=== PATIENT | male | born 1930 | race Caucasian/White ===

== ENCOUNTER 2016-11-15 05:52 | Inpatient (IN) | payer BC, OTHER ==
[2016-10-31 08:22] VITALS: BMI 24.0
--- NOTE | 2016-10-31 09:06 | PAT Medication Instructions ---
Service Date Oct 31, 2016. Current Home Medication List Amlodipine (Norvasc), 10 MG PO BID Aspirin (Aspirin Ec), 81 MG PO QAM Cyanocobalamin (Vitamin B12 100 Mcg), 100 MCG PO QAM Gabapentin (Neurontin), 100 MG PO QAM Gabapentin (Neurontin), 200 MG PO HS Lisinopril (Lisinopril), 5 MG PO BID Pantoprazole (Protonix), 40 MG PO BID Medication Instructions For Your Scheduled Surgery - Check with surgeon/site engineer: Aspirin (Aspirin Ec), 81 MG PO QAM - Hold the following medications the morning of surgery: Lisinopril (Lisinopril), 5 MG PO BID Cyanocobalamin (Vitamin B12 100 Mcg), 100 MCG PO QAM - Take the following medications the morning of surgery with a sip of water: Amlodipine (Norvasc), 10 MG PO BID Pantoprazole (Protonix), 40 MG PO BID Gabapentin (Neurontin), 100 MG PO QAM - Hold the following medications as scheduled the night before surgery: Lisinopril (Lisinopril), 5 MG PO BID - Take the following medications as scheduled the night before surgery: Amlodipine (Norvasc), 10 MG PO BID Pantoprazole (Protonix), 40 MG PO BID Gabapentin (Neurontin), 200 MG PO HS If you have any questions please call us at [phone] (Elise Shine PA-C) or [phone] or [phone]
[2016-10-31 09:42] LABS: BASO % 0.1 %; BASO ABS # 0.01 K/uL (0-0.2); COMPLETE YES; EOS % 2.1 %; HEMATOCRIT 48.3 % (42-52); IG% 0.1 %; LYMPH % 3.9 %; MEAN CELL VOLUME 94.2 fL (80-100); MEAN CORPUSCULAR HEMOGLOBIN 31.4 pg (25-34); MEAN CORPUSCULAR HGB CONC 33.3 g/dl (32-36); MEAN PLATELET VOLUME 12.9 fL (7.4-10.4); MONO % 3.8 %; PLATELET COUNT 176 K/uL (130-400); RED BLOOD COUNT 5.13 M/uL (4.7-6.1)
--- NOTE | 2016-10-31 10:00 | DIAGNOSTIC IMAGING REPORT ---
CHEST PREADMISSION(PA/LAT) HISTORY: Preop. COMPARISON: Chest 11/10/2014. FINDINGS: No pneumothorax. No pleural effusions. The heart is normal in size. There are few linear density at the left lung base which favor subsegmental atelectasis or scarring. Spinal electrodes are noted within the mid thoracic region. There is electronic device implanted within the left anterior chest wall. An IVC filter is noted. A 1 cm left basilar nodule remains stable. IMPRESSION: No significant change compared to the prior study. No acute process. Stable left basilar subsegmental atelectasis and a 1 cm nodule. Electronically signed by: George Lilly M.D. 10/31/2016 9:59 AM
[2016-10-31 10:03] LABS: URINE APPEARANCE CLEAR (CLEAR); URINE BILIRUBIN NEG (NEG); URINE COLOR YELLOW; URINE EPITHELIAL CELL AUTO 0-5 /lpf (0-5); URINE NITRITE NEG (NEG); URINE SPECIFIC GRAVITY 1.017 (1.000-1.030); UROBILINOGEN NEG (NEG)
[2016-10-31 10:11] LABS: MANUAL MICROSCOPIC REQUIRED? NO; REVIEW REQ? NO
[2016-10-31 10:20] LABS: CALCIUM 9.4 mg/dl (8.5-10.1)
[2016-10-31 10:21] LABS: BUN/CREATININE RATIO 13.8 (10-20); CREATININE 1.3 mg/dl (0.60-1.40); POTASSIUM 4.6 mmol/L (3.5-5.1)
--- NOTE | 2016-11-14 10:51 | HISTORY & PHYSICAL EXAMINATION ---
DATE OF ADMISSION: 11/15/2016 HISTORY: The patient presents to our office with complaint of bilateral buttock pain. This is reproduced with standing and walking. Sitting is comfortable. It does disturb his sleep. He reports he is not using his dorsal column stimulator. MEDICAL HISTORY: Significant for Lyme disease, hypertension. SURGICAL HISTORY: Significant for dorsal column stim implant, rotator cuff repair, hernia repair. ALLERGIES: INCLUDE PHENOBARBITAL. CURRENT MEDICATIONS: Include lisinopril, unknown dosage. SOCIAL HISTORY: He is single, retired. Alcohol use is none. Tobacco use is none. FAMILY HISTORY: Noncontributory. REVIEW OF SYSTEMS: Significant for difficulty walking, heartburn, ringing in ears, frequent urination. PHYSICAL EXAMINATION: VITAL SIGNS: 5 feet 11 inches, 170 pounds. HEENT: Speech appropriate. CARDIOPULMONARY: No gross abnormalities. ABDOMEN: Soft, nontender. GENITOURINARY: Deferred. NEUROLOGIC: Cranial nerves II-XII grossly intact. MUSCULOSKELETAL: Well-healed lumbar incision. Ambulates around with a widened but steady gait. No significant weakness throughout the lower extremities. ASSESSMENT: At this point in time, he has fairly significant spinal stenosis and lateral recess disease at L5-S1. He is very hesitant to pursue surgical intervention for this. PLAN: At this point in time is removal of dorsal column stimulator as he is not using this. Once it has been removed, we can move forward with an MRI of the lumbar spine with possible diagnostic and therapeutic nerve blocks. Risks, benefits, pros, cons and alternatives were outlined in detail for above-mentioned removal of dorsal column stimulator. He is comfortable with proceeding with this.
[~2016-11-15] VITALS: Ht 180.3 cm; Wt 79.4 kg
[2016-11-15] VITALS (7 sets, daily range): BP systolic 131–171; BP diastolic 63–95; PULSE 61–86; TEMP 36.5–36.8; O2SAT 92–100; Ht 180.3 cm; Wt 79.4 kg
[~2016-11-15 05:52] MED LIST: AMLO-114 PO; ASPI81TA28 PO; CYAN100T6 PO; GABA-112 PO; LSN5 PO; PANT40TA PO
[2016-11-15] MEDS ORDERED: FENTANYL CITRATE INJ 50 MCG/1 ML 2 ML VIAL ONE (06:44)
[2016-11-15] MEDS ORDERED: MIDAZOLAM HCL 1 MG/ML 2ML VIAL ONE (06:44)
[2016-11-15] MEDS: LACTATED RINGER'S 1000ML 1,000 ML IV SCH ×3 (06:55→16:51)
--- NOTE | 2016-11-15 07:22 | History & Physical Bridge Note ---
H&P Re-Evaluation Bridge Note: I have examined the patient, reviewed the History & Physical and in the interval since the performance of the History & Physical I have noted the following changes of clinical significance: No changes noted
[2016-11-15] MEDS ORDERED: CEFAZOLIN IV 2,000 MG/60 ML D5W IV ONE (07:28)
[2016-11-15] MEDS ORDERED: NURSING VERBAL MED ORDER STA (07:38)
[2016-11-15] MEDS ORDERED: ONDANSETRON INJ 2 MG/ML 2 ML VIAL IV PRN ×2 (07:45→13:15)
[2016-11-15] MEDS ORDERED: FENTANYL CITRATE INJ 50 MCG/1 ML 2 ML VIAL IV PRN (07:45)
[2016-11-15] MEDS ORDERED: EpHEDrine SULFATE INJ 50 MG/ML AMP IV PRN (07:45)
[2016-11-15] MEDS ORDERED: ATROPINE SULFATE 0.1 MG/ML 5ML SYR IV PRN (07:45)
[2016-11-15] MEDS ORDERED: DEXAMETHASONE SOD INJ 4 MG/ML VIAL ONE (08:04)
[2016-11-15] MEDS ORDERED: PROPOFOL IV EMULSION 10 MG/ML 20 ML VIAL IV ONE (08:04)
[2016-11-15] MEDS ORDERED: ONDANSETRON INJ 2 MG/ML 2 ML VIAL ONE (08:04)
[2016-11-15] MEDS ORDERED: ROCURONIUM BROMIDE 10 MG/ML 5 ML VIAL ONE (08:04)
[2016-11-15] MEDS ORDERED: EpHEDrine SULFATE 50MG/5ML SYR ONE (08:04)
[2016-11-15] MEDS ORDERED: GLYCOPYRROLATE INJ 0.2 MG/ML VIAL ONE (08:04)
[2016-11-15] MEDS ORDERED: NEOSTIGMINE METHYLSULFATE 1 MG/ML 10ML VIAL ONE (08:04)
[2016-11-15] MEDS ORDERED: LIDOCAINE HCL 2% 2 ML VIAL (20MG/ML) ONE (08:04)
[2016-11-15] MEDS ORDERED: OXYCODONE HCL IR 5 MG TAB (IMMEDIATE RELEASE) PO PRN ×2 (08:15→13:15)
[2016-11-15] MEDS ORDERED: ACETAMINOPHEN 325 MG TAB PO PRN (08:15)
[2016-11-15] MEDS ORDERED: HYDROmorphone INJ 1 MG/ML SYR IV PRN ×2 (08:15→13:15)
[2016-11-15] MEDS ORDERED: ACETAMINOPHEN 650 MG SUPP PR PRN (08:15)
--- NOTE | 2016-11-15 08:15 | [facility] Post Operative Brief Note ---
Immediate Operative Summary Operative Date Nov 15, 2016. Pre-Operative Diagnosis Significant spinal stenosis and lateral recess disease at L5-S1 Post-Operative Diagnosis Significant spinal stenosis and lateral recess disease at L5-S1 Procedure(s) Performed Dorsal Stim Removal Surgeon Dr. Nawaf Simmons Windlace Machine Operator Surgeon(s) Trudi Galeas PA-C Estimated Blood Loss 25 Findings none Specimens Specimen A. Explanted Dorsal Stimulator
[2016-11-15] MEDS ORDERED: BACITRACIN 50000 UNIT VIAL IR ONE (08:20)
[2016-11-15] MEDS ORDERED: BUPIVACAINE/EPINEPHRINE 0.5% MPF 1:200,000 30 ML VIAL INJ ONE (08:20)
[2016-11-15] MEDS ORDERED: OXYC-57 PO (08:21)
--- NOTE | 2016-11-15 08:22 | Discharge Instructions ---
Discharge Instructions Admission Reason for Admission: Low Back Pain Discharge Discharge Diagnosis / Problem: painful hardware Discharge Goals Goal(s): Decrease discomfort Activity Recommendations Activity Limitations: per Instructions/Follow-up section . Instructions / Follow-Up Instructions / Follow-Up ACTIVITY RECOMMENDATIONS: SELF CARE INSTRUCTIONS AFTER A LAMINECTOMY 1. No prolonged sitting (less than 30 minutes for the first 3 weeks after surgery). 2. No bending, lifting more than 5 pounds, or twisting (roll like a log when turning in bed). 3. You may shower 3 days after surgery if no drainage from wound. Thoroughly dry wound. Do not soak in the tub. 4. Please walk as much as you can for exercise. Gradually increase the distance that you walk as your endurance increases. 5. You may drive in 7-10 days if you are comfortable and no longer requiring pain medications. SPECIAL CARE INSTRUCTIONS: VERY IMPORTANT TO READ AND REVIEW A. Your surgical incision has been closed with a cosmetic suture under the skin that will dissolve in about 6 weeks. In 14 days, you can use a pair of clean scissors and cut the suture that is left outside of the skin at the ends of your incision. B. Complications are uncommon, but please contact us if you have any signs or symptoms of: 1. wound infection (fever higher than 102.5 degrees F, redness, separation of wound, drainage, or increasing pain from the incision) 2. blood clots in legs (pain, swelling, redness and warmth in legs) 3. urinary tract infection (fever higher than 102.5 degrees, burning upon urination or increased frequency of urination) 4. nerve problems (inability to walk on your toes or heels, numbness, loss of bowel or bladder control) 5. any other symptoms that concern you. C. Please call the office at if you have any concerns or questions about your operation or recovery. MANAGING PAIN AFTER SPINAL SURGERY 1. Narcotic medication is intended for short-term use and will be provided for surgical pain. Surgical pain usually lasts for a period of 4-6 weeks. Narcotic medication includes Percocet, Vicodin, Darvocet, Tylenol #3 or Lortab. 2. Longer-term pain is more appropriately treated with non-narcotic medication such as Tylenol ES. 3. Muscle spasm is not appropriately treated with narcotics. Muscle relaxers such as Soma, Flexeril or Skelaxin can be used along with Tylenol ES. 4. Remember that we all live with some "aches and pains". This is not unusual or uncommon after an injury or as we get older. 5. We will provide appropriate medication within the normal guidelines of their prescribed use. We will also be very cautious and aware of potential abuse and extended duration of patients' medication needs. 6. Please allow 2-3 days to process refills. Prescriptions will not be mailed but must be picked up at the office. FOLLOW UP VISIT: Keep your scheduled follow-up appointment. Any questions, please call the office at . Current Hospital Diet Patient's current hospital diet: Discharge Diet Recommended Diet: Regular Diet Procedures Procedures Performed: Dorsal Stim Removal Pending Studies Studies pending at discharge: no Medical Emergencies . Who to Call and When: Medical Emergencies: If at any time you feel your situation is an emergency, please call 911 immediately. . Non-Emergent Contact Non-Emergency issues call your: Primary Care Provider . "Provider Documentation" section prepared by Nawaf Simmons. VTE Core Measure Inpt VTE Proph given/why not?: Ren Ford, SCD's
--- NOTE | 2016-11-15 08:36 | DIAGNOSTIC IMAGING REPORT ---
INTRAOPERATIVE SPINE 3 VIEWS CLINICAL HISTORY: Dorsal stimulator removal COMPARISON STUDY: Lumbar spine CT dated 10/01/2016 FINDINGS: 3 intraoperative fluoroscopic spot images are provided for interpretation. 5 seconds of fluoroscopic time was utilized. An IVC filter is visualized. There are postlaminectomy changes within the lumbar spine. Image #1 demonstrates an electrode projected over the T9 vertebra. IMPRESSION: Intraoperative fluoroscopic spot images as described above Electronically signed by: Ricardo Slaughter M.D. 11/15/2016 8:34 AM
--- NOTE | 2016-11-15 09:35 | Anesthesiology Progress Note ---
Anesthesia Post Op Note Date & Time Nov 15, 2016 at 09:35 Vital Signs Pain Intensity: 0 Vital Signs Past 12 Hours Date Time Temp Pulse Resp B/P Pulse Ox O2 Delivery O2 Flow Rate FiO2 11/15/16 09:15 36.1 72 21 151/83 92 Room Air 11/15/16 09:05 74 21 146/83 92 Room Air 11/15/16 08:55 67 16 145/84 99 Room Air 11/15/16 08:45 74 16 157/88 100 Mask 10 11/15/16 08:36 36.2 73 16 159/82 98 Mask 15 11/15/16 06:30 36.6 61 20 171/95 97 Room Air Notes Mental Status: alert / awake / arousable, participated in evaluation Pt Amnestic to Procedure: Yes Nausea / Vomiting: adequately controlled Pain: adequately controlled Airway Patency, RR, SpO2: stable & adequate BP & HR: stable & adequate Hydration State: stable & adequate Anesthetic Complications: no major complications apparent
[2016-11-15] MEDS ORDERED: HYDROmorphone INJ 2 MG/ML SYR/VIAL IV PRN (10:45)
--- NOTE | 2016-11-15 11:08 | OPERATIVE REPORT ---
DATE OF OPERATION: 11/15/2016 PREOPERATIVE DIAGNOSIS: Painful hardware, unsuccessful dorsal column stimulator placement. POSTOPERATIVE DIAGNOSIS: Same. PROCEDURES PERFORMED: 1. Revision laminotomy T10. 2. Thus removal of dorsal column paddle lead in thoracic spine as well as removal of battery. SURGEON: Dr. Nawaf Simmons. THEATER TECHNICIAN: Trudi Keating PA-C. Due to the complex nature of the procedure, the entire surgery was performed with the construction management assistant of PAUL Lundberg. The assistant banquet manager, under direct supervision, was involved in the actual performance of all aspects of the surgical procedure including hemostasis, tissue retraction and incision, instrument management, patient positioning, and wound closure. ANESTHESIA: General. DISPOSITION: The patient awakened and taken to PACU in stable condition. HISTORY OF PATIENT'S PROBLEMS: An 86-year-old male who presents with above-mentioned diagnosis. Despite several attempts at programming, he found the dorsal column stimulator not effective and was no longer using it. He is a very thin individual and the battery pack was quite uncomfortable for him. Subsequently, he elected to have the dorsal column stimulator and battery removed. Risks, benefits, pros, cons, and alternatives were outlined in detail preoperatively. OPERATION AND FINDINGS: The patient was met preoperatively, case discussed and all questions were addressed. At that point the patient was taken back to the operative suite and after undergoing successful general intubation by the department of anesthesia was placed in prone position on Josesito table with a chest pad and hip bolsters. All bony prominences were well padded and the eyes were inspected to ensure there was no external pressure placed upon them. At this point the thoracolumbar spine was prepped and draped in normal sterile fashion. With the assistance of fluoroscopy, identified the previous laminotomy site at T10 and the battery area as well. Sharp dissection with the assistance of Bovie cautery was performed down to and exposing the T10 lamina and wire leads. I then performed a revision laminotomy at T10, loosening the paddle lead from its fibrous position and was able to remove this without difficulty. It was cut and removed in its entirety. I then proceeded to the battery site. Sharp dissection was performed of the battery pocket and the battery was removed without difficulty. I sharply excised the fibrous pocket and placed a 7 flat JENSEN drain, sewing down the fascial layers with interrupted Vicryl. We also used interrupted Vicryl at the laminotomy site and Monocryl for final skin closure. Steri-Strips and sterile dressing placed. The patient was awakened and taken to PACU in stable condition. I attest to the content of the Intraoperative Record and any orders documented therein. Any exceptio ns are noted below.
[2016-11-15] MEDS ORDERED: MAGNESIUM HYDROXIDE SUSP 30 ML UDC PO PRN (13:15)
[2016-11-15] MEDS ORDERED: DO NOT ADMINISTER PNEUMOCOCCAL VACCINE PRN ×2 (13:15)
[2016-11-15] MEDS ORDERED: DO NOT ADMINISTER FLU VACCINE PRN ×3 (13:15)
[2016-11-15] MEDS: CEFAZOLIN IV 1,000 MG in DEXTROSE 5% 50ML 50 ML IV SCH (18:13)
[2016-11-15] MEDS: DOCUSATE SODIUM 100 MG CAP PO SCH (22:06)
[2016-11-16] VITALS (9 sets, daily range): BP systolic 133–189; BP diastolic 66–101; PULSE 64–85; TEMP 36.6–36.9; O2SAT 93–97
[2016-11-16] MEDS: CEFAZOLIN IV 1,000 MG in DEXTROSE 5% 50ML 50 ML IV SCH ×2 (02:36→09:04)
[2016-11-16] MEDS: LACTATED RINGER'S 1000ML 1,000 ML IV SCH (05:49)
--- NOTE | 2016-11-16 08:19 | Anesthesiology Progress Note ---
Anesthesia Post Op Note Date & Time Nov 16, 2016 at 08:18 Vital Signs Vital Signs Past 12 Hours Date Time Temp Pulse Resp B/P Pulse Ox O2 Delivery O2 Flow Rate FiO2 11/16/16 07:25 36.6 68 15 157/75 94 Room Air 11/16/16 03:30 36.6 64 17 148/75 93 Room Air 11/16/16 00:20 Room Air 11/15/16 22:32 36.8 74 16 131/63 92 Room Air Notes Mental Status: alert / awake / arousable, participated in evaluation Pt Amnestic to Procedure: Yes Nausea / Vomiting: adequately controlled Pain: adequately controlled Airway Patency, RR, SpO2: stable & adequate BP & HR: stable & adequate Hydration State: stable & adequate Anesthetic Complications: no major complications apparent
--- NOTE | 2016-11-16 08:40 | PROGRESS NOTE ---
DATE: 11/16/2016 HISTORY OF PRESENT ILLNESS: Mr. Blum unfortunately required multiple straight caths last evening and we may have to put a Wyatt in him today. He is having no pain or leg symptoms. However, on physical exam I am appreciating significant hematoma at the site of the battery removal. This is despite the drain being in place and appearing to be operational. ASSESSMENT: Status post removal of dorsal column stimulator and battery. PLAN: At this time, we will obtain MRI of the lumbar spine today for continued back and bilateral leg pain. I will make him n.p.o. after midnight and perform I\T\D of the battery and site excision tomorrow. Hopefully, we will get him home afterwards.
[2016-11-16] MEDS: DOCUSATE SODIUM 100 MG CAP PO SCH ×2 (09:03→22:06)
[2016-11-16] MEDS ORDERED: NURSING VERBAL MED ORDER ONE ×2 (18:00→21:30)
[2016-11-16] MEDS ORDERED: LISINOPRIL 5 MG TAB PO ONE (18:00)
[2016-11-16] MEDS ORDERED: AMLODIPINE BESYLATE 5 MG TAB PO ONE (18:00)
[2016-11-16] MEDS ORDERED: HydrALAZINE HCL 20 MG/ML VIAL IV. PRN (20:45)
--- NOTE | 2016-11-16 21:32 | History and Physical ---
History & Physical Date & Time of Service: Nov 16, 2016 at 21:05 Chief Complaint: Low Back Pain Primary Care Physician: José Miguel Cano M.D. History of Present Illness Source: patient 86 y/o M post removal of a dorsal spinal stimulator battery. Post op course has been complicated by a minor hemorrhage around the surgical site, urinary retention and uncontrolled HTN. The medical service is consulted to address the latter 2 issues. The pt at the time of evaluation denies CP, SOB N/V or significant back pain. His primary complaint is a distended painful bladder which was scanned to reveal nearly a litre of retention. A Clark has been ordered as a result. 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 - no smoking history - denies ETOH Smoking Status: Never Smoker Marital Status: Housing status: other Occupational Status: retired Immunizations History of Influenza Vaccine: N/A Influenza Vaccine Date: Aug 21, 2009 History of Tetanus Vaccine?: Yes Tetanus Immunization Date: Aug 02, 2007 History of Pneumococcal: Yes Pneumococcal Date: Aug 02, 2010 History of Hepatitis B Vaccine: Unknown Multi-Drug Resistant Organisms History of MDRO: No Allergies Coded Allergies: Phenobarbital (Verified Allergy, Mild, RASH, 11/15/16) Clopidogrel (Verified Allergy, Unknown, RASH, 11/15/16) Ibuprofen (Verified Allergy, Unknown, unknown to patient, 11/15/16) Home Medications Scheduled Amlodipine (Norvasc), 10 MG PO BID Aspirin (Aspirin Ec), 81 MG PO QAM Cyanocobalamin (Vitamin B12 100 Mcg), 100 MCG PO QAM Gabapentin (Neurontin), 100 MG PO QAM Lisinopril (Lisinopril), 5 MG PO BID Pantoprazole (Protonix), 40 MG PO BID Scheduled PRN Oxycodone/Acetaminophen 5MG/325MG (Percocet 5MG/325MG), 1 TABLET PO Q4H PRN for Pain Review of Systems Constitutional: No chills, No fever, No sweats Eyes: No worsening of vision ENT: No hearing loss, No unusual epistaxis Respiratory: No cough, No sputum, No wheezing Cardiovascular: No PND, No chest pain, No orthopnea Abdomen: No nausea, No pain, No vomiting Musculoskeletal: + muscle pain (chronic back pain) Genitourinary - Male: + dysuria, + problem reported (Bladder pain and distention), + urinary retention Neurologic: No memory loss, No paralysis Psychiatric: No depression symptoms Endocrine: No fatigue Hematologic / Lymphatic: No abnormal bleeding/bruising Integumentary: No rash Allergic / Immunologic: No environmental allergies Physical Exam Vital Signs Date Time Temp Pulse Resp B/P Pulse Ox O2 Delivery O2 Flow Rate FiO2 11/16/16 19:27 79 189/95 11/16/16 16:00 189/90 11/16/16 15:16 36.6 80 18 185/101 94 Room Air 11/16/16 11:55 36.6 70 16 137/66 97 Room Air 11/16/16 08:23 Room Air 11/16/16 07:25 36.6 68 15 157/75 94 Room Air 11/16/16 03:30 36.6 64 17 148/75 93 Room Air 11/16/16 00:20 Room Air 11/15/16 22:32 36.8 74 16 131/63 92 Room Air General Appearance: WD/WN, no apparent distress, + pertinent finding (Elderly male - mild distress due to bladder pain prior to clark insertion) Head: normocephalic Eyes: normal inspection ENT: normal ENT inspection Neck: supple Respiratory/Chest: chest non-tender, lungs clear, normal breath sounds, no respiratory distress, no accessory muscle use Cardiovascular: regular rate, rhythm, no edema, no gallop, no JVD, no murmur, normal peripheral pulses Abdomen/GI: normal bowel sounds, non tender, + pertinent finding (Suprapubic area distended and tender) Back: + pertinent finding (Drain placed - blood tinged fluid present) Extremities/Musculoskelatal: normal inspection Neurologic/Psych: ramp service man II-XII nml as tested, no motor/sensory deficits, alert, normal mood/affect Skin: normal color, warm/dry, no rash Impression Assessment and Plan 86 y/o M post removal of a dorsal spinal stimulator battery. Post op course has been complicated by a minor hemorrhage around the surgical site, urinary retention and uncontrolled HTN. The medical service is consulted to address the latter 2 issues. The pt at the time of evaluation denies CP, SOB N/V or significant back pain. His primary complaint is a distended painful bladder which was scanned to reveal nearly a litre of retention. A Clark has been ordered as a result. 1) Post - op - complicated by urinary retention and HTN - pt otherwise stable - management of drain to discretion of orthopedics. 2) Uncontrolled HTN - This appears to correlate with urinary retention - will await cath placement to determine effect on pts pressure - a small dose of PRN Hydralazine will be ordered 3) Urinary retention - Clark placed - would consult urology if this does not resolve although it is not an unusual complication. Total time for this consult 32 min Level of Care Telemetry Advanced Directives Existing Advance Directive: No Existing Living Will: No Existing Power of Carboy Filler: No Resuscitation Status FULL RESUSCITATION VTE Prophylaxis Risk Level: Low Given or contraindicated: Ren Ford, SCD's
[2016-11-16] MEDS ORDERED: LIDOCAINE 2% JELLY 5 ML TUBE EXT SCH (22:00)
[2016-11-17] VITALS (11 sets, daily range): BP systolic 95–130; BP diastolic 46–73; PULSE 67–87; TEMP 36.3–36.9; O2SAT 90–97
[2016-11-17] MEDS ORDERED: BISACODYL 5 MG TABEC PO PRN (06:00)
[2016-11-17] MEDS ORDERED: BISACODYL 10 MG SUPP PR PRN (06:00)
[2016-11-17] MEDS: DOCUSATE SODIUM 100 MG CAP PO SCH ×2 (08:25→21:00)
[2016-11-17] MEDS: LISINOPRIL 5 MG TAB PO SCH ×2 (09:29→21:35)
[2016-11-17] MEDS: AMLODIPINE BESYLATE 5 MG TAB PO SCH (09:29)
[2016-11-17] MEDS ORDERED: FENTANYL CITRATE INJ 50 MCG/1 ML 2 ML VIAL ONE (10:56)
[2016-11-17] MEDS ORDERED: MIDAZOLAM HCL 1 MG/ML 2ML VIAL ONE (10:56)
[2016-11-17] MEDS ORDERED: CEFAZOLIN IV 2,000 MG/60 ML D5W IV ONE (11:26)
[2016-11-17] MEDS ORDERED: BACITRACIN 50000 UNIT VIAL IR ONE (11:55)
--- NOTE | 2016-11-17 12:01 | [facility] Post Operative Brief Note ---
Immediate Operative Summary Operative Date Nov 17, 2016. Pre-Operative Diagnosis Lumbar hematoma Post-Operative Diagnosis same as preop Procedure(s) Performed Incision and Drainage Lumbar Hematoma Surgeon Dr. Simmons Marketing Intern Surgeon(s) GENI Gomez Estimated Blood Loss 10mL Findings hematoma Specimens none per surgeon
[2016-11-17] MEDS ORDERED: DO NOT ADMINISTER FLU VACCINE PRN ×3 (12:15)
[2016-11-17] MEDS ORDERED: ACETAMINOPHEN 500 MG TAB PO PRN (12:15)
[2016-11-17] MEDS ORDERED: HYDROmorphone INJ 1 MG/ML SYR IV PRN (12:15)
[2016-11-17] MEDS ORDERED: ACETAMINOPHEN 325 MG TAB PO PRN (12:15)
[2016-11-17] MEDS ORDERED: ONDANSETRON INJ 2 MG/ML 2 ML VIAL IV PRN ×2 (12:15→12:45)
[2016-11-17] MEDS ORDERED: DO NOT ADMINISTER PNEUMOCOCCAL VACCINE PRN ×2 (12:15)
[2016-11-17] MEDS ORDERED: MAGNESIUM HYDROXIDE SUSP 30 ML UDC PO PRN (12:15)
[2016-11-17] MEDS ORDERED: OXYCODONE HCL IR 5 MG TAB (IMMEDIATE RELEASE) PO PRN (12:15)
[2016-11-17] MEDS ORDERED: ATROPINE SULFATE 0.1 MG/ML 5ML SYR IV PRN (12:45)
[2016-11-17] MEDS ORDERED: EpHEDrine SULFATE INJ 50 MG/ML AMP IV PRN (12:45)
[2016-11-17] MEDS ORDERED: PHENYLEPHRINE 100MCG/ML 5ML SYR IV PRN (12:45)
[2016-11-17] MEDS ORDERED: HYDROmorphone INJ 2 MG/ML SYR/VIAL IV PRN (12:45)
--- NOTE | 2016-11-17 12:45 | Anesthesiology Progress Note ---
Anesthesia Post Op Note Date & Time Nov 17, 2016 at 12:45 Vital Signs Pain Intensity: 0 Vital Signs Past 12 Hours Date Time Temp Pulse Resp B/P Pulse Ox O2 Delivery O2 Flow Rate FiO2 11/17/16 12:40 71 14 122/65 96 Mask 10 11/17/16 12:30 80 16 130/72 96 Mask 10 11/17/16 12:22 36.4 88 16 131/79 96 Mask 10 11/17/16 08:13 94 Room Air 11/17/16 08:13 94 Room Air 11/17/16 07:52 36.8 67 19 130/60 90 Room Air 11/17/16 07:10 Room Air Notes Mental Status: alert / awake / arousable, participated in evaluation Pt Amnestic to Procedure: Yes Nausea / Vomiting: adequately controlled Pain: adequately controlled Airway Patency, RR, SpO2: stable & adequate BP & HR: stable & adequate Hydration State: stable & adequate Anesthetic Complications: no major complications apparent
--- NOTE | 2016-11-17 12:53 | OPERATIVE REPORT ---
DATE OF OPERATION: 11/17/2016 PREOPERATIVE DIAGNOSIS: Hematoma, right flank status post removal of dorsal column stimulator battery. POSTOPERATIVE DIAGNOSIS: Same. PROCEDURE PERFORMED: I\T\D evacuation of hematoma. SURGEON: Dr. Nawaf Simmons. LINOLEUM LAYER APPRENTICE: Anuel Simpson. Due to the complex nature of the procedure, the entire surgery was performed with the assistant professor of english of PAUL Gastelum.? The medical assistant ob gyn, under direct supervision, was involved in the actual performance of all aspects of the surgical procedure including hemostasis, tissue retraction and incision, instrument management, patient positioning, and wound closure. ANESTHESIA: General. DISPOSITION: The patient awakened and taken to PACU in stable condition. HISTORY OF PATIENT'S PROBLEMS: This is an 86-year-old male who is status post removal of dorsal column stimulator. Unfortunately, postoperatively he developed a substantial hematoma in the right flank. Subsequently, he elected to undergo I\T\D and evacuation of hematoma. Risks, benefits, pros, cons, and alternatives were outlined in detail preoperatively. DESCRIPTION OF PROCEDURE: The patient was met with preoperatively, case discussed and all questions were addressed. At that point the patient was taken back to operative suite and after undergoing successful general intubation by the department of anesthesia was placed in prone position on Josesito table atop Lamont frame. All bony prominences were well padded and the eyes were inspected to ensure there was no external pressure placed upon them. At this point, the lumbar spine was prepped and draped in normal sterile fashion. Utilizing the previous incision at the battery site, sharp dissection was performed down to and exposing significant quantities of hematoma filling the pocket. This was washed out with several liters of antibiotic solution. We then reapproximated the skin with interrupted Vicryl and Monocryl for final skin closure. A 7 flat JENSEN drain was inserted. The patient was awakened and taken to PACU in stable condition. I attest to the content of the Intraoperative Record and any orders documented therein. Any exceptio ns are noted below.
--- NOTE | 2016-11-17 13:05 | Progress Note ---
Subjective Date of Service: Nov 17, 2016. Subjective Pt evaluation today including: conversation w/ patient, physical exam, chart review, lab review, review of studies, review of inpatient medication list Pt resting comfortably in bed Denies any pain or discomfort Wyatt still in place Review of Systems Constitutional: No chills, No fever Respiratory: No cough, No dyspnea on exertion, No shortness of breath, No sputum, No wheezing Cardiac: No chest pain, No orthopnea Abdomen: No diarrhea, No nausea, No pain, No vomiting Musculoskeletal: No joint pain, No muscle pain Male : + problem reported (urinary retention), No dysuria Objective Vital Signs Date Time Temp Pulse Resp B/P Pulse Ox O2 Delivery O2 Flow Rate FiO2 11/17/16 12:50 65 13 113/59 96 Nasal Cannula 2 11/17/16 12:40 71 14 122/65 96 Mask 10 11/17/16 12:30 80 16 130/72 96 Mask 10 11/17/16 12:22 36.4 88 16 131/79 96 Mask 10 11/17/16 08:13 94 Room Air 11/17/16 08:13 94 Room Air 11/17/16 07:52 36.8 67 19 130/60 90 Room Air 11/17/16 07:10 Room Air 11/17/16 00:05 Room Air 11/16/16 22:55 36.9 85 18 153/72 94 Room Air 11/16/16 21:39 133/73 11/16/16 19:27 79 189/95 11/16/16 16:00 189/90 11/16/16 15:30 94 Room Air 11/16/16 15:16 36.6 80 18 185/101 94 Room Air Physical Exam General Appearance: WD/WN, no apparent distress Neck: supple, no adenopathy Respiratory/Chest: chest non-tender, lungs clear Cardiovascular: no edema, no gallop Abdomen: non tender, soft Extremities: non-tender, normal inspection Neurologic/Psychiatric: alert, normal mood/affect, oriented x 3 Assessment and Plan 86 y/o M post removal of a dorsal spinal stimulator battery. Post op course has been complicated by a minor hemorrhage around the surgical site, urinary retention and uncontrolled HTN. The medical service is consulted to address the latter 2 issues. The pt at the time of evaluation denies CP, SOB N/V or significant back pain. His primary complaint is a distended painful bladder which was scanned to reveal nearly a litre of retention. A Wyatt has been ordered as a result. 1) POD#1 - Pain controlled - management of drain to discretion of orthopedics. 2) Uncontrolled HTN - Resolved. This appears to correlate with urinary retention -controlled with PRN Hydralazine will be ordered 3) Urinary retention - Wyatt placed - would consult urology if this does not resolve although it is not an unusual complication.
[2016-11-17] MEDS ORDERED: HYDROmorphone INJ 2 MG/ML SYR/VIAL ONE (13:10)
[2016-11-17] MEDS ORDERED: EpHEDrine SULFATE 50MG/5ML SYR ONE (13:11)
[2016-11-17] MEDS ORDERED: ONDANSETRON INJ 2 MG/ML 2 ML VIAL ONE (13:11)
[2016-11-17] MEDS ORDERED: ROCURONIUM BROMIDE 10 MG/ML 5 ML VIAL ONE (13:11)
[2016-11-17] MEDS ORDERED: PHENYLEPHRINE 100MCG/ML 5ML SYR ONE (13:11)
[2016-11-17] MEDS ORDERED: GLYCOPYRROLATE INJ 0.2 MG/ML VIAL ONE (13:11)
[2016-11-17] MEDS ORDERED: NEOSTIGMINE METHYLSULFATE 1 MG/ML 10ML VIAL ONE (13:11)
[2016-11-17] MEDS ORDERED: LIDOCAINE HCL 2% 2 ML VIAL (20MG/ML) ONE (13:11)
[2016-11-17] MEDS ORDERED: PROPOFOL IV EMULSION 10 MG/ML 20 ML VIAL IV ONE (13:11)
[2016-11-17] MEDS ORDERED: NURSING VERBAL MED ORDER ONE (13:15)
[2016-11-17] MEDS: LACTATED RINGER'S 1000ML 1,000 ML IV SCH ×2 (13:20→23:43)
[2016-11-17] MEDS: CEFAZOLIN IV 1,000 MG in DEXTROSE 5% 50ML 50 ML IV SCH ×2 (15:57→23:43)
--- NOTE | 2016-11-17 20:36 | GENITOURINARY CONSULTATION ---
DATE OF CONSULTATION: 11/17/2016 REASON FOR THE CONSULT: Urinary retention. HISTORY OF PRESENTATION: The patient is an 86-year-old male with back pain who was here to have a spinal stimulator removed surgically on the . He did this and had difficulty urinating after the surgery and then had a catheter placed apparently last night after being straight cathed several times with large residuals. He had surgery again today and now presents with a catheter and I was consulted. Of note, the patient is somewhat of a difficult historian. He initially denied having any problems urinating, but then on further questioning does state that he has nocturia x4, has seen a urologist previously on [place], was given a medication that did not help and he has taken over the counter medications for frequent urination, that also has not helped. He thinks he last saw a urologist 5-6 years ago. He denies having a previous prostate biopsy. He does not know what his previous PSAs were. I did order a PSA earlier today that has come back 15.3, which is somewhat concerning. Given his age, it is quite likely that he could have some prostate cancer, but given his recent back surgery, I am not going to examine his prostate at this time. PAST SURGICAL HISTORY: Significant for rotator cuff repair, hernia repair and dorsal columns stimulator implantation. PAST MEDICAL HISTORY: Significant for Lyme disease and hypertension. ALLERGIES: INCLUDE PHENOBARBITAL. MEDICATIONS: Includes lisinopril. SOCIAL HISTORY: He is retired and does not use alcohol or tobacco. REVIEW OF SYSTEMS: Significant for difficulty walking, heartburn, ringing in the ears and urinary frequency. PHYSICAL EXAMINATION: GENERAL: The patient is a well-developed male, in no obvious distress. HEENT: Noncontributory. HEART AND LUNGS: He has no respiratory difficulty and has no quick significant pedal edema. ABDOMEN: Benign. GENITOURINARY: Shows a normal phallus with a Wyatt catheter in place draining clear urine. EXTREMITIES: Unremarkable. NEUROLOGIC: The patient is alert and responsive, although he does seem to have some memory lapses. ASSESSMENT AND PLAN: Elevated PSA and urinary retention. At this time, will start finasteride pending prostate exam. I do have some concern about the elevated PSA even possibly conjunction with bone pain, but I assume that spinal x-rays did not show any obvious blastic lesions. Will discuss this further with Dr. Simmons as the patient obviously has had longstanding back pain. Would leave the Wyatt catheter in place at this juncture for 7-10 days until the patient is able to ambulate and then possibly give a voiding trial in the office and examine the prostate for further evaluation for elevated PSA.
[2016-11-17] MEDS ORDERED: DOCUSATE SODIUM 100 MG CAP PO SCH (21:00)
[2016-11-18] MEDS: ACETAMINOPHEN 500 MG TAB PO PRN ×2 (02:01→07:48)
[2016-11-18 04:18] VITALS: BP 115/53; PULSE 70; TEMP 36.9; O2SAT 93
[2016-11-18 07:15] VITALS: BP 106/59; PULSE 69; TEMP 36.6; O2SAT 92
[2016-11-18] MEDS: CEFAZOLIN IV 1,000 MG in DEXTROSE 5% 50ML 50 ML IV SCH (07:48)
[2016-11-18] MEDS: DOCUSATE SODIUM 100 MG CAP PO SCH ×2 (09:01→20:35)
[2016-11-18] MEDS: AMLODIPINE BESYLATE 5 MG TAB PO SCH (09:02)
[2016-11-18] MEDS: POLYETHYLENE (MIRALAX) 17 GM PACK PO SCH (09:02)
[2016-11-18] MEDS: LISINOPRIL 5 MG TAB PO SCH ×2 (09:03→20:35)
[2016-11-18] MEDS: FINASTERIDE 5 MG TAB PO SCH (09:03)
--- NOTE | 2016-11-18 10:39 | Progress Note ---
Subjective Date of Service: Nov 18, 2016. Subjective Pt evaluation today including: conversation w/ patient pt resting comfortably with the clark Objective Vital Signs Date Time Temp Pulse Resp B/P Pulse Ox O2 Delivery O2 Flow Rate FiO2 11/18/16 07:40 Room Air 11/18/16 07:15 36.6 69 15 106/59 92 Nasal Cannula 2.0 11/18/16 04:18 36.9 70 18 115/53 93 Nasal Cannula 2.0 11/17/16 23:20 Nasal Cannula 2.0 11/17/16 23:13 36.8 86 16 122/73 92 Nasal Cannula 2.0 11/17/16 21:29 86 16 125/64 92 Nasal Cannula 2.0 11/17/16 18:52 36.9 87 16 117/61 91 2.0 11/17/16 16:21 36.6 78 16 95/53 97 Nasal Cannula 2.0 11/17/16 15:18 36.5 70 16 107/46 93 Nasal Cannula 2.0 11/17/16 15:15 97 Nasal Cannula 11/17/16 14:23 36.7 70 104/50 92 Nasal Cannula 2.0 11/17/16 13:58 36.5 80 15 111/61 92 Nasal Cannula 2.0 11/17/16 13:28 Nasal Cannula 11/17/16 13:27 36.3 77 12 111/58 Nasal Cannula 2.0 11/17/16 13:00 36.4 63 12 110/60 96 Nasal Cannula 2 11/17/16 12:50 65 13 113/59 96 Nasal Cannula 2 11/17/16 12:40 71 14 122/65 96 Mask 10 11/17/16 12:30 80 16 130/72 96 Mask 10 11/17/16 12:22 36.4 88 16 131/79 96 Mask 10 11/17/16 11:20 36.7 80 20 137/70 94 Room Air 20 Laboratory Results Last 24 Hours Test 11/17/16 15:50 Prostate Specific Antigen 15.300 ng/ml Assessment and Plan Assume he will get mri for back pain . This will help r/o cancer as source of pain as this has been long standing Pt started on finasteride. He has long standing obstructive and irritative symptoms and may have a voiding trial in a week he also will need a moe and assessment for prostate cancer given psa unclear how much catheterization may have affected this
--- NOTE | 2016-11-18 11:12 | PROGRESS NOTE ---
DATE: 11/18/2016 DATE: 11/18/2016. SUBJECTIVE: His pain is controlled today. EJNSEN drained about 50 mL over the last shift. He is neurologically intact. No other complaints. PLAN: At this time, we are pending an MRI of the lumbar spine considering with and without gadolinium to rule out any metastatic disease. We appreciate urology's input and I did explain to the patient, we will maintain the catheter for another week or so. He understands and agrees.
[2016-11-18 11:28] VITALS: BP 101/58; PULSE 73; TEMP 36.8; O2SAT 94
--- NOTE | 2016-11-18 12:07 | Progress Note ---
Subjective Date of Service: Nov 18, 2016. Subjective Pt evaluation today including: conversation w/ patient, physical exam, chart review, lab review, review of studies, review of inpatient medication list States feeling not well but can not describe what is ailing him No fevers, nausea, vomiting or diarrhea Back pain he states has not worsened Review of Systems Constitutional: No chills, No fever Respiratory: No cough, No dyspnea on exertion, No shortness of breath, No sputum, No wheezing Cardiac: No chest pain, No orthopnea Abdomen: No constipation, No diarrhea, No nausea, No pain, No vomiting Musculoskeletal: + joint pain, No muscle pain Male : + problem reported (urinary retention), No dysuria, No urinary frequency Objective Vital Signs Date Time Temp Pulse Resp B/P Pulse Ox O2 Delivery O2 Flow Rate FiO2 11/18/16 11:28 36.8 73 16 101/58 94 Room Air 11/18/16 07:40 Room Air 11/18/16 07:15 36.6 69 15 106/59 92 Nasal Cannula 2.0 11/18/16 04:18 36.9 70 18 115/53 93 Nasal Cannula 2.0 11/17/16 23:20 Nasal Cannula 2.0 11/17/16 23:13 36.8 86 16 122/73 92 Nasal Cannula 2.0 11/17/16 21:29 86 16 125/64 92 Nasal Cannula 2.0 11/17/16 18:52 36.9 87 16 117/61 91 2.0 11/17/16 16:21 36.6 78 16 95/53 97 Nasal Cannula 2.0 11/17/16 15:18 36.5 70 16 107/46 93 Nasal Cannula 2.0 11/17/16 15:15 97 Nasal Cannula 11/17/16 14:23 36.7 70 104/50 92 Nasal Cannula 2.0 11/17/16 13:58 36.5 80 15 111/61 92 Nasal Cannula 2.0 11/17/16 13:28 Nasal Cannula 11/17/16 13:27 36.3 77 12 111/58 Nasal Cannula 2.0 11/17/16 13:00 36.4 63 12 110/60 96 Nasal Cannula 2 11/17/16 12:50 65 13 113/59 96 Nasal Cannula 2 11/17/16 12:40 71 14 122/65 96 Mask 10 11/17/16 12:30 80 16 130/72 96 Mask 10 11/17/16 12:22 36.4 88 16 131/79 96 Mask 10 Physical Exam General Appearance: WD/WN, + mild distress Neck: supple, no adenopathy Respiratory/Chest: lungs clear, normal breath sounds Cardiovascular: no edema, no gallop Abdomen: non tender, soft Neurologic/Psychiatric: alert, oriented x 3 Laboratory Results Last 24 Hours Test 11/17/16 15:50 Prostate Specific Antigen 15.300 ng/ml Assessment and Plan 86 y/o M post removal of a dorsal spinal stimulator battery. Post op course has been complicated by a minor hemorrhage around the surgical site, urinary retention and uncontrolled HTN. The medical service is consulted to address the latter 2 issues. The pt at the time of evaluation denies CP, SOB N/V or significant back pain. His primary complaint is a distended painful bladder which was scanned to reveal nearly a litre of retention. A Clark has been ordered as a result. 1) POD # 2 - Pain controlled - management of drain to discretion of orthopedics. Lumbar hematoma evacuated on 11/17/15 2) Uncontrolled HTN - Resolved. This appears to correlate with urinary retention -controlled with PRN Hydralazine will be ordered 3) Urinary retention - Clark placed - urology consulted and recs leaving clark placed for a week and starting on finasteride. Elev PSA, would also want MRI lumbar spine for evaluation of prostate cancer.
--- NOTE | 2016-11-18 15:38 | DIAGNOSTIC IMAGING REPORT ---
LUMBAR SPINE MRI HISTORY: back and leg pain TECHNIQUE: Multiplanar multisequence MRI of the lumbar spine was performed without the use of contrast. COMPARISON: Lumbar spine CT 10/03/2016. FINDINGS: For the purpose of the report the L5-S1 disc space will be located on axial image 27 of 30. There is 3 mm of anterolisthesis of L4 and L5 and 5 mm of retrolisthesis of L5 on S1. This remains unchanged. The remaining vertebral bodies are well aligned. No fractures. The conus terminates at the L1-L2 disc space. Lumbar spine subcutaneous edema may be due to prior postoperative change. There is again noted posterior decompression from L3 through S1. Moderate to severe facet degenerative changes within the mid to lower lumbar spine remains unchanged. Paraspinal soft tissues are unremarkable. Multiple T2 hyperintense lesion seen within the kidneys. These likely represent cysts. Moderate disc space narrowing at L5-S1. Mild disc space narrowing throughout the remaining of the lumbar spine. This also remains unchanged. L1-L2: No significant central canal or neural foraminal narrowing. L2-L3: Broad-based posterior disc bulge with facet hypertrophy resulting in mild central canal and moderate bilateral neural foraminal narrowing. L3-L4: Small broad-based posterior disc bulge without significant central canal narrowing due to the posterior decompression. There is severe bilateral neural foraminal narrowing. L4-L5: Minimal broad-based posterior disc bulge without central canal narrowing due to the posterior decompression. There is mild to moderate bilateral neural foraminal narrowing. L5-S1: No significant central canal narrowing. There is a small broad-based posterior disc bulge. Severe bilateral neural foraminal narrowing. This is also unchanged. IMPRESSION: 1. No acute fracture identified within the lumbar spine. 2. Multilevel lumbar spondylosis as described above. Overall, this is not significantly change compared to the prior lumbar spine CT myelogram on 10/03/2016. 3. Postoperative changes consistent with prior L3-S1 posterior decompression Electronically signed by: George Lilly M.D. 11/18/2016 3:36 PM Dictated Date/Time: 11/18/2016 3:28 PM
[2016-11-18 15:46] VITALS: BP 100/55; PULSE 83; TEMP 37; O2SAT 90
[2016-11-18 20:33] VITALS: BP 128/67; PULSE 83
[2016-11-18 23:59] VITALS: BP 135/73; PULSE 76; TEMP 36.7; O2SAT 91
[2016-11-19] MEDS ORDERED: BISACODYL 10 MG SUPP PR PRN (06:00)
[2016-11-19] MEDS ORDERED: BISACODYL 5 MG TABEC PO PRN (06:00)
[2016-11-19 07:59] VITALS: BP 129/74; PULSE 74; TEMP 36.9; O2SAT 92
--- NOTE | 2016-11-19 08:16 | ORTHOPEDIC PROGRESS NOTE ---
DATE: 11/19/2016 He is status post removal of dorsal column stimulator and battery pack, as well as 2 days later evacuation of hematoma from surgical site. Today, he has no complaints. He has had some uncontrolled hypertension, as well as urinary retention throughout his hospital stay. Both Urology and the hospitalist staff have been involved in his care. He has a Wyatt catheter in place. He reports no back pain. He states he is up and ambulatory around the room. JENSEN drained last shift was 40 mL. PHYSICAL EXAMINATION: VITAL SIGNS: Stable. LOWER EXTREMITIES: Calves are soft and nontender. Dressing is clean, dry and intact of the lumbar spine. ASSESSMENT: Postoperative day 2 incision and drainage/evacuation of hematoma. Postoperative day 4 removal of external bone growth stimulator and battery pack. IMAGING: I do have an MRI performed yesterday of the lumbar spine. This shows modest neural foraminal stenosis of L2-3, as well as facet hypertrophy. No significant central stenosis L3-4, but there is severe bilateral neural foraminal stenosis of L3-4. L4-5 shows modest bilateral neural foraminal narrowing, as well as central narrowing. L5-S1 shows severe bilateral neural foraminal stenosis. There is also evidence of prior decompression L3 through S1. PLAN: At this point in time, he is still putting out a significant amount of his JENSEN drain. I would like to keep him for another 24 hours. Activity is as tolerated. Urology recommends he maintain his Wyatt catheter for at least a week and then they will do a voiding trial. Will keep his pain under control and hopefully discharge home tomorrow as long as he is stable from a medical standpoint. NOE
[2016-11-19 08:20] LABS: BASO % 0.3 %; BASO ABS # 0.03 K/uL (0-0.2); COMPLETE YES; EOS % 3.9 %; HEMATOCRIT 33.9 % (42-52); IG% 0.3 %; LYMPH % 12.3 %; LYMPH ABS # 1.06 K/uL (1.2-3.4); MEAN CELL VOLUME 95.5 fL (80-100); MEAN CORPUSCULAR HEMOGLOBIN 30.4 pg (25-34); MEAN CORPUSCULAR HGB CONC 31.9 g/dl (32-36); MONO % 9.3 %; NEUT % 73.9 %; PLATELET COUNT 186 K/uL (130-400); RED BLOOD COUNT 3.55 M/uL (4.7-6.1); WHITE BLOOD COUNT 8.61 K/uL (4.8-10.8)
[2016-11-19 08:44] LABS: BUN/CREATININE RATIO 15.4 (10-20); CALCIUM 8.5 mg/dl (8.5-10.1); CREATININE 1.2 mg/dl (0.60-1.40); POTASSIUM 4.2 mmol/L (3.5-5.1)
[2016-11-19] MEDS: FINASTERIDE 5 MG TAB PO SCH (08:44)
[2016-11-19] MEDS: LISINOPRIL 5 MG TAB PO SCH ×2 (08:44→21:18)
[2016-11-19] MEDS: DOCUSATE SODIUM 100 MG CAP PO SCH ×2 (08:45→21:18)
[2016-11-19] MEDS: POLYETHYLENE (MIRALAX) 17 GM PACK PO SCH (08:45)
[2016-11-19] MEDS: AMLODIPINE BESYLATE 5 MG TAB PO SCH (08:45)
--- NOTE | 2016-11-19 10:35 | Progress Note ---
Subjective Date of Service: Nov 19, 2016. Subjective Pt evaluation today including: conversation w/ patient, physical exam, chart review, lab review, review of studies, review of inpatient medication list Pt resting comfortably in bed Denies any pain at this time No further concerns per pt Review of Systems Constitutional: No chills, No fever Respiratory: No cough, No dyspnea on exertion, No shortness of breath, No sputum, No wheezing Cardiac: No chest pain, No orthopnea Abdomen: No diarrhea, No nausea, No pain, No vomiting Musculoskeletal: No joint pain, No muscle pain Male : + problem reported (urinay retention), No dysuria, No urinary frequency Objective Vital Signs Date Time Temp Pulse Resp B/P Pulse Ox O2 Delivery O2 Flow Rate FiO2 11/19/16 08:17 Room Air 11/19/16 07:59 36.9 74 18 129/74 92 Room Air 11/18/16 23:59 36.7 76 18 135/73 91 Room Air 11/18/16 20:33 83 128/67 11/18/16 19:10 Room Air 11/18/16 15:46 37.0 83 18 100/55 90 Room Air 11/18/16 11:28 36.8 73 16 101/58 94 Room Air Physical Exam General Appearance: WD/WN, no apparent distress Neck: supple, no adenopathy Respiratory/Chest: lungs clear, normal breath sounds Cardiovascular: no gallop, no JVD Abdomen: non tender, soft Neurologic/Psychiatric: alert, oriented x 3 Laboratory Results Last 24 Hours Test 11/19/16 08:08 White Blood Count 8.61 K/uL Red Blood Count 3.55 M/uL Hemoglobin 10.8 g/dL Hematocrit 33.9 % Mean Corpuscular Volume 95.5 fL Mean Corpuscular Hemoglobin 30.4 pg Mean Corpuscular Hemoglobin Concent 31.9 g/dl Platelet Count 186 K/uL Mean Platelet Volume 12.0 fL Neutrophils (%) (Auto) 73.9 % Lymphocytes (%) (Auto) 12.3 % Monocytes (%) (Auto) 9.3 % Eosinophils (%) (Auto) 3.9 % Basophils (%) (Auto) 0.3 % Neutrophils # (Auto) 6.35 K/uL Lymphocytes # (Auto) 1.06 K/uL Monocytes # (Auto) 0.80 K/uL Eosinophils # (Auto) 0.34 K/uL Basophils # (Auto) 0.03 K/uL RDW Standard Deviation 49.0 fL RDW Coefficient of Variation 14.1 % Immature Granulocyte % (Auto) 0.3 % Immature Granulocyte # (Auto) 0.03 K/uL Sodium Level 143 mmol/L Potassium Level 4.2 mmol/L Chloride Level 108 mmol/L Carbon Dioxide Level 29 mmol/L Anion Gap 6.0 mmol/L Blood Urea Nitrogen 19 mg/dl Creatinine 1.20 mg/dl Est Creatinine Clear Calc Drug Dose 46.2 ml/min Estimated GFR () 62.6 Estimated GFR (Non- 54.0 BUN/Creatinine Ratio 15.4 Random Glucose 101 mg/dl Calcium Level 8.5 mg/dl Assessment and Plan 86 y/o M post removal of a dorsal spinal stimulator battery. Post op course has been complicated by a minor hemorrhage around the surgical site, urinary retention and uncontrolled HTN. The medical service is consulted to address the latter 2 issues. The pt at the time of evaluation denies CP, SOB N/V or significant back pain. His primary complaint is a distended painful bladder which was scanned to reveal nearly a litre of retention. A Clark has been ordered as a result. 1) POD # 2 - Pain controlled - management of drain to discretion of orthopedics. Lumbar hematoma evacuated on 11/17/15, mild acute blood loss anemia noted postop, although hemodynamically stable 2) Uncontrolled HTN - Resolved. This appears to correlate with urinary retention -controlled with PRN Hydralazine 3) Urinary retention - Clark placed - urology consulted and recs leaving clark placed for a week and starting on finasteride. Elev PSA, MRI lumbar spine did not determined any lesions
--- NOTE | 2016-11-19 13:18 | Progress Note ---
Subjective Date of Service: Nov 19, 2016. Subjective Pt evaluation today including: conversation w/ patient, physical exam, chart review Pt lying iin bed eating lunch had 20 minute discussion with pt about plan from gu POV including voiding trial and need for MOE. Pt given call to make appt in 7 to 10 days for voiding tria . I explained at that time if he voids would maintain him on finasteride while evaluating and discussing options for bph and for possible prostate cancer given his psa of 15.3. we also discussed if he cant void the choice would be to teach him cic or put the catheter back in and consider surgery Turp Also briefly discussed the possibility of prostate cancer and how this could possibly be dxed and or treated Problem List elevated psa urinary retention bph with obstruction Objective Vital Signs Date Time Temp Pulse Resp B/P Pulse Ox O2 Delivery O2 Flow Rate FiO2 11/19/16 08:17 Room Air 11/19/16 07:59 36.9 74 18 129/74 92 Room Air 11/18/16 23:59 36.7 76 18 135/73 91 Room Air 11/18/16 20:33 83 128/67 11/18/16 19:10 Room Air 11/18/16 15:46 37.0 83 18 100/55 90 Room Air Laboratory Results Last 24 Hours Test 11/19/16 08:08 White Blood Count 8.61 K/uL Red Blood Count 3.55 M/uL Hemoglobin 10.8 g/dL Hematocrit 33.9 % Mean Corpuscular Volume 95.5 fL Mean Corpuscular Hemoglobin 30.4 pg Mean Corpuscular Hemoglobin Concent 31.9 g/dl Platelet Count 186 K/uL Mean Platelet Volume 12.0 fL Neutrophils (%) (Auto) 73.9 % Lymphocytes (%) (Auto) 12.3 % Monocytes (%) (Auto) 9.3 % Eosinophils (%) (Auto) 3.9 % Basophils (%) (Auto) 0.3 % Neutrophils # (Auto) 6.35 K/uL Lymphocytes # (Auto) 1.06 K/uL Monocytes # (Auto) 0.80 K/uL Eosinophils # (Auto) 0.34 K/uL Basophils # (Auto) 0.03 K/uL RDW Standard Deviation 49.0 fL RDW Coefficient of Variation 14.1 % Immature Granulocyte % (Auto) 0.3 % Immature Granulocyte # (Auto) 0.03 K/uL Sodium Level 143 mmol/L Potassium Level 4.2 mmol/L Chloride Level 108 mmol/L Carbon Dioxide Level 29 mmol/L Anion Gap 6.0 mmol/L Blood Urea Nitrogen 19 mg/dl Creatinine 1.20 mg/dl Est Creatinine Clear Calc Drug Dose 46.2 ml/min Estimated GFR () 62.6 Estimated GFR (Non- 54.0 BUN/Creatinine Ratio 15.4 Random Glucose 101 mg/dl Calcium Level 8.5 mg/dl Assessment and Plan Assume he will get mri for back pain . This will help r/o cancer as source of pain as this has been long standing Pt started on finasteride. He has long standing obstructive and irritative symptoms and may have a voiding trial in a week as outpt He also will need a moe and assessment for prostate cancer given psa unclear how much catheterization may have affected thiswould d/c on finasteride and possibly trimethoprim to suppress infection with catheter and leg bag . he will need to schedule f/u in 7 to 10 days
[2016-11-19 15:03] VITALS: BP 128/64; PULSE 84; TEMP 36.9; O2SAT 90
[2016-11-19 16:00] VITALS: O2SAT 90
[2016-11-19 23:07] VITALS: BP 126/70; PULSE 80; TEMP 36.8; O2SAT 90
[2016-11-20 07:30] VITALS: BP 123/71; PULSE 79; TEMP 36.8; O2SAT 92
--- NOTE | 2016-11-20 08:08 | Anesthesiology Progress Note ---
Anesthesia Post Op Note Date & Time Nov 20, 2016 at 08:07 Vital Signs Pain Intensity: 0.0 Vital Signs Past 12 Hours Date Time Temp Pulse Resp B/P Pulse Ox O2 Delivery O2 Flow Rate FiO2 11/20/16 07:30 36.8 79 20 123/71 92 Room Air 11/20/16 00:19 Room Air 11/19/16 23:07 36.8 80 16 126/70 90 Room Air Notes Mental Status: alert / awake / arousable, participated in evaluation Pt Amnestic to Procedure: Yes Nausea / Vomiting: adequately controlled Pain: adequately controlled Airway Patency, RR, SpO2: stable & adequate BP & HR: stable & adequate Hydration State: stable & adequate Anesthetic Complications: no major complications apparent
--- NOTE | 2016-11-20 08:48 | Progress Note ---
Subjective Date of Service: Nov 20, 2016. Subjective Pt evaluation today including: conversation w/ patient, chart review, lab review Voiding: clark catheter in place (patent, draining clear, yellow urine) 86 yo male with elevated PSA and urinary retention. Clark draining clear, yellow urine. Pt denies pain this morning. He remains on finasteride. Review of Systems Constitutional: No chills, No fever Respiratory: No shortness of breath Cardiac: No chest pain Abdomen: No nausea, No pain, No vomiting Male : No hematuria Heme: No abnormal bleeding/bruising Objective Vital Signs Date Time Temp Pulse Resp B/P Pulse Ox O2 Delivery O2 Flow Rate FiO2 11/20/16 07:30 36.8 79 20 123/71 92 Room Air 11/20/16 00:19 Room Air 11/19/16 23:07 36.8 80 16 126/70 90 Room Air 11/19/16 16:00 90 Room Air 11/19/16 15:03 36.9 84 16 128/64 90 Room Air Physical Exam General Appearance: no apparent distress Eyes: normal inspection ENT: hearing grossly normal Neck: no JVD Respiratory/Chest: no respiratory distress, no accessory muscle use Cardiovascular: no JVD Extremities: normal inspection Neurologic/Psychiatric: alert, normal mood/affect, oriented x 3 Skin: normal color Assessment and Plan A/P: Urinary retention Continue clark catheter for 7-10 days. Will arrange for outpatient TOV and f/u. Continue finasteride. Will address elevated PSA as an outpatient. May be r/t UR. No further management at this time. Recall PRN issues. Thanks for allowing us to participate in this pt's care.
[2016-11-20] MEDS ORDERED: POLYETHYLENE (MIRALAX) 17 GM PACK PO SCH (09:00)
[2016-11-20] MEDS: AMLODIPINE BESYLATE 5 MG TAB PO SCH (09:03)
[2016-11-20] MEDS: DOCUSATE SODIUM 100 MG CAP PO SCH (09:03)
[2016-11-20] MEDS: POLYETHYLENE (MIRALAX) 17 GM PACK PO SCH (09:04)
[2016-11-20] MEDS: LISINOPRIL 5 MG TAB PO SCH (09:04)
[2016-11-20] MEDS: FINASTERIDE 5 MG TAB PO SCH (09:04)
[2016-11-20] MEDS: ACETAMINOPHEN 500 MG TAB PO PRN (09:08)
[2016-11-20 09:48] LABS: HEMATOCRIT 36.1 % (42-52); MEAN CORPUSCULAR HEMOGLOBIN 31.6 pg (25-34); MEAN PLATELET VOLUME 12.1 fL (7.4-10.4); PLATELET COUNT 220 K/uL (130-400); RED BLOOD COUNT 3.76 M/uL (4.7-6.1); WHITE BLOOD COUNT 10.38 K/uL (4.8-10.8)
[2016-11-20 10:15] LABS: BUN/CREATININE RATIO 15.4 (10-20); CREATININE 1.4 mg/dl (0.60-1.40); POTASSIUM 3.8 mmol/L (3.5-5.1)
--- NOTE | 2016-11-20 13:30 | Clinical Documentation Query ---
MARS Storey : CLINICAL DOCUMENTATION QUERY Patient is an 86 year old male who on 11/15 underwent revision laminotomy T10 and removal of dorsal column paddle lead in thoracic spine as well as removal of battery. On 11/17, patient underwent I/T/D evacuation of hematoma. Please explicitly clarify this hematoma as expected or as a complication of care such that no reagent tender uncertainty will exist at time of discharge. Thank you. In your clinical opinion is this patient being managed for: ( ) Postprocedural hematoma of skin and subcutaneous tissue following spinal cord stimulator removal, expected ( )Postprocedural hematoma of skin and subcutaneous tissue following spinal cord stimulator removal, a complication of care ( ) Other explanation of clinical findings (Please Explain) ( ) Unable to determine (Please Define) ( ) Need to Discuss ( ) Not Agree The medical record reflects the following clinical findings, treatment, and risk factors. Clinical Indicators: As above Treatment: As above Risk Factors: Initial procedure Please clarify and document your clinical opinion in the progress notes and discharge summary. Terms such as "probable", "suspected", "likely", "questionable", "possible", or "still to be ruled out" are acceptable. IF IN AGREEMENT, YOU MUST DOCUMENT ABOVE DIAGNOSTIC STATEMENT IN DAILY PROGRESS NOTES AND DISCHARGE SUMMARY. This document is not part of the patient's record. Thank You, Reagan Andersen, ROSEMARIE [phone]
[2016-11-20 14:34] VITALS: BP 123/71; PULSE 79; TEMP 36.8; O2SAT 92
--- NOTE | 2016-11-20 16:48 | DISCHARGE SUMMARY ---
PRINCIPAL DIAGNOSIS: Removal of dorsal column stimulator with postoperative hematoma at the battery site. HOSPITAL COURSE FOLLOWS: On 11/15/2016 patient underwent removal of dorsal column stimulator, paddle leads as well as the battery site. Tolerated this well, but unfortunately postoperatively developed a hematoma despite drain being in place. This did not resolve; subsequently on 11/17/2016 he underwent repeat I\T\D of the right battery pocket at the area of the hematoma. It was evacuated without difficulty and another drain inserted. The patient was then taken to the orthopedic floor postoperatively. Given 24 hours of antibiotics. He did require urology consultation secondary to urinary retention and a Wyatt bag was placed. He also underwent MRI imaging during his hospital stay which we reviewed in detail with the patient and was discharged home on 11/20/2016 with home health. Discharge orders and instructions found on the chart for further review. NOE
--- NOTE | 2016-11-20 18:24 | Family Medicine Progress Note ---
Progress Note Date of Service Nov 20, 2016. Subjective Pt evaluation today including: conversation w/ patient, physical exam, chart review, lab review Pain: None at this time Voiding: no voiding problems, clark catheter in place Patient ambulating well No problems overnight Eager to go home today Good appetite, intake and voiding Objective Vital Signs Date Time Temp Pulse Resp B/P Pulse Ox O2 Delivery O2 Flow Rate FiO2 11/20/16 14:34 36.8 79 20 92 Room Air 11/20/16 07:30 36.8 79 20 123/71 92 Room Air 11/20/16 07:30 Room Air 11/20/16 00:19 Room Air 11/19/16 23:07 36.8 80 16 126/70 90 Room Air Physical Exam General Appearance: WD/WN, no apparent distress Eyes: normal inspection, EOMI ENT: normal ENT inspection, hearing grossly normal, pharynx normal Neck: supple, no adenopathy, no JVD Respiratory/Chest: lungs clear, no respiratory distress Cardiovascular: regular rate, rhythm, no gallop, no murmur Abdomen: normal bowel sounds, non tender, soft, + pertinent finding (JENSEN drain with serosanguinous fluid; clark catheter) Extremities: non-tender, no pedal edema Neurologic/Psychiatric: alert, normal mood/affect, oriented x 3 Skin: normal color, warm/dry, no rash Lymphatic: no adenopathy Laboratory Results Last 24 Hours Test 11/20/16 09:35 White Blood Count 10.38 K/uL Red Blood Count 3.76 M/uL Hemoglobin 11.9 g/dL Hematocrit 36.1 % Mean Corpuscular Volume 96.0 fL Mean Corpuscular Hemoglobin 31.6 pg Mean Corpuscular Hemoglobin Concent 33.0 g/dl RDW Standard Deviation 49.7 fL RDW Coefficient of Variation 14.2 % Platelet Count 220 K/uL Mean Platelet Volume 12.1 fL Sodium Level 143 mmol/L Potassium Level 3.8 mmol/L Chloride Level 107 mmol/L Carbon Dioxide Level 24 mmol/L Anion Gap 12.0 mmol/L Blood Urea Nitrogen 22 mg/dl Creatinine 1.40 mg/dl Est Creatinine Clear Calc Drug Dose 39.6 ml/min Estimated GFR () 52.0 Estimated GFR (Non- 44.9 BUN/Creatinine Ratio 15.4 Random Glucose 181 mg/dl Calcium Level 9.0 mg/dl Assessment and Plan 86 y/o M post removal of a dorsal spinal stimulator battery. Medicine consult placed for BP and urinary retention management. Post-operative bleeding - Management per Orthopedic surgery - Patient has JENSEN drain in place with serosanguinous drainage - Patient to have home nursing to follow this - H&H stable at 11.9 today; dropped from 16 but expect Hb drop which will take several weeks to improve HTN - BP 120s/70s overnight No additional recommendations at this time Urinary retention - Per urology recommendations, Clark place - To be kept in situ until office follow-up - Patient to start Finasteride at discharge Patient stable, we will sign off on the case at this time. Please contact us if you need further assistance.
[2016-12-05] MEDS ORDERED: OXYC-106 PO (11:16)
[2016-12-18] MEDS ORDERED: OXYC-106 PO (16:10)
[2016-12-18] MEDS ORDERED: PHEN-775 PO (16:10)
[2017-01-31] MEDS ORDERED: LINE1TAB6 PO (13:03)
[2017-01-31] MEDS ORDERED: MRLP17 PO (13:03)
[2017-01-31] MEDS ORDERED: FLM4 PO (13:03)
[2017-01-31] MEDS ORDERED: CMD5 PO (13:07)
== END 2016-11-20 15:10 | disposition home health service (06) | DRG 982 ==
LOC: ENRESERVTM → ENRESERVDT → C.ACU 05:52 → C.MSW 13:12
PROVIDERS: ADMIT Orthopaedic Surgery Orthopaedic Surgery of the Spine; ATTEND Orthopaedic Surgery Orthopaedic Surgery of the Spine
PROC: 0JPT0MZ Removal of Stimulator Generator from Trunk Subcutaneous Tissue and Fascia, Open Approach (ICD-10-PCS; principal; 2016-11-15 07:30)
PROC: 0RP Upper Joints, Removal (ICD-10-PCS; principal; 2016-11-15 07:30)
PROC: 0J970ZZ Drainage of Back Subcutaneous Tissue and Fascia, Open Approach (ICD-10-PCS; 2016-11-17)
DX: T85.840A Pain due to nervous system prosthetic devices, implants and grafts, initial encounter (principal); G97.61 Postprocedural hematoma of a nervous system organ or structure following a nervous system procedure; I10 Essential (primary) hypertension; Z96.89 Presence of other specified functional implants; M48.07 Spinal stenosis, lumbosacral region; R33.9 Retention of urine, unspecified; Z79.82 Long term (current) use of aspirin; R79.89 Other specified abnormal findings of blood chemistry; Y92.009 Unspecified place in unspecified non-institutional (private) residence as the place of occurrence of the external cause; Y75.2 Prosthetic and other implants, materials and neurological devices associated with adverse incidents

== ENCOUNTER → 2016-11-30 | Outpatient (CLI) | payer BC ==
[~2016-11-30] MED LIST changes: +CIPR1TAB11 PO; +CMD5 PO; +FINA5TAB4 PO; +FLM4 PO; +LINE1TAB6 PO; +MRLP17 PO; +NITR-5 PO; +OXYC-106 PO; +OXYC-57 PO; +PHEN-775 PO; +WARF1TAB PO; +WARF1TAB6 PO; +XRL15 PO; +XRL20 PO
--- NOTE | 2016-11-30 14:22 | DIAGNOSTIC IMAGING REPORT ---
ABDOMEN AND PELVIS CT WITHOUT CONTRAST CT DOSE: 357.50 mGy.cm HISTORY: N20.0 Nephrolithiasis valid 11/28/16-12/28/[id number] TECHNIQUE: Multiaxial CT images of the abdomen and pelvis were performed without contrast. COMPARISON STUDY: Abdomen and pelvis CT 10/31/2010. FINDINGS: Linear density left lung base favors subsegmental atelectasis or scarring. Posterior decompression within the lower lumbar spine. Subcutaneous density within the lumbar region. There is also a loculated 6.1 x 1.6 cm gas and fluid collection within the right lower back at the L5 level. The unenhanced liver, gallbladder, left adrenal gland, spleen, and pancreas are unremarkable. Calcification within the right adrenal gland. There is a punctate nonobstructing stone within the right kidney. There are 2 stones within the left kidney with the largest measuring 4 mm. Bilateral renal hypodense lesions are incompletely characterize on this noncontrast study but favor cysts. The dominant lesion within the left kidney measures 6.4 cm. These are increased in size. There is an IVC filter present. No retroperitoneal lymphadenopathy. Gastric wall thickening is likely due to underdistention. Suboptimal evaluation for bowel pathology due to the lack of intravenous and oral contrast. However, there is no definite bowel wall thickening or obstruction. The prostate gland remains enlarged. There is a catheter within the bladder lumen. Multiple bladder stones have increased in size and number. The dominant bladder stone measures 9 mm. There is mild bladder wall thickening. No pelvic free fluid. There is an 8 mm stone immediately posterior to the left side of the bladder on image [id number]. This appears to reside within the distal left ureter. However, there is no left ureteral dilatation to suggest obstruction. Colonic diverticulosis. Normal appendix. IMPRESSION: 1. An 8 mm stone within the distal left ureter. However, there is no left-sided hydronephrosis. 2. Bilateral nephrolithiasis. 3. Enlarged prostate. There is a catheter within the bladder lumen. The bladder wall is mildly thickened. 4. Interval increase in size and number of the multiple bladder calculi. 5. A 6.1 x 1.6 cm loculated gas and fluid collection within the subcutaneous fat of the right lower back at the L5 level. This could represent a postoperative seroma or abscess. 6. Additional findings as described above. Electronically signed by: George Lilly M.D. 11/30/2016 2:20 PM Dictated Date/Time: 11/30/2016 2:00 PM
== END | disposition home or self-care (01) ==
LOC: C.CTS 13:12
PROVIDERS: ATTEND Urology
DX: N20.0 Calculus of kidney (principal); N20.1 Calculus of ureter; N21.0 Calculus in bladder

== ENCOUNTER 2016-12-16 01:13 | Emergency (ER) | payer BC ==
[~2016-12-16] VITALS: Ht 180.3 cm; Wt 79.0 kg
[~2016-12-16 01:13] MED LIST changes: -CIPR1TAB11 PO; -CMD5 PO; -CYAN100T6 PO; -FINA5TAB4 PO; -FLM4 PO; -GABA-112 PO; -LINE1TAB6 PO; -MRLP17 PO; -NITR-5 PO; -OXYC-57 PO; -PHEN-775 PO; -WARF1TAB PO; -WARF1TAB6 PO; -XRL15 PO; -XRL20 PO
[2016-12-16 01:21] VITALS: TEMP 36.6; Ht 180.3 cm; Wt 79.0 kg
[2016-12-16 02:04] LABS: URINE APPEARANCE CLOUDY (CLEAR); URINE BILIRUBIN NEG (NEG); URINE COLOR YELLOW; URINE EPITHELIAL CELL AUTO >30 /lpf (0-5); URINE NITRITE NEG (NEG); URINE SPECIFIC GRAVITY 1.017 (1.000-1.030); UROBILINOGEN NEG (NEG); ZZURINE CULT IF INDIC CATH YES
[2016-12-16 02:10] LABS: MANUAL MICROSCOPIC REQUIRED? NO; REVIEW REQ? YES
--- NOTE | 2016-12-16 02:42 | EMERGENCY ROOM VISIT NOTE ---
ED Visit Note First contact with patient: 01:35 Patient evaluated with PA. Patient comfortable on examination at 2:30 AM. Agree with management and plan.
[2016-12-16 02:50] VITALS: BP 132/87; PULSE 74; O2SAT 96
--- NOTE | 2016-12-16 04:43 | EMERGENCY ROOM VISIT NOTE ---
History First contact with patient: 01:35 Chief Complaint: CATHETER REPLACEMENT Stated Complaint: CATHETER CAME OUT History of Present Illness The patient is a 86 year old male who presents to the Emergency Room with complaints of urinary retention his Wyatt fell out today. Patient follows with Dr. Soni. Patient has enlarged prostate and will have prostate surgery next week. Patient states he is unable to urinate and would like to have the Wyatt replaced. No other concerns per patient. Review of Systems See HPI for pertinent positives & negatives. A total of 10 systems reviewed and were otherwise negative. Past Medical/Surgical History Medical Problems: (1) Arthritis (2) Lumbar muscle hematoma BPH Family History Heart disease Social History Smoking Status: Never Smoker Marital Status: Occupation Status: retired Current/Historical Medications Scheduled Amlodipine (Norvasc), 10 MG PO BID Aspirin (Aspirin Ec), 81 MG PO QAM Lisinopril (Lisinopril), 5 MG PO QAM Pantoprazole (Protonix), 40 MG PO QAM Scheduled PRN Oxycodone/Acetaminophen 10MG/325MG (Percocet 10MG/325MG), 1 TAB PO Q6 PRN for Pain Allergies Coded Allergies: Phenobarbital (Verified Allergy, Mild, RASH, 12/05/16) Clopidogrel (Verified Allergy, Unknown, RASH, 12/05/16) Ibuprofen (Verified Allergy, Unknown, unknown to patient, 12/05/16) Physical Exam Vital Signs Date Time Temp Pulse Resp B/P Pulse Ox O2 Delivery O2 Flow Rate FiO2 12/16/16 02:50 74 16 132/87 96 12/16/16 01:21 36.6 77 18 144/70 97 Room Air Pain Rating (0-10): 0 Physical Exam VITALS: Vitals are noted on the nurse's note and reviewed by myself. Vital signs stable. GENERAL: Pleasant elderly male, in no acute distress, nondiaphoretic, well- developed well-nourished. SKIN: Capillary reflex less than 2 seconds. HEENT: Normocephalic. PERRLA. EOMI. Nares patent. Mucous membranes moist. Neck is supple without nuchal rigidity. HEART: Regular rate and rhythm LUNGS: Clear to auscultation bilaterally without wheezes, rales or rhonchi. No retractions or accessory muscle use. ABDOMEN: Positive bowel sounds x 4. Normal tympanic percussion. Soft, tender bladder, nontender, without masses or organomegaly. Kern sign negative. No guarding or rebound tenderness. No CVA tenderness MUSCULOSKELETAL: No gross musculoskeletal defects. No pedal edema. No calf tenderness. NEURO: Patient was alert and oriented to person place and time. Normal sensation to light and sharp touch. No focal neurological deficits. Medical Decision & Procedures Laboratory Results Test 12/16/16 01:50 Urine Color YELLOW Urine Appearance CLOUDY (CLEAR) Urine pH 5.0 (4.5-7.5) Urine Specific [place] 1.017 (1.000-1.030) Urine Protein TRACE (NEG) Urine Glucose (UA) NEG (NEG) Urine Ketones NEG (NEG) Urine Occult Blood 3+ (NEG) Urine Nitrite NEG (NEG) Urine Bilirubin NEG (NEG) Urine Urobilinogen NEG (NEG) Urine Leukocyte Esterase MODERATE (NEG) Urine WBC (Auto) 10-30 /hpf (0-5) Urine RBC (Auto) >30 /hpf (0-4) Urine Hyaline Casts (Auto) 10-30 /lpf (0-5) Urine Epithelial Cells (Auto) >30 /lpf (0-5) Urine Bacteria (Auto) NEG (NEG) Urine Renal Epithelial Cells /lpf (0-5) ED Course Prior records reviewed and summarized as above. Triage Nursing notes reviewed. The patient's history was concerning for unable to urinate. Differential diagnosis: Etiologies such as urinary retention, cystitis, renal colic, obstruction, as well as others were entertained.. Physical examination: The physical examination was consistent with urinary retention from enlarged prostate ER treatment provided: Bladder scan and Wyatt catheter On reassessment the patient felt better. Diagnostics interpreted by me: The labs revealed urine seemed consistent with contamination but sent for culture This appears to be urinary retention secondary to BPH. Urine was sent for culture. Patient felt much better and requested to leave. He was advised to follow-up as scheduled with urology this week or here in the ER sooner for abdominal pain, fevers, vomiting, full catheter problems, worsening signs or symptoms or as needed. Patient is well-appearing and had no other concerns. He was Wyatt Catheter Care. By the evaluation outlined above emergent etiologies such as UTI, as well as others were deemed relatively unlikely. The pt informed about the findings as listed above. All questions were answered and pleased with the treatment. Return instructions were outlined and the patient was discharged in stable condition. Referral: The patient was referred back to urology for follow-up in 2 to 3 days for a recheck of the current condition. Case reviewed with my attending Medical Decision As above Impression Primary Impression: Urinary retention due to benign prostatic hyperplasia Departure Information Dispostion Home / Self-Care Condition GOOD Forms HOME CARE DOCUMENTATION FORM, IMPORTANT VISIT INFORMATION Patient Instructions [facility], ED Catheter Care Wyatt Additional Instructions Frequently change out the Wyatt catheter bag. Follow-up as scheduled with urology for your prostate procedure this week. Return to ER sooner for abdominal pain, Wyatt catheter problems, fevers, vomiting, worsening signs or symptoms or as needed.
[2016-12-18] MEDS ORDERED: PHEN-775 PO (16:10)
[2016-12-18] MEDS ORDERED: OXYC-106 PO (16:10)
[2017-01-31] MEDS ORDERED: LINE1TAB6 PO (13:03)
[2017-01-31] MEDS ORDERED: MRLP17 PO (13:03)
[2017-01-31] MEDS ORDERED: FLM4 PO (13:03)
[2017-01-31] MEDS ORDERED: CMD5 PO (13:07)
== END 2016-12-16 02:40 | disposition home or self-care (01) ==
LOC: C.EDB 01:14 → C.EDC 02:40
DX: N40.1 Benign prostatic hyperplasia with lower urinary tract symptoms (principal); R33.9 Retention of urine, unspecified; Z79.82 Long term (current) use of aspirin; Z79.899 Other long term (current) drug therapy

== ENCOUNTER 2016-12-18 10:22 | Day surgery (SDC) | payer BC ==
[2016-12-05 11:16] VITALS: BMI 24.0
--- NOTE | 2016-12-05 12:00 | PAT Medication Instructions ---
Service Date Dec 05, 2016. Current Home Medication List Amlodipine (Norvasc), 10 MG PO BID Aspirin (Aspirin Ec), 81 MG PO QAM Lisinopril (Lisinopril), 5 MG PO QAM Oxycodone/Acetaminophen 10MG/325MG (Percocet 10MG/325MG), 1 TAB PO Q6 PRN for Pain Pantoprazole (Protonix), 40 MG PO QAM Medication Instructions For Your Scheduled Surgery - Check with surgeon/Dr. Cano for instructions: Aspirin (Aspirin Ec), 81 MG PO QAM - Hold the following medications the morning of surgery: Lisinopril (Lisinopril), 5 MG PO QAM - Take the following medications the morning of surgery with a sip of water: Pantoprazole (Protonix), 40 MG PO QAM Amlodipine (Norvasc), 10 MG PO BID Oxycodone/Acetaminophen 10MG/325MG (Percocet 10MG/325MG), 1 TAB PO Q6 PRN for Pain (okay to take up to 4 hours prior to surgery if needed) - Take the following medications as scheduled the night before surgery: Amlodipine (Norvasc), 10 MG PO BID Oxycodone/Acetaminophen 10MG/325MG (Percocet 10MG/325MG), 1 TAB PO Q6 PRN for Pain If you have any questions please call us at [phone] (Elise Shine PA-C) or [phone] or [phone]
[2016-12-05 12:42] LABS: MANUAL MICROSCOPIC REQUIRED? NO; REVIEW REQ? YES; URINE APPEARANCE CLOUDY (CLEAR); URINE BILIRUBIN NEG (NEG); URINE COLOR YELLOW; URINE NITRITE POS (NEG); URINE SPECIFIC GRAVITY 1.015 (1.000-1.030); UROBILINOGEN NEG (NEG)
[~2016-12-18] VITALS: Ht 180.3 cm; Wt 78.2 kg
[~2016-12-18 10:22] MED LIST changes: +CIPROFLOXACIN / D5W 400 MG IV SCH; +GENTAMICIN INJ 120 MG in DEXTROSE 5% 100ML 100 ML IV SCH; +LACTATED RINGER'S 1000ML 1,000 ML IV SCH
[2016-12-18] MEDS ORDERED: HYDROmorphone INJ 1 MG/ML SYR IV PRN (10:30)
[2016-12-18] MEDS ORDERED: MEPERIDINE HCL 25 MG/ML CARP IV PRN (10:30)
[2016-12-18] MEDS ORDERED: ONDANSETRON INJ 2 MG/ML 2 ML VIAL IV PRN (10:30)
[2016-12-18] MEDS ORDERED: EpHEDrine SULFATE INJ 50 MG/ML AMP IV PRN (10:30)
[2016-12-18] MEDS ORDERED: LABETALOL HCL IV 5 MG/ML 20ML IV PRN (10:30)
[2016-12-18] MEDS ORDERED: ATROPINE SULFATE 0.1 MG/ML 5ML SYR IV PRN (10:30)
[2016-12-18] MEDS ORDERED: FENTANYL CITRATE INJ 50 MCG/1 ML 2 ML VIAL IV PRN (10:30)
[2016-12-18 10:58] VITALS: BP 156/74; PULSE 64; TEMP 36.9; O2SAT 96; Ht 180.3 cm; Wt 78.2 kg
[2016-12-18 11:49] LABS: HEMATOCRIT 36.9 % (42-52); MEAN CELL VOLUME 94.6 fL (80-100); MEAN CORPUSCULAR HEMOGLOBIN 31.3 pg (25-34); MEAN PLATELET VOLUME 11.7 fL (7.4-10.4); PLATELET COUNT 233 K/uL (130-400); WHITE BLOOD COUNT 7.56 K/uL (4.8-10.8)
[2016-12-18 11:51] LABS: MEAN CORPUSCULAR HGB CONC 33.1 g/dl (32-36)
[2016-12-18] MEDS ORDERED: ONDANSETRON INJ 2 MG/ML 2 ML VIAL ONE (12:25)
[2016-12-18] MEDS ORDERED: PROPOFOL IV EMULSION 10 MG/ML 20 ML VIAL IV ONE (12:25)
[2016-12-18] MEDS ORDERED: LIDOCAINE HCL 2% 2 ML VIAL (20MG/ML) ONE (12:25)
[2016-12-18] MEDS ORDERED: FENTANYL CITRATE INJ 50 MCG/1 ML 2 ML VIAL ONE ×2 (12:25→14:55)
[2016-12-18] MEDS ORDERED: EpHEDrine SULFATE INJ 50 MG/ML AMP ONE (14:38)
[2016-12-18] MEDS ORDERED: DEXAMETHASONE SOD INJ 4 MG/ML VIAL ONE (14:38)
[2016-12-18] MEDS ORDERED: SODIUM CHLORIDE 0.9% INJ 10 ML VIAL ONE (14:38)
[2016-12-18] MEDS ORDERED: BELLADONNA/OPIUM SUPP 60 MG SUPP PR ONE (15:17)
[2016-12-18] MEDS ORDERED: BELLADONNA/OPIUM 60 MG SUPP PR ONE (15:50)
[2016-12-18] MEDS ORDERED: PHEN-775 PO (16:10)
[2016-12-18] MEDS ORDERED: OXYC-106 PO (16:10)
--- NOTE | 2016-12-18 16:13 | Discharge Instructions ---
Discharge Instructions Admission Reason for Admission: Bladder Stone, Benign Prostatic Hypertrophy Discharge Discharge Diagnosis / Problem: Retention, BPH, bladder stones Discharge Goals Goal(s): Decrease discomfort, Improve function, Improve disease control, Therapeutic intervention Activity Recommendations Activity Limitations: per Instructions/Follow-up section Lifting Limitations: gradually increase as tolerated (no heavy lifting for 5 days) Exercise/Sports Limitations: gradually increase as tolerated (no heavy activity x 5 days) May Resume Sexual Activity: after two weeks Shower/Bathe: may shower/bathe in 3 days (after clark removed) Driving or Machine Use: after clark removed . Instructions / Follow-Up Instructions / Follow-Up Clark to gravity until trial of void as scheduled Discharge Diet Recommended Diet: Regular Diet (good fluid intake) Procedures Procedures Performed: LASER Cystolithopaxy and Bipolar Transurethral Resection and vaporization of prostate Pending Studies Studies pending at discharge: yes List of pending studies: Pathology review Medical Emergencies . Who to Call and When: Medical Emergencies: If at any time you feel your situation is an emergency, please call 911 immediately. . Non-Emergent Contact Non-Emergency issues call your: Urologist Call Non-Emergent contact if: you have a fever, temperature is above 101, your pain is not controlled, your pain is worsening, your pain is unusual for you, your pain is concerning you, you have any medication questions . . "Provider Documentation" section prepared by Marvel Soni. VTE Core Measure Inpt VTE Proph given/why not?: [place]CD[place] Drug Monitoring Program Search Results: patient reviewed within database, see additional documentation (Rx from Dr. Simmons 1 month ago noted - refill provided for postop analgesia)
[2016-12-18] MEDS ORDERED: OXYCODONE/ACETAMINOPHEN 5-325 TAB PO PRN ×2 (16:15)
[2016-12-18] MEDS ORDERED: PHENAZOPYRIDINE HCL 200 MG TAB PO PRN (16:15)
--- NOTE | 2016-12-18 16:16 | [facility] Post Operative Brief Note ---
Immediate Operative Summary Operative Date Dec 18, 2016. Pre-Operative Diagnosis Benign prostatic hypertrophy, urinary retention, bladder stones Post-Operative Diagnosis Same Procedure(s) Performed Laser Cystolithopaxy and Bipolar Transurethral Resection and vaporization of prostate Surgeon Dr. Michela Soni Drier Feeder Surgeon(s) NA Estimated Blood Loss 50 ml Findings No residual stones in bladder, open fossa s/p resection with excellent hemostasis Specimens A. BLADDER STONES (for analysis) B. PROSTATE CHIPS (PERMANENT) Drains 22 fr clark 15 cc Anesthesia GALMA Complication(s) None Disposition Recovery Room / PACU
--- NOTE | 2016-12-18 16:42 | Anesthesiology Progress Note ---
Anesthesia Post Op Note Date & Time Dec 18, 2016 at 16:42 Vital Signs Pain Intensity: 0 Vital Signs Past 12 Hours Date Time Temp Pulse Resp B/P Pulse Ox O2 Delivery O2 Flow Rate FiO2 12/18/16 16:35 36.3 71 17 126/72 94 Room Air 12/18/16 16:29 73 16 12/18/16 16:29 72 16 92 12/18/16 16:28 122/65 12/18/16 16:24 74 19 93 12/18/16 16:24 75 19 12/18/16 16:23 110/68 12/18/16 16:19 68 16 12/18/16 16:19 68 16 96 12/18/16 16:18 131/68 12/18/16 16:14 81 23 12/18/16 16:14 81 23 98 12/18/16 16:13 132/76 12/18/16 16:09 84 20 12/18/16 16:09 84 20 99 12/18/16 16:08 122/67 12/18/16 16:04 70 13 12/18/16 16:04 36.2 79 22 127/68 98 Mask 10 12/18/16 16:04 72 13 98 12/18/16 10:58 36.9 64 20 156/74 96 Room Air Notes Mental Status: alert / awake / arousable, participated in evaluation Pt Amnestic to Procedure: Yes Nausea / Vomiting: adequately controlled Pain: adequately controlled Airway Patency, RR, SpO2: stable & adequate BP & HR: stable & adequate Hydration State: stable & adequate Anesthetic Complications: no major complications apparent Pt doing well.
[2016-12-18 16:50] VITALS: BP 137/66; PULSE 63; TEMP 36.5; O2SAT 94
[2016-12-18 17:21] VITALS: BP 163/66; PULSE 77; TEMP 36.5; O2SAT 93
[2016-12-18 18:00] VITALS: BP 142/69; PULSE 79; TEMP 36.5; O2SAT 94
--- NOTE | 2016-12-18 22:19 | OPERATIVE REPORT ---
DATE OF OPERATION: 12/18/2016 PREOPERATIVE DIAGNOSES: Benign prostatic hypertrophy, urinary retention and bladder stones. POSTOPERATIVE DIAGNOSES: Same. PROCEDURE: Laser cystolitholapaxy, bipolar resection and vaporization of prostate gland. SURGEON: Dr. Marvel Soni. DOCUMENT RESTORER: None. ANESTHESIA: General anesthesia with laryngeal mask. COMPLICATIONS: None. FINDINGS: No residual stones in the bladder after completion of case, open prostatic fossa with excellent hemostasis after resection. No evidence of injury to the ureteral orifices. Greater than 4 cm of cumulative stone material removed. SPECIMENS SENT TO PATHOLOGY: Bladder stone fragments for chemical analysis and prostate chips. DRAINS LEFT IN PLACE: Include a 22-Congolese Wyatt catheter with 15 mL sterile water in the balloon. ESTIMATED BLOOD LOSS: 20 mL. COMPLICATIONS: None. BRIEF HISTORY: Mr. Blum is a pleasant 86-year-old male with a history of urinary retention and Wyatt catheter placement, found to have bladder stones on office cystoscopy for his voiding symptoms. After discussion of risks and benefits of various forms of intervention, the patient has decided upon a laser cystolitholapaxy and TURP to manage his disease. Please see H\T\P for further details. He has been on Bactrim preoperatively for a positive urine culture and has sufficient antibiotics to continue in the postoperative period home. Informed consent reviewed with the patient prior to OR today. PROCEDURE: The patient was properly identified and brought to the operative suite after identification of appropriate consent on the chart, general anesthesia with laryngeal mask was initiated. The patient was prepped and draped in standard fashion for this procedure. multimedia engineer-out procedure was followed. Intravenous ciprofloxacin and gentamicin was provided for antibiotic coverage. A 22-Congolese rigid cystoscope was passed into the bladder under direct visualization and bladder was surveyed demonstrating an obstructive prostate gland with bladder neck hypertrophy. Ureteral orifices were noted to be relatively close to the bladder neck, caution was taken to avoid any injury over the course of the case. The stones were present within the bladder as well as grade 2-3 trabeculation. No intravesical papillary masses or mucosal changes were noted. Using a 1000 micron fiber, the patient's numerous rounded and spiculated bladder stones were fragmented into smaller pieces. A large number of smaller stones were also irrigated free using a Calli syringe. After the pieces of stone were sufficiently decreased in size, they were flushed free or grabbed using a stent grasper and removed via a resectoscope. After the bladder had been cleared of stones, attention was turned to the bipolar resection and vaporization of the prostate gland. A bipolar loop was used to shave the bladder neck down to the level of the trigone and create relaxing incisions at the 5 and 7 o'clock position. A circumferential vaporization of the prostate gland using the bipolar button was performed with some resection of the lateral lobe tissue as needed. This was performed circumferentially until the prosthetic gland was well unobstructed. Some apical tissue was spared at the level of the verumontanum. A bipolar button was used circumferentially to cauterize vessels as necessary until excellent hemostasis was appreciated. Ureteral orifices were noted to be free of any injury after completion of the case. Bladder was irrigated free of prostate chips and the remaining stone fragments until noted to be completely free of piece of the stone. The bladder was noted to be free of any abnormalities and was partially distended and resectoscope was removed. Using a catheter guide, a 22 Congolese Wyatt catheter with 15 mL of sterile water in the balloon was placed with return of clear yellow urine. This was irrigated with isovolumic return. Catheter was placed to gravity drainage and anesthesia was reversed and the patient was transferred to recovery room in stable condition. FOLLOWUP CARE: The patient will be discharged home with a Wyatt catheter in place. Outpatient trial of void is arranged. He is instructed to contact our service with any fevers, chills, nausea, vomiting or other significant difficulties in the postoperative period. Prescription for Percocet and Pyridium were provided. The patient is to complete the Bactrim that he has at home. I attest to the content of the Intraoperative Record and any orders documented therein. Any exceptio ns are noted below.
[2017-01-31] MEDS ORDERED: FLM4 PO (13:03)
[2017-01-31] MEDS ORDERED: LINE1TAB6 PO (13:03)
[2017-01-31] MEDS ORDERED: MRLP17 PO (13:03)
[2017-01-31] MEDS ORDERED: CMD5 PO (13:07)
== END 2016-12-18 18:10 | disposition home or self-care (01) ==
LOC: C.ACU 10:22
PROVIDERS: ATTEND Urology
DX: N20.9 Urinary calculus, unspecified (principal); N40.1 Benign prostatic hyperplasia with lower urinary tract symptoms; N13.8 Other obstructive and reflux uropathy; R33.8 Other retention of urine; N21.0 Calculus in bladder; K21.9 Gastro-esophageal reflux disease without esophagitis; I67.9 Cerebrovascular disease, unspecified; I10 Essential (primary) hypertension; M51.26 Other intervertebral disc displacement, lumbar region; G62.9 Polyneuropathy, unspecified; M48.00 Spinal stenosis, site unspecified; Z98.890 Other specified postprocedural states; Z82.49 Family history of ischemic heart disease and other diseases of the circulatory system; Z80.9 Family history of malignant neoplasm, unspecified; Z88.5 Allergy status to narcotic agent; Z88.8 Allergy status to other drugs, medicaments and biological substances

== ENCOUNTER 2017-01-06 11:48 | Inpatient (IN) | payer BC, OTHER ==
[~2017-01-06] VITALS: Ht 170.2 cm; Wt 74.0 kg
[~2017-01-06 11:48] MED LIST changes: -CIPROFLOXACIN / D5W 400 MG IV SCH; -GENTAMICIN INJ 120 MG in DEXTROSE 5% 100ML 100 ML IV SCH; -LACTATED RINGER'S 1000ML 1,000 ML IV SCH
[2017-01-06] MEDS ORDERED: FINA5TAB4 PO (12:15)
--- NOTE | 2017-01-06 12:31 | EMERGENCY ROOM VISIT NOTE ---
History Report prepared by Isabella: Nick Perez Under the Supervision of: Dr. Abelino Gonzalez M.D. First contact with patient: 12:17 Chief Complaint: LEG PAIN,LEG INJURY Stated Complaint: RIGHT LEG SWOLLEN History of Present Illness The patient is an 86 year old male who presents to the Emergency Room with complaints of worsening right leg pain for the past few days. The patient states that he had back surgery about two weeks ago, and afterwards he has had some leg swelling, and it just aches. He additionally states that he has been having some trouble walking. The patient denies any smoking, and he denies using any blood thinners. The patient states that he has a history of a blood clot in his right leg in the past. Source of History: patient Onset: few days ago Position: leg (right) Quality: ache Timing: worsening Note: Associated symptoms: Leg swelling Review of Systems See HPI for pertinent positives & negatives. A total of 10 systems reviewed and were otherwise negative. Past Medical & Surgical Medical Problems: (1) Arthritis (2) DVT (deep venous thrombosis) (3) Lumbar muscle hematoma Family History Heart disease Social History Smoking Status: Never Smoker Marital Status: Occupation Status: retired Current/Historical Medications Scheduled Amlodipine (Norvasc), 10 MG PO DAILY Aspirin (Aspirin Ec), 81 MG PO QAM Finasteride (Proscar), 5 MG PO DAILY Lisinopril (Lisinopril), 5 MG PO QAM Pantoprazole (Protonix), 40 MG PO QAM Allergies Coded Allergies: Phenobarbital (Verified Allergy, Mild, RASH, 12/18/16) Clopidogrel (Verified Allergy, Unknown, RASH, 12/18/16) Ibuprofen (Verified Allergy, Unknown, unknown to patient, 12/18/16) Physical Exam Vital Signs Date Time Temp Pulse Resp B/P Pulse Ox O2 Delivery O2 Flow Rate FiO2 01/06/17 11:50 36.8 86 16 132/67 97 Room Air Physical Exam GENERAL: Patient is in mild distress and uncomfortable appearing. HEENT: No acute trauma, normocephalic atraumatic, mucous membranes moist, no nasal congestion, no scleral icterus. NECK: No stridor, no adenopathy, no meningismus, trachea is midline. LUNGS: No dyspnea. Clear to auscultation and equal bilaterally. No wheeze, no rhonchi. HEART: Regular rate and rhythm. No murmurs, rubs, gallops appreciated. ABDOMEN: Soft, nontender, bowel sounds positive, no masses appreciated, no peritonitis. BACK: No midline tenderness, no CVA tenderness EXTREMITIES: 2+ edema of the right lower leg below the knee. Right calf enlarged when compared to the left calf. Decreased pulses in the right ankle when compared to the left. Mild discoloration of the right foot. Decreased warmth when compared to the left foot NEUROLOGIC: Alert and oriented, no acute motor or sensory deficits, no focal weakness, cranial nerves grossly intact. SKIN: No rash, no jaundice, no diaphoresis. Medical Decision & Procedures ER Provider Diagnostic Interpretation: US results as stated below per interpretation by me and the radiologist: ULTRASOUND RIGHT VENOUS DOPP LOWER EXT UNILAT CLINICAL HISTORY: Right leg swelling COMPARISON STUDY: No previous studies for comparison. FINDINGS: No thrombus is visualized in the right common femoral vein. There is thrombus within the superficial femoral vein extending from the proximal portion to the popliteal vein. There is popliteal vein thrombus. There is thrombus within the posterior tibial and anterior tibial veins. IMPRESSION: Extensive acute right lower extremity DVT with involvement of the superficial femoral, popliteal, posterior tibial, and anterior tibial veins Electronically signed by: Ricardo Slaughter M.D. 01/06/2017 2:05 PM Dictated Date/Time: 01/06/2017 2:03 PM Laboratory Results 01/06/17 12:35 Red Blood Count 3.86, Mean Corpuscular Volume 94.0, Mean Corpuscular Hemoglobin 30.8, Mean Corpuscular Hemoglobin Concent 32.8, Mean Platelet Volume 11.6, Neutrophils (%) (Auto) 68.3, Lymphocytes (%) (Auto) 14.0, Monocytes (%) (Auto) 11.8, Eosinophils (%) (Auto) 5.1, Basophils (%) (Auto) 0.5, Neutrophils # (Auto ) 5.33, Lymphocytes # (Auto) 1.09, Monocytes # (Auto) 0.92, Eosinophils # (Auto ) 0.40, Basophils # (Auto) 0.04 01/06/17 12:35 Test 01/06/17 12:35 White Blood Count 7.80 K/uL (4.8-10.8) Red Blood Count 3.86 M/uL (4.7-6.1) Hemoglobin 11.9 g/dL (14.0-18.0) Hematocrit 36.3 % (42-52) Mean Corpuscular Volume 94.0 fL (80-100) Mean Corpuscular Hemoglobin 30.8 pg (25-34) Mean Corpuscular Hemoglobin Concent 32.8 g/dl (32-36) Platelet Count 293 K/uL (130-400) Mean Platelet Volume 11.6 fL (7.4-10.4) Neutrophils (%) (Auto) 68.3 % Lymphocytes (%) (Auto) 14.0 % Monocytes (%) (Auto) 11.8 % Eosinophils (%) (Auto) 5.1 % Basophils (%) (Auto) 0.5 % Neutrophils # (Auto) 5.33 K/uL (1.4-6.5) Lymphocytes # (Auto) 1.09 K/uL (1.2-3.4) Monocytes # (Auto) 0.92 K/uL (0.11-0.59) Eosinophils # (Auto) 0.40 K/uL (0-0.5) Basophils # (Auto) 0.04 K/uL (0-0.2) RDW Standard Deviation 46.4 fL (36.4-46.3) RDW Coefficient of Variation 13.5 % (11.5-14.5) Immature Granulocyte % (Auto) 0.3 % Immature Granulocyte # (Auto) 0.02 K/uL (0.00-0.02) Prothrombin Time 11.6 SECONDS (9.0-12.0) Prothromb Time International Ratio 1.1 (0.9-1.1) Anion Gap 8.0 mmol/L (3-11) Est Creatinine Clear Calc Drug Dose 38.8 ml/min Estimated GFR () 52.0 Estimated GFR (Non- 44.9 BUN/Creatinine Ratio 17.4 (10-20) Calcium Level 9.2 mg/dl (8.5-10.1) Total Creatine Kinase 134 U/L (39-308) Laboratory results as reviewed by me. Medications Administered ED Course 1217: The patient was evaluated in room A3. A complete history and physical exam was performed. 1410: I discussed the patient's case with Dr. Simmons to get his opinion on the patient. 1413: I discussed the patient's case with Dr. Soni. 1449: Heparin Sodium/ Dextrose 1ea IV 1450: I reevaluated the patient, and he states that he is willing to stay for further evaluation. 1454: I discussed the patient's case with Dr. Richardson. He is going to evaluate the patient for further treatment. 1550: I talked to the patient's daughter Jina, and I discussed the treatment plans with her. 1558: I reevaluated the patient, and he is feeling well. The Heparin IV has been started Medical Decision Differential: DVT, CHF, Arterial Occlusion, Infectious, Joint Effusion, Trauma, Lymphedema, Idiopathic, Trauma, amongst other pathologies entertained. 86 yr old male arrives with swelling and pain right leg. Mild discoloration improved with rest and elevation. Pulses intact though decreased on right. Known DVT history and sent for US DVT with arterial portion cancelled once DVT proven. Massive DVT burden and with early cerulea developing he will clearly need to come in. As improvement just with elevation and rest does not require emergent surgical intervention. Started on heparin after discussing pros/cons and aware bleeding risks. Both Spine and Uro aware and agree with need to treat with heparin. Patient not very happy with staying but I made clear to him loss of Life/Limp possible if not treated aggressively. Breathing comfortably, no cp, no sob, no syncope to suggested PE. Stable at time of admission to hospitalist service. Discussed case with Jina (daughter [phone]) to make her aware of findings. Consults Time Called: 1406 Consulting Physician: Dr. Simmons Returned Call: 1410 I discussed the patient's case with Dr. Simmons to get his opinion on the patient. Additional Consults: Time Called: 1413 Consulted Physician: Dr Soni Returned Call: 1410 Additional Comments: I discussed the patient's case with Dr. Soni Time Called: 1450 Consulted Physician: Dr. Richardson Returned Call: 1048 Additional Comments: I discussed the patient's case with Dr. Richardson. 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 This was a life/limb threatening event. This includes time spent evaluating patient, direct bedside care, chart review, placing orders, interpretation of diagnostic studies, discussion with consultants, patient, and family members, as well as other required patient management activities. This 35 minutes is in excess of all separately billable procedures. Scribe Attestation The scribe's documentation has been prepared under my direction and personally reviewed by me in its entirety. I confirm that the note above accurately reflects all work, treatment, procedures, and medical decision making performed by me. Departure Information Dispostion Being Evaluated By Hospitalist Referrals ProJosé Miguel M.D. (PCP)
[2017-01-06 12:45] LABS: BASO % 0.5 %; BASO ABS # 0.04 K/uL (0-0.2); COMPLETE YES; EOS % 5.1 %; HEMATOCRIT 36.3 % (42-52); IG% 0.3 %; LYMPH ABS # 1.09 K/uL (1.2-3.4); MEAN CORPUSCULAR HEMOGLOBIN 30.8 pg (25-34); MEAN CORPUSCULAR HGB CONC 32.8 g/dl (32-36); MEAN PLATELET VOLUME 11.6 fL (7.4-10.4); MONO % 11.8 %; NEUT % 68.3 %; PLATELET COUNT 293 K/uL (130-400); RED BLOOD COUNT 3.86 M/uL (4.7-6.1)
[2017-01-06 12:55] LABS: INR 1.1 (0.9-1.1); PARTIAL THROMBOPLASTIN RATIO 1.2; PROTHROMBIN TIME (PATIENT) 11.6 SECONDS (9.0-12.0)
[2017-01-06 13:01] LABS: BUN/CREATININE RATIO 17.4 (10-20); CALCIUM 9.2 mg/dl (8.5-10.1); CREATININE 1.4 mg/dl (0.60-1.40); POTASSIUM 4.2 mmol/L (3.5-5.1)
--- NOTE | 2017-01-06 14:07 | DIAGNOSTIC IMAGING REPORT ---
ULTRASOUND RIGHT VENOUS DOPP LOWER EXT UNILAT CLINICAL HISTORY: Right leg swelling COMPARISON STUDY: No previous studies for comparison. FINDINGS: No thrombus is visualized in the right common femoral vein. There is thrombus within the superficial femoral vein extending from the proximal portion to the popliteal vein. There is popliteal vein thrombus. There is thrombus within the posterior tibial and anterior tibial veins. IMPRESSION: Extensive acute right lower extremity DVT with involvement of the superficial femoral, popliteal, posterior tibial, and anterior tibial veins Electronically signed by: Ricardo Slaughter M.D. 01/06/2017 2:05 PM Dictated Date/Time: 01/06/2017 2:03 PM
[2017-01-06] MEDS ORDERED: ALUMINUM/MAGNESIUM/SIMETH (MAALOX MAX) 30 ML UDC PO PRN (15:15)
[2017-01-06] MEDS ORDERED: ONDANSETRON INJ 2 MG/ML 2 ML VIAL IV PRN (15:15)
[2017-01-06] MEDS ORDERED: POLYETHYLENE (MIRALAX) 17 GM PACK PO PRN (15:15)
[2017-01-06] MEDS ORDERED: ACETAMINOPHEN 325 MG TAB PO PRN (15:15)
[2017-01-06] MEDS ORDERED: MAGNESIUM HYDROXIDE SUSP 30 ML UDC PO PRN (15:15)
[2017-01-06] MEDS ORDERED: HEPARIN 25000 UNIT/500 ML D5W ONE (15:17)
[2017-01-06] MEDS ORDERED: HEPARIN SOD 5000 UNIT/0.5 ML CARP ONE (15:18)
[2017-01-06] MEDS ORDERED: IV FLUIDS COMPLETED PRN (15:30)
[2017-01-06] MEDS ORDERED: HEPARIN 25,000 UNIT/500ML D5W 500 ML IV PRN (16:45)
--- NOTE | 2017-01-06 16:52 | History and Physical ---
History & Physical Date & Time of Service: Jan 06, 2017 at 16:51 Chief Complaint: Right Leg Swollen Primary Care Physician: José Miguel Cano M.D. Past Medical/Surgical History Medical Problems: (1) Arthritis Status: Chronic Family History Heart disease Social History Smoking Status: Never Smoker Marital Status: Housing status: other Occupational Status: retired Immunizations History of Influenza Vaccine: N/A Influenza Vaccine Date: Aug 21, 2009 History of Tetanus Vaccine?: Yes Tetanus Immunization Date: Aug 02, 2007 History of Pneumococcal: Yes Pneumococcal Date: Aug 02, 2010 History of Hepatitis B Vaccine: Unknown Multi-Drug Resistant Organisms History of MDRO: No Allergies Coded Allergies: Phenobarbital (Verified Allergy, Mild, RASH, 12/18/16) Clopidogrel (Verified Allergy, Unknown, RASH, 12/18/16) Ibuprofen (Verified Allergy, Unknown, unknown to patient, 12/18/16) Home Medications Scheduled Amlodipine (Norvasc), 10 MG PO DAILY Aspirin (Aspirin Ec), 81 MG PO QAM Finasteride (Proscar), 5 MG PO DAILY Lisinopril (Lisinopril), 5 MG PO QAM Pantoprazole (Protonix), 40 MG PO QAM Physical Exam Vital Signs Date Time Temp Pulse Resp B/P Pulse Ox O2 Delivery O2 Flow Rate FiO2 01/06/17 11:50 36.8 86 16 132/67 97 Room Air Diagnostics Laboratory Results Results Past 24 Hours Test 01/06/17 12:35 Range/Units White Blood Count 7.80 4.8-10.8 K/uL Red Blood Count 3.86 4.7-6.1 M/uL Hemoglobin 11.9 14.0-18.0 g/dL Hematocrit 36.3 42-52 % Mean Corpuscular Volume 94.0 80-100 fL Mean Corpuscular Hemoglobin 30.8 25-34 pg Mean Corpuscular Hemoglobin Concent 32.8 32-36 g/dl Platelet Count 293 130-400 K/uL Mean Platelet Volume 11.6 7.4-10.4 fL Neutrophils (%) (Auto) 68.3 % Lymphocytes (%) (Auto) 14.0 % Monocytes (%) (Auto) 11.8 % Eosinophils (%) (Auto) 5.1 % Basophils (%) (Auto) 0.5 % Neutrophils # (Auto) 5.33 1.4-6.5 K/uL Lymphocytes # (Auto) 1.09 1.2-3.4 K/uL Monocytes # (Auto) 0.92 0.11-0.59 K/uL Eosinophils # (Auto) 0.40 0-0.5 K/uL Basophils # (Auto) 0.04 0-0.2 K/uL RDW Standard Deviation 46.4 36.4-46.3 fL RDW Coefficient of Variation 13.5 11.5-14.5 % Immature Granulocyte % (Auto) 0.3 % Immature Granulocyte # (Auto) 0.02 0.00-0.02 K/uL Prothrombin Time 11.6 9.0-12.0 SECONDS Prothromb Time International Ratio 1.1 0.9-1.1 Activated Partial Thromboplast Time 30.1 21.0-31.0 SECONDS Partial Thromboplastin Ratio 1.2 Sodium Level 143 136-145 mmol/L Potassium Level 4.2 3.5-5.1 mmol/L Chloride Level 109 98-107 mmol/L Carbon Dioxide Level 26 21-32 mmol/L Anion Gap 8.0 3-11 mmol/L Blood Urea Nitrogen 24 7-18 mg/dl Creatinine 1.40 0.60-1.40 mg/dl Est Creatinine Clear Calc Drug Dose 38.8 ml/min Estimated GFR () 52.0 Estimated GFR (Non- 44.9 BUN/Creatinine Ratio 17.4 10-20 Random Glucose 144 70-99 mg/dl Calcium Level 9.2 8.5-10.1 mg/dl Total Creatine Kinase 134 39-308 U/L Impression Assessment and Plan admit #[id number] VTE Prophylaxis VTE Risk Assessment Done? Y/N: Yes Risk Level: High
[2017-01-06 17:23] VITALS: BP 159/73; PULSE 76; TEMP 36.5; O2SAT 96
[2017-01-06 17:33] VITALS: BP 159/73; PULSE 76; TEMP 36.5; Ht 170.2 cm; Wt 74.0 kg
--- NOTE | 2017-01-06 17:33 | HISTORY & PHYSICAL EXAMINATION ---
DATE OF ADMISSION: 01/06/2017 ADMISSION HISTORY AND PHYSICAL CHIEF COMPLAINT: Right leg pain and swelling. HISTORY OF PRESENT ILLNESS: The patient is a very pleasant 86-year-old male who has had a rather unfortunate series of health events recently, having been in the hospital early November with a dorsal column stimulator removal and developed a small hematoma. During that time, he had urinary retention and had to have a [place] and then had a TURP done on December 18, and unfortunately then about 2-3 days ago he noticed feeling like a little bit of a lump behind his right knee and then it progressed to aching and then swelling and then today his entire leg has been swollen and has caused a little bit of difficulty walking, so he came to the ER for further evaluation. He absolutely denies any chest pain or shortness of breath or any other symptoms actually interrupting me to say "I don't have any trouble with my heart, my lungs or my kidneys. My whole problem is this lousy back" essentially as best I could obtain. REVIEW OF SYSTEMS: Entirely negative. PAST MEDICAL HISTORY: Includes GERD, prior bladder calculus, BPH, now status post TURP, cerebral vascular disease, hypertension, chronic low back pain, nephrolithiasis, thyroid nodule and prior DVT. PAST SURGICAL HISTORY: Includes the recent back surgery, prior back surgeries, prior orthopedic surgeries, a hernia repair, IVC filter placement with a prior DVT, laminectomy, decompression and of course the above-noted TURP. FAMILY HISTORY: His dad had cardiac disease as did his mom. Mom had a cancer. 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 He actually breeds race horses, although he noted this was probably going to be his last year doing that. He is not a smoker. MEDICATIONS: Include Norvasc 10 mg daily, aspirin 81 mg daily, Colace 100 mg b.i.d., finasteride 5 mg daily, lisinopril 5 mg daily, oxycodone/acetaminophen 10/325 q. 4 hours p.r.n. pain. ALLERGIES: LISTED CLOPIDOGREL, IBUPROFEN AND PHENOBARBITAL. PHYSICAL EXAMINATION: VITAL SIGNS: Temperature 36.8, pulse 86, respiratory rate 16, blood pressure 132/67, 97% on room air. GENERAL: He is awake, alert, oriented x3, pleasant, in no acute distress. HEENT: Normocephalic, atraumatic. Mucous membranes are moist. CARDIOVASCULAR: Regular without rubs, murmurs, gallops. LUNGS: Clear to auscultation bilaterally. No rales, rhonchi, or wheezes. Good effort. ABDOMEN: Soft, nondistended, nontender, no masses or organomegaly. EXTREMITIES: Without cyanosis, clubbing or edema the left; on his right, he has dull degree of bluish purplish discoloration to his toes, but good cap refill, no signs of true arterial and diffuse leg edema, it is not that profound, but whenever compared to the left leg it is definitely a degree of probably acute appearing tense skin, 1+ edema down most the leg, most notable in the calf but to a degree present in his thigh as well. NEUROLOGIC: Shows cranial nerves II-XII to be grossly intact. Gross motor and sensory are intact. MUSCULOSKELETAL: Yields no gross lesions. MENTAL STATE: Shows good recent and remote recall. Normal mood and affect. Good judgment and insight. LABORATORY DATA AND DIAGNOSTICS: CBC shows a white count of 7.8, hemoglobin 11.9, platelets 293. Basic metabolic panel with sodium 143, potassium 4.2, chloride 109, CO2 26, BUN 24; creatinine 1.4, which appears to be around his baseline; calcium 9.2, glucose 144. CK total 134. PT 11.6, PTT 30.1. Lower extremity venous Doppler showing an extensive acute right lower extremity DVT involving superficial femoral, popliteal, posterior tibial and anterior tibial veins. ASSESSMENT AND PLAN: 1. Acute right lower extremity deep venous thrombosis. It is extensive and overall other than his age, he is fairly low risk for PE-related complications; however, given his recent back surgery and recent transurethral resection of the prostate, in discussions that the Emergency Room physician had with spine surgery and urology, everybody felt it prudent to initiate anticoagulation with heparin and follow him for 24-48 hours to ensure that he does not have any bleeding complications, if he did obviously then the heparin would be able to be stopped or reversed. After that, he appears to be a pretty good candidate to transition to something such as apixaban rather than warfarin. I explained all this to him and he did have prior deep vein thrombosis, but needed to be on warfarin at that time. I also explained that his Joel filter that was placed probably 5 or more years ago is likely not of benefit at this point in time. He expressed understanding of all of the above. Fortunately, shows no signs or symptoms of PE. 2. Chronic kidney disease, appearing probably around stage III, appears to be stable at his baseline. 3. Hypertension. Continue his home meds. 4. Benign prostatic hypertrophy. Continue his Proscar. 5. Gastroesophageal reflux disease. Continue Protonix. MTDD
[2017-01-06 18:28] LABS: PARTIAL THROMBOPLASTIN RATIO 5.2
[2017-01-06] MEDS: LISINOPRIL 5 MG TAB PO SCH (21:42)
[2017-01-06] MEDS: AMLODIPINE BESYLATE 5 MG TAB PO SCH (21:42)
[2017-01-06] MEDS: FINASTERIDE 5 MG TAB PO SCH (21:42)
[2017-01-06] MEDS: PANTOprazole SOD 40 MG TAB PO SCH (21:42)
[2017-01-06 22:11] LABS: PARTIAL THROMBOPLASTIN RATIO 3.5
[2017-01-06] MEDS ORDERED: NURSING VERBAL MED ORDER ONE (22:45)
[2017-01-06 23:20] VITALS: BP 117/46; PULSE 72; TEMP 36.6; O2SAT 93
[2017-01-06 23:44] LABS: URINE APPEARANCE CLEAR (CLEAR); URINE BILIRUBIN NEG (NEG); URINE COLOR YELLOW; URINE EPITHELIAL CELL AUTO 0-5 /lpf (0-5); URINE NITRITE NEG (NEG); UROBILINOGEN NEG (NEG)
[2017-01-06 23:45] LABS: MANUAL MICROSCOPIC REQUIRED? NO; REVIEW REQ? YES
[2017-01-07] MEDS ORDERED: NURSING VERBAL MED ORDER ONE (02:00)
[2017-01-07] MEDS: CIPROFLOXACIN 400MG / D5W IV SCH ×2 (02:29→13:49)
[2017-01-07 07:23] LABS: BASO ABS # 0.07 K/uL (0-0.2); COMPLETE YES; EOS % 6.3 %; HEMATOCRIT 35.9 % (42-52); IG% 0.1 %; LYMPH ABS # 1.17 K/uL (1.2-3.4); MEAN CELL VOLUME 93.2 fL (80-100); MEAN CORPUSCULAR HEMOGLOBIN 30.4 pg (25-34); MEAN CORPUSCULAR HGB CONC 32.6 g/dl (32-36); MEAN PLATELET VOLUME 11.7 fL (7.4-10.4); MONO % 9.2 %; NEUT % 67.4 %; PLATELET COUNT 291 K/uL (130-400); RED BLOOD COUNT 3.85 M/uL (4.7-6.1); WHITE BLOOD COUNT 7.29 K/uL (4.8-10.8)
[2017-01-07 07:30] LABS: PARTIAL THROMBOPLASTIN RATIO 1.2
[2017-01-07 07:34] VITALS: BP 112/56; PULSE 62; TEMP 36.3; O2SAT 94
[2017-01-07 07:55] LABS: BUN/CREATININE RATIO 18.5 (10-20); CALCIUM 8.8 mg/dl (8.5-10.1); CREATININE 1.2 mg/dl (0.60-1.40); POTASSIUM 4.1 mmol/L (3.5-5.1)
[2017-01-07] MEDS: AMLODIPINE BESYLATE 5 MG TAB PO SCH (08:44)
[2017-01-07] MEDS: ASPIRIN 81 MG ECTAB PO SCH (08:44)
[2017-01-07] MEDS: FINASTERIDE 5 MG TAB PO SCH (08:44)
[2017-01-07] MEDS: PANTOprazole SOD 40 MG TAB PO SCH (08:44)
[2017-01-07] MEDS: LISINOPRIL 5 MG TAB PO SCH (08:45)
[2017-01-07 10:41] VITALS: BP 124/68; PULSE 64; O2SAT 95
[2017-01-07] MEDS ORDERED: CIPR1TAB11 PO (14:30)
[2017-01-07] MEDS ORDERED: XRL20 PO (14:30)
[2017-01-07] MEDS ORDERED: XRL15 PO (14:30)
[2017-01-07 15:31] VITALS: BP 116/66; PULSE 65; TEMP 36.5; O2SAT 92
--- NOTE | 2017-01-07 19:46 | Hospitalist Progress Note ---
Hospitalist Progress Note Date of Service Jan 07, 2017. Subjective Pt evaluation today including: conversation w/ patient, physical exam, chart review, lab review, review of studies, review of inpatient medication list The patient is noting less edema in the right leg. The pain is about the same. Overnight, the patients urine became tea colored indicating bleeding from the recent TURP site. The Heparin gtt was D/C'd. With extensive DVT and no anticoagulation puts the patient at risk for expanding clot. I would ask urology for opinion on the significance of bleeding ie is it oozing that can be tolerated as long as we monitor the H&H, is there a cautery that would lessen the chance of bleeding such that he could return to using anticoagulation. Additional Comments: A 10 system review was performed and all were negative. Positives were placed in the subjective section. Objective Vital Signs Date Time Temp Pulse Resp B/P Pulse Ox O2 Delivery O2 Flow Rate FiO2 01/07/17 15:31 36.5 65 16 116/66 92 01/07/17 10:41 64 95 01/07/17 09:27 Room Air 01/07/17 07:34 36.3 62 17 112/56 94 Room Air 01/07/17 01:20 Room Air 01/06/17 23:20 36.6 72 18 117/46 93 Room Air Physical Exam Notes: GEN: Awake, alert, and oriented x 3. Not in acute distress HEENT: Tm's intact, no inflammation, EOMI, PERRLA, MMM Neck: Soft, supple Lungs: CTA b/l, no r/r/w Heart: REG, nrl S1S2 without murmurs, rubs or gallops Abdomen: Soft, NT, ND, + BS EXT: No C/C/ The right leg is larger and more swollen than the left. There is calf tenderness on the right. NEURO: CN's II-XII grossly intact, non-focal Skin: warm, dry, no rashes PSYCH: pleasant, cooperative. Laboratory Results Last 24 Hours Test 01/06/17 21:43 01/06/17 23:10 01/07/17 07:00 Activated Partial Thromboplast Time 91.0 SECONDS 30.3 SECONDS Partial Thromboplastin Ratio 3.5 1.2 Urine Color YELLOW Urine Appearance CLEAR Urine pH 5.0 Urine Specific [place] 1.020 Urine Protein 2+ Urine Glucose (UA) NEG Urine Ketones NEG Urine Occult Blood 3+ Urine Nitrite NEG Urine Bilirubin NEG Urine Urobilinogen NEG Urine Leukocyte Esterase SMALL Urine WBC (Auto) >30 /hpf Urine RBC (Auto) >30 /hpf Urine Hyaline Casts (Auto) 1-5 /lpf Urine Epithelial Cells (Auto) 0-5 /lpf Urine Bacteria (Auto) 1+ Urine Yeast (Auto) White Blood Count 7.29 K/uL Red Blood Count 3.85 M/uL Hemoglobin 11.7 g/dL Hematocrit 35.9 % Mean Corpuscular Volume 93.2 fL Mean Corpuscular Hemoglobin 30.4 pg Mean Corpuscular Hemoglobin Concent 32.6 g/dl Platelet Count 291 K/uL Mean Platelet Volume 11.7 fL Neutrophils (%) (Auto) 67.4 % Lymphocytes (%) (Auto) 16.0 % Monocytes (%) (Auto) 9.2 % Eosinophils (%) (Auto) 6.3 % Basophils (%) (Auto) 1.0 % Neutrophils # (Auto) 4.91 K/uL Lymphocytes # (Auto) 1.17 K/uL Monocytes # (Auto) 0.67 K/uL Eosinophils # (Auto) 0.46 K/uL Basophils # (Auto) 0.07 K/uL RDW Standard Deviation 46.8 fL RDW Coefficient of Variation 13.6 % Immature Granulocyte % (Auto) 0.1 % Immature Granulocyte # (Auto) 0.01 K/uL Sodium Level 136 mmol/L Potassium Level 4.1 mmol/L Chloride Level 105 mmol/L Carbon Dioxide Level 25 mmol/L Anion Gap 6.0 mmol/L Blood Urea Nitrogen 22 mg/dl Creatinine 1.20 mg/dl Est Creatinine Clear Calc Drug Dose 40.6 ml/min Estimated GFR () 62.6 Estimated GFR (Non- 54.0 BUN/Creatinine Ratio 18.5 Random Glucose 98 mg/dl Calcium Level 8.8 mg/dl Assessment and Plan 1) extensive Right DVT with associated swelling and posterior leg pain. - Heparin gtt lead to hematuria. H&H remained stable, Currently though he is off of all anticoagulation 2) Recent turp - It is expected that the bleeding arose from the turp site. I will ask urology opinion on the significance of this bleeding and if there is anything that could be done to minimize blood loss if patient were able to return using anticoagulation. This is a conundrum. 3) GERD 4) CKD stage III 5) HTN He does have a Joel filter that was placed roughly 5 years prior. However , we have no assurance that it is functioning.
[2017-01-08 00:11] VITALS: BP 120/67; PULSE 68; TEMP 36.3; O2SAT 95
[2017-01-08] MEDS: CIPROFLOXACIN 400MG / D5W IV SCH ×2 (01:53→13:58)
[2017-01-08 07:17] VITALS: BP 124/64; PULSE 64; TEMP 36.5; O2SAT 95
[2017-01-08 07:36] LABS: HEMATOCRIT 34.1 % (42-52); MEAN CELL VOLUME 90.7 fL (80-100); MEAN CORPUSCULAR HEMOGLOBIN 30.3 pg (25-34); MEAN CORPUSCULAR HGB CONC 33.4 g/dl (32-36); MEAN PLATELET VOLUME 11.4 fL (7.4-10.4); PLATELET COUNT 275 K/uL (130-400); RED BLOOD COUNT 3.76 M/uL (4.7-6.1); WHITE BLOOD COUNT 7.98 K/uL (4.8-10.8)
[2017-01-08 07:44] LABS: PARTIAL THROMBOPLASTIN RATIO 1.2
[2017-01-08 08:15] LABS: BUN/CREATININE RATIO 15.9 (10-20); CREATININE 1.4 mg/dl (0.60-1.40)
--- NOTE | 2017-01-08 08:54 | Progress Note ---
Subjective Date of Service: Jan 08, 2017. Subjective Pt evaluation today including: conversation w/ patient, physical exam, chart review, lab review, review of studies Voiding: no voiding problems Reports urine has "cleared up." Remains off anticoagulation. He reports 1st DVT post-op about 4-5 years ago, s/p IVC filter, however, does not recall being on anticoagulation. Patient as on heparin gtt, however, developed hematuria and has been off heparin since. He has good appetite. No chest pain, no sob, no abd pain. Trouble sleeping in the hospital but declined any meds for it. 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 Status: Acute (2) Urinary retention due to benign prostatic hyperplasia Status: Acute Review of Systems All Other Systems: Reviewed and Negative Medications Acetaminophen (Tylenol Tab) 650 mg Q4H PRN PO; Start 01/06/17 at 15:15; Stop 02/05/17 at 15:14 Al Hydrox/Mg Hydrox/Simethicone (Maalox Max Susp) 15 ml Q4H PRN PO; Start 01/06 at 15:15; Stop 02/05/17 at 15:14 Amlodipine Besylate (Norvasc Tab) 10 mg DAILY PO Last administered on 01/07/17 08:44; Admin Dose 10 MG; Start 01/07/17 at 09:00; Stop 02/06/17 at 08:59 Aspirin (Ecotrin Tab) 81 mg QAM PO Last administered on 01/07/17 08:44; Admin Dose 81 MG; Start 01/07/17 at 09:00; Stop 02/06/17 at 08:59 Ciprofloxacin/ Dextrose/Prmx (Cipro / D5w/ Premixed D5W) 200 ml @ 100 mls/hr Q12@02,14 IV Last administered on 01/08/17 01:53; Admin Dose 100 MLS/HR; Start 01/07/17 at 02:00; Stop 01/12/17 at 01:59 Finasteride (Proscar Tab) 5 mg DAILY PO Last administered on 01/07/17 08:44; Admin Dose 5 MG; Start 01/07/17 at 09:00; Stop 02/06/17 at 08:59 Lisinopril (Zestril Tab) 5 mg QAM PO Last administered on 01/07/17 08:45; Admin Dose 5 MG; Start 01/07/17 at 09:00; Stop 02/06/17 at 08:59 Magnesium Hydroxide (Milk Of Magnesia Susp) 30 ml Q6H PRN PO; Start 01/06/17 at 15:15; Stop 02/05/17 at 15:14 Miscellaneous 1 ea 1 ea PRN PRN N/A; Start 01/06/17 at 15:30; Stop 01/06/18 at 15:29 Ondansetron HCl (Zofran Inj) 4 mg Q6H PRN IV; Start 01/06/17 at 15:15; Stop at 15:14 Pantoprazole Sodium (Protonix Tab) 40 mg QAM PO Last administered on 01/07/17 08:44; Admin Dose 40 MG; Start 01/07/17 at 09:00; Stop 02/06/17 at 08:59 Polyethylene (Miralax Powder Packet) 17 gm DAILY PRN PO; Start 01/06/17 at 15: 15; Stop 02/05/17 at 15:14 Objective Vital Signs Date Time Temp Pulse Resp B/P Pulse Ox O2 Delivery O2 Flow Rate FiO2 01/08/17 07:17 36.5 64 16 124/64 95 Room Air 01/08/17 00:25 Room Air 01/08/17 00:11 36.3 68 17 120/67 95 Room Air 01/07/17 15:31 36.5 65 16 116/66 92 01/07/17 15:30 Room Air 01/07/17 10:41 64 95 01/07/17 09:27 Room Air Physical Exam Comments: NAD, AOx3 eomi, perrl, anicteric sclerae s1 s2 rrr, no m/r/g ctab no w/r/r abd soft, nt/nd +BS RLE edema with warm extremities cn 2-12 grossly intact without facial drooping Laboratory Results Last 24 Hours Test 01/08/17 06:55 White Blood Count 7.98 K/uL Red Blood Count 3.76 M/uL Hemoglobin 11.4 g/dL Hematocrit 34.1 % Mean Corpuscular Volume 90.7 fL Mean Corpuscular Hemoglobin 30.3 pg Mean Corpuscular Hemoglobin Concent 33.4 g/dl RDW Standard Deviation 43.9 fL RDW Coefficient of Variation 13.3 % Platelet Count 275 K/uL Mean Platelet Volume 11.4 fL Activated Partial Thromboplast Time 30.0 SECONDS Partial Thromboplastin Ratio 1.2 Sodium Level 137 mmol/L Potassium Level 4.0 mmol/L Chloride Level 105 mmol/L Carbon Dioxide Level 23 mmol/L Anion Gap 9.0 mmol/L Blood Urea Nitrogen 22 mg/dl Creatinine 1.40 mg/dl Est Creatinine Clear Calc Drug Dose 34.8 ml/min Estimated GFR () 52.0 Estimated GFR (Non- 44.9 BUN/Creatinine Ratio 15.9 Random Glucose 109 mg/dl Calcium Level 9.0 mg/dl Assessment and Plan 1. 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 Hematuria - s/p TURP a few weeks ago - will check UA for microscopic hematuria - urology consulted - h/h stable - on cipro, UCx pending 3. HTN - BP acceptable - cont amlodipine and lisinopril 4. BPH - likely has underlying CKD, early stages - will monitor Creat - cont proscar - s/p TURP - urology on consult
--- NOTE | 2017-01-08 09:22 | Urology Consultation ---
History General Date of Service: Jan 08, 2017. Chief Complaint: RLE swelling Primary Care Physician: José Miguel Cano M.D. Pt seen a urologist before?: Yes (Dr. Soni) If yes, why?: BPH, bladder stone, nephrolithiasis History of Present Illness 86 yo male s/p TURP on 12-18-[address] Soni. Pt admitted to [facility] for RLE DVT. He has a hx of DVT in the past requiring IVC filter placement. consulted for gross hematuria. The pt reports his urine is crystal clear this morning, and he is voiding on his own without difficulty. He remains on finasteride. H&H is stable at 11.4 and 34.1 this morning. Laboratory Last 24 Hours Test 01/08/17 06:55 01/08/17 08:59 White Blood Count 7.98 K/uL Red Blood Count 3.76 M/uL Hemoglobin 11.4 g/dL Hematocrit 34.1 % Mean Corpuscular Volume 90.7 fL Mean Corpuscular Hemoglobin 30.3 pg Mean Corpuscular Hemoglobin Concent 33.4 g/dl RDW Standard Deviation 43.9 fL RDW Coefficient of Variation 13.3 % Platelet Count 275 K/uL Mean Platelet Volume 11.4 fL Activated Partial Thromboplast Time 30.0 SECONDS Partial Thromboplastin Ratio 1.2 Sodium Level 137 mmol/L Potassium Level 4.0 mmol/L Chloride Level 105 mmol/L Carbon Dioxide Level 23 mmol/L Anion Gap 9.0 mmol/L Blood Urea Nitrogen 22 mg/dl Creatinine 1.40 mg/dl Est Creatinine Clear Calc Drug Dose 34.8 ml/min Estimated GFR () 52.0 Estimated GFR (Non- 44.9 BUN/Creatinine Ratio 15.9 Random Glucose 109 mg/dl Calcium Level 9.0 mg/dl 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 Status: Acute (2) Urinary retention due to benign prostatic hyperplasia Status: Acute Past History BPH, deep vein thrombosis, GERD, hypertension, kidney stones, other (bladder stone, Cerebral vascular disease, thyroid nodule, chronic back pain ) Past Surgical History: orthopedic surgery, spinal surgery, other (s/p TURP , IVC filter placement, hernia repair) Family History Heart disease Cancer Social History Hx Tobacco Use In Past Year?: No Smoking: non-smoker Alcohol: no current use Marital status: Housing status: lives alone 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 ) Immunizations History of Influenza Vaccine: N/A Influenza Vaccine Date: Aug 21, 2009 History of Tetanus Vaccine?: Yes Tetanus Immunization Date: Aug 02, 2007 History of Pneumococcal: Yes Pneumococcal Date: Aug 02, 2010 History of Hepatitis B Vaccine: Unknown History of MDRO No Allergies Coded Allergies: Phenobarbital (Verified Allergy, Mild, RASH, 12/18/16) Clopidogrel (Verified Allergy, Unknown, RASH, 12/18/16) Ibuprofen (Verified Allergy, Unknown, unknown to patient, 12/18/16) Medications Home Medications: Home Meds and Scripts Medications Dose Route/Sig Max Daily Dose Days Date Category Dose Instructions Cipro (Ciprofloxacin) 250 Mg Tab 1 Tab PO BID 7 01/07/17 Rx Xarelto (Rivaroxaban) 20 Mg Tab 20 Mg PO DAILY 30 01/07/17 Rx Xarelto (Rivaroxaban) 15 Mg Tab 15 Mg PO BID 21 01/07/17 Rx Proscar (Finasteride) 5 Mg Tab 5 Mg PO DAILY 01/06/17 Reported Norvasc (Amlodipine Besylate) 10 Mg Tab 10 Mg PO DAILY 10/31/16 Reported Lisinopril 5 Mg Tab 5 Mg PO QAM 04/12/16 Reported Aspirin Ec (Aspirin) 81 Mg Tab 81 Mg PO QAM 12/03/14 Reported Restart ion 5 days if urine clear Protonix (Pantoprazole Sodium) 40 Mg Tab 40 Mg PO QAM 05/06/12 Reported Inpatient Medications: Current Inpatient Medications Medications (Trade) Dose Ordered Sig/Jama Route Start Time Stop Time Status Last Admin Dose Admin Acetaminophen (Tylenol Tab) 650 mg Q4H PRN PO 01/06/17 15:15 02/05/17 15:14 Al Hydrox/Mg Hydrox/Simethicone (Maalox Max Susp) 15 ml Q4H PRN PO 01/06/17 15:15 02/05/17 15:14 Magnesium Hydroxide (Milk Of Magnesia Susp) 30 ml Q6H PRN PO 01/06/17 15:15 02/05/17 15:14 Polyethylene (Miralax Powder Packet) 17 gm DAILY PRN PO 01/06/17 15:15 02/05/17 15:14 Ondansetron HCl (Zofran Inj) 4 mg Q6H PRN IV 01/06/17 15:15 02/05/17 15:14 Amlodipine Besylate (Norvasc Tab) 10 mg DAILY PO 01/07/17 09:00 02/06/17 08:59 01/07/17 08:44 10 MG Aspirin (Ecotrin Tab) 81 mg QAM PO 01/07/17 09:00 02/06/17 08:59 01/07/17 08:44 81 MG Finasteride (Proscar Tab) 5 mg DAILY PO 01/07/17 09:00 02/06/17 08:59 01/07/17 08:44 5 MG Lisinopril (Zestril Tab) 5 mg QAM PO 01/07/17 09:00 02/06/17 08:59 01/07/17 08:45 5 MG Pantoprazole Sodium (Protonix Tab) 40 mg QAM PO 01/07/17 09:00 02/06/17 08:59 01/07/17 08:44 40 MG Miscellaneous 1 ea 1 ea PRN PRN N/A 01/06/17 15:30 01/06/18 15:29 Ciprofloxacin/ Dextrose/Prmx (Cipro / D5w/ Premixed D5W) 200 ml @ 100 mls/hr Q12@02,14 IV 01/07/17 02:00 01/12/17 01:59 01/08/17 01:53 100 MLS/HR Review of Systems Review of Systems Constitutional: No chills, No fever Eyes: No double vision Neurological: No dizzy Endocrine: No excessive thirst Gastrointestinal: No abdominal pain, No nausea, No vomiting Cardiovascular: No chest pain Respiratory: No shortness of breath Skin: No rash Musculoskeletal: + arthritis Male : No blood in urine, No painful urination Physical Exam Vital Signs: Vital Signs Past 12 Hours Date Time Temp Pulse Resp B/P Pulse Ox O2 Delivery O2 Flow Rate FiO2 01/08/17 07:17 36.5 64 16 124/64 95 Room Air 01/08/17 00:25 Room Air 01/08/17 00:11 36.3 68 17 120/67 95 Room Air Physical Exam: General Appearance: no apparent distress Eyes: bilateral eyes normal inspection ENT: hearing grossly normal Neck: no JVD Respiratory/Chest: no respiratory distress, no accessory muscle use Cardiovascular: no JVD Extremities: normal inspection Neurologic/Psychiatric: alert, normal mood/affect, oriented x 3 Skin: normal color Assessment & Plan Assessment & Plan A/P: Gross hematuria s/p TURP, DVT AFVSS. Continue anticoagulation per primary service. Gross hematuria not unexpected for several weeks after TURP. OK to continue ASA and other anticoagulation unless the pt were to developed dark red hematuria with clot retention. Can monitor for now. Continue finasteride. UC&S preliminarily positive growing staph. Tx with 10-14 days of abx per sensitivities. Thanks for the consult. Will continue to follow along with primary service at this time.
[2017-01-08] MEDS: FINASTERIDE 5 MG TAB PO SCH (09:32)
[2017-01-08] MEDS: ASPIRIN 81 MG ECTAB PO SCH (09:33)
[2017-01-08] MEDS: LISINOPRIL 5 MG TAB PO SCH (09:33)
[2017-01-08] MEDS: PANTOprazole SOD 40 MG TAB PO SCH (09:34)
[2017-01-08] MEDS: AMLODIPINE BESYLATE 5 MG TAB PO SCH (09:34)
--- NOTE | 2017-01-08 09:55 | Oncology Consultation ---
Oncology/Heme Consultation Date of Consultation: Jan 08, 2017. Attending Physician: Myles Chavis DO Reason for Consultation: Extensive right lower extremity DVT History of Present Illness Mr. Blum is a delightful 86-year-old gentleman that on December 18 had a TURP. Prior to that he had a dorsal column stimulator removed. A few days ago his right leg began to bother him and he has been found to have extensive DVT. He was placed on anticoagulation but then his urine turned dark. It is 3+ positive for blood. The anticoagulation had to be stopped. He has an IVC filter in place that was placed for 5 years ago when he developed a blood clot in the right leg again after back surgery. There is no definite family history of blood clots. 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[employer] ) Allergies Coded Allergies: Phenobarbital (Verified Allergy, Mild, RASH, 12/18/16) Clopidogrel (Verified Allergy, Unknown, RASH, 12/18/16) Ibuprofen (Verified Allergy, Unknown, unknown to patient, 12/18/16) Home Medications Scheduled Amlodipine (Norvasc), 10 MG PO DAILY Aspirin (Aspirin Ec), 81 MG PO QAM Ciprofloxacin Tab (Cipro), 1 TAB PO BID Finasteride (Proscar), 5 MG PO DAILY Lisinopril (Lisinopril), 5 MG PO QAM Pantoprazole (Protonix), 40 MG PO QAM Rivaroxaban (Xarelto), 15 MG PO BID Rivaroxaban (Xarelto), 20 MG PO DAILY Current Inpatient Medications Current Inpatient Medications Medications (Trade) Dose Ordered Sig/Jama Route Start Time Stop Time Status Last Admin Dose Admin Acetaminophen (Tylenol Tab) 650 mg Q4H PRN PO 01/06/17 15:15 02/05/17 15:14 Al Hydrox/Mg Hydrox/Simethicone (Maalox Max Susp) 15 ml Q4H PRN PO 01/06/17 15:15 02/05/17 15:14 Magnesium Hydroxide (Milk Of Magnesia Susp) 30 ml Q6H PRN PO 01/06/17 15:15 02/05/17 15:14 Polyethylene (Miralax Powder Packet) 17 gm DAILY PRN PO 01/06/17 15:15 02/05/17 15:14 Ondansetron HCl (Zofran Inj) 4 mg Q6H PRN IV 01/06/17 15:15 02/05/17 15:14 Amlodipine Besylate (Norvasc Tab) 10 mg DAILY PO 01/07/17 09:00 02/06/17 08:59 01/08/17 09:34 10 MG Aspirin (Ecotrin Tab) 81 mg QAM PO 01/07/17 09:00 02/06/17 08:59 01/08/17 09:33 81 MG Finasteride (Proscar Tab) 5 mg DAILY PO 01/07/17 09:00 02/06/17 08:59 01/08/17 09:32 5 MG Lisinopril (Zestril Tab) 5 mg QAM PO 01/07/17 09:00 02/06/17 08:59 01/08/17 09:33 5 MG Pantoprazole Sodium (Protonix Tab) 40 mg QAM PO 01/07/17 09:00 02/06/17 08:59 01/08/17 09:34 40 MG Miscellaneous 1 ea 1 ea PRN PRN N/A 01/06/17 15:30 01/06/18 15:29 Ciprofloxacin/ Dextrose/Prmx (Cipro / D5w/ Premixed D5W) 200 ml @ 100 mls/hr Q12@,14 IV 01/07/17 02:00 01/12/17 01:59 01/08/17 01:53 100 MLS/HR Review of Systems Constitutional: Negative for weight loss, night sweats, or fever Eyes: Negative for event change of vision ENT: Negative for epistaxis, nasal discharge, sore throat, or deafness Cardiovascular: Negative for chest pain, palpitations, dizziness, diaphoresis Respiratory: Negative for new shortness of breath,hemoptysis, or purulent cough Gastrointestinal: Negative for diarrhea, hematemesis, melena, nausea, vomiting , or dyspepsia Integumentary (skin): Negative for rash or jaundice discoloration Genitourinary: Negative for urinary frequency, hematuria, or dysuria Neurological: Negative for weakness, seizure activity, headache, or dizziness Lymphatic/Hematologic: Negative for petechiae, bleeding or new adenopathy Musculoskeletal: He has chronic back issues. The right lower extremity was edematous Allergic/Immunologic: Negative for unusual rash or pruritis. Physical Exam Date Time Temp Pulse Resp B/P Pulse Ox O2 Delivery O2 Flow Rate FiO2 01/08/17 07:17 36.5 64 16 124/64 95 Room Air 01/08/17 00:25 Room Air 01/08/17 00:11 36.3 68 17 120/67 95 Room Air 01/07/17 15:31 36.5 65 16 116/66 92 01/07/17 15:30 Room Air 01/07/17 10:41 64 95 Constitutional: vitals are stable. Eyes: Eyes are LORIN EOMI without conjuctival erythema or icterus. ENT: External examination was negative for masses. Neck: Negative for masses or palpable thyromegaly Respiratory: Lung sounds were generally clear bilaterally Cardiovascular: Heart was RRR without significant murmur, gallops aoe rubs Gastrointestinal: No palpable hepatic or splenomegaly. The abdomen was soft with normal bowel sounds. Lymphatic system: there was no palpable peripheral lymphadenopathy Musculoskeletal System: The musculoskeletal system seemed concordant with age. Skin: The skin was negative for jaundice. Neurologic exam: The exam was negative for any focal findings. Deep tendon reflexes were equal and symmetrical. Psychiatric exam: Was essentially negative with normal mood and effect. Extremities: :Right lower extremity is edematous. There are distended superficial veins over the right lower extremity below the knee Left lower extremity appears normal. Laboratory Results Last 24 Hours Test 01/08/17 06:55 01/08/17 08:59 01/08/17 09:40 White Blood Count 7.98 K/uL Red Blood Count 3.76 M/uL Hemoglobin 11.4 g/dL Hematocrit 34.1 % Mean Corpuscular Volume 90.7 fL Mean Corpuscular Hemoglobin 30.3 pg Mean Corpuscular Hemoglobin Concent 33.4 g/dl RDW Standard Deviation 43.9 fL RDW Coefficient of Variation 13.3 % Platelet Count 275 K/uL Mean Platelet Volume 11.4 fL Activated Partial Thromboplast Time 30.0 SECONDS Partial Thromboplastin Ratio 1.2 Sodium Level 137 mmol/L Potassium Level 4.0 mmol/L Chloride Level 105 mmol/L Carbon Dioxide Level 23 mmol/L Anion Gap 9.0 mmol/L Blood Urea Nitrogen 22 mg/dl Creatinine 1.40 mg/dl Est Creatinine Clear Calc Drug Dose 34.8 ml/min Estimated GFR () 52.0 Estimated GFR (Non- 44.9 BUN/Creatinine Ratio 15.9 Random Glucose 109 mg/dl Calcium Level 9.0 mg/dl Assessment & Plan CBC is acceptable. This DVT occurred as a provoked phenomenon in that it occurred postoperatively. Preferably it would be good to have him on systemic anticoagulation. The IVC filter should be protected for pulmonary emboli to a large degree. Await urology's opinion but if possible then he may need rechallenge once again first with systemic heparin to see how it is tolerated before transitioning to oral systemic anticoagulation therapy for at least 3 months. The coagulation clinic should be consulted at that juncture.
[2017-01-08 10:55] LABS: URINE APPEARANCE CLEAR (CLEAR); URINE BILIRUBIN NEG (NEG); URINE COLOR YELLOW; URINE EPITHELIAL CELL AUTO 0-5 /lpf (0-5); URINE NITRITE NEG (NEG); URINE SPECIFIC GRAVITY 1.012 (1.000-1.030); UROBILINOGEN NEG (NEG)
[2017-01-08 11:22] LABS: MANUAL MICROSCOPIC REQUIRED? NO; REVIEW REQ? YES
[2017-01-08 15:31] VITALS: BP 127/64; PULSE 73; TEMP 36.5; O2SAT 94
[2017-01-08 22:55] VITALS: BP 133/66; PULSE 81; TEMP 36.4; O2SAT 94
[2017-01-09] MEDS: CIPROFLOXACIN 400MG / D5W IV SCH ×2 (02:37→15:15)
[2017-01-09 06:56] LABS: URINE APPEARANCE CLEAR (CLEAR); URINE BILIRUBIN NEG (NEG); URINE COLOR YELLOW; URINE EPITHELIAL CELL AUTO >30 /lpf (0-5); URINE NITRITE NEG (NEG); UROBILINOGEN NEG (NEG)
[2017-01-09 06:59] LABS: MANUAL MICROSCOPIC REQUIRED? NO; REVIEW REQ? NO
[2017-01-09 07:15] VITALS: BP 132/71; PULSE 67; TEMP 36.4; O2SAT 94
--- NOTE | 2017-01-09 07:41 | Progress Note ---
Subjective Date of Service: Jan 09, 2017. Subjective Pt evaluation today including: conversation w/ patient, chart review, lab review Voiding: no voiding problems 86 yo male with DVT s/p TURP. Pt denies and gross hematuria this morning. He report clear, yellow urine. Denies difficulty voiding. Stream improved since TURP. Labs pending this AM. UC&S preliminarily growing coag neg sharon. 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 Status: Acute (2) Urinary retention due to benign prostatic hyperplasia Status: Acute Review of Systems Constitutional: No chills, No fever Respiratory: No shortness of breath Cardiac: No chest pain Abdomen: No nausea, No pain, No vomiting Male : No dysuria, No hematuria Heme: No abnormal bleeding/bruising Objective Vital Signs Date Time Temp Pulse Resp B/P Pulse Ox O2 Delivery O2 Flow Rate FiO2 01/09/17 07:15 36.4 67 16 132/71 94 Room Air 01/08/17 22:55 36.4 81 16 133/66 94 Room Air 01/08/17 16:00 Room Air 01/08/17 15:31 36.5 73 16 127/64 94 Room Air Physical Exam General Appearance: no apparent distress Eyes: normal inspection ENT: hearing grossly normal Neck: no JVD Respiratory/Chest: no respiratory distress, no accessory muscle use Cardiovascular: no JVD Extremities: normal inspection Neurologic/Psychiatric: alert, normal mood/affect, oriented x 3 Skin: normal color Laboratory Results Last 24 Hours Test 01/08/17 09:40 01/08/17 10:18 01/09/17 00:00 01/09/17 04:44 Urine Color YELLOW YELLOW Urine Appearance CLEAR CLEAR Urine pH 5.0 5.0 Urine Specific [place] 1.012 1.010 Urine Protein TRACE TRACE Urine Glucose (UA) NEG NEG Urine Ketones NEG NEG Urine Occult Blood 3+ 1+ Urine Nitrite NEG NEG Urine Bilirubin NEG NEG Urine Urobilinogen NEG NEG Urine Leukocyte Esterase LARGE MODERATE Urine WBC (Auto) >30 /hpf >30 /hpf Urine RBC (Auto) >30 /hpf >30 /hpf Urine Hyaline Casts (Auto) 1-5 /lpf 1-5 /lpf Urine Epithelial Cells (Auto) 0-5 /lpf >30 /lpf Urine Bacteria (Auto) NEG NEG Urine Yeast (Auto) Assessment and Plan A/P: Gross hematuria and DVT s/p TURP AFVSS. Hematuria resolved. OK to start anticoagulation and continue ASA per primary service. Some hematuria not unexpected after a TURP. Would only be concerned if the pt developed dark, red urine with clot after initiation of anticoagulation. No further management at this time. Recall PRN issues. Pt OK for d/c home when OK with primary service. He should continue his finasteride. Will arrange for outpatient f/u in 2-3 weeks to check on voiding and hematuria.
[2017-01-09 08:35] LABS: BASO % 0.3 %; BASO ABS # 0.03 K/uL (0-0.2); COMPLETE YES; EOS % 4.9 %; IG% 0.3 %; LYMPH % 13.7 %; LYMPH ABS # 1.25 K/uL (1.2-3.4); MEAN CELL VOLUME 91.4 fL (80-100); MEAN CORPUSCULAR HEMOGLOBIN 30.6 pg (25-34); MEAN CORPUSCULAR HGB CONC 33.5 g/dl (32-36); MEAN PLATELET VOLUME 11.9 fL (7.4-10.4); MONO % 7.9 %; NEUT % 72.9 %; PLATELET COUNT 281 K/uL (130-400); RED BLOOD COUNT 4.05 M/uL (4.7-6.1)
[2017-01-09 08:47] LABS: PARTIAL THROMBOPLASTIN RATIO 1.2
[2017-01-09 09:02] LABS: BUN/CREATININE RATIO 16.7 (10-20); CALCIUM 9.2 mg/dl (8.5-10.1); CREATININE 1.4 mg/dl (0.60-1.40); POTASSIUM 4.2 mmol/L (3.5-5.1)
[2017-01-09] MEDS: ASPIRIN 81 MG ECTAB PO SCH (09:08)
[2017-01-09] MEDS: AMLODIPINE BESYLATE 5 MG TAB PO SCH (09:08)
[2017-01-09] MEDS: PANTOprazole SOD 40 MG TAB PO SCH (09:08)
[2017-01-09] MEDS: LISINOPRIL 5 MG TAB PO SCH (09:09)
--- NOTE | 2017-01-09 09:17 | Progress Note ---
Subjective Date of Service: Jan 09, 2017. Subjective Pt evaluation today including: conversation w/ patient, physical exam, review of studies, review of inpatient medication list Clear urine in the urinal. Appetite good. No chest pain, no sob. No urinary symptoms reported. 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 Status: Acute (2) Urinary retention due to benign prostatic hyperplasia Status: Acute Review of Systems All Other Systems: Reviewed and Negative Medications Acetaminophen (Tylenol Tab) 650 mg Q4H PRN PO; Start 01/06/17 at 15:15; Stop 02/05/17 at 15:14 Al Hydrox/Mg Hydrox/Simethicone (Maalox Max Susp) 15 ml Q4H PRN PO; Start 01/06 at 15:15; Stop 02/05/17 at 15:14 Amlodipine Besylate (Norvasc Tab) 10 mg DAILY PO Last administered on 01/09/17 09:08; Admin Dose 10 MG; Start 01/07/17 at 09:00; Stop 02/06/17 at 08:59 Aspirin (Ecotrin Tab) 81 mg QAM PO Last administered on 01/09/17 09:08; Admin Dose 81 MG; Start 01/07/17 at 09:00; Stop 02/06/17 at 08:59 Ciprofloxacin/ Dextrose 400 mg/ Prmx 200 ml @ 100 mls/hr Q12@02,14 IV Last administered on 01/09/17 15:15; Admin Dose 100 MLS/HR; Start 01/07/17 at 02:00 ; Stop 01/12/17 at 01:59 Finasteride (Proscar Tab) 5 mg DAILY PO Last administered on 01/09/17 10:03; Admin Dose 5 MG; Start 01/07/17 at 09:00; Stop 02/06/17 at 08:59 Heparin Sodium/ Dextrose (Heparin 25,000 Unit/500ml D5W) 500 ml @ 25 mls/hr Q20H PRN IV Last administered on 01/09/17 12:58; Admin Dose 25 MLS/HR; Start at 11:30; Stop 02/08/17 at 11:29 Lisinopril (Zestril Tab) 5 mg QAM PO Last administered on 01/09/17 09:09; Admin Dose 5 MG; Start 01/07/17 at 09:00; Stop 02/06/17 at 08:59 Magnesium Hydroxide (Milk Of Magnesia Susp) 30 ml Q6H PRN PO; Start 01/06/17 at 15:15; Stop 02/05/17 at 15:14 Miscellaneous 1 ea 1 ea PRN PRN N/A; Start 01/06/17 at 15:30; Stop 01/06/18 at 15:29 Ondansetron HCl (Zofran Inj) 4 mg Q6H PRN IV; Start 01/06/17 at 15:15; Stop at 15:14 Pantoprazole Sodium (Protonix Tab) 40 mg QAM PO Last administered on 01/09/17 09:08; Admin Dose 40 MG; Start 01/07/17 at 09:00; Stop 02/06/17 at 08:59 Polyethylene (Miralax Powder Packet) 17 gm DAILY PRN PO Last administered on 12:02; Admin Dose 17 GM; Start 01/06/17 at 15:15; Stop 02/05/17 at 15:14 Objective Vital Signs Date Time Temp Pulse Resp B/P Pulse Ox O2 Delivery O2 Flow Rate FiO2 01/09/17 08:59 Room Air 01/09/17 07:15 36.4 67 16 132/71 94 Room Air 01/09/17 00:20 Room Air 01/08/17 22:55 36.4 81 16 133/66 94 Room Air 01/08/17 16:00 Room Air 01/08/17 15:31 36.5 73 16 127/64 94 Room Air Physical Exam Comments: nad, aox3, eomi, perrl s1 s2 rrr, no m/r/g ctab no w/r/r abd soft nt/nd +BS no suprapubic tend no LE edema cn 2-12 grossly intact Laboratory Results Last 24 Hours Test 01/08/17 09:40 01/08/17 10:18 01/09/17 00:00 01/09/17 08:10 Urine Color YELLOW YELLOW Urine Appearance CLEAR CLEAR Urine pH 5.0 5.0 Urine Specific [place] 1.012 1.010 Urine Protein TRACE TRACE Urine Glucose (UA) NEG NEG Urine Ketones NEG NEG Urine Occult Blood 3+ 1+ Urine Nitrite NEG NEG Urine Bilirubin NEG NEG Urine Urobilinogen NEG NEG Urine Leukocyte Esterase LARGE MODERATE Urine WBC (Auto) >30 /hpf >30 /hpf Urine RBC (Auto) >30 /hpf >30 /hpf Urine Hyaline Casts (Auto) 1-5 /lpf 1-5 /lpf Urine Epithelial Cells (Auto) 0-5 /lpf >30 /lpf Urine Bacteria (Auto) NEG NEG Urine Yeast (Auto) White Blood Count 9.10 K/uL Red Blood Count 4.05 M/uL Hemoglobin 12.4 g/dL Hematocrit 37.0 % Mean Corpuscular Volume 91.4 fL Mean Corpuscular Hemoglobin 30.6 pg Mean Corpuscular Hemoglobin Concent 33.5 g/dl Platelet Count 281 K/uL Mean Platelet Volume 11.9 fL Neutrophils (%) (Auto) 72.9 % Lymphocytes (%) (Auto) 13.7 % Monocytes (%) (Auto) 7.9 % Eosinophils (%) (Auto) 4.9 % Basophils (%) (Auto) 0.3 % Neutrophils # (Auto) 6.62 K/uL Lymphocytes # (Auto) 1.25 K/uL Monocytes # (Auto) 0.72 K/uL Eosinophils # (Auto) 0.45 K/uL Basophils # (Auto) 0.03 K/uL RDW Standard Deviation 44.5 fL RDW Coefficient of Variation 13.3 % Immature Granulocyte % (Auto) 0.3 % Immature Granulocyte # (Auto) 0.03 K/uL Activated Partial Thromboplast Time 31.0 SECONDS Partial Thromboplastin Ratio 1.2 Sodium Level 135 mmol/L Potassium Level 4.2 mmol/L Chloride Level 104 mmol/L Carbon Dioxide Level 22 mmol/L Anion Gap 9.0 mmol/L Blood Urea Nitrogen 23 mg/dl Creatinine 1.40 mg/dl Est Creatinine Clear Calc Drug Dose 34.8 ml/min Estimated GFR () 52.0 Estimated GFR (Non- 44.9 BUN/Creatinine Ratio 16.7 Random Glucose 103 mg/dl Calcium Level 9.2 mg/dl Assessment and Plan 1. R DVT - 2nd episode, both times were post-op - s/p IVC filter 4-5 years ago - appreciate hematology recs - will re-challenge on heparin gtt, if no gross hematuria develops, will transition to po anticoagulation 2. Hematuria - s/p TURP a few weeks ago - urology consulted - h/h stable - on cipro with improvement 3. HTN - BP acceptable - cont amlodipine and lisinopril 4. BPH - likely has underlying CKD, early stages - will monitor Creat - cont proscar - s/p TURP - urology on consult
--- NOTE | 2017-01-09 09:43 | Hematology/Oncology Prog Note ---
Hematology/Onc Progress Note Date of Service Jan 09, 2017. Diagnoses Pulmonary emboli Recent TURP Medications Medications Administered Medications (Trade) Dose Ordered Sig/Jama Route Start Time Stop Time Status Last Admin Dose Admin Amlodipine Besylate (Norvasc Tab) 10 mg DAILY PO 01/07/17 09:00 02/06/17 08:59 01/09/17 09:08 10 MG Aspirin (Ecotrin Tab) 81 mg QAM PO 01/07/17 09:00 02/06/17 08:59 01/09/17 09:08 81 MG Finasteride (Proscar Tab) 5 mg DAILY PO 01/07/17 09:00 02/06/17 08:59 01/08/17 09:32 5 MG Lisinopril (Zestril Tab) 5 mg QAM PO 01/07/17 09:00 02/06/17 08:59 01/09/17 09:09 5 MG Pantoprazole Sodium (Protonix Tab) 40 mg QAM PO 01/07/17 09:00 02/06/17 08:59 01/09/17 09:08 40 MG Heparin Sodium/ Dextrose (Heparin 25,000 Unit/500ml D5W) 25,000 unit STK-MED ONCE .ROUTE 01/06/17 15:17 01/06/17 15:20 DC 01/06/17 15:35 25,000 UNIT Heparin Sodium (Porcine) (Heparin Sq 5000 Unit/0.5ml) 10,000 unit STK-MED ONCE .ROUTE 01/06/17 15:18 01/06/17 15:20 DC 01/06/17 15:36 6,000 UNIT Miscellaneous 1 ea 1 ea NOW STAT N/A 01/06/17 22:39 01/06/17 22:40 DC 01/06/17 22:39 1 EA Ciprofloxacin/ Dextrose/Prmx (Cipro / D5w/ Premixed D5W) 200 ml @ 100 mls/hr Q12@02,14 IV 01/07/17 02:00 01/12/17 01:59 01/09/17 02:37 100 MLS/HR Subjective Seems to be doing well. Urine looks very clear. Urology consultation note reviewed. he denies any new symptoms. Review of Systems: Constitutional: Negative for weight loss, night sweats, or fever Eyes: Negative for event change of vision ENT: Negative for epistaxis, nasal discharge, sore throat, or deafness Cardiovascular: Negative for chest pain, palpitations, dizziness, diaphoresis Respiratory: Negative for new shortness of breath,hemoptysis, or purulent cough Gastrointestinal: Negative for diarrhea, hematemesis, melena, nausea, vomiting , or dyspepsia Integumentary (skin): Negative for rash or jaundice discoloration Genitourinary: Negative for urinary frequency, hematuria, or dysuria Neurological: Negative for weakness, seizure activity, headache, or dizziness Lymphatic/Hematologic: Negative for petechiae, bleeding or new adenopathy Musculoskeletal: Negative for new joint or back pain. Has had chronic back pain. His right leg is edematous as before Allergic/Immunologic: Negative for unusual rash or pruritis. Vital Signs Vital Signs Past 12 Hours Date Time Temp Pulse Resp B/P Pulse Ox O2 Delivery O2 Flow Rate FiO2 01/09/17 08:59 Room Air 01/09/17 07:15 36.4 67 16 132/71 94 Room Air 01/09/17 00:20 Room Air 01/08/17 22:55 36.4 81 16 133/66 94 Room Air Physical Exam Constitutional: vitals are stable. Eyes: Eyes are LORIN EOMI without conjuctival erythema or icterus. ENT: External examination was negative for masses. Neck: Negative for masses or palpable thyromegaly Respiratory: Lung sounds were generally clear bilaterally Cardiovascular: Heart was RRR without significant murmur, gallops aoe rubs Gastrointestinal: No palpable hepatic or splenomegaly. The abdomen was soft with normal bowel sounds. Lymphatic system: there was no palpable peripheral lymphadenopathy Musculoskeletal System: The musculoskeletal system seemed concordant with age. Skin: The skin was negative for jaundice. Neurologic exam: The exam was negative for any focal findings. Deep tendon reflexes were equal and symmetrical. Psychiatric exam: Was essentially negative with normal mood and effect. Extremity: Right lower extremity edematous. Essentially nontender. Superficial veins are more prominent than on the left leg Laboratory Last 24 Hours Test 01/08/17 10:18 01/09/17 00:00 01/09/17 08:10 Urine Color YELLOW Urine Appearance CLEAR Urine pH 5.0 Urine Specific [place] 1.010 Urine Protein TRACE Urine Glucose (UA) NEG Urine Ketones NEG Urine Occult Blood 1+ Urine Nitrite NEG Urine Bilirubin NEG Urine Urobilinogen NEG Urine Leukocyte Esterase MODERATE Urine WBC (Auto) >30 /hpf Urine RBC (Auto) >30 /hpf Urine Hyaline Casts (Auto) 1-5 /lpf Urine Epithelial Cells (Auto) >30 /lpf Urine Bacteria (Auto) NEG White Blood Count 9.10 K/uL Red Blood Count 4.05 M/uL Hemoglobin 12.4 g/dL Hematocrit 37.0 % Mean Corpuscular Volume 91.4 fL Mean Corpuscular Hemoglobin 30.6 pg Mean Corpuscular Hemoglobin Concent 33.5 g/dl Platelet Count 281 K/uL Mean Platelet Volume 11.9 fL Neutrophils (%) (Auto) 72.9 % Lymphocytes (%) (Auto) 13.7 % Monocytes (%) (Auto) 7.9 % Eosinophils (%) (Auto) 4.9 % Basophils (%) (Auto) 0.3 % Neutrophils # (Auto) 6.62 K/uL Lymphocytes # (Auto) 1.25 K/uL Monocytes # (Auto) 0.72 K/uL Eosinophils # (Auto) 0.45 K/uL Basophils # (Auto) 0.03 K/uL RDW Standard Deviation 44.5 fL RDW Coefficient of Variation 13.3 % Immature Granulocyte % (Auto) 0.3 % Immature Granulocyte # (Auto) 0.03 K/uL Activated Partial Thromboplast Time 31.0 SECONDS Partial Thromboplastin Ratio 1.2 Sodium Level 135 mmol/L Potassium Level 4.2 mmol/L Chloride Level 104 mmol/L Carbon Dioxide Level 22 mmol/L Anion Gap 9.0 mmol/L Blood Urea Nitrogen 23 mg/dl Creatinine 1.40 mg/dl Est Creatinine Clear Calc Drug Dose 34.8 ml/min Estimated GFR () 52.0 Estimated GFR (Non- 44.9 BUN/Creatinine Ratio 16.7 Random Glucose 103 mg/dl Calcium Level 9.2 mg/dl Assessment & Plan Right leg deep venous thrombosis rather extensive. Urology consultation note reviewed. We challenge once again with heparin and if stable after a day or to convert to oral anticoagulation such as Coumadin for the next few months. Would ask you consultation with coagulation clinic going forward. For now as a service we will sign off. Reconsult if necessary.
[2017-01-09] MEDS: FINASTERIDE 5 MG TAB PO SCH (10:03)
[2017-01-09] MEDS: HEPARIN IV BOLUS 6,000 UNIT in SYRINGE 0 ML IV ONE ×2 (11:58→12:51)
[2017-01-09] MEDS: HEPARIN 25,000 UNIT/500ML D5W 500 ML IV PRN ×3 (12:58→23:01)
[2017-01-09 14:56] VITALS: BP 113/71; PULSE 71; TEMP 36.6; O2SAT 95
[2017-01-09 19:55] LABS: PARTIAL THROMBOPLASTIN RATIO 2.6
[2017-01-09 23:45] VITALS: BP 129/66; PULSE 73; TEMP 36.7; O2SAT 93
[2017-01-10] MEDS ORDERED: NURSING VERBAL MED ORDER ONE (01:15)
[2017-01-10] MEDS: CIPROFLOXACIN 400MG / D5W IV SCH ×2 (01:15→13:31)
[2017-01-10 07:38] VITALS: BP 122/66; PULSE 68; TEMP 36.4; O2SAT 95
[2017-01-10 07:46] LABS: MEAN CELL VOLUME 91.4 fL (80-100); MEAN CORPUSCULAR HEMOGLOBIN 29.9 pg (25-34); MEAN CORPUSCULAR HGB CONC 32.7 g/dl (32-36); MEAN PLATELET VOLUME 11.7 fL (7.4-10.4); PLATELET COUNT 304 K/uL (130-400); RED BLOOD COUNT 4.05 M/uL (4.7-6.1); WHITE BLOOD COUNT 9.79 K/uL (4.8-10.8)
[2017-01-10 07:48] LABS: PARTIAL THROMBOPLASTIN RATIO 1.2
[2017-01-10] MEDS: AMLODIPINE BESYLATE 5 MG TAB PO SCH (08:45)
[2017-01-10] MEDS: LISINOPRIL 5 MG TAB PO SCH (08:45)
[2017-01-10] MEDS: FINASTERIDE 5 MG TAB PO SCH (08:45)
[2017-01-10] MEDS: ASPIRIN 81 MG ECTAB PO SCH (08:45)
[2017-01-10] MEDS: PANTOprazole SOD 40 MG TAB PO SCH (08:46)
--- NOTE | 2017-01-10 11:21 | Progress Note ---
Subjective Date of Service: Jan 10, 2017. Subjective Pt evaluation today including: conversation w/ patient, conversation w/ family , physical exam, lab review, review of studies, review of inpatient medication list Developed hematuria again overnight with heparin gtt. Patient frustrated. I did discuss risks/benefits of being on anticoagulation and being off of anticoagulation. Patient verbalized understanding, however, he is reluctant to make a decision at this point. I have tried contacting kareem Schroeder but only got the voice mail. WIll try again later. Patient otherwise has no new complaints. Spoke to daughter Wanda Schroeder. Extensive discussion about options for his care and discussed risks/benefits of each. 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 Status: Acute (2) Urinary retention due to benign prostatic hyperplasia Status: Acute Review of Systems All Other Systems: Reviewed and Negative Medications Acetaminophen (Tylenol Tab) 650 mg Q4H PRN PO; Start 01/06/17 at 15:15; Stop 02/05/17 at 15:14 Al Hydrox/Mg Hydrox/Simethicone (Maalox Max Susp) 15 ml Q4H PRN PO; Start 01/06 at 15:15; Stop 02/05/17 at 15:14 Amlodipine Besylate (Norvasc Tab) 10 mg DAILY PO Last administered on 01/10/17 08:45; Admin Dose 10 MG; Start 01/07/17 at 09:00; Stop 02/06/17 at 08:59 Aspirin (Ecotrin Tab) 81 mg QAM PO Last administered on 01/10/17 08:45; Admin Dose 81 MG; Start 01/07/17 at 09:00; Stop 02/06/17 at 08:59 Ciprofloxacin/ Dextrose/Prmx (Cipro / D5w/ Premixed D5W) 200 ml @ 100 mls/hr Q12@02,14 IV Last administered on 01/10/17 13:31; Admin Dose 100 MLS/HR; Start 01/07/17 at 02:00; Stop 01/12/17 at 01:59 Finasteride (Proscar Tab) 5 mg DAILY PO Last administered on 01/10/17 08:45; Admin Dose 5 MG; Start 01/07/17 at 09:00; Stop 02/06/17 at 08:59 Lisinopril (Zestril Tab) 5 mg QAM PO Last administered on 01/10/17 08:45; Admin Dose 5 MG; Start 01/07/17 at 09:00; Stop 02/06/17 at 08:59 Magnesium Hydroxide (Milk Of Magnesia Susp) 30 ml Q6H PRN PO; Start 01/06/17 at 15:15; Stop 02/05/17 at 15:14 Miscellaneous 1 ea 1 ea PRN PRN N/A; Start 01/06/17 at 15:30; Stop 01/06/18 at 15:29 Ondansetron HCl (Zofran Inj) 4 mg Q6H PRN IV; Start 01/06/17 at 15:15; Stop at 15:14 Pantoprazole Sodium (Protonix Tab) 40 mg QAM PO Last administered on 01/10/17 08 :46; Admin Dose 40 MG; Start 01/07/17 at 09:00; Stop 02/06/17 at 08:59 Polyethylene (Miralax Powder Packet) 17 gm DAILY PRN PO Last administered on 12:02; Admin Dose 17 GM; Start 01/06/17 at 15:15; Stop 02/05/17 at 15:14 Objective Vital Signs Date Time Temp Pulse Resp B/P Pulse Ox O2 Delivery O2 Flow Rate FiO2 01/10/17 10:04 Room Air 01/10/17 07:38 36.4 68 16 122/66 95 Room Air 01/10/17 00:20 Room Air 01/09/17 23:45 36.7 73 16 129/66 93 Room Air 01/09/17 14:56 36.6 71 16 113/71 95 Room Air Physical Exam Comments: nad, aox3 eomi, perrl, anicteric cn 2-12 grossly intact without facial drooping; speech fluent and coherent s1 s2 rrr, no murmurs appreciated ctab no w/r/r abd soft ,nt/nd +BS no LE edema Laboratory Results Last 24 Hours Test 01/09/17 19:25 01/10/17 07:17 Activated Partial Thromboplast Time 66.7 SECONDS 30.0 SECONDS Partial Thromboplastin Ratio 2.6 1.2 White Blood Count 9.79 K/uL Red Blood Count 4.05 M/uL Hemoglobin 12.1 g/dL Hematocrit 37.0 % Mean Corpuscular Volume 91.4 fL Mean Corpuscular Hemoglobin 29.9 pg Mean Corpuscular Hemoglobin Concent 32.7 g/dl RDW Standard Deviation 44.9 fL RDW Coefficient of Variation 13.5 % Platelet Count 304 K/uL Mean Platelet Volume 11.7 fL Assessment and Plan 1. R DVT - 2nd episode, both times were post-op - s/p IVC filter 4-5 years ago - appreciate hematology recs - continues to have hematuria with heparin which was subsequently stopped - options presented to patient, daughter, and - risk benefits discussed 2. Hematuria - s/p TURP a few weeks ago - h/h stable - on cipro with improvement 3. HTN - BP acceptable - cont amlodipine and lisinopril 4. BPH - likely has underlying CKD, early stages - will monitor Creat - cont proscar - s/p TURP - urology on board
[2017-01-10 15:39] VITALS: BP 111/65; PULSE 80; TEMP 36.4; O2SAT 90
--- NOTE | 2017-01-10 16:15 | Discharge Instructions ---
Discharge Instructions Admission Reason for Admission: DVT Discharge Discharge Diagnosis / Problem: Stable for home Discharge Goals Goal(s): Decrease discomfort Activity Recommendations Activity Limitations: resume your previous activity . Current Hospital Diet Patient's current hospital diet: Regular Diet Discharge Diet Recommended Diet: Regular Diet Pending Studies Studies pending at discharge: no Medical Emergencies . Who to Call and When: Medical Emergencies: If at any time you feel your situation is an emergency, please call 911 immediately. . Non-Emergent Contact Non-Emergency issues call your: Primary Care Provider, Urologist . . "Provider Documentation" section prepared by Kylie Kelly. VTE Core Measure Inpt VTE Proph given/why not?: Unfractionated heparin SQ
--- NOTE | 2017-01-10 16:31 | Discharge Summary ---
Discharge Summary Date of Service Jan 10, 2017. Discharge Summary Admission Date: Jan 08, 2017 at 10:11 Discharge Date: Jan 10, 2017 Discharge Disposition: Home Principal Diagnosis: DVT Immunizations: Have You Had Influenza Vaccine: N/A Influenza Vaccine Date: Aug 21, 2009 History of Tetanus Vaccine?: Yes Tetanus Immunization Date: Aug 02, 2007 History of Pneumococcal: Yes Pneumococcal Date: Aug 02, 2010 History of Hepatitis B Vaccine: Unknown Procedures: ULTRASOUND RIGHT VENOUS DOPP LOWER EXT UNILAT CLINICAL HISTORY: Right leg swelling COMPARISON STUDY: No previous studies for comparison. FINDINGS: No thrombus is visualized in the right common femoral vein. There is thrombus within the superficial femoral vein extending from the proximal portion to the popliteal vein. There is popliteal vein thrombus. There is thrombus within the posterior tibial and anterior tibial veins. IMPRESSION: Extensive acute right lower extremity DVT with involvement of the superficial femoral, popliteal, posterior tibial, and anterior tibial veins Electronically signed by: Ricardo Slaughter M.D. 01/06/2017 2:05 PM Dictated Date/Time: 01/06/2017 2:03 PM Medication Reconciliation Continued Medications: Amlodipine (Norvasc) 10 Mg Tab 10 MG PO DAILY, TAB Aspirin (Aspirin Ec) 81 Mg Tab 81 MG PO QAM Restart ion 5 days if urine clear Finasteride (Proscar) 5 Mg Tab 5 MG PO DAILY, TAB Lisinopril (Lisinopril) 5 Mg Tab 5 MG PO QAM Pantoprazole (Protonix) 40 Mg Tab 40 MG PO QAM, #30 TAB Hospital Course The patient is a very pleasant 86-year-old male who has had a rather unfortunate series of health events recently, having been in the hospital early November with a dorsal column stimulator removal and developed a small hematoma. During that time, he had urinary retention and had to have a [place] and then had a TURP done on December 18, and unfortunately then about 2-3 days ago he noticed feeling like a little bit of a lump behind his right knee and then it progressed to aching and then swelling and then today his entire leg has been swollen and has caused a little bit of difficulty walking, so he came to the ER for further evaluation. He absolutely denies any chest pain or shortness of breath or any other symptoms actually interrupting me to say "I don't have any trouble with my heart, my lungs or my kidneys. My whole problem is this lousy back" essentially as best I could obtain. Patientwas found to have RLE extensive DVT and was started on heparin drip. Patient developed gross hematuria while on heparin which was subsequently stopped. Hematology and urology evaluation were done inpatient. Hematology recommended rechallenging with anticoagulation, however, patient re-developed gross hematuria. Hematology also noted that the IVC filter he had placed 4-5 years ago should largely prevent PEs. No further urological intervention was necessitated as it is not uncommon to have hematuria post-TURP. Risk/benefits were discussed with patient, daughter, and . OPtions included 1) no anticoagulation at all, 2)no anticoagulation for now with follow-up with Dr. Cano (PCP) until urinalysis clears of hematuria and re-introduce anticoagulation at a later time, or 3) resume anticoagulation NOW with risk of continued hematuria and close follow-up as outpatient. Patient and opted for option 2 and verbalized understanding that if he were to develop SOB or chest pains to either call his PCP or come to ED for an evaluation. 1. R DVT - 2nd episode, both times were post-op - s/p IVC filter 4-5 years ago - appreciate hematology recs - continues to have hematuria with heparin which was subsequently stopped - options presented to patient, daughter, and - risk benefits discussed 2. Hematuria - s/p TURP a few weeks ago - h/h stable - on cipro with improvement - cont Cipro per urologist 3. HTN - BP acceptable - cont amlodipine and lisinopril 4. BPH - likely has underlying CKD, early stages - will monitor Creat - cont proscar - s/p TURP - urology on board Total Time Spent: Greater than 30 minutes This includes examination of the patient, discharge planning, medication reconciliation, and communication with other providers. Discharge Instructions Please refer to the electronic Patient Visit Report (Discharge Instructions) for additional information. Additional Copies To José Miguel Cano M.D.
[2017-01-10 16:40] VITALS: BP 111/65; PULSE 80; TEMP 36.4
[2017-01-10 17:00] VITALS: O2SAT 94
[2017-01-11 18:35] LABS: ANTITHROMBINIII ACTIVITY** 88 % activity (80-120); B2 GLYCOPROTEIN IGA <9 SAU (<=20); B2 GLYCOPROTEIN IGG <9 SGU (<=20); B2 GLYCOPROTEIN IGM <9 SMU (<=20); LUPUS ANTICOAGULANT** TC36573X Negative (Negative); PROTEIN C ACTIVITY** TC 1777X 87 % (70-180); PROTEIN S ACT(FUNCT)**1779X 97 % (70-150)
[2017-01-31] MEDS ORDERED: FLM4 PO (13:03)
[2017-01-31] MEDS ORDERED: MRLP17 PO (13:03)
[2017-01-31] MEDS ORDERED: LINE1TAB6 PO (13:03)
[2017-01-31] MEDS ORDERED: CMD5 PO (13:07)
== END 2017-01-10 18:04 | disposition home or self-care (01) | DRG 300 ==
LOC: CANRESERV → ENRESERVDT → ENRESERVTM → C.EDB 11:49 → C.MSN 15:13 → OBSVTOIN 01-08 10:11
PROVIDERS: ADMIT Family Medicine; ATTEND Internal Medicine
DX: T81.72XA Complication of vein following a procedure, not elsewhere classified, initial encounter (principal); I82.401 Acute embolism and thrombosis of unspecified deep veins of right lower extremity; N39.0 Urinary tract infection, site not specified; Y83.6 Removal of other organ (partial) (total) as the cause of abnormal reaction of the patient, or of later complication, without mention of misadventure at the time of the procedure; M19.90 Unspecified osteoarthritis, unspecified site; N40.0 Benign prostatic hyperplasia without lower urinary tract symptoms; K21.9 Gastro-esophageal reflux disease without esophagitis; N18.3 Chronic kidney disease, stage 3 (moderate); I12.9 Hypertensive chronic kidney disease with stage 1 through stage 4 chronic kidney disease, or unspecified chronic kidney disease; R31.9 Hematuria, unspecified; B95.8 Unspecified staphylococcus as the cause of diseases classified elsewhere; I67.9 Cerebrovascular disease, unspecified; M54.5 Low back pain; G89.29 Other chronic pain; Z85.850 Personal history of malignant neoplasm of thyroid; Z87.442 Personal history of urinary calculi; Z98.1 Arthrodesis status; Z95.828 Presence of other vascular implants and grafts; Z79.82 Long term (current) use of aspirin; Z79.899 Other long term (current) drug therapy; Z79.891 Long term (current) use of opiate analgesic; Z90.79 Acquired absence of other genital organ(s)

== ENCOUNTER → 2017-01-18 | Outpatient (CLI) | payer BC ==
[~2017-01-18] MED LIST changes: +CMD5 PO; +FINA5TAB4 PO; +FLM4 PO; +LINE1TAB6 PO; +MRLP17 PO; +NITR-5 PO; -OXYC-106 PO; +WARF1TAB PO; +WARF1TAB6 PO
[2017-01-18 14:48] LABS: URINE APPEARANCE CLOUDY (CLEAR); URINE BILIRUBIN NEG (NEG); URINE COLOR YELLOW; URINE NITRITE POS (NEG); UROBILINOGEN NEG (NEG); ZZUR CULT IF INDIC CLEAN CATCH YES
[2017-01-18 14:52] LABS: MANUAL MICROSCOPIC REQUIRED? NO; REVIEW REQ? YES
== END | disposition home or self-care (01) ==
LOC: C.LAB1850 13:35
PROVIDERS: ATTEND Family Medicine
DX: R31.9 Hematuria, unspecified (principal)

== ENCOUNTER → 2017-01-26 | Outpatient (CLI) | payer BC | END | disposition home or self-care (01) | LOC: C.LABSPEC 14:53 | PROVIDERS: ATTEND Urology | DX: N40.1 Benign prostatic hyperplasia with lower urinary tract symptoms (principal); N21.0 Calculus in bladder; R31.0 Gross hematuria ==

== ENCOUNTER 2017-01-29 12:10 | Inpatient (IN) | payer BC, OTHER ==
[~2017-01-29] VITALS: Ht 180.3 cm; Wt 76.7 kg
[~2017-01-29 12:10] MED LIST changes: -CMD5 PO; -FLM4 PO; -LINE1TAB6 PO; -MRLP17 PO; -NITR-5 PO; -WARF1TAB PO; -WARF1TAB6 PO
[2017-01-29] MEDS ORDERED: WARF1TAB PO (13:45)
[2017-01-29] MEDS ORDERED: WARF1TAB6 PO (13:48)
[2017-01-29] MEDS ORDERED: NITR-5 PO (13:55)
[2017-01-29] MEDS ORDERED: SODIUM CHLORIDE 0.9% 1000ML 1,000 ML IV STA (14:03)
[2017-01-29] MEDS ORDERED: MoRPHine SULFATE 2 MG/ML CARP IV STA ×2 (14:03→14:55)
--- NOTE | 2017-01-29 14:22 | EMERGENCY ROOM VISIT NOTE ---
History First contact with patient: 13:44 Chief Complaint: GROIN PAIN Stated Complaint: GROIN PAIN History of Present Illness The patient is a 86 year old male who presents to the Emergency Room with complaints of left lower abdominal pain. The patient complains of pain in the left lower abdomen that radiates to the back. The patient states that the pain started Sunday night and was worse on Sunday. He states the pain waxes and wanes and is very severe and rated an 8/10 at its worst. The patient has had several procedures recently. On November 14 he had a stimulator removed by Dr. Simmons. He subsequently developed a right flank hematoma and went back to the OR on November 17 to have evacuation of hematoma. On December 18 he had a TURP and bladder stones removed by Dr. Soni. Subsequently, the patient developed a significant right lower extremity DVT. He was started on Coumadin. The patient had been off his Coumadin for the aforementioned urology procedure. He states that Sunday he was told he could restart his Coumadin. He states that he attributed the pain to the Coumadin so he stopped it. The patient states his urologist called him today and stated he had a urinary tract infection and called in a prescription for antibiotics. The patient states the pain continues to be severe and he presents to the emergency department. He denies any fevers. He denies any pain in his chest or trouble breathing. He denies any nausea or vomiting. He denies any dysuria, urgency, frequency, hematuria. He denies any numbness, tingling or weakness in the extremities. He denies any testicular pain. He denies any hematemesis, melena or hematochezia. Review of Systems A 10 system review of systems was completed with positives and pertinent negatives listed in the HPI. Past Medical/Surgical History Medical Problems: (1) Arthritis (2) DVT (deep venous thrombosis) (3) Lumbar muscle hematoma (4) Ureteral stone with hydronephrosis Family History Heart disease Social History Smoking Status: Never Smoker Marital Status: Occupation Status: other Current/Historical Medications Scheduled Amlodipine (Norvasc), 10 MG PO DAILY Aspirin (Aspirin Ec), 81 MG PO QAM Finasteride (Proscar), 5 MG PO DAILY Lisinopril (Lisinopril), 5 MG PO QAM Nitrofurantoin Monohyd Macrocr (Macrobid), 100 MG PO BID Warfarin Sod (Jantoven), 1 TAB PO UD Allergies Coded Allergies: Phenobarbital (Verified Allergy, Mild, RASH, 12/18/16) Clopidogrel (Verified Allergy, Unknown, RASH, 12/18/16) Ibuprofen (Verified Allergy, Unknown, unknown to patient, 12/18/16) Physical Exam Vital Signs Date Time Temp Pulse Resp B/P Pulse Ox O2 Delivery O2 Flow Rate FiO2 01/29/17 16:58 76 20 138/75 96 Room Air 01/29/17 15:22 107 18 135/78 96 Room Air 01/29/17 14:10 82 18 152/81 94 Room Air 01/29/17 12:13 36.4 79 20 144/70 96 Room Air Physical Exam VITALS: Vitals are noted on the nurse's note and reviewed by myself. Vital signs stable. The patient is afebrile. He is not hypotensive or tachycardic. GENERAL: This is an 86-year-old male., in no acute distress, nondiaphoretic, well-developed well-nourished. SKIN: The skin was without rashes, erythema, edema, or bruising. There is no tenting of the skin. Capillary reflex less than 2 seconds. HEAD: Normocephalic atraumatic. EARS: The external ears are normal in appearance. EYES: Pupils equal round and reactive to light and accommodation. Conjunctivae without injection, sclerae without icterus. Extraocular movements intact. NOSE: Patent, turbinates without inflammation or discharge. MOUTH: Mucous membranes moist. Tonsils are not enlarged. Pharynx without erythema or exudate. Uvula midline. Airway patent. Tongue does not deviate. NECK: Supple without nuchal rigidity. No lymphadenopathy. No thyromegaly. Cervical spine is nontender. No JVD. HEART: Regular rate and rhythm without murmurs gallops or rubs. LUNGS: Clear to auscultation bilaterally without wheezes, rales or rhonchi. No retractions or accessory muscle use. ABDOMEN: Positive bowel sounds x 4. Soft, very minimal left lower abdominal tenderness, without masses or organomegaly. There is no CVA tenderness. : The external genitalia is normal in appearance. There is no obvious ecchymosis. There is no testicular tenderness or edema. MUSCULOSKELETAL: No muscle atrophy, erythema, or edema noted. Full range of motion in all extremities. Normal gait. Strength 5/5 throughout. NEURO: Patient was alert and oriented to person place and time. No focal neurological deficits. Medical Decision & Procedures ER Provider Diagnostic Interpretation: [~ rep ct add3]] CT SCAN OF THE ABDOMEN AND PELVIS WITHOUT IV CONTRAST CLINICAL HISTORY: Left flank pain. COMPARISON STUDY: Abdominal CT dated 11/30/2016. TECHNIQUE: CT scan of the abdomen and pelvis is performed from the lung bases to the proximal femora. Images are reviewed in the axial, sagittal, and coronal planes. IV contrast was not administered for this examination as per the referring clinician. Automated dose control exposure was utilized. CT DOSE: 673.01 mGy.cm FINDINGS: Lung bases: The heart is normal in size and without pericardial effusion. There is a trace left pleural effusion with left basilar consolidation a calcified granulomas noted in the lingula. An electronic device is partially imaged in the left chest wall. A tiny hiatal hernia is noted. Liver: The unenhanced liver is normal in size, contour, and attenuation. There is no intrahepatic biliary ductal dilatation. Gallbladder: Unremarkable. Spleen: Normal in size and attenuation. Pancreas: The unenhanced pancreas is grossly unremarkable. Adrenal glands: Right adrenal calcifications are unchanged. The left adrenal gland is normal in appearance. Kidneys: The unenhanced kidneys demonstrate cortical atrophy. There is a 12 mm obstructing calculus protruding from the left vesicoureteral junction. This causes moderate left hydroureteronephrosis. There is associated left-sided perinephric and periureteric stranding. There are at least 2 additional nonobstructing left renal calculi measuring up to 4 mm. A 2 mm nonobstructing right renal calculus is identified. Bilateral renal cysts measure up to 6 cm. Abdominal vasculature: The abdominal aorta is normal in course and caliber noting moderate atherosclerotic calcification. There is an infrarenal IVC filter in place. Bowel: The small bowel and colon are normal in course and caliber. There is moderate colonic diverticulosis without CT evidence of acute diverticulitis. Colonic fecal retention is observed. The appendix is well-visualized and normal. Peritoneum: There is no intraperitoneal free air or abdominal ascites. There is a small fat-containing umbilical hernia. Lymphadenopathy: None. Pelvic viscera: The prostate gland is markedly enlarged and heterogeneous, measuring 6.9 cm in transverse diameter. There is median lobe hypertrophy. The bladder wall appears thickened and trabeculated suggesting the sequelae of chronic outlet obstruction. Findings suggest previous right inguinal herniorrhaphy. Calcifications are noted in the left gluteal musculature. There is asymmetric atrophy of the left gluteal musculature as compared to the right. Skeletal structures: The skeletal structures are osteopenic. There is moderate lumbosacral spondylosis, with evidence of previous laminectomy in the lower lumbar spine. No lytic or blastic lesions are seen. Sclerotic change is noted in the sacroiliac joints. Arthritic change is also seen in the hips. IMPRESSION: 1. There is a 12 mm obstructing calculus protruding from the left vesicoureteral junction. This causes moderate left hydroureteronephrosis. 2. Additional small bilateral nonobstructing renal calculi as above. 3. The prostate gland is markedly enlarged and heterogeneous and there is evidence of chronic bladder outlet obstruction. Consider correlation with serum PSA levels. 4. Moderate colonic diverticulosis without CT evidence of acute diverticulosis. 5. There is a trace left pleural effusions with dependent left basilar airspace consolidation. This could represent atelectasis and/or an infectious/inflammatory pneumonitis. Clinical correlation will be required. 6. Additional findings as above. Laboratory Results 01/29/17 14:08 Red Blood Count 4.14, Mean Corpuscular Volume 92.0, Mean Corpuscular Hemoglobin 30.0, Mean Corpuscular Hemoglobin Concent 32.5, Mean Platelet Volume 12.0, Neutrophils (%) (Auto) 79.3, Lymphocytes (%) (Auto) 10.6, Monocytes (%) (Auto) 7.9, Eosinophils (%) (Auto) 1.7, Basophils (%) (Auto) 0.3, Neutrophils # (Auto) 10.15, Lymphocytes # (Auto) 1.36, Monocytes # (Auto) 1.01, Eosinophils # (Auto) 0.22, Basophils # (Auto) 0.04 01/29/17 14:08 Test 01/29/17 14:08 01/29/17 14:16 01/29/17 15:25 White Blood Count 12.81 K/uL (4.8-10.8) Red Blood Count 4.14 M/uL (4.7-6.1) Hemoglobin 12.4 g/dL (14.0-18.0) Hematocrit 38.1 % (42-52) Mean Corpuscular Volume 92.0 fL (80-100) Mean Corpuscular Hemoglobin 30.0 pg (25-34) Mean Corpuscular Hemoglobin Concent 32.5 g/dl (32-36) Platelet Count 310 K/uL (130-400) Mean Platelet Volume 12.0 fL (7.4-10.4) Neutrophils (%) (Auto) 79.3 % Lymphocytes (%) (Auto) 10.6 % Monocytes (%) (Auto) 7.9 % Eosinophils (%) (Auto) 1.7 % Basophils (%) (Auto) 0.3 % Neutrophils # (Auto) 10.15 K/uL (1.4-6.5) Lymphocytes # (Auto) 1.36 K/uL (1.2-3.4) Monocytes # (Auto) 1.01 K/uL (0.11-0.59) Eosinophils # (Auto) 0.22 K/uL (0-0.5) Basophils # (Auto) 0.04 K/uL (0-0.2) RDW Standard Deviation 46.4 fL (36.4-46.3) RDW Coefficient of Variation 13.9 % (11.5-14.5) Immature Granulocyte % (Auto) 0.2 % Immature Granulocyte # (Auto) 0.03 K/uL (0.00-0.02) Prothrombin Time 12.0 SECONDS (9.0-12.0) Prothromb Time International Ratio 1.1 (0.9-1.1) Activated Partial Thromboplast Time 30.4 SECONDS (21.0-31.0) Partial Thromboplastin Ratio 1.2 Anion Gap 11.0 mmol/L (3-11) Est Creatinine Clear Calc Drug Dose 26.4 ml/min Estimated GFR () 31.8 Estimated GFR (Non- 27.5 BUN/Creatinine Ratio 9.8 (10-20) Calcium Level 9.9 mg/dl (8.5-10.1) Total Bilirubin 0.5 mg/dl (0.2-1) Aspartate Amino Transf (AST/SGOT) 16 U/L (15-37) Alanine Aminotransferase (ALT/SGPT) 19 U/L (12-78) Alkaline Phosphatase 83 U/L (45-117) Total Protein 7.6 gm/dl (6.4-8.2) Albumin 3.7 gm/dl (3.4-5.0) Globulin 3.9 gm/dl (2.5-4.0) Albumin/Globulin Ratio 0.9 (0.9-2) Bedside Lactic Acid Venous 1.55 mmol/L (0.90-1.70) Urine Color DK YELLOW Urine Appearance CLEAR (CLEAR) Urine pH 8.0 (4.5-7.5) Urine Specific [place] 1.013 (1.000-1.030) Urine Protein 1+ (NEG) Urine Glucose (UA) NEG (NEG) Urine Ketones TRACE (NEG) Urine Occult Blood 2+ (NEG) Urine Nitrite NEG (NEG) Urine Bilirubin NEG (NEG) Urine Urobilinogen NEG (NEG) Urine Leukocyte Esterase MODERATE (NEG) Urine WBC (Auto) >30 /hpf (0-5) Urine RBC (Auto) >30 /hpf (0-4) Urine Hyaline Casts (Auto) 10-30 /lpf (0-5) Urine Epithelial Cells (Auto) 0-5 /lpf (0-5) Urine Bacteria (Auto) NEG (NEG) Medications Administered Medications (Trade) Dose Ordered Sig/Jama Route Start Time Stop Time Status Last Admin Dose Admin Sodium Chloride (Nss 1000ml) 1,000 ml @ 100 mls/hr Q10H STAT IV 01/29/17 14:03 01/29/17 20:09 DC 01/29/17 14:15 100 MLS/HR Morphine Sulfate (MoRPHine SULFATE INJ) 2 mg NOW STAT IV 01/29/17 14:03 01/29/17 14:06 DC 01/29/17 14:14 2 MG Morphine Sulfate (MoRPHine SULFATE INJ) 2 mg NOW STAT IV 01/29/17 14:55 01/29/17 14:56 DC 01/29/17 15:25 2 MG Vancomycin HCl 1 gm 1 gm NOW STAT IV 01/29/17 16:27 01/29/17 16:28 DC 01/29/17 16:57 1 GM Sodium Chloride (Nss 1000ml) 1,000 ml @ 125 mls/hr Q8H IV 01/29/17 18:00 02/28/17 17:59 01/29/17 20:01 125 MLS/HR ED Course The patient was seen and examined. Previous visits were reviewed. The patient does not have a fever. He does have a leukocytosis of 12.81. He has a stable anemia. He has acute elevation in his BUN/creatinine creatinine. His creatinine is 2.10. Lactic acid was 1.55. INR was 1.1. Urinalysis suggests hematuria and urinary tract infection. The CT scan of the abdomen and pelvis was obtained and reveals a 12 mm left- sided ureteral stone with hydronephrosis. The patient was hydrated with normal saline He was given 2 mg IV morphine with no improvement in his symptoms He was given an additional 2 mg IV morphine with marked improvement in his symptoms. I reviewed his most recent urine culture which revealed coag-negative staph. It was sensitive to vancomycin and daptomycin. He was given 1 g IV vancomycin. I discussed the case with the [facility] hospitalist service and they request that I discussed the case with urology I spoke with Traci Man and she recommends admission to the hospitalist service and they may need to consider stenting tomorrow I again spoke with the hospitalist service and they will evaluate the patient The patient was also seen and examined by who agrees with the assessment and treatment plan. Medical Decision DIFFERENTIAL DIAGNOSIS: Hepatitis, cholecystitis, cholangitis, biliary colic, pancreatitis, pneumonia, subdiaphragmatic abscess, appendicitis, inguinal hernia , nephrolithiasis, inflammatory bowel disease, mesenteric adenitis, peptic ulcer disease, GERD, gastritis, pancreatitis, myocardial infarction, pericarditis, ruptured aortic aneurysm, appendicitis, gastroenteritis, bowel obstruction, splenic infarct, diverticulitis, mesenteric ischemia, metabolic, peritonitis, among others. Impression Primary Impression: Kidney stone Additional Impressions: Hydronephrosis Acute kidney injury Urinary tract infection Departure Information Referrals ,José Miguel Palumbo M.D. (PCP) Patient Instructions [facility] Problem Qualifiers
[2017-01-29] MEDS ORDERED: OPTIRAY 320 IV PRN (14:30)
[2017-01-29 14:35] LABS: BASO % 0.3 %; BASO ABS # 0.04 K/uL (0-0.2); COMPLETE YES; EOS % 1.7 %; HEMATOCRIT 38.1 % (42-52); IG% 0.2 %; LYMPH % 10.6 %; LYMPH ABS # 1.36 K/uL (1.2-3.4); MEAN CORPUSCULAR HGB CONC 32.5 g/dl (32-36); MONO % 7.9 %; NEUT % 79.3 %; PLATELET COUNT 310 K/uL (130-400); RED BLOOD COUNT 4.14 M/uL (4.7-6.1); WHITE BLOOD COUNT 12.81 K/uL (4.8-10.8)
[2017-01-29 14:40] LABS: INR 1.1 (0.9-1.1); PARTIAL THROMBOPLASTIN RATIO 1.2
[2017-01-29 14:50] LABS: BUN/CREATININE RATIO 9.8 (10-20); CALCIUM 9.9 mg/dl (8.5-10.1); CREATININE 2.1 mg/dl (0.60-1.40); POTASSIUM 4.1 mmol/L (3.5-5.1)
[2017-01-29 14:53] LABS: ALB/GLOB RATIO 0.9 (0.9-2)
[2017-01-29 15:44] LABS: MANUAL MICROSCOPIC REQUIRED? NO; REVIEW REQ? NO; URINE APPEARANCE CLEAR (CLEAR); URINE BILIRUBIN NEG (NEG); URINE COLOR DK YELLOW; URINE EPITHELIAL CELL AUTO 0-5 /lpf (0-5); URINE NITRITE NEG (NEG); URINE SPECIFIC GRAVITY 1.013 (1.000-1.030); UROBILINOGEN NEG (NEG); ZZUR CULT IF INDIC CLEAN CATCH YES
[2017-01-29 15:46] LABS: SULFASALICYLIC ACID POS (NEG)
--- NOTE | 2017-01-29 16:11 | DIAGNOSTIC IMAGING REPORT ---
CT SCAN OF THE ABDOMEN AND PELVIS WITHOUT IV CONTRAST CLINICAL HISTORY: Left flank pain. COMPARISON STUDY: Abdominal CT dated 11/30/2016. TECHNIQUE: CT scan of the abdomen and pelvis is performed from the lung bases to the proximal femora. Images are reviewed in the axial, sagittal, and coronal planes. IV contrast was not administered for this examination as per the referring clinician. Automated dose control exposure was utilized. CT DOSE: 673.01 mGy.cm FINDINGS: Lung bases: The heart is normal in size and without pericardial effusion. There is a trace left pleural effusion with left basilar consolidation a calcified granulomas noted in the lingula. An electronic device is partially imaged in the left chest wall. A tiny hiatal hernia is noted. Liver: The unenhanced liver is normal in size, contour, and attenuation. There is no intrahepatic biliary ductal dilatation. Gallbladder: Unremarkable. Spleen: Normal in size and attenuation. Pancreas: The unenhanced pancreas is grossly unremarkable. Adrenal glands: Right adrenal calcifications are unchanged. The left adrenal gland is normal in appearance. Kidneys: The unenhanced kidneys demonstrate cortical atrophy. There is a 12 mm obstructing calculus protruding from the left vesicoureteral junction. This causes moderate left hydroureteronephrosis. There is associated left-sided perinephric and periureteric stranding. There are at least 2 additional nonobstructing left renal calculi measuring up to 4 mm. A 2 mm nonobstructing right renal calculus is identified. Bilateral renal cysts measure up to 6 cm. Abdominal vasculature: The abdominal aorta is normal in course and caliber noting moderate atherosclerotic calcification. There is an infrarenal IVC filter in place. Bowel: The small bowel and colon are normal in course and caliber. There is moderate colonic diverticulosis without CT evidence of acute diverticulitis. Colonic fecal retention is observed. The appendix is well-visualized and normal. Peritoneum: There is no intraperitoneal free air or abdominal ascites. There is a small fat-containing umbilical hernia. Lymphadenopathy: None. Pelvic viscera: The prostate gland is markedly enlarged and heterogeneous, measuring 6.9 cm in transverse diameter. There is median lobe hypertrophy. The bladder wall appears thickened and trabeculated suggesting the sequelae of chronic outlet obstruction. Findings suggest previous right inguinal herniorrhaphy. Calcifications are noted in the left gluteal musculature. There is asymmetric atrophy of the left gluteal musculature as compared to the right. Skeletal structures: The skeletal structures are osteopenic. There is moderate lumbosacral spondylosis, with evidence of previous laminectomy in the lower lumbar spine. No lytic or blastic lesions are seen. Sclerotic change is noted in the sacroiliac joints. Arthritic change is also seen in the hips. IMPRESSION: 1. There is a 12 mm obstructing calculus protruding from the left vesicoureteral junction. This causes moderate left hydroureteronephrosis. 2. Additional small bilateral nonobstructing renal calculi as above. 3. The prostate gland is markedly enlarged and heterogeneous and there is evidence of chronic bladder outlet obstruction. Consider correlation with serum PSA levels. 4. Moderate colonic diverticulosis without CT evidence of acute diverticulosis. 5. There is a trace left pleural effusions with dependent left basilar airspace consolidation. This could represent atelectasis and/or an infectious/inflammatory pneumonitis. Clinical correlation will be required. 6. Additional findings as above. Electronically signed by: Bharathi Harmon M.D. 01/29/2017 4:09 PM Dictated Date/Time: 01/29/2017 3:57 PM
[2017-01-29] MEDS ORDERED: VANCOMYCIN 1GM/270ML NSS IV STA (16:27)
[2017-01-29] MEDS ORDERED: ONDANSETRON INJ 2 MG/ML 2 ML VIAL IV PRN (18:00)
[2017-01-29] MEDS ORDERED: MAGNESIUM HYDROXIDE SUSP 30 ML UDC PO PRN (18:00)
[2017-01-29] MEDS ORDERED: ACETAMINOPHEN 325 MG TAB PO PRN (18:00)
[2017-01-29] MEDS ORDERED: HydrALAZINE HCL 20 MG/ML VIAL IV. PRN (18:00)
[2017-01-29] MEDS ORDERED: ALUMINUM/MAGNESIUM/SIMETH (MAALOX MAX) 30 ML UDC PO PRN (18:00)
[2017-01-29] MEDS ORDERED: HEPARIN 25000 UNIT/500 ML D5W ONE (18:37)
[2017-01-29] MEDS ORDERED: HEPARIN SOD 5000 UNIT/0.5 ML CARP ONE (18:39)
--- NOTE | 2017-01-29 18:45 | History and Physical ---
History & Physical Date & Time of Service: Jan 29, 2017 at 18:20 Chief Complaint: Groin Pain Primary Care Physician: José Miguel Cano M.D. History of Present Illness Source: patient, clinic records, hospital records This is an 86 y/o male with a history of HTN, BPH, and acute RLE DVT recently diagnosed 3 weeks ago who presented to the ED on 01/29 with left groin pain radiating to the back x 3 days. The patient states that he first developed left groin pain on the evening of 01/27 that was a sharp 10/10 pain that lasted a few hours. The following day he experienced a similar pain for only 1 hour. Today the pain came back, but was somewhat less severe. Today the patient rated his pain an 8-9/10 sharp pain that radiates from the groin around to the left lower quadrant and into the back. He saw his PCP today who suggested he go to the ED. The patient also received a call today from his urologist stating he had a urinary tract infection, and he was started on Macrobid. The patient did take 1 dose this morning. The patient was recently diagnosed with an acute right lower extremity DVT about 3 weeks ago. He was started on Coumadin, although he's not taken any of his Coumadin since Sunday night. A CT scan in the ED revealed a 12 mm obstructive stone with moderate hydronephrosis. The ED provider discussed with urology and the patient will be taken for stent placement tomorrow morning. The patient received IV morphine in the ED, he currently rates his abdominal pain as a 3/10. The patient denies any nausea or vomiting today, although he states he did have some nausea at the onset of the pain on Sunday. The patient denies fevers, chills, sweats, chest pain, palpitations, claudication, cough, wheezing, shortness of breath, nausea, vomiting, dysuria, hematuria, urinary retention, paralysis, weakness, numbness and tingling. Past Medical/Surgical History Medical Problems: (1) Arthritis Status: Chronic HTN BPH RLE DVT--acute Peripheral neuropathy--resolved Family History Cancer Heart disease Social History Smoking Status: Never Smoker Smokeless Tobacco Use: No Alcohol Use: occasionally Drug Use: none Marital Status: Housing status: lives with significant other Occupational Status: retired, other Immunizations History of Influenza Vaccine: N/A Influenza Vaccine Date: Aug 21, 2009 History of Tetanus Vaccine?: Yes Tetanus Immunization Date: Aug 02, 2007 History of Pneumococcal: Yes Pneumococcal Date: Aug 02, 2010 History of Hepatitis B Vaccine: Unknown Multi-Drug Resistant Organisms History of MDRO: No Allergies Coded Allergies: Phenobarbital (Verified Allergy, Mild, RASH, 12/18/16) Clopidogrel (Verified Allergy, Unknown, RASH, 12/18/16) Ibuprofen (Verified Allergy, Unknown, unknown to patient, 12/18/16) Home Medications Scheduled Amlodipine (Norvasc), 10 MG PO DAILY Aspirin (Aspirin Ec), 81 MG PO QAM Finasteride (Proscar), 5 MG PO DAILY Lisinopril (Lisinopril), 5 MG PO QAM Nitrofurantoin Monohyd Macrocr (Macrobid), 100 MG PO BID Warfarin Sod (Jantoven), 1 TAB PO UD Review of Systems Constitutional: No chills, No fever, No sweats Eyes: No diplopia, No eye pain, No worsening of vision ENT: No hearing loss, No sore throat, No trouble swallowing Respiratory: No cough, No shortness of breath, No wheezing Cardiovascular: No chest pain, No claudication, No palpitations Abdomen: + constipation, + pain (currently 3/10 LLQ pain), No nausea, No vomiting Musculoskeletal: No calf pain, No joint pain, No muscle pain Genitourinary - Male: + problem reported (weaker urine stream last few days), No dysuria, No hematuria, No urinary retention Neurologic: No numbness/tingling, No paralysis, No weakness Integumentary: No color change, No itch, No rash Physical Exam Vital Signs Date Time Temp Pulse Resp B/P Pulse Ox O2 Delivery O2 Flow Rate FiO2 01/29/17 16:58 76 20 138/75 96 Room Air 01/29/17 15:22 107 18 135/78 96 Room Air 01/29/17 14:10 82 18 152/81 94 Room Air 01/29/17 12:13 36.4 79 20 144/70 96 Room Air General Appearance: WD/WN, no apparent distress Head: normocephalic, atraumatic Eyes: normal inspection, PERRL, EOMI ENT: normal ENT inspection, hearing grossly normal, pharynx normal Neck: supple, no JVD, trachea midline Respiratory/Chest: lungs clear, normal breath sounds, no respiratory distress Cardiovascular: regular rate, rhythm, no gallop, no murmur Abdomen/GI: normal bowel sounds, soft, + tenderness (minimal LLQ tenderness without guarding) Back: no CVA tenderness Extremities/Musculoskelatal: normal inspection, no pedal edema, non-tender Neurologic/Psych: alert, normal mood/affect, oriented x 3 Skin: normal color, warm/dry, no rash Diagnostics Laboratory Results Results Past 24 Hours Test 01/29/17 14:08 01/29/17 14:16 01/29/17 15:25 Range/Units White Blood Count 12.81 4.8-10.8 K/uL Red Blood Count 4.14 4.7-6.1 M/uL Hemoglobin 12.4 14.0-18.0 g/dL Hematocrit 38.1 42-52 % Mean Corpuscular Volume 92.0 80-100 fL Mean Corpuscular Hemoglobin 30.0 25-34 pg Mean Corpuscular Hemoglobin Concent 32.5 32-36 g/dl Platelet Count 310 130-400 K/uL Mean Platelet Volume 12.0 7.4-10.4 fL Neutrophils (%) (Auto) 79.3 % Lymphocytes (%) (Auto) 10.6 % Monocytes (%) (Auto) 7.9 % Eosinophils (%) (Auto) 1.7 % Basophils (%) (Auto) 0.3 % Neutrophils # (Auto) 10.15 1.4-6.5 K/uL Lymphocytes # (Auto) 1.36 1.2-3.4 K/uL Monocytes # (Auto) 1.01 0.11-0.59 K/uL Eosinophils # (Auto) 0.22 0-0.5 K/uL Basophils # (Auto) 0.04 0-0.2 K/uL RDW Standard Deviation 46.4 36.4-46.3 fL RDW Coefficient of Variation 13.9 11.5-14.5 % Immature Granulocyte % (Auto) 0.2 % Immature Granulocyte # (Auto) 0.03 0.00-0.02 K/uL Prothrombin Time 12.0 9.0-12.0 SECONDS Prothromb Time International Ratio 1.1 0.9-1.1 Activated Partial Thromboplast Time 30.4 21.0-31.0 SECONDS Partial Thromboplastin Ratio 1.2 Sodium Level 143 136-145 mmol/L Potassium Level 4.1 3.5-5.1 mmol/L Chloride Level 108 98-107 mmol/L Carbon Dioxide Level 24 21-32 mmol/L Anion Gap 11.0 3-11 mmol/L Blood Urea Nitrogen 21 7-18 mg/dl Creatinine 2.10 0.60-1.40 mg/dl Est Creatinine Clear Calc Drug Dose 26.4 ml/min Estimated GFR () 31.8 Estimated GFR (Non- 27.5 BUN/Creatinine Ratio 9.8 10-20 Random Glucose 108 70-99 mg/dl Calcium Level 9.9 8.5-10.1 mg/dl Total Bilirubin 0.5 0.2-1 mg/dl Aspartate Amino Transf (AST/SGOT) 16 15-37 U/L Alanine Aminotransferase (ALT/SGPT) 19 12-78 U/L Alkaline Phosphatase 83 45-117 U/L Total Protein 7.6 6.4-8.2 gm/dl Albumin 3.7 3.4-5.0 gm/dl Globulin 3.9 2.5-4.0 gm/dl Albumin/Globulin Ratio 0.9 0.9-2 Bedside Lactic Acid Venous 1.55 0.90-1.70 mmol/L Urine Color DK YELLOW Urine Appearance CLEAR CLEAR Urine pH 8.0 4.5-7.5 Urine Specific [place] 1.013 1.000-1.030 Urine Protein 1+ NEG Urine Glucose (UA) NEG NEG Urine Ketones TRACE NEG Urine Occult Blood 2+ NEG Urine Nitrite NEG NEG Urine Bilirubin NEG NEG Urine Urobilinogen NEG NEG Urine Leukocyte Esterase MODERATE NEG Urine WBC (Auto) >30 0-5 /hpf Urine RBC (Auto) >30 0-4 /hpf Urine Hyaline Casts (Auto) 10-30 0-5 /lpf Urine Epithelial Cells (Auto) 0-5 0-5 /lpf Urine Bacteria (Auto) NEG NEG Microbiology Results 01/29/17 Urine Culture, Received Pending Diagnostic Radiology Reviewed the following studies and agree with interpretation as follows: Patient Name: SHAUNA MOSS Unit Number: [id number] Dictated: 01/29/171556 Transcribed: 01/29/171556 EV Printed Date/Time: [~ rep prt dt]/[~ rep prt tm] [~ rep ct labl] - [~ rep ct ivnm] [facility] [place] [address] Dictated: 01/29/171556 Transcribed: 01/29/17 155 EV Printed Date/Time: [~ rep prt dt]/[~ rep prt tm] [~ rep ct labl] - [~ rep ct ivnm] Patient: SHAUNA MOSS Address1: [address] [place] [address] Rec: [id number] Address2: Acct ID: [id number] [facility] Zip: [place] [address] Date: 1930 Sex: M Room/Bed: Ref Phy: José Miguel Cano M.D. SC: SHAKEEL Att Phy: Report #: [id number] Deirdre Phy: José Miguel Cano M.D. Test: APSTONE Admit Phy: Toolroom Attendant: PULAJM Interpreting Phy: Bharathi Harmon M.D. Diagnosis: GROIN PAIN Ordering Phy: Анна Gray PA-C Service Date: 01/29/17 Admit Date: 01/29/17 MNE: [id number] CONF: DICTATED BY: Bharathi Harmon M.D.]] CC: Abelino Gonzalez M.D. Pro, Jeffrey W., M.D. Royer, Elizabeth A., PA-C Endcc: [~ rep ct add3]] CT SCAN OF THE ABDOMEN AND PELVIS WITHOUT IV CONTRAST CLINICAL HISTORY: Left flank pain. COMPARISON STUDY: Abdominal CT dated 11/30/2016. TECHNIQUE: CT scan of the abdomen and pelvis is performed from the lung bases to the proximal femora. Images are reviewed in the axial, sagittal, and coronal planes. IV contrast was not administered for this examination as per the referring clinician. Automated dose control exposure was utilized. CT DOSE: 673.01 mGy.cm FINDINGS: Lung bases: The heart is normal in size and without pericardial effusion. There is a trace left pleural effusion with left basilar consolidation a calcified granulomas noted in the lingula. An electronic device is partially imaged in the left chest wall. A tiny hiatal hernia is noted. Liver: The unenhanced liver is normal in size, contour, and attenuation. There is no intrahepatic biliary ductal dilatation. Gallbladder: Unremarkable. Spleen: Normal in size and attenuation. Pancreas: The unenhanced pancreas is grossly unremarkable. Adrenal glands: Right adrenal calcifications are unchanged. The left adrenal gland is normal in appearance. Kidneys: The unenhanced kidneys demonstrate cortical atrophy. There is a 12 mm obstructing calculus protruding from the left vesicoureteral junction. This causes moderate left hydroureteronephrosis. There is associated left-sided perinephric and periureteric stranding. There are at least 2 additional nonobstructing left renal calculi measuring up to 4 mm. A 2 mm nonobstructing right renal calculus is identified. Bilateral renal cysts measure up to 6 cm. Abdominal vasculature: The abdominal aorta is normal in course and caliber noting moderate atherosclerotic calcification. There is an infrarenal IVC filter in place. Bowel: The small bowel and colon are normal in course and caliber. There is moderate colonic diverticulosis without CT evidence of acute diverticulitis. Colonic fecal retention is observed. The appendix is well-visualized and normal. Peritoneum: There is no intraperitoneal free air or abdominal ascites. There is a small fat-containing umbilical hernia. Lymphadenopathy: None. Pelvic viscera: The prostate gland is markedly enlarged and heterogeneous, measuring 6.9 cm in transverse diameter. There is median lobe hypertrophy. The bladder wall appears thickened and trabeculated suggesting the sequelae of chronic outlet obstruction. Findings suggest previous right inguinal herniorrhaphy. Calcifications are noted in the left gluteal musculature. There is asymmetric atrophy of the left gluteal musculature as compared to the right. Skeletal structures: The skeletal structures are osteopenic. There is moderate lumbosacral spondylosis, with evidence of previous laminectomy in the lower lumbar spine. No lytic or blastic lesions are seen. Sclerotic change is noted in the sacroiliac joints. Arthritic change is also seen in the hips. IMPRESSION: 1. There is a 12 mm obstructing calculus protruding from the left vesicoureteral junction. This causes moderate left hydroureteronephrosis. 2. Additional small bilateral nonobstructing renal calculi as above. 3. The prostate gland is markedly enlarged and heterogeneous and there is evidence of chronic bladder outlet obstruction. Consider correlation with serum PSA levels. 4. Moderate colonic diverticulosis without CT evidence of acute diverticulosis. 5. There is a trace left pleural effusions with dependent left basilar airspace consolidation. This could represent atelectasis and/or an infectious/inflammatory pneumonitis. Clinical correlation will be required. 6. Additional findings as above. Electronically signed by: Bharathi Harmon M.D. 01/29/2017 4:09 PM Dictated Date/Time: 01/29/2017 3:57 PM The status of this report is Signed. Draft = Not yet reviewed or approved by Radiologist. Signed = Reviewed and approved by Radiologist. <AttendingPhy></AttendingPhy> <FamilyPhy>José Miguel Cano M.D.</FamilyPhy> < PrimaryPhy>José Miguel Cano M.D.</PrimaryPhy> <UnitNumber>[id number]</UnitNumber > <VisitNumber>[id number]</VisitNumber> <PatientName>SHAUNA MOSS</ PatientName> <DateOfBirth>1930</DateOfBirth> <Location>[facility]</Location> < ServiceDate>01/29/17</ServiceDate> <MNE>ESINDI</MNE> <OrderingPhy>Анна Gray PA-C</OrderingPhy> <OrderingPhyMNE>f rep ord dr cope</OrderingPhyMNE > <DictatingPhyMNE>f rep dict dr cope</DictatingPhyMNE> <CCListMNE>f rep ct marye</ CCListMNE> <AdmittingPhyMNE>f pt admit dr cope</AdmittingPhyMNE> <AttendingPhyMNE >f pt attend dr cope</AttendingPhyMNE> <ConsultingPhyMNE>f pt consult dr cope</ConsultingPhyMNE> <FamilyPhyMNE>f pt fam dr cope</FamilyPhyMNE> <OtherPhyMNE>f pt other dr cope</OtherPhyMNE> < PrimaryPhyMNE>f pt prim care dr cope</PrimaryPhyMNE> <ReferringPhyMNE>f pt referring dr cope</ReferringPhyMNE> Impression Assessment and Plan 86 y/o male with a history of HTN, BPH, and acute RLE DVT recently diagnosed 3 weeks ago who presented to the ED on 01/29 with left groin pain radiating to the back x 3 days. Abd/pelvis CT shows 12 mm obstructing stone at the left vesicoureteral junction with moderate left hydroureteronephrosis, additional small bilateral nonobstructing renal calculi, and a large prostate gland with chronic bladder outlet obstruction. Initial labs significant for white blood cell count of 12.81, elevated creatinine of 2.1, and subtherapeutic INR 1.1. Obstructing left ureteral stone--urology notified and will place stent tomorrow morning -Admit to Medr -NSS at 125 cc/hr -Start Flomax 0.4 mg PO qd -Pain control with morphine 2 mg IV q4h prn pain -Urology consulted, appreciate recs -NPO after midnight -Hold aspirin UTI--per clinic records, outpatient urine culture from 01/26 positive for coag- negative staph and second staph species -DC Macrobid -Cipro 400 mg IV q24h, renally dosed Acute right lower extremity DVT--admitted for DVT on 01/08, treated with warfarin outpatient. INR subtherapeutic on arrival at 1.1 -Spoke with Dr. Pollard, recommend starting standard heparin drip with bolus and stopping 3 hours prior to stent procedure -D/C warfarin ELISA--Baseline creatinine 1.4 -Creatinine 2.1 upon arrival -IVF as above -Hold lisinopril for now due to ELISA -Continue to monitor HTN--stable -Continue amlodipine 10 mg PO qd -Hold lisinopril as above -Cover with hydralazine 10 mg IV q6h prn SBP >180 BPH -Continue finasteride 5 mg PO qd Code Status -Level I, FULL RESUSCITATION STATUS This chart was completed in part utilizing [employer] Speech Voice Recognition software. Attempts were made to minimize the grammatical errors, random word insertions, pronoun errors and incomplete sentences. Any formal questions or concerns about the content, text or information contained within the body of this dictation should be directly addressed to the provider for clarification. I agree with PA assessment and plan and have personally seen and examined pt myself Pt admitted for 12 mm kidney stone VSS Tx UTI with cipro as well Restart coumadin after stent placed Urology consulted Pain control with morphine at this time Level of Care Med/Surg Resuscitation Status FULL RESUSCITATION VTE Prophylaxis VTE Risk Assessment Done? Y/N: Yes Risk Level: High Given or contraindicated: Other Anticoagulation (standard heparin drop due to active DVT)
[2017-01-29 19:40] VITALS: BP 137/72; TEMP 36.7; Ht 180.3 cm; Wt 76.7 kg
[2017-01-29 19:44] VITALS: BP 137/72; PULSE 72; TEMP 36.7; O2SAT 97
[2017-01-29] MEDS: SODIUM CHLORIDE 0.9% 1000ML 1,000 ML IV SCH (20:01)
[2017-01-29] MEDS: HEPARIN 25,000 UNIT/500ML D5W 500 ML IV PRN ×2 (20:16→23:16)
--- NOTE | 2017-01-29 20:57 | EMERGENCY ROOM VISIT NOTE ---
ED Visit Note First contact with patient: 13:44 I have personally evaluated and examined this patient. I agree with assessment and plan of April Gray PA-C. Pleasant 86 yr old male known to me from recent admission for extensive DVT. Now with large ureteral stone, hydro and acute renal insufficiency. Likely will need stenting. Reasonable treating urine as infected.
[2017-01-29] MEDS ORDERED: CIPROFLOXACIN / D5W 400 MG in PREMIXED IN D5W 200 ML IV SCH ×2 (21:00)
[2017-01-29] MEDS: TAMSULOSIN HCL 0.4 MG CAP PO SCH (21:06)
[2017-01-29 23:00] VITALS: BP 144/80; PULSE 74; TEMP 36.8; O2SAT 93
[2017-01-29] MEDS: MoRPHine SULFATE 2 MG/ML CARP IV PRN (23:29)
[2017-01-30] VITALS (7 sets, daily range): BP systolic 110–142; BP diastolic 48–85; PULSE 72–82; TEMP 36.6–37; O2SAT 91–97
[2017-01-30] MEDS: HEPARIN 25,000 UNIT/500ML D5W 500 ML IV PRN ×3 (02:22→23:09)
[2017-01-30] MEDS: SODIUM CHLORIDE 0.9% 1000ML 1,000 ML IV SCH ×3 (02:25→18:26)
[2017-01-30] MEDS: MoRPHine SULFATE 2 MG/ML CARP IV PRN ×3 (03:55→12:46)
[2017-01-30 04:17] LABS: BASO % 0.4 %; BASO ABS # 0.04 K/uL (0-0.2); COMPLETE YES; HEMATOCRIT 35.9 % (42-52); IG% 0.2 %; LYMPH % 13.3 %; LYMPH ABS # 1.24 K/uL (1.2-3.4); MEAN CORPUSCULAR HEMOGLOBIN 29.3 pg (25-34); MEAN CORPUSCULAR HGB CONC 32.6 g/dl (32-36); MEAN PLATELET VOLUME 11.1 fL (7.4-10.4); MONO % 9.5 %; NEUT % 73.6 %; PLATELET COUNT 273 K/uL (130-400); RED BLOOD COUNT 3.99 M/uL (4.7-6.1); WHITE BLOOD COUNT 9.33 K/uL (4.8-10.8)
[2017-01-30 04:33] LABS: INR 1.1 (0.9-1.1); PARTIAL THROMBOPLASTIN RATIO 2.3; PROTHROMBIN TIME (PATIENT) 12.3 SECONDS (9.0-12.0)
[2017-01-30 04:35] LABS: BUN/CREATININE RATIO 10.6 (10-20); CALCIUM 8.7 mg/dl (8.5-10.1); CREATININE 1.9 mg/dl (0.60-1.40); POTASSIUM 4.4 mmol/L (3.5-5.1)
--- NOTE | 2017-01-30 08:06 | Urology Consultation ---
History General Date of Service: Jan 30, 2017. Primary Care Physician: José Miguel Cano M.D. Pt seen a urologist before?: Yes (Dr. Soni) If yes, why?: BPH History of Present Illness 86 yo male presents to [facility] with c/o 2 days of left flank pain. CT scan showing a 12mm left UVJ stone. Cr noted to be 2.1 on admission. Now improved to 1.9. He denies any f/c, n/v, dysuria, or hematuria. Pain persists this morning. He is pending a KUB. He is known to our service and is recently s/p TURP by Dr. Soni with the unfortunate event of developing a post-op DVT for which reports he was taking warfarin at home. He does believe he has a previous hx of passing 1 stone in the past, but nothing recently. The pt was also noted to have a UC&S from -17 growing davidsong debra herrera. Provided Vancomycin by the ED and started on Cipro while inpatient. Imaging Imaging: CT Laboratory Last 24 Hours Test 01/29/17 14:08 01/29/17 14:16 01/29/17 15:25 01/30/17 00:42 White Blood Count 12.81 K/uL Red Blood Count 4.14 M/uL Hemoglobin 12.4 g/dL Hematocrit 38.1 % Mean Corpuscular Volume 92.0 fL Mean Corpuscular Hemoglobin 30.0 pg Mean Corpuscular Hemoglobin Concent 32.5 g/dl Platelet Count 310 K/uL Mean Platelet Volume 12.0 fL Neutrophils (%) (Auto) 79.3 % Lymphocytes (%) (Auto) 10.6 % Monocytes (%) (Auto) 7.9 % Eosinophils (%) (Auto) 1.7 % Basophils (%) (Auto) 0.3 % Neutrophils # (Auto) 10.15 K/uL Lymphocytes # (Auto) 1.36 K/uL Monocytes # (Auto) 1.01 K/uL Eosinophils # (Auto) 0.22 K/uL Basophils # (Auto) 0.04 K/uL RDW Standard Deviation 46.4 fL RDW Coefficient of Variation 13.9 % Immature Granulocyte % (Auto) 0.2 % Immature Granulocyte # (Auto) 0.03 K/uL Prothrombin Time 12.0 SECONDS Prothromb Time International Ratio 1.1 Activated Partial Thromboplast Time 30.4 SECONDS 104.8 SECONDS Partial Thromboplastin Ratio 1.2 4.0 Sodium Level 143 mmol/L Potassium Level 4.1 mmol/L Chloride Level 108 mmol/L Carbon Dioxide Level 24 mmol/L Anion Gap 11.0 mmol/L Blood Urea Nitrogen 21 mg/dl Creatinine 2.10 mg/dl Est Creatinine Clear Calc Drug Dose 26.4 ml/min Estimated GFR () 31.8 Estimated GFR (Non- 27.5 BUN/Creatinine Ratio 9.8 Random Glucose 108 mg/dl Calcium Level 9.9 mg/dl Total Bilirubin 0.5 mg/dl Aspartate Amino Transf (AST/SGOT) 16 U/L Alanine Aminotransferase (ALT/SGPT) 19 U/L Alkaline Phosphatase 83 U/L Total Protein 7.6 gm/dl Albumin 3.7 gm/dl Globulin 3.9 gm/dl Albumin/Globulin Ratio 0.9 Bedside Lactic Acid Venous 1.55 mmol/L Urine Color DK YELLOW Urine Appearance CLEAR Urine pH 8.0 Urine Specific Cecil 1.013 Urine Protein 1+ Urine Glucose (UA) NEG Urine Ketones TRACE Urine Occult Blood 2+ Urine Nitrite NEG Urine Bilirubin NEG Urine Urobilinogen NEG Urine Leukocyte Esterase MODERATE Urine WBC (Auto) >30 /hpf Urine RBC (Auto) >30 /hpf Urine Hyaline Casts (Auto) 10-30 /lpf Urine Epithelial Cells (Auto) 0-5 /lpf Urine Bacteria (Auto) NEG Test 01/30/17 04:10 White Blood Count 9.33 K/uL Red Blood Count 3.99 M/uL Hemoglobin 11.7 g/dL Hematocrit 35.9 % Mean Corpuscular Volume 90.0 fL Mean Corpuscular Hemoglobin 29.3 pg Mean Corpuscular Hemoglobin Concent 32.6 g/dl Platelet Count 273 K/uL Mean Platelet Volume 11.1 fL Neutrophils (%) (Auto) 73.6 % Lymphocytes (%) (Auto) 13.3 % Monocytes (%) (Auto) 9.5 % Eosinophils (%) (Auto) 3.0 % Basophils (%) (Auto) 0.4 % Neutrophils # (Auto) 6.86 K/uL Lymphocytes # (Auto) 1.24 K/uL Monocytes # (Auto) 0.89 K/uL Eosinophils # (Auto) 0.28 K/uL Basophils # (Auto) 0.04 K/uL RDW Standard Deviation 44.8 fL RDW Coefficient of Variation 13.6 % Immature Granulocyte % (Auto) 0.2 % Immature Granulocyte # (Auto) 0.02 K/uL Prothrombin Time 12.3 SECONDS Prothromb Time International Ratio 1.1 Activated Partial Thromboplast Time 60.6 SECONDS Partial Thromboplastin Ratio 2.3 Sodium Level 141 mmol/L Potassium Level 4.4 mmol/L Chloride Level 108 mmol/L Carbon Dioxide Level 25 mmol/L Anion Gap 8.0 mmol/L Blood Urea Nitrogen 20 mg/dl Creatinine 1.90 mg/dl Est Creatinine Clear Calc Drug Dose 29.2 ml/min Estimated GFR () 35.9 Estimated GFR (Non- 31.0 BUN/Creatinine Ratio 10.6 Random Glucose 133 mg/dl Calcium Level 8.7 mg/dl 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 Status: Acute (5) Urinary retention due to benign prostatic hyperplasia Status: Acute (6) Urinary tract infection Status: Acute Past History BPH, deep vein thrombosis, GERD, hypertension, kidney stones, other (peripheral neuropathy) Past Surgical History: orthopedic surgery, spinal surgery, other (TURP) Family History Cancer Heart disease Social History Hx Tobacco Use In Past Year?: No Smoking: non-smoker Alcohol: no current use Marital status: Housing status: lives with significant other Occupation status: retired, other Immunizations History of Influenza Vaccine: N/A Influenza Vaccine Date: Aug 21, 2009 History of Tetanus Vaccine?: Yes Tetanus Immunization Date: Aug 02, 2007 History of Pneumococcal: Yes Pneumococcal Date: Aug 02, 2010 History of Hepatitis B Vaccine: Unknown History of MDRO No Allergies Coded Allergies: Phenobarbital (Verified Allergy, Mild, RASH, 12/18/16) Clopidogrel (Verified Allergy, Unknown, RASH, 12/18/16) Ibuprofen (Verified Allergy, Unknown, unknown to patient, 12/18/16) Medications Home Medications: Home Meds and Scripts Medications Dose Route/Sig Max Daily Dose Days Date Category Dose Instructions Macrobid (Nitrofurantoin Macrocrystals) 100 Mg Cap 100 Mg PO BID 01/29/17 Reported X 14 DAYS Jantoven (Warfarin Sodium) Unknown Strength Tab 1 Tab PO UD 01/29/17 Reported Proscar (Finasteride) 5 Mg Tab 5 Mg PO DAILY 01/06/17 Reported Norvasc (Amlodipine Besylate) 10 Mg Tab 10 Mg PO DAILY 10/31/16 Reported Lisinopril 5 Mg Tab 5 Mg PO QAM 04/12/16 Reported Aspirin Ec (Aspirin) 81 Mg Tab 81 Mg PO QAM 12/03/14 Reported Restart ion 5 days if urine clear Inpatient Medications: Current Inpatient Medications Medications (Trade) Dose Ordered Sig/Jama Route Start Time Stop Time Status Last Admin Dose Admin Ioversol (Optiray 320) 125 ml UD PRN IV 01/29/17 14:30 02/02/17 14:29 Acetaminophen (Tylenol Tab) 650 mg Q4H PRN PO 01/29/17 18:00 02/28/17 17:59 Al Hydrox/Mg Hydrox/Simethicone (Maalox Max Susp) 15 ml Q4H PRN PO 01/29/17 18:00 02/28/17 17:59 Magnesium Hydroxide (Milk Of Magnesia Susp) 30 ml Q6H PRN PO 01/29/17 18:00 02/28/17 17:59 Polyethylene (Miralax Powder Packet) 17 gm DAILY PO 01/30/17 09:00 03/01/17 08:59 Ondansetron HCl (Zofran Inj) 4 mg Q6H PRN IV 01/29/17 18:00 02/28/17 17:59 Amlodipine Besylate (Norvasc Tab) 10 mg DAILY PO 01/30/17 09:00 03/01/17 08:59 Finasteride 5 mg 5 mg DAILY PO 01/30/17 09:00 03/01/17 08:59 Sodium Chloride (Nss 1000ml) 1,000 ml @ 125 mls/hr Q8H IV 01/29/17 18:00 02/28/17 17:59 01/30/17 02:25 125 MLS/HR Tamsulosin HCl (Flomax Cap) 0.4 mg HS PO 01/29/17 21:00 02/28/17 20:59 01/29/17 21:06 0.4 MG Morphine Sulfate (MoRPHine SULFATE INJ) 2 mg Q4H PRN IV 01/29/17 18:00 02/12/17 17:59 01/30/17 03:55 2 MG Hydralazine HCl 10 mg 10 mg Q6H PRN IV. 01/29/17 18:00 02/28/17 17:59 Ciprofloxacin/ Dextrose 400 mg/ Prmx 200 ml @ 100 mls/hr DAILY@2100 IV 01/29/17 21:00 02/08/17 20:59 01/29/17 21:06 100 MLS/HR Heparin Sodium/ Dextrose (Heparin 25,000 Unit/500ml D5W) 500 ml @ 24 mls/hr [id number] PRN IV 01/29/17 20:15 02/28/17 20:14 01/30/17 02:22 24 MLS/HR Review of Systems Review of Systems Constitutional: No chills, No fever Eyes: No double vision Neurological: No dizzy Endocrine: No excessive thirst Gastrointestinal: + abdominal pain (left flank and LLQ ), No nausea, No vomiting Cardiovascular: No chest pain Respiratory: No shortness of breath Skin: No rash Musculoskeletal: + back pain (left low back ) Male : No blood in urine, No painful urination Physical Exam Vital Signs: Vital Signs Past 12 Hours Date Time Temp Pulse Resp B/P Pulse Ox O2 Delivery O2 Flow Rate FiO2 01/30/17 07:08 36.8 79 16 139/74 94 Room Air 01/29/17 23:30 Room Air 01/29/17 23:00 36.8 74 16 144/80 93 Room Air Physical Exam: General Appearance: no apparent distress Eyes: bilateral eyes normal inspection ENT: hearing grossly normal Neck: no JVD Respiratory/Chest: no respiratory distress, no accessory muscle use Cardiovascular: no JVD Extremities: normal inspection Neurologic/Psychiatric: alert, normal mood/affect, oriented x 3 Skin: normal color Assessment & Plan Assessment & Plan Treatment Planned: cystoscopy w/ stent A/P: 12mm left UVJ stone, UTI AFVSS. Given the pt's persistent pain and ELISA, I have recommended he have a cysto with left ureteral stent placement and possible ureteroscopy with laser lithotripsy. Risks and benefits of the procedure discussed with the pt. All questions answered. Pt agrees to the procedure at this time. Consent obtained. From a perspective the pt may resume anticoagulation per primary service for DVT. No need to stop for anticoagulation for stent placement. As for his UTI, I have ordered pre-op Vancomycin based on sensitivities from culture from 3-17. Would also recommend considering transitioning him from Cipro to Macrobid based on sensitivities. Thanks for the consult. Will continue to follow along with primary service at this time.
--- NOTE | 2017-01-30 09:01 | DIAGNOSTIC IMAGING REPORT ---
KUB CLINICAL HISTORY: Left UVJ stone COMPARISON STUDY: 10/12/2010, CT scan dated 01/29/2017 FINDINGS: IVC filter is visualized. There is gaseous prominence of both large and small bowel loops, likely representing an ileus. Postsurgical changes are present within the lumbar spine. Small calcifications projecting over the kidneys, may correlate with the recently described bilateral renal calculi. The left UVJ calculus is not visualized on conventional radiographic imaging. IMPRESSION: 1. The recently described left UVJ calculus is not visualized on conventional graphic imaging. Electronically signed by: Ricardo Slaughter M.D. 01/30/2017 8:59 AM Dictated Date/Time: 01/30/2017 8:57 AM
[2017-01-30] MEDS: FINASTERIDE 5 MG TAB PO SCH (10:10)
[2017-01-30] MEDS: POLYETHYLENE (MIRALAX) 17 GM PACK PO SCH (10:10)
[2017-01-30] MEDS: AMLODIPINE BESYLATE 5 MG TAB PO SCH (10:10)
[2017-01-30] MEDS ORDERED: NURSING VERBAL MED ORDER ONE (12:15)
--- NOTE | 2017-01-30 13:33 | Medical Consult ---
Consultation Date of Consultation: Jan 30, 2017. Attending Physician: Hebert Fay M.D. Reason for Consultation: MRSA Uti, ? oral abx History of Present Illness Patient is an 86 yo male who presents to the emergency department with complaints of left lower abdominal pain and groin pain. The patient was having radiation of this pain into his left lower back. He states that the symptoms started on Sunday and Sunday and continued to worsen. The patient does have recent history of multiple surgeries including back surgery at which time he had his stimulator removed by Dr. Simmons. The patient has had approximately 4 other surgeries on his back in the past as well. He also had a TURP and bladder stone removal completed on December [address] Soni after which time he developed a DVT of the right lower extremity. The patient had an outpatient urine culture completed which grew coag-negative staph x2 on 01/26 and also on 01/18/2017. On his most recent culture, 1 of the 2 coag-negative staph was resistant to oxacillin only, and the other was resistant to Bactrim only. On his culture on 01/18, both coag-negative staph were resistant to oxacillin and Bactrim. Since admission, the patient was noted to have a white blood cell count of 12.81. His creatinine was 2.1 on admission. His LFTs were normal. His urine cultures pending. Abdominal/pelvic CT scan showed a 12 mm obstructing calculus protruding from the left vesicourethral junction causing moderate left hydronephrosis. Left perinephric and periureteral stranding were also noted. The prostate gland was noted to be markedly enlarged. The patient had a dose of IV vancomycin in the emergency department and was placed on p.o. Cipro. He also is getting a dose of IV vancomycin preoperatively today. He is anticipating left ureteral stent placement with cystoscopy and possible ureteroscopy with laser lithotripsy. I did also speak to microbiology regarding this patient's recent cultures and sensitivities as well. 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 Charlton, [address] Simmons) Family History Cancer Heart disease Noncontributory Social History Smoking Status: Never Smoker Smokeless Tobacco Use: No Alcohol Use: occasionally Drug Use: none Marital Status: Occupation Status: retired, other Allergies Coded Allergies: Phenobarbital (Verified Allergy, Mild, RASH, 12/18/16) Clopidogrel (Verified Allergy, Unknown, RASH, 12/18/16) Ibuprofen (Verified Allergy, Unknown, unknown to patient, 12/18/16) Home Medications Reported Home Medications Medications Dose Route/Sig Max Daily Dose Days Date Category Dose Instructions Macrobid (Nitrofurantoin Macrocrystals) 100 Mg Cap 100 Mg PO BID 01/29/17 Reported X 14 DAYS Jantoven (Warfarin Sodium) Unknown Strength Tab 1 Tab PO UD 01/29/17 Reported Proscar (Finasteride) 5 Mg Tab 5 Mg PO DAILY 01/06/17 Reported Norvasc (Amlodipine Besylate) 10 Mg Tab 10 Mg PO DAILY 10/31/16 Reported Lisinopril 5 Mg Tab 5 Mg PO QAM 04/12/16 Reported Aspirin Ec (Aspirin) 81 Mg Tab 81 Mg PO QAM 12/03/14 Reported Restart ion 5 days if urine clear Current Inpatient Medications Current Inpatient Medications Medications (Trade) Dose Ordered Sig/Jama Route Start Time Stop Time Status Last Admin Dose Admin Ioversol (Optiray 320) 125 ml UD PRN IV 01/29/17 14:30 02/02/17 14:29 Acetaminophen (Tylenol Tab) 650 mg Q4H PRN PO 01/29/17 18:00 02/28/17 17:59 Al Hydrox/Mg Hydrox/Simethicone (Maalox Max Susp) 15 ml Q4H PRN PO 01/29/17 18:00 02/28/17 17:59 Magnesium Hydroxide (Milk Of Magnesia Susp) 30 ml Q6H PRN PO 01/29/17 18:00 02/28/17 17:59 Polyethylene (Miralax Powder Packet) 17 gm DAILY PO 01/30/17 09:00 03/01/17 08:59 Ondansetron HCl (Zofran Inj) 4 mg Q6H PRN IV 01/29/17 18:00 02/28/17 17:59 Amlodipine Besylate (Norvasc Tab) 10 mg DAILY PO 01/30/17 09:00 03/01/17 08:59 01/30/17 10:10 10 MG Finasteride 5 mg 5 mg DAILY PO 01/30/17 09:00 03/01/17 08:59 01/30/17 10:10 5 MG Sodium Chloride (Nss 1000ml) 1,000 ml @ 125 mls/hr Q8H IV 01/29/17 18:00 02/28/17 17:59 01/30/17 10:13 125 MLS/HR Tamsulosin HCl (Flomax Cap) 0.4 mg HS PO 01/29/17 21:00 02/28/17 20:59 01/29/17 21:06 0.4 MG Morphine Sulfate (MoRPHine SULFATE INJ) 2 mg Q4H PRN IV 01/29/17 18:00 02/12/17 17:59 01/30/17 08:19 2 MG Hydralazine HCl 10 mg 10 mg Q6H PRN IV. 01/29/17 18:00 02/28/17 17:59 Ciprofloxacin/ Dextrose 400 mg/ Prmx 200 ml @ 100 mls/hr DAILY@2100 IV 01/29/17 21:00 02/08/17 20:59 01/29/17 21:06 100 MLS/HR Heparin Sodium/ Dextrose (Heparin 25,000 Unit/500ml D5W) 500 ml @ 24 mls/hr [id number] PRN IV 01/29/17 20:15 02/28/17 20:14 Future Hold 01/30/17 02:22 24 MLS/HR Vancomycin HCl (Vancomycin 1gm/ 270ml Nss) 1 gm PREOP IV 01/30/17 06:00 01/30/17 18:00 Review of Systems Constitutional: + weakness, No fever Eyes: No worsening of vision ENT: No hearing loss Respiratory: No cough, No shortness of breath Cardiovascular: No chest pain Abdomen: + nausea, + pain, + problem reported (lower abdominal pain especially left lower- radiating around back), No diarrhea Musculoskeletal: No joint pain, No muscle pain, No swelling Genitourinary - Male: + dysuria (on and off ), No hematuria Neurologic: + numbness/tingling (feet b/l- chronic) Integumentary: No itch, No rash Physical Exam Date Time Temp Pulse Resp B/P Pulse Ox O2 Delivery O2 Flow Rate FiO2 01/30/17 07:08 36.8 79 16 139/74 94 Room Air 01/29/17 23:30 Room Air 01/29/17 23:00 36.8 74 16 144/80 93 Room Air 01/29/17 19:44 36.7 72 16 137/72 97 01/29/17 19:40 36.7 16 137/72 Room Air 01/29/17 18:51 71 18 138/79 93 Room Air 01/29/17 16:58 76 20 138/75 96 Room Air 01/29/17 15:22 107 18 135/78 96 Room Air 01/29/17 14:10 82 18 152/81 94 Room Air General Appearance: WD/WN, no apparent distress Head: normocephalic, atraumatic Eyes: normal inspection, sclerae normal ENT: hearing grossly normal Neck: supple, trachea midline Respiratory/Chest: chest non-tender, lungs clear, normal breath sounds, no respiratory distress, no accessory muscle use Cardiovascular: regular rate, rhythm, no murmur Abdomen/GI: normal bowel sounds, non tender, soft Back: normal inspection, + pertinent finding (note well healed surgical incision mid-thoracic) Extremities/Musculoskelatal: normal inspection, no pedal edema Neurologic/Psych: alert, normal mood/affect Skin: normal color, warm/dry, no rash Laboratory Results T SCAN OF THE ABDOMEN AND PELVIS WITHOUT IV CONTRAST CLINICAL HISTORY: Left flank pain. COMPARISON STUDY: Abdominal CT dated 11/30/2016. TECHNIQUE: CT scan of the abdomen and pelvis is performed from the lung bases to the proximal femora. Images are reviewed in the axial, sagittal, and coronal planes. IV contrast was not administered for this examination as per the referring clinician. Automated dose control exposure was utilized. CT DOSE: 673.01 mGy.cm FINDINGS: Lung bases: The heart is normal in size and without pericardial effusion. There is a trace left pleural effusion with left basilar consolidation a calcified granulomas noted in the lingula. An electronic device is partially imaged in the left chest wall. A tiny hiatal hernia is noted. Liver: The unenhanced liver is normal in size, contour, and attenuation. There is no intrahepatic biliary ductal dilatation. Gallbladder: Unremarkable. Spleen: Normal in size and attenuation. Pancreas: The unenhanced pancreas is grossly unremarkable. Adrenal glands: Right adrenal calcifications are unchanged. The left adrenal gland is normal in appearance. Kidneys: The unenhanced kidneys demonstrate cortical atrophy. There is a 12 mm obstructing calculus protruding from the left vesicoureteral junction. This causes moderate left hydroureteronephrosis. There is associated left-sided perinephric and periureteric stranding. There are at least 2 additional nonobstructing left renal calculi measuring up to 4 mm. A 2 mm nonobstructing right renal calculus is identified. Bilateral renal cysts measure up to 6 cm. Abdominal vasculature: The abdominal aorta is normal in course and caliber noting moderate atherosclerotic calcification. There is an infrarenal IVC filter in place. Bowel: The small bowel and colon are normal in course and caliber. There is moderate colonic diverticulosis without CT evidence of acute diverticulitis. Colonic fecal retention is observed. The appendix is well-visualized and normal. Peritoneum: There is no intraperitoneal free air or abdominal ascites. There is a small fat-containing umbilical hernia. Lymphadenopathy: None. Pelvic viscera: The prostate gland is markedly enlarged and heterogeneous, measuring 6.9 cm in transverse diameter. There is median lobe hypertrophy. The bladder wall appears thickened and trabeculated suggesting the sequelae of chronic outlet obstruction. Findings suggest previous right inguinal herniorrhaphy. Calcifications are noted in the left gluteal musculature. There is asymmetric atrophy of the left gluteal musculature as compared to the right. Skeletal structures: The skeletal structures are osteopenic. There is moderate lumbosacral spondylosis, with evidence of previous laminectomy in the lower lumbar spine. No lytic or blastic lesions are seen. Sclerotic change is noted in the sacroiliac joints. Arthritic change is also seen in the hips. IMPRESSION: 1. There is a 12 mm obstructing calculus protruding from the left vesicoureteral junction. This causes moderate left hydroureteronephrosis. 2. Additional small bilateral nonobstructing renal calculi as above. 3. The prostate gland is markedly enlarged and heterogeneous and there is evidence of chronic bladder outlet obstruction. Consider correlation with serum PSA levels. 4. Moderate colonic diverticulosis without CT evidence of acute diverticulosis. 5. There is a trace left pleural effusions with dependent left basilar airspace consolidation. This could represent atelectasis and/or an infectious/inflammatory pneumonitis. Clinical correlation will be required. 6. Additional findings as above. Item Value Date Time Urine Culture Received 01/29/17 1525 Urine , Clean Catch Pending Last 24 Hours Test 01/29/17 14:08 01/29/17 14:16 01/29/17 15:25 01/30/17 00:42 White Blood Count 12.81 K/uL Red Blood Count 4.14 M/uL Hemoglobin 12.4 g/dL Hematocrit 38.1 % Mean Corpuscular Volume 92.0 fL Mean Corpuscular Hemoglobin 30.0 pg Mean Corpuscular Hemoglobin Concent 32.5 g/dl Platelet Count 310 K/uL Mean Platelet Volume 12.0 fL Neutrophils (%) (Auto) 79.3 % Lymphocytes (%) (Auto) 10.6 % Monocytes (%) (Auto) 7.9 % Eosinophils (%) (Auto) 1.7 % Basophils (%) (Auto) 0.3 % Neutrophils # (Auto) 10.15 K/uL Lymphocytes # (Auto) 1.36 K/uL Monocytes # (Auto) 1.01 K/uL Eosinophils # (Auto) 0.22 K/uL Basophils # (Auto) 0.04 K/uL RDW Standard Deviation 46.4 fL RDW Coefficient of Variation 13.9 % Immature Granulocyte % (Auto) 0.2 % Immature Granulocyte # (Auto) 0.03 K/uL Prothrombin Time 12.0 SECONDS Prothromb Time International Ratio 1.1 Activated Partial Thromboplast Time 30.4 SECONDS 104.8 SECONDS Partial Thromboplastin Ratio 1.2 4.0 Sodium Level 143 mmol/L Potassium Level 4.1 mmol/L Chloride Level 108 mmol/L Carbon Dioxide Level 24 mmol/L Anion Gap 11.0 mmol/L Blood Urea Nitrogen 21 mg/dl Creatinine 2.10 mg/dl Est Creatinine Clear Calc Drug Dose 26.4 ml/min Estimated GFR () 31.8 Estimated GFR (Non- 27.5 BUN/Creatinine Ratio 9.8 Random Glucose 108 mg/dl Calcium Level 9.9 mg/dl Total Bilirubin 0.5 mg/dl Aspartate Amino Transf (AST/SGOT) 16 U/L Alanine Aminotransferase (ALT/SGPT) 19 U/L Alkaline Phosphatase 83 U/L Total Protein 7.6 gm/dl Albumin 3.7 gm/dl Globulin 3.9 gm/dl Albumin/Globulin Ratio 0.9 Bedside Lactic Acid Venous 1.55 mmol/L Urine Color DK YELLOW Urine Appearance CLEAR Urine pH 8.0 Urine Specific [place] 1.013 Urine Protein 1+ Urine Glucose (UA) NEG Urine Ketones TRACE Urine Occult Blood 2+ Urine Nitrite NEG Urine Bilirubin NEG Urine Urobilinogen NEG Urine Leukocyte Esterase MODERATE Urine WBC (Auto) >30 /hpf Urine RBC (Auto) >30 /hpf Urine Hyaline Casts (Auto) 10-30 /lpf Urine Epithelial Cells (Auto) 0-5 /lpf Urine Bacteria (Auto) NEG Test 01/30/17 04:10 White Blood Count 9.33 K/uL Red Blood Count 3.99 M/uL Hemoglobin 11.7 g/dL Hematocrit 35.9 % Mean Corpuscular Volume 90.0 fL Mean Corpuscular Hemoglobin 29.3 pg Mean Corpuscular Hemoglobin Concent 32.6 g/dl Platelet Count 273 K/uL Mean Platelet Volume 11.1 fL Neutrophils (%) (Auto) 73.6 % Lymphocytes (%) (Auto) 13.3 % Monocytes (%) (Auto) 9.5 % Eosinophils (%) (Auto) 3.0 % Basophils (%) (Auto) 0.4 % Neutrophils # (Auto) 6.86 K/uL Lymphocytes # (Auto) 1.24 K/uL Monocytes # (Auto) 0.89 K/uL Eosinophils # (Auto) 0.28 K/uL Basophils # (Auto) 0.04 K/uL RDW Standard Deviation 44.8 fL RDW Coefficient of Variation 13.6 % Immature Granulocyte % (Auto) 0.2 % Immature Granulocyte # (Auto) 0.02 K/uL Prothrombin Time 12.3 SECONDS Prothromb Time International Ratio 1.1 Activated Partial Thromboplast Time 60.6 SECONDS Partial Thromboplastin Ratio 2.3 Sodium Level 141 mmol/L Potassium Level 4.4 mmol/L Chloride Level 108 mmol/L Carbon Dioxide Level 25 mmol/L Anion Gap 8.0 mmol/L Blood Urea Nitrogen 20 mg/dl Creatinine 1.90 mg/dl Est Creatinine Clear Calc Drug Dose 29.2 ml/min Estimated GFR () 35.9 Estimated GFR (Non- 31.0 BUN/Creatinine Ratio 10.6 Random Glucose 133 mg/dl Calcium Level 8.7 mg/dl Assessment & Plan Patient with left-sided obstructing renal calculi, coag-negative staph UTI, and probable left-sided pyelonephritis. He currently has received 2 doses (in ED and pre-op) of IV Vancomycin and is otherwise on PO Cipro. PO Cipro can be discontinued. Will continue IV Vancomycin while in house. Noted urology recommendations for continued therapy with PO Macrobid upon discharge however I feel that this patient likely requires increased kidney penetration with the perinephric and periureteral stranding seen on CT scan. Therefore, pending current urine culture (if the same bacteria is present) feel that he could transition to PO Zyvox upon D/C. We will follow. PROVIDER ADDENDUM: Patient examined and reviewed with Ms. Hilario. Agree with above assessment.
[2017-01-30] MEDS: VANCOMYCIN 1GM/270ML NSS IV SCH ×2 (13:39→15:04)
[2017-01-30] MEDS ORDERED: VANCOMYCIN CONSULT ACTIVE PRN (14:00)
[2017-01-30] MEDS ORDERED: PROPOFOL IV EMULSION 10 MG/ML 20 ML VIAL IV ONE (14:13)
[2017-01-30] MEDS ORDERED: LIDOCAINE HCL 2% 2 ML VIAL (20MG/ML) ONE (14:13)
[2017-01-30] MEDS ORDERED: ONDANSETRON INJ 2 MG/ML 2 ML VIAL ONE (14:13)
[2017-01-30] MEDS ORDERED: FENTANYL CITRATE INJ 50 MCG/1 ML 2 ML VIAL ONE (14:13)
[2017-01-30] MEDS ORDERED: DEXAMETHASONE SOD INJ 4 MG/ML VIAL ONE (14:13)
[2017-01-30] MEDS ORDERED: FENTANYL CITRATE INJ 50 MCG/1 ML 2 ML VIAL IV PRN (14:30)
[2017-01-30] MEDS ORDERED: ONDANSETRON INJ 2 MG/ML 2 ML VIAL IV PRN (14:30)
[2017-01-30] MEDS ORDERED: ATROPINE SULFATE 0.1 MG/ML 5ML SYR IV PRN (14:30)
[2017-01-30] MEDS ORDERED: EpHEDrine SULFATE INJ 50 MG/ML AMP IV PRN (14:30)
[2017-01-30] MEDS ORDERED: PHENYLEPHRINE HCL INJ 10 MG/ML VIAL ONE (15:48)
[2017-01-30] MEDS ORDERED: EpHEDrine SULFATE INJ 50 MG/ML AMP ONE (15:58)
--- NOTE | 2017-01-30 16:21 | [facility] Post Operative Brief Note ---
Immediate Operative Summary Operative Date Jan 30, 2017. Pre-Operative Diagnosis Distal left ureteral calculus Post-Operative Diagnosis same Procedure(s) Performed Cystoscopy, Urethral dilation ,Ureteroscopy, Laser Lithotripsy; Stent placement ([id number]) Surgeon Dr Kelley Safemaker Surgeon(s) none Estimated Blood Loss 5 ML Findings s/p TURP - healing appropriately. Large calculus wedged into the UO. Unable to deliver the stone directly. It was fragmented with the laser and irrigated out of the ureter. Specimens A. Left ureteral stone for analysis Drains [id number] Anesthesia Gen Complication(s) None Disposition Recovery Room / PACU (stable)
--- NOTE | 2017-01-30 16:28 | Pharmacy Progress Note ---
Pharmacy Antibiotic Consult Date of Service: Jan 30, 2017. Pharmacy Dosing Scope Pharmacy is consulted to initiate Vancomycin IV dosing therapy, order appropriate labs and adjust drug dose/frequency. Subjective The patient is a 86 year old male admitted on Jan 29, 2017 at 18:18 with ELISA, UTI, and left obstructing renal calculus. Objective Height (Feet): 5 Height (Inches): 11.00 Weight (Kilograms): 76.700 Lab Results (24hrs): Laboratory Tests Test 01/30/17 04:10 BUN/Creatinine Ratio 10.6 Blood Urea Nitrogen 20 mg/dl Creatinine 1.90 mg/dl White Blood Count 9.33 K/uL Red Blood Count 3.99 M/uL Hemoglobin 11.7 g/dL Hematocrit 35.9 % Mean Corpuscular Volume 90.0 fL Mean Corpuscular Hemoglobin 29.3 pg Mean Corpuscular Hemoglobin Concent 32.6 g/dl Platelet Count 273 K/uL Mean Platelet Volume 11.1 fL Neutrophils (%) (Auto) 73.6 % Lymphocytes (%) (Auto) 13.3 % Monocytes (%) (Auto) 9.5 % Eosinophils (%) (Auto) 3.0 % Basophils (%) (Auto) 0.4 % Neutrophils # (Auto) 6.86 K/uL Lymphocytes # (Auto) 1.24 K/uL Monocytes # (Auto) 0.89 K/uL Eosinophils # (Auto) 0.28 K/uL Basophils # (Auto) 0.04 K/uL Micro Results: STATUS: REG CLI TLOC: SPEC #: [id number] ANDRADE: 01/26/17-UNK STATUS: COMP REQ #: [id number] RECD: 01/26/[address] [facility] [address]: Marvel Soni MD, Urology SOURCE: JIAN, LANDRY ENTR: 01/26/[address]: José Miguel Cano M.D. SPDESC: ORDERED: CULTURE URCLEAN COMMENTS: Outside Ordering Provider Comment: N40.1 BPH (benign prostatic hypertrophy) with urinary obstruction N21.0 Bladder calculus R31.0 Gross hematuria SAIRA Clean Catch [id number] Procedure Result Verified Site URINE CULTURE Final 01/30/17-1105 Organism 1 COAG NEG STAPHYLOCOCCUS COLONY COUNT >100,000 CFU/ml SENS SENSITIVITY TO FOLLOW Organism 2 COAG NEG STAPHYLOCOCCUS#2 COLONY COUNT >100,000 CFU/ml SENS SENSITIVITY TO FOLLOW MODELING ANALYST MODELING ANALYST#2 M.I.C. RX M.I.C. RX --------- ------ --------- ------ TRIMET/SULFA 11/30 S > R * OXACILLIN >2 R <=0.25 S VANCOMYCIN 2 S 2 S DAPTOMYCIN <=0.5 S <=0.5 S NITROFURANTOIN <=32 S <=32 S 1. COAG NEG STAPHYLOCOCCUS Target Route Dose RX AB Cost M.I.C. IQ ------ ----- ------ -- ------ -------- - ------ TRIMET/SULFA S 11/30 * OXACILLIN R >2 VANCOMYCIN S 2 DAPTOMYCIN S <=0.5 NITROFURANTOIN S <=32 2. COAG NEG STAPHYLOCOCCUS#2 Target Route Dose RX AB Cost M.I.C. IQ ------ ----- ------ -- ------ -------- - ------ TRIMET/SULFA R > * OXACILLIN S <=0.25 VANCOMYCIN S 2 DAPTOMYCIN S <=0.5 NITROFURANTOIN S <=32 Assessment & Plan Assessment 86 yr old male admitting with left groin and back pain found to have left obstructing renal calculus and coagulase negative staph aureus UTI. Urine culture resulted two species of coag neg staph - one resistant only to oxacillin and one resistant only to Bactrim. Urology was consulted and have recommended a cysto with left ureteral stent placement and possible ureteroscopy with laser lithotripsy. Patient received one dose of Cipro IV on 01/29 pm. Plan Vancomycin IV for treatment of complicated UTI with coag neg staph aureus. * Patient received a dose of Vanc 1000 mg (13 mg/kg) IV in the ER on 01/29 at 1657. * She was ordered a second dose of Vanc 1000 mg IV pre-op today - dose administered around 1500. * Patients estimated half life is 24 hours, based on population kinetics. I anticipate vanc level to be around 27 mcg/mL after infusion of 1500 dose, therefore, patient should not redosed tonight. I will order a random level for am to guide when maintenance dose should be started. Random level will be drawn about 10-11 hours after infusion is completed. * Goal trough level estimate for UTI with Vanc SAIRA = 2 mcg/mL: between 15 - 20 mcg/mL. Pharmacy will continue to follow and will adjust dose/frequency as necessary. Thank you
--- NOTE | 2017-01-30 16:43 | OPERATIVE REPORT ---
DATE OF OPERATION: 01/30/2017 PREOPERATIVE DIAGNOSIS: Left ureteral calculus. POSTOPERATIVE DIAGNOSIS: Left ureteral calculus. PROCEDURE PERFORMED: Cystoscopy, urethral dilation, left ureteroscopy, laser lithotripsy and stent placement 6 Venezuelan x 26 cm. SURGEON: Dr. Beny Kelley. ANESTHESIA: General. ESTIMATED BLOOD LOSS: 0. URINE OUTPUT: Not recorded. SPECIMENS: Stone for chemical analysis. There were no complications. DESCRIPTION OF THE PROCEDURE: Kamille Blum was identified in the preoperative holding area. Appropriate consents were reviewed and completed and the patient was transported to the operating suite. He received appropriate general anesthesia and was placed in dorsal lithotomy position where he was sterilely prepped and draped in standard fashion. Of note, the patient has a [place] filter secondary to active DVT in his right leg. No SCDs were used and we used care in positioning him with avoidance of an overly extreme flexion of the knee. Following sterile prep and drape, I attempted to pass a 22-Venezuelan cystoscope with 30 degree lens. Unfortunately, I immediately encountered resistance in the fossa navicularis in the form of narrowing or stricture at that area. I used male urethral sounds to dilate this to 26 Venezuelan before passing the scope. The remaining portion of the urethra revealed no evidence of stricture disease. Prostate was certainly status post TURP, actively healing appropriately. It appeared to be widely patent without any evidence of acute obstruction. Inspection of the bladder was somewhat challenging. There still was a fair bit of debris in the bladder. I irrigated it several times and tried to inspect. I was able to find the right and left ureteral orifices and I encountered a large yellow appearing calculus that was protruding through the left ureteral orifice. I attempted to manipulate this to see if I could induce passage, unfortunately I was unsuccessful. I was able to use a 5 Venezuelan open-ended catheter to push the stone somewhat retrograde to allow accommodation of a wire alongside the stone. I was able to guide the wire through a significantly J hooked distal ureter and all the way up to the kidney. I was able to ultimately straighten the ureter after passing this. Leaving this wire in place alongside the stone, I reentered with a semirigid ureteroscope. It was somewhat challenging. I was able to guide the scope into the distal ureter and identify the stone. I used 400 micron laser fiber to fragment the stone. After fragmenting it into numerous pieces I was able to irrigate these out of the ureter and clear the remaining part of the ureter. Of note, I attempted to irrigate as many stone fragments out of the bladder as possible; however, these tiny stone fragments were clinging to the raw healing surface area from his prior TURP. Before concluding the case, I placed a 6 Venezuelan 26 cm double-J stent over the existing safety wire seeing a good curl in the kidney as well as the bladder. I then again attempted to empty out all stone debris from the bladder before concluding the case. The bladder was left empty. All cystoscopic equipment removed and the case concluded. The patient was taken to the PACU in stable condition. There were no complications. I attest to the content of the Intraoperative Record and any orders documented therein. Any exceptio ns are noted below.
--- NOTE | 2017-01-30 17:11 | Anesthesiology Progress Note ---
Anesthesia Post Op Note Date & Time Jan 30, 2017 at 17:11 Vital Signs Pain Intensity: 0 Vital Signs Past 12 Hours Date Time Temp Pulse Resp B/P Pulse Ox O2 Delivery O2 Flow Rate FiO2 01/30/17 16:55 36.5 80 13 107/56 97 Nasal Cannula 2 01/30/17 16:45 83 18 108/61 94 Nasal Cannula 2 01/30/17 16:35 81 16 117/57 97 Mask 10 01/30/17 16:25 89 18 123/66 96 Mask 10 01/30/17 16:17 37.1 84 16 122/75 99 Mask 10 01/30/17 07:50 Room Air 01/30/17 07:08 36.8 79 16 139/74 94 Room Air Notes Mental Status: alert / awake / arousable, participated in evaluation Pt Amnestic to Procedure: Yes Nausea / Vomiting: adequately controlled Pain: adequately controlled Airway Patency, RR, SpO2: stable & adequate BP & HR: stable & adequate Hydration State: stable & adequate Anesthetic Complications: no major complications apparent
--- NOTE | 2017-01-30 18:46 | Progress Note ---
Subjective Date of Service: Jan 30, 2017. 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 Status: Acute (5) Urinary retention due to benign prostatic hyperplasia Status: Acute (6) Urinary tract infection Status: Acute Review of Systems Constitutional: No chills, No fever, No weakness Respiratory: No cough, No dyspnea on exertion, No shortness of breath Cardiac: No PND, No chest pain, No edema Abdomen: + pain, No diarrhea, No nausea, No vomiting Psychiatric: No anhedonism, No depression symptoms Objective Vital Signs Date Time Temp Pulse Resp B/P Pulse Ox O2 Delivery O2 Flow Rate FiO2 01/30/17 07:08 36.8 79 16 139/74 94 Room Air 01/29/17 23:30 Room Air 01/29/17 23:00 36.8 74 16 144/80 93 Room Air 01/29/17 19:44 36.7 72 16 137/72 97 01/29/17 19:40 36.7 16 137/72 Room Air 01/29/17 18:51 71 18 138/79 93 Room Air 01/29/17 16:58 76 20 138/75 96 Room Air 01/29/17 15:22 107 18 135/78 96 Room Air 01/29/17 14:10 82 18 152/81 94 Room Air 01/29/17 12:13 36.4 79 20 144/70 96 Room Air Physical Exam General Appearance: WD/WN, + mild distress Neck: supple, no JVD Respiratory/Chest: chest non-tender, lungs clear, normal breath sounds Cardiovascular: regular rate, rhythm, no murmur Abdomen: normal bowel sounds, non tender, soft Extremities: no pedal edema, no calf tenderness Laboratory Results Last 24 Hours Test 01/29/17 14:08 01/29/17 14:16 01/29/17 15:25 01/30/17 00:42 White Blood Count 12.81 K/uL Red Blood Count 4.14 M/uL Hemoglobin 12.4 g/dL Hematocrit 38.1 % Mean Corpuscular Volume 92.0 fL Mean Corpuscular Hemoglobin 30.0 pg Mean Corpuscular Hemoglobin Concent 32.5 g/dl Platelet Count 310 K/uL Mean Platelet Volume 12.0 fL Neutrophils (%) (Auto) 79.3 % Lymphocytes (%) (Auto) 10.6 % Monocytes (%) (Auto) 7.9 % Eosinophils (%) (Auto) 1.7 % Basophils (%) (Auto) 0.3 % Neutrophils # (Auto) 10.15 K/uL Lymphocytes # (Auto) 1.36 K/uL Monocytes # (Auto) 1.01 K/uL Eosinophils # (Auto) 0.22 K/uL Basophils # (Auto) 0.04 K/uL RDW Standard Deviation 46.4 fL RDW Coefficient of Variation 13.9 % Immature Granulocyte % (Auto) 0.2 % Immature Granulocyte # (Auto) 0.03 K/uL Prothrombin Time 12.0 SECONDS Prothromb Time International Ratio 1.1 Activated Partial Thromboplast Time 30.4 SECONDS 104.8 SECONDS Partial Thromboplastin Ratio 1.2 4.0 Sodium Level 143 mmol/L Potassium Level 4.1 mmol/L Chloride Level 108 mmol/L Carbon Dioxide Level 24 mmol/L Anion Gap 11.0 mmol/L Blood Urea Nitrogen 21 mg/dl Creatinine 2.10 mg/dl Est Creatinine Clear Calc Drug Dose 26.4 ml/min Estimated GFR () 31.8 Estimated GFR (Non- 27.5 BUN/Creatinine Ratio 9.8 Random Glucose 108 mg/dl Calcium Level 9.9 mg/dl Total Bilirubin 0.5 mg/dl Aspartate Amino Transf (AST/SGOT) 16 U/L Alanine Aminotransferase (ALT/SGPT) 19 U/L Alkaline Phosphatase 83 U/L Total Protein 7.6 gm/dl Albumin 3.7 gm/dl Globulin 3.9 gm/dl Albumin/Globulin Ratio 0.9 Bedside Lactic Acid Venous 1.55 mmol/L Urine Color DK YELLOW Urine Appearance CLEAR Urine pH 8.0 Urine Specific [place] 1.013 Urine Protein 1+ Urine Glucose (UA) NEG Urine Ketones TRACE Urine Occult Blood 2+ Urine Nitrite NEG Urine Bilirubin NEG Urine Urobilinogen NEG Urine Leukocyte Esterase MODERATE Urine WBC (Auto) >30 /hpf Urine RBC (Auto) >30 /hpf Urine Hyaline Casts (Auto) 10-30 /lpf Urine Epithelial Cells (Auto) 0-5 /lpf Urine Bacteria (Auto) NEG Test 01/30/17 04:10 White Blood Count 9.33 K/uL Red Blood Count 3.99 M/uL Hemoglobin 11.7 g/dL Hematocrit 35.9 % Mean Corpuscular Volume 90.0 fL Mean Corpuscular Hemoglobin 29.3 pg Mean Corpuscular Hemoglobin Concent 32.6 g/dl Platelet Count 273 K/uL Mean Platelet Volume 11.1 fL Neutrophils (%) (Auto) 73.6 % Lymphocytes (%) (Auto) 13.3 % Monocytes (%) (Auto) 9.5 % Eosinophils (%) (Auto) 3.0 % Basophils (%) (Auto) 0.4 % Neutrophils # (Auto) 6.86 K/uL Lymphocytes # (Auto) 1.24 K/uL Monocytes # (Auto) 0.89 K/uL Eosinophils # (Auto) 0.28 K/uL Basophils # (Auto) 0.04 K/uL RDW Standard Deviation 44.8 fL RDW Coefficient of Variation 13.6 % Immature Granulocyte % (Auto) 0.2 % Immature Granulocyte # (Auto) 0.02 K/uL Prothrombin Time 12.3 SECONDS Prothromb Time International Ratio 1.1 Activated Partial Thromboplast Time 60.6 SECONDS Partial Thromboplastin Ratio 2.3 Sodium Level 141 mmol/L Potassium Level 4.4 mmol/L Chloride Level 108 mmol/L Carbon Dioxide Level 25 mmol/L Anion Gap 8.0 mmol/L Blood Urea Nitrogen 20 mg/dl Creatinine 1.90 mg/dl Est Creatinine Clear Calc Drug Dose 29.2 ml/min Estimated GFR () 35.9 Estimated GFR (Non- 31.0 BUN/Creatinine Ratio 10.6 Random Glucose 133 mg/dl Calcium Level 8.7 mg/dl Assessment and Plan 86M with 12 mm obstructing stone at the left vesicoureteral junction with moderate left hydroureteronephrosis, recent diagnosis of DVT( 3 weeks ago) and possible uti Obstructing left ureteral stone--urology to place stent 01/30 Flomax 0.4 mg PO qd -Hold aspirin UTI, outpatient urine culture from 01/26 positive for coag-negative staph and second staph species -Cipro 400 mg IV q24h, renally dosed Acute right lower extremity DVT-01/08, treated with warfarin outpatient. INR subtherapeutic on arrival at 1.1 standard heparin drip restarted post op, does also have IVC filter ELISA--Creatinine 2.1 -Hold lisinopril HTN--stable amlodipine 10 mg PO qd hydralazine 10 mg IV q6h prn BPH finasteride 5 mg PO qd FULL RESUSCITATION STATUS
[2017-01-30] MEDS: TAMSULOSIN HCL 0.4 MG CAP PO SCH (20:43)
[2017-01-30] MEDS ORDERED: VANCOMYCIN INJ 1,000 MG in SODIUM CHLORIDE 0.9% 250ML 250 ML IV SCH (21:00)
[2017-01-31] MEDS: SODIUM CHLORIDE 0.9% 1000ML 1,000 ML IV SCH ×2 (02:52→10:09)
[2017-01-31 03:14] LABS: PARTIAL THROMBOPLASTIN RATIO 2.2
[2017-01-31 04:00] VITALS: BP 104/58; PULSE 77; TEMP 37; O2SAT 94
[2017-01-31] MEDS: HEPARIN 25,000 UNIT/500ML D5W 500 ML IV PRN (06:55)
[2017-01-31 07:40] VITALS: BP 110/60; PULSE 62; TEMP 36.8; O2SAT 94
[2017-01-31 07:51] LABS: HEMATOCRIT 31.4 % (42-52); MEAN CELL VOLUME 92.1 fL (80-100); MEAN CORPUSCULAR HEMOGLOBIN 29.3 pg (25-34); MEAN CORPUSCULAR HGB CONC 31.8 g/dl (32-36); MEAN PLATELET VOLUME 11.8 fL (7.4-10.4); PLATELET COUNT 251 K/uL (130-400); RED BLOOD COUNT 3.41 M/uL (4.7-6.1); WHITE BLOOD COUNT 7.24 K/uL (4.8-10.8)
--- NOTE | 2017-01-31 07:54 | Progress Note ---
Subjective Date of Service: Jan 31, 2017. Subjective Pt evaluation today including: conversation w/ patient, chart review, lab review Voiding: no voiding problems 86 yo male with s/p left URS. Pt reports he feels well this morning. Denies pain, n/v, dysuria, or hematuria. He reports he is voiding well. Some blood noted around his urinal this morning, but urine appears yellow. Cr is pending this morning. 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 Status: Acute (5) Urinary retention due to benign prostatic hyperplasia Status: Acute (6) Urinary tract infection Status: Acute Review of Systems Constitutional: No chills, No fever Respiratory: No shortness of breath Cardiac: No chest pain Abdomen: No nausea, No pain, No vomiting Male : No hematuria Heme: No abnormal bleeding/bruising Objective Vital Signs Date Time Temp Pulse Resp B/P Pulse Ox O2 Delivery O2 Flow Rate FiO2 01/31/17 07:40 36.8 62 14 110/60 94 Room Air 01/31/17 04:00 37.0 77 16 104/58 94 Room Air 01/30/17 23:15 36.9 72 18 110/64 91 Room Air 01/30/17 21:06 36.7 82 17 123/57 92 Room Air 01/30/17 20:00 Room Air 01/30/17 19:05 37.0 82 17 122/48 92 Room Air 01/30/17 18:10 36.8 79 18 121/56 92 Nasal Cannula 2.0 01/30/17 17:38 36.6 79 18 142/85 92 Nasal Cannula 01/30/17 17:10 97 Nasal Cannula 2.0 01/30/17 17:10 36.6 79 16 121/64 92 Room Air 01/30/17 16:55 36.5 80 13 107/56 97 Nasal Cannula 2 01/30/17 16:45 83 18 108/61 94 Nasal Cannula 2 01/30/17 16:35 81 16 117/57 97 Mask 10 01/30/17 16:25 89 18 123/66 96 Mask 10 01/30/17 16:17 37.1 84 16 122/75 99 Mask 10 Physical Exam General Appearance: no apparent distress Eyes: normal inspection ENT: hearing grossly normal Neck: no JVD Respiratory/Chest: no respiratory distress, no accessory muscle use Cardiovascular: no JVD Extremities: normal inspection Neurologic/Psychiatric: alert, normal mood/affect, oriented x 3 Skin: normal color Laboratory Results Last 24 Hours Test 01/31/17 02:34 01/31/17 07:25 Activated Partial Thromboplast Time 56.5 SECONDS Partial Thromboplastin Ratio 2.2 Assessment and Plan POD #1 s/p left URS. AFVSS. Pt doing well clinically. May resume Coumadin when OK with primary service. OK for d/c home from perspective. Recommend d/c home on 10 days of Macrobid pending Cr results or other abx based on sensitivities from -17. Will plan for outpatient f/u with Dr. Soni in 7-10 days for stent removal. Discharge planning: home
[2017-01-31 08:01] LABS: INR 1.2 (0.9-1.1); PROTHROMBIN TIME (PATIENT) 12.5 SECONDS (9.0-12.0)
[2017-01-31 08:09] VITALS: O2SAT 94
[2017-01-31 08:13] LABS: BUN/CREATININE RATIO 11.5 (10-20); CALCIUM 8.2 mg/dl (8.5-10.1); CREATININE 1.4 mg/dl (0.60-1.40)
[2017-01-31] MEDS: FINASTERIDE 5 MG TAB PO SCH (08:35)
[2017-01-31] MEDS: AMLODIPINE BESYLATE 5 MG TAB PO SCH (08:35)
[2017-01-31] MEDS: POLYETHYLENE (MIRALAX) 17 GM PACK PO SCH (08:35)
[2017-01-31] MEDS ORDERED: VANCOMYCIN INJ 1,200 MG in SODIUM CHLORIDE 0.9% 250ML 250 ML IV ONE (09:00)
--- NOTE | 2017-01-31 11:27 | Infectious Disease Progress Nt ---
Progress Note Date of Service Jan 31, 2017. Subjective Pt evaluation today including: conversation w/ patient, physical exam, chart review, lab review, review of studies, review of inpatient medication list Patient is feeling much better this morning. His left groin and abdominal pain is completely resolved. I reviewed the operative note- his stone was broken up and removed. The patient continues on IV Vancomycin. Note that he is OK for D/C from urology perspective. The patient is hoping to go home today. WBC count was 7.24. Creatinine was 1.40. Repeat urine culture is showing pin-point growth and being reintubated. All Other Systems: Reviewed and Negative Medications Current Inpatient Medications Medications (Trade) Dose Ordered Sig/Jama Route Start Time Stop Time Status Last Admin Dose Admin Ioversol (Optiray 320) 125 ml UD PRN IV 01/29/17 14:30 02/02/17 14:29 Acetaminophen (Tylenol Tab) 650 mg Q4H PRN PO 01/29/17 18:00 02/28/17 17:59 Al Hydrox/Mg Hydrox/Simethicone (Maalox Max Susp) 15 ml Q4H PRN PO 01/29/17 18:00 02/28/17 17:59 Magnesium Hydroxide (Milk Of Magnesia Susp) 30 ml Q6H PRN PO 01/29/17 18:00 02/28/17 17:59 Polyethylene (Miralax Powder Packet) 17 gm DAILY PO 01/30/17 09:00 03/01/17 08:59 01/31/17 08:35 17 GM Ondansetron HCl (Zofran Inj) 4 mg Q6H PRN IV 01/29/17 18:00 02/28/17 17:59 Amlodipine Besylate (Norvasc Tab) 10 mg DAILY PO 01/30/17 09:00 03/01/17 08:59 01/31/17 08:35 10 MG Finasteride 5 mg 5 mg DAILY PO 01/30/17 09:00 03/01/17 08:59 01/31/17 08:35 5 MG Sodium Chloride (Nss 1000ml) 1,000 ml @ 125 mls/hr Q8H IV 01/29/17 18:00 02/28/17 17:59 01/31/17 10:09 125 MLS/HR Tamsulosin HCl (Flomax Cap) 0.4 mg HS PO 01/29/17 21:00 02/28/17 20:59 01/30/17 20:43 0.4 MG Morphine Sulfate (MoRPHine SULFATE INJ) 2 mg Q4H PRN IV 01/29/17 18:00 02/12/17 17:59 01/30/17 12:46 2 MG Hydralazine HCl (HydrALAZINE INJ) 10 mg Q6H PRN IV. 01/29/17 18:00 02/28/17 17:59 Vancomycin HCl 1 ea 1 ea UD PRN N/A 01/30/17 14:00 03/01/17 13:59 Heparin Sodium/ Dextrose (Heparin 25,000 Unit/500ml D5W) 500 ml @ 27 mls/hr [id number] PRN IV 01/30/17 19:30 03/01/17 19:29 01/31/17 06:55 27 MLS/HR Objective Vital Signs Date Time Temp Pulse Resp B/P Pulse Ox O2 Delivery O2 Flow Rate FiO2 01/31/17 08:09 94 Room Air 01/31/17 07:40 36.8 62 14 110/60 94 Room Air 01/31/17 04:00 37.0 77 16 104/58 94 Room Air 01/30/17 23:15 36.9 72 18 110/64 91 Room Air 01/30/17 21:06 36.7 82 17 123/57 92 Room Air 01/30/17 20:00 Room Air 01/30/17 19:05 37.0 82 17 122/48 92 Room Air 01/30/17 18:10 36.8 79 18 121/56 92 Nasal Cannula 2.0 01/30/17 17:38 36.6 79 18 142/85 92 Nasal Cannula 01/30/17 17:10 97 Nasal Cannula 2.0 01/30/17 17:10 36.6 79 16 121/64 92 Room Air 01/30/17 16:55 36.5 80 13 107/56 97 Nasal Cannula 2 01/30/17 16:45 83 18 108/61 94 Nasal Cannula 2 01/30/17 16:35 81 16 117/57 97 Mask 10 01/30/17 16:25 89 18 123/66 96 Mask 10 01/30/17 16:17 37.1 84 16 122/75 99 Mask 10 Physical Exam General Appearance: WD/WN, no apparent distress Eyes: normal inspection, sclerae normal ENT: hearing grossly normal Neck: supple, trachea midline Respiratory/Chest: no respiratory distress, no accessory muscle use Cardiovascular: regular rate, rhythm Extremities: normal range of motion Neurologic/Psychiatric: alert, normal mood/affect Skin: normal color, warm/dry, no rash Laboratory Results Item Value Date Time Urine Culture - Preliminary Resulted 01/29/17 1525 Urine , Clean Catch PIN-POINT GROWTH PRESENT, REINCUBATING. Last 24 Hours Test 01/31/17 02:34 01/31/17 07:25 Activated Partial Thromboplast Time 56.5 SECONDS Partial Thromboplastin Ratio 2.2 White Blood Count 7.24 K/uL Red Blood Count 3.41 M/uL Hemoglobin 10.0 g/dL Hematocrit 31.4 % Mean Corpuscular Volume 92.1 fL Mean Corpuscular Hemoglobin 29.3 pg Mean Corpuscular Hemoglobin Concent 31.8 g/dl RDW Standard Deviation 46.2 fL RDW Coefficient of Variation 13.8 % Platelet Count 251 K/uL Mean Platelet Volume 11.8 fL Prothrombin Time 12.5 SECONDS Prothromb Time International Ratio 1.2 Sodium Level 141 mmol/L Potassium Level 4.0 mmol/L Chloride Level 111 mmol/L Carbon Dioxide Level 22 mmol/L Anion Gap 8.0 mmol/L Blood Urea Nitrogen 16 mg/dl Creatinine 1.40 mg/dl Est Creatinine Clear Calc Drug Dose 39.6 ml/min Estimated GFR () 52.0 Estimated GFR (Non- 44.9 BUN/Creatinine Ratio 11.5 Random Glucose 122 mg/dl Calcium Level 8.2 mg/dl Random Vancomycin Level 9.3 mcg/ml Assessment and Plan Patient with left-sided obstructing renal calculi, coag-negative staph UTI, and probable left-sided pyelonephritis. He currently on IV Vancomycin. Noted urology recommendations for continued therapy with PO Macrobid upon discharge however I feel that this patient likely requires increased kidney penetration with the perinephric and periureteral stranding seen on CT scan. Therefore, recommend that he could transition to PO Zyvox upon D/C to complete 2 weeks of therapy. He will need ID follow up 7-10 days after discharge. Thanks PROVIDER ADDENDUM: Patient reviewed with Ms. Hilario. Agree with above assessment.
--- NOTE | 2017-01-31 11:33 | Pharmacy Progress Note ---
Pharmacy Antibiotic Prog Note Date of Service: Jan 31, 2017. Subjective: The patient is currently on day # 3 of vancomycin IV therapy for UTI, left obstructing renal calculus. Objective: Height (Feet): 5 Height (Inches): 11.00 Weight (Kilograms): 76.700 Levels: Item Value Date Time Random Vancomycin Level 9.3 mcg/ml 01/31/17 0725 Lab Results (24hrs): Laboratory Tests Test 01/31/17 07:25 BUN/Creatinine Ratio 11.5 Blood Urea Nitrogen 16 mg/dl Creatinine 1.40 mg/dl White Blood Count 7.24 K/uL Micro Results: Item Value Date Time Urine Culture - Preliminary Resulted 01/29/17 1525 Urine , Clean Catch PIN-POINT GROWTH PRESENT, REINCUBATING. Recent Pertinent Medications: Item Value Date Time Vancomycin HCl 1 gm 01/30/17 0600 (Vancomycin 1gm/ PREOP/IV 270ml Nss) Assessment & Plan: ASSESSMENT: * Random level drawn this AM is subtherapeutic and re-dosing is needed at this time PLAN: * Vancomycin 1200 mg IV q24h starting this AM * Will wait to order levels as the patient may be discharged in the near future * Will plan to re-evaluate tomorrow Pharmacy will continue to follow and will adjust dose/frequency as necessary. Thank you
[2017-01-31] MEDS ORDERED: FLM4 PO (13:03)
[2017-01-31] MEDS ORDERED: MRLP17 PO (13:03)
[2017-01-31] MEDS ORDERED: LINE1TAB6 PO (13:03)
[2017-01-31] MEDS ORDERED: CMD5 PO (13:07)
--- NOTE | 2017-01-31 13:11 | Discharge Instructions ---
Discharge Instructions Date of Service Jan 31, 2017. Admission Reason for Admission: Ureteral Stone With Hydronephrosis Discharge Discharge Diagnosis / Problem: kidney stone, s/p cystoscopy Discharge Goals Goal(s): Diagnostic testing, Therapeutic intervention Activity Recommendations Activity Limitations: resume your previous activity . Current Hospital Diet Patient's current hospital diet: AHA Diet (Heart Healthy) Discharge Diet Recommended Diet: Regular Diet Procedures Procedures Performed: Cystoscopy, Urethral dilation ,Ureteroscopy, Laser Lithotripsy; Stent placement ([id number]) Pending Studies Studies pending at discharge: no Laboratory Results Please have your blood checked for your coumadin this week results to dr Cano Medical Emergencies . Who to Call and When: Medical Emergencies: If at any time you feel your situation is an emergency, please call 911 immediately. . Non-Emergent Contact Non-Emergency issues call your: Primary Care Provider (dr cano), Urologist Call Non-Emergent contact if: temperature is above 101, your pain is unusual for you . . "Provider Documentation" section prepared by Hebert Fay. VTE Core Measure Inpt VTE Proph given/why not?: Other Anticoagulation (standard heparin drop due to active DVT)
[2017-01-31 13:31] VITALS: BP 110/60; PULSE 62; TEMP 36.8; O2SAT 94
--- NOTE | 2017-01-31 13:49 | Anesthesiology Progress Note ---
Anesthesia Post Op Note Date & Time Jan 31, 2017 at 13:48 Vital Signs Pain Intensity: 0.0 Vital Signs Past 12 Hours Date Time Temp Pulse Resp B/P Pulse Ox O2 Delivery O2 Flow Rate FiO2 01/31/17 13:31 36.8 62 14 94 Room Air 01/31/17 08:09 94 Room Air 01/31/17 07:45 Room Air 01/31/17 07:40 36.8 62 14 110/60 94 Room Air 01/31/17 04:00 37.0 77 16 104/58 94 Room Air Notes Mental Status: alert / awake / arousable, participated in evaluation Pt Amnestic to Procedure: Yes Nausea / Vomiting: adequately controlled Pain: adequately controlled Airway Patency, RR, SpO2: stable & adequate BP & HR: stable & adequate Hydration State: stable & adequate Anesthetic Complications: no major complications apparent
[2017-01-31 14:54] VITALS: BP 133/55; PULSE 88; TEMP 37; O2SAT 96
--- NOTE | 2017-01-31 17:27 | Discharge Summary ---
Discharge Summary Date of Service Jan 31, 2017. Discharge Summary Admission Date: Jan 29, 2017 at 18:18 Discharge Date: Jan 31, 2017 Discharge Disposition: Home with services Principal Diagnosis: renal stone s/p cystoscopy and laser lithtripsy Immunizations: Have You Had Influenza Vaccine: N/A Influenza Vaccine Date: Aug 21, 2009 History of Tetanus Vaccine?: Yes Tetanus Immunization Date: Aug 02, 2007 History of Pneumococcal: Yes Pneumococcal Date: Aug 02, 2010 History of Hepatitis B Vaccine: Unknown Medication Reconciliation New Medications: Linezolid (Zyvox) 600 Mg Tab 600 MG PO BID, #14 TAB Warfarin Sod (Coumadin) 5 Mg Tab 5 MG PO DAILY, #30 DOSE Polyethylene (Miralax) 17 Gm Pow 17 GM PO DAILY, #30 DOSE 3 Refills Tamsulosin HCl (Tamsulosin HCl) 0.4 Mg Cap 0.4 MG PO HS, #30 CAP 4 Refills Continued Medications: Amlodipine (Norvasc) 10 Mg Tab 10 MG PO DAILY, TAB Aspirin (Aspirin Ec) 81 Mg Tab 81 MG PO QAM Restart ion 5 days if urine clear Finasteride (Proscar) 5 Mg Tab 5 MG PO DAILY, TAB Lisinopril (Lisinopril) 5 Mg Tab 5 MG PO QAM Discontinued Medications: Nitrofurantoin Monohyd Macrocr (Macrobid) 100 Mg Cap 100 MG PO BID X 14 DAYS Warfarin Sod (Jantoven) Unknown Strength Tab 1 TAB PO UD Discharge Exam Review of Systems: Constitutional: No chills, No fever, No sweats Respiratory: No cough, No sputum, No wheezing Cardiovascular: No chest pain, No orthopnea Abdomen: No nausea, No pain, No vomiting Musculoskeletal: No joint pain, No muscle pain Genitourinary - Male: No dysuria, No hematuria Physical Exam: General Appearance: WD/WN, no apparent distress Neck: supple, no JVD Respiratory/Chest: chest non-tender, lungs clear, normal breath sounds Cardiovascular: regular rate, rhythm, + systolic murmur Abdomen / GI: normal bowel sounds, non tender, soft Neurologic/Psychiatric: alert, oriented x 3 Hospital Course 86M with 12 mm obstructing stone at the left vesicoureteral junction with moderate left hydroureteronephrosis, recent diagnosis of DVT( 3 weeks ago) and possible uti Obstructing left ureteral stone--urology cysto,laser litho and stent 3/21 Flomax 0.4 mg PO qd will follow up in offive UTI, outpatient urine culture from 01/26 positive for coag-negative staph and second staph species Id recommends zyvox, will RX at discharge Acute right lower extremity DVT-01/08, treated with warfarin outpatient. INR subtherapeutic on arrival at 1.1 will begin coumadin, Dr Cano contacted and will follow INR next check 02/02, does also have IVC filter ELISA--resolved resume acei HTN--stable amlodipine 10 mg PO qd BPH finasteride 5 mg PO qd FULL RESUSCITATION STATUS Total Time Spent: Greater than 30 minutes This includes examination of the patient, discharge planning, medication reconciliation, and communication with other providers. Discharge Instructions Please refer to the electronic Patient Visit Report (Discharge Instructions) for additional information.
[2017-02-01] MEDS ORDERED: VANCOMYCIN INJ 1,200 MG in SODIUM CHLORIDE 0.9% 250ML 250 ML IV SCH (10:00)
== END 2017-01-31 16:00 | disposition home or self-care (01) | DRG 669 ==
LOC: ENRESERVDT → ENRESERVTM → C.EDB 12:11 → C.MSN 18:18
PROVIDERS: ADMIT Hospitalist; ATTEND Internal Medicine
PROC: 0T778DZ Dilation of Left Ureter with Intraluminal Device, Via Natural or Artificial Opening Endoscopic (ICD-10-PCS; principal; 2017-01-30 13:30)
PROC: 0TC78ZZ Extirpation of Matter from Left Ureter, Via Natural or Artificial Opening Endoscopic (ICD-10-PCS; principal; 2017-01-30 13:30)
DX: N13.2 Hydronephrosis with renal and ureteral calculous obstruction (principal); I82.401 Acute embolism and thrombosis of unspecified deep veins of right lower extremity; Z79.01 Long term (current) use of anticoagulants; I10 Essential (primary) hypertension; N28.1 Cyst of kidney, acquired; N39.0 Urinary tract infection, site not specified; B95.8 Unspecified staphylococcus as the cause of diseases classified elsewhere; N17.9 Acute kidney failure, unspecified; N40.1 Benign prostatic hyperplasia with lower urinary tract symptoms; K42.9 Umbilical hernia without obstruction or gangrene; R33.9 Retention of urine, unspecified; K21.9 Gastro-esophageal reflux disease without esophagitis; N21.0 Calculus in bladder; R31.0 Gross hematuria

== ENCOUNTER → 2017-01-29 | Outpatient (CLI) | payer BC ==
[2017-01-29 12:04] LABS: HEMATOCRIT 37.9 % (42-52)
[2017-01-29 12:10] LABS: INR 1.1 (0.9-1.1); PROTHROMBIN TIME (PATIENT) 11.9 SECONDS (9.0-12.0)
== END | disposition home or self-care (01) ==
LOC: C.LAB1850 10:48
PROVIDERS: ATTEND Family Medicine
DX: R31.0 Gross hematuria (principal); I82.409 Acute embolism and thrombosis of unspecified deep veins of unspecified lower extremity

== ENCOUNTER → 2017-02-16 | Outpatient (CLI) | payer BC ==
[~2017-02-16] MED LIST changes: +CMD5 PO; +FLM4 PO; +LINE1TAB6 PO; +MRLP17 PO; -PANT40TA PO
[2017-02-16 13:23] LABS: BASO % 0.6 %; BASO ABS # 0.04 K/uL (0-0.2); COMPLETE YES; EOS % 5.8 %; HEMATOCRIT 37.9 % (42-52); IG% 0.1 %; LYMPH % 15.2 %; LYMPH ABS # 1.02 K/uL (1.2-3.4); MEAN CELL VOLUME 92.2 fL (80-100); MEAN CORPUSCULAR HEMOGLOBIN 30.2 pg (25-34); MEAN CORPUSCULAR HGB CONC 32.7 g/dl (32-36); MONO % 11.3 %; PLATELET COUNT 259 K/uL (130-400); RED BLOOD COUNT 4.11 M/uL (4.7-6.1); WHITE BLOOD COUNT 6.72 K/uL (4.8-10.8)
== END | disposition home or self-care (01) ==
LOC: C.LAB1850 11:51
PROVIDERS: ATTEND Internal Medicine
DX: I82.409 Acute embolism and thrombosis of unspecified deep veins of unspecified lower extremity (principal)

== ENCOUNTER → 2017-03-16 | Outpatient (CLI) | payer BC ==
[2017-03-16 12:20] LABS: BLOOD UREA NITROGEN 24 mg/dl (7-18); BUN/CREATININE RATIO 15.8 (10-20)
== END | disposition home or self-care (01) ==
LOC: C.LAB 11:23
PROVIDERS: ATTEND Urology
DX: R97.20 Elevated prostate specific antigen [PSA] (principal); N40.1 Benign prostatic hyperplasia with lower urinary tract symptoms; R33.8 Other retention of urine; N39.0 Urinary tract infection, site not specified; N20.0 Calculus of kidney; N21.0 Calculus in bladder

== ENCOUNTER → 2017-03-23 | Outpatient (CLI) | payer BC ==
--- NOTE | 2017-03-23 13:31 | DIAGNOSTIC IMAGING REPORT ---
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 FINDINGS: Right kidney: Maximum dimension 9.6 cm. No evidence for hydronephrosis. 7 mm nonobstructing calcification. Several small cysts measuring up to 2.8 cm. Normal corticomedullary differentiation and cortical thickness. Left kidney: No evidence for hydronephrosis. Maximum dimension 10.9 cm. Several cysts are identified the largest of which measures 6 cm. Normal corticomedullary differentiation and cortical thickness. Bladder: 1. Bilateral renal cysts. 2. No evidence for hydronephrosis. 3. Nonobstructing 7 mm right renal calcification IMPRESSION: Normal renal ultrasound. Electronically signed by: Valentin Floyd M.D. 03/23/2017 1:30 PM Dictated Date/Time: 03/23/2017 1:28 PM
--- NOTE | 2017-03-23 13:47 | DIAGNOSTIC IMAGING REPORT ---
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 No definite calcifications are appreciated within this limitation. Inferior vena caval filter is stable in position. Nonobstructive bowel pattern. Postoperative changes of the low lumbar spine. IMPRESSION: Nondiagnostic evaluation of the urinary tracts due to overlying bowel content. Nonobstructive bowel pattern. Electronically signed by: Valentin Floyd M.D. 03/23/2017 1:45 PM Dictated Date/Time: 03/23/2017 1:45 PM
== END | disposition home or self-care (01) ==
LOC: C.ULTR 12:47
PROVIDERS: ATTEND Urology
DX: N20.0 Calculus of kidney (principal)

== ENCOUNTER → 2017-05-07 | Outpatient (CLI) | payer BC ==
[2017-05-07 17:42] LABS: BASO % 0.6 %; BASO ABS # 0.05 K/uL (0-0.2); COMPLETE YES; EOS % 4.1 %; HEMATOCRIT 44.3 % (42-52); IG% 0.2 %; LYMPH % 16.8 %; LYMPH ABS # 1.35 K/uL (1.2-3.4); MEAN CELL VOLUME 93.1 fL (80-100); MEAN CORPUSCULAR HEMOGLOBIN 30.7 pg (25-34); MEAN PLATELET VOLUME 12.9 fL (7.4-10.4); MONO % 9.4 %; NEUT % 68.9 %; PLATELET COUNT 211 K/uL (130-400); RED BLOOD COUNT 4.76 M/uL (4.7-6.1); WHITE BLOOD COUNT 8.05 K/uL (4.8-10.8)
[2017-05-07 18:24] LABS: BLOOD UREA NITROGEN 27 mg/dl (7-18); BUN/CREATININE RATIO 18.2 (10-20); CALCIUM 9.5 mg/dl (8.5-10.1); CARBON DIOXIDE 23 mmol/L (21-32); CHLORIDE 112 mmol/L (98-107); GLUCOSE 92 mg/dl (70-99); POTASSIUM 4.5 mmol/L (3.5-5.1); SODIUM 143 mmol/L (136-145)
== END | disposition home or self-care (01) ==
LOC: C.LABPVFM 11:26
PROVIDERS: ATTEND Internal Medicine
DX: I82.409 Acute embolism and thrombosis of unspecified deep veins of unspecified lower extremity (principal)

== ENCOUNTER 2017-08-07 09:52 | Inpatient (IN) | payer BC, OTHER ==
[~2017-08-07] VITALS: Ht 180.3 cm; Wt 74.2 kg
[~2017-08-07 09:52] MED LIST changes: -LINE1TAB6 PO
[2017-08-07] MEDS ORDERED: SODIUM CHLORIDE 0.9% 1000ML 1,000 ML IV SCH (10:15)
[2017-08-07 10:26] LABS: BASO % 0.5 %; BASO ABS # 0.04 K/uL (0-0.2); COMPLETE YES; EOS % 6.4 %; HEMATOCRIT 44.7 % (42-52); IG% 0.1 %; LYMPH % 15.5 %; LYMPH ABS # 1.18 K/uL (1.2-3.4); MEAN CELL VOLUME 93.5 fL (80-100); MEAN CORPUSCULAR HEMOGLOBIN 30.5 pg (25-34); MEAN CORPUSCULAR HGB CONC 32.7 g/dl (32-36); MEAN PLATELET VOLUME 12.2 fL (7.4-10.4); MONO % 9.2 %; NEUT % 68.3 %; PLATELET COUNT 260 K/uL (130-400); RED BLOOD COUNT 4.78 M/uL (4.7-6.1); WHITE BLOOD COUNT 7.63 K/uL (4.8-10.8)
--- NOTE | 2017-08-07 10:39 | DIAGNOSTIC IMAGING REPORT ---
HEAD WITHOUT CONTRAST (CT) CLINICAL HISTORY: 87 years-old Male with Stroke. Acute strokelike symptoms. Acute altered mental status. TECHNIQUE: Multiple axial CT images of the head were obtained without contrast. A dose lowering technique was utilized adhering to the principles of ALARA. CT DOSE: 537.48 mGy.cm COMPARISON: CT head 02/20/2011. FINDINGS: Mild cerebral atrophy is noted. Background moderate chronic microvascular ischemic changes are present, which have worsened from prior study. Remote left frontal periventricular infarction with encephalomalacia is unchanged. Remote appearing right thalamic lacunar infarction is present. Focal areas of low attenuation are seen in the basal ganglia including the right lentiform nucleus, left lentiform nucleus and left thalamus which are new from prior exam. These are compatible with age indeterminate lacunar infarctions. There is no acute intracranial hemorrhage, midline shift, hydrocephalus, intracranial mass or abnormal extra-axial collections. No territorial ischemia identified. Calvarium is intact. Mastoid air cells and middle ear cavities are clear. Polypoid mucosal thickening of the left maxillary sinus is seen, 1.4 cm. There is mild ethmoid sinus disease. Soft tissues are unremarkable and the orbits are symmetric. IMPRESSION: 1. No acute intracranial hemorrhage or large territorial ischemia. 2. Progressive chronic microvascular ischemic changes with multiple basal ganglia lacunar infarctions, several of which are new from 02/20/2011, making these lesions age indeterminate, notably a focal area of ill-defined low-attenuation within the right lentiform nucleus. These findings could be further evaluated with MRI if clinically indicated. 3. Mild paranasal sinus disease. The above report was generated using voice recognition software. It may contain grammatical, syntax or spelling errors. Electronically signed by: Jason Meza M.D. 08/07/2017 10:38 AM Dictated Date/Time: 08/07/2017 10:31 AM
[2017-08-07 10:41] LABS: BLOOD UREA NITROGEN 18 mg/dl (7-18); BUN/CREATININE RATIO 12.6 (10-20); CARBON DIOXIDE 23 mmol/L (21-32); CHLORIDE 111 mmol/L (98-107); GLUCOSE 94 mg/dl (70-99); POTASSIUM 4.8 mmol/L (3.5-5.1); SODIUM 141 mmol/L (136-145)
--- NOTE | 2017-08-07 10:41 | DIAGNOSTIC IMAGING REPORT ---
CHEST ONE VIEW PORTABLE CLINICAL HISTORY: CHEST PAIN dyspnea COMPARISON STUDY: 10/31/2016 FINDINGS: Chronic interstitial/atelectatic change left base. Lungs otherwise are clear. Postoperative changes are noted to the right shoulder. There are considerable degenerative changes left shoulder. IMPRESSION: Chronic change left base. No acute process. The above report was generated using voice recognition software. It may contain grammatical, syntax or spelling errors. Electronically signed by: Valentin Floyd M.D. 08/07/2017 10:39 AM Dictated Date/Time: 08/07/2017 10:39 AM
[2017-08-07 10:44] LABS: INR 2.3 (0.9-1.1); PARTIAL THROMBOPLASTIN RATIO 1.5; PROTHROMBIN TIME (PATIENT) 25.3 SECONDS (9.0-12.0)
[2017-08-07 10:46] LABS: CKMB/CK RATIO 2.5 (0-3.0)
--- NOTE | 2017-08-07 11:13 | EMERGENCY ROOM VISIT NOTE ---
History Report prepared by Isabella: Thuy Conroy Under the Supervision of: Dr. Reagan Bedolla M.D. First contact with patient: 10:08 Chief Complaint: WEAKNESS Stated Complaint: WEAKNESS History of Present Illness The patient is a 87 year old male who presents to the Emergency Room with complaints of constant weakness for the past hour. Friend at beside that the patient came downstairs this morning and was opening his sliding glass door. He was fine before that and suddenly he had a "terrible look on his face." He was complaining of feeling weak but denied any pain. Friend states that this occurred around 8:50-9:00am. The patient sat down at the kitchen table and seemed to be confused. She brought the patient to the ED for further evaluation. The patient denies fevers, headache, chest pain, shortness of breath , back pain, and urinary symptoms. He does not any history of DM. He did not fall. The patient is on Coumadin. Source of History: patient, friend Onset: 1 hour WOUND CARE RN Position: other (global) Quality: other (weakness) Timing: constant Associated Symptoms: No fevers, No chills, No chest pain, No SOB, No back pain, No urinary symptoms Note: Pt has acute confusion. Review of Systems See HPI for pertinent positives & negatives. A total of 10 systems reviewed and were otherwise negative. 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 Nurse's notes were reviewed and I agree with. Family History Cancer Heart disease Social History Smoking Status: Never Smoker Drug Use: none Marital Status: Occupation Status: retired, other Current/Historical Medications Scheduled Amlodipine (Norvasc), 10 MG PO DAILY Aspirin (Aspirin Ec), 81 MG PO QAM Finasteride (Proscar), 5 MG PO DAILY Lisinopril (Lisinopril), 5 MG PO QAM Polyethylene (Miralax), 17 GM PO DAILY Tamsulosin HCl (Tamsulosin HCl), 0.4 MG PO HS Warfarin Sod (Coumadin), 5 MG PO DAILY Allergies Coded Allergies: Phenobarbital (Verified Allergy, Mild, RASH, 08/07/17) Clopidogrel (Verified Allergy, Unknown, RASH, 08/07/17) Ibuprofen (Verified Allergy, Unknown, unknown to patient, 08/07/17) Physical Exam Vital Signs Date Time Temp Pulse Resp B/P (MAP) Pulse Ox O2 Delivery O2 Flow Rate FiO2 08/07/17 11:27 66 20 135/74 08/07/17 11:10 138/77 08/07/17 11:10 62 16 138/77 97 Room Air 08/07/17 11:07 70 20 08/07/17 10:52 60 25 95 08/07/17 10:50 145/73 08/07/17 10:39 98 Room Air 08/07/17 10:37 54 20 96 08/07/17 10:31 76 148/82 96 08/07/17 10:28 148/82 08/07/17 10:12 62 08/07/17 09:58 36.5 57 20 132/76 98 Room Air Physical Exam General: Well developed well nourished older male in no acute distress, appears mildly tachypneic but denies shortness of breath. Answers most questions appropriately but slowly. HEENT: Normal cephalic atraumatic. Pupils are equal round and reactive to light. Extraocular movements are intact. Oropharynx is pink with moist mucous membranes. No swelling of the mouth lips or tongue. Neck: Supple with a midline trachea. No meningeal signs or stiffness, no JVD or bruits. No Stridor. Chest: Clear to auscultation bilaterally. No wheezes or rhonchi. No increased work of breathing. Heart: regular rate and rhythm. Abdomen: Soft nontender, nondistended without rebound guarding or rigidity. Extremities: No cyanosis clubbing or edema. No calf tenderness or assymetry Spine/Back. Non tender to palpation. No CVA tenderness Skin: Good turgor without rashes. Neurologic exam: Cranial nerves two through 12 are intact. Motor and sensation are intact and symmetrical throughout. Seems to have some confusion but alert to personal and place. Answers questions slowly. No facial asymmetry or droop. Medical Decision & Procedures ER Provider Diagnostic Interpretation: Radiology results as stated below per my review and radiologist interpretation: HEAD WITHOUT CONTRAST (CT) CLINICAL HISTORY: 87 years-old Male with Stroke. Acute strokelike symptoms. Acute altered mental status. TECHNIQUE: Multiple axial CT images of the head were obtained without contrast. A dose lowering technique was utilized adhering to the principles of ALARA. CT DOSE: 537.48 mGy.cm COMPARISON: CT head 02/20/2011. FINDINGS: Mild cerebral atrophy is noted. Background moderate chronic microvascular ischemic changes are present, which have worsened from prior study. Remote left frontal periventricular infarction with encephalomalacia is unchanged. Remote appearing right thalamic lacunar infarction is present. Focal areas of low attenuation are seen in the basal ganglia including the right lentiform nucleus, left lentiform nucleus and left thalamus which are new from prior exam. These are compatible with age indeterminate lacunar infarctions. There is no acute intracranial hemorrhage, midline shift, hydrocephalus, intracranial mass or abnormal extra-axial collections. No territorial ischemia identified. Calvarium is intact. Mastoid air cells and middle ear cavities are clear. Polypoid mucosal thickening of the left maxillary sinus is seen, 1.4 cm. There is mild ethmoid sinus disease. Soft tissues are unremarkable and the orbits are symmetric. IMPRESSION: 1. No acute intracranial hemorrhage or large territorial ischemia. 2. Progressive chronic microvascular ischemic changes with multiple basal ganglia lacunar infarctions, several of which are new from 02/20/2011, making these lesions age indeterminate, notably a focal area of ill-defined low-attenuation within the right lentiform nucleus. These findings could be further evaluated with MRI if clinically indicated. 3. Mild paranasal sinus disease. The above report was generated using voice recognition software. It may contain grammatical, syntax or spelling errors. Electronically signed by: Jason Meza M.D. 08/07/2017 10:38 AM Dictated Date/Time: 08/07/2017 10:31 AM CHEST ONE VIEW PORTABLE CLINICAL HISTORY: CHEST PAIN dyspnea COMPARISON STUDY: 10/31/2016 FINDINGS: Chronic interstitial/atelectatic change left base. Lungs otherwise are clear. Postoperative changes are noted to the right shoulder. There are considerable degenerative changes left shoulder. IMPRESSION: Chronic change left base. No acute process. The above report was generated using voice recognition software. It may contain grammatical, syntax or spelling errors. Electronically signed by: Valentin Floyd M.D. 08/07/2017 10:39 AM Dictated Date/Time: 08/07/2017 10:39 AM Laboratory Results 08/07/17 10:10 Red Blood Count 4.78, Mean Corpuscular Volume 93.5, Mean Corpuscular Hemoglobin 30.5, Mean Corpuscular Hemoglobin Concent 32.7, Mean Platelet Volume 12.2, Neutrophils (%) (Auto) 68.3, Lymphocytes (%) (Auto) 15.5, Monocytes (%) (Auto) 9.2, Eosinophils (%) (Auto) 6.4, Basophils (%) (Auto) 0.5, Neutrophils # (Auto) 5.21, Lymphocytes # (Auto) 1.18, Monocytes # (Auto) 0.70, Eosinophils # (Auto) 0.49, Basophils # (Auto) 0.04 08/07/17 10:10 Test 08/07/17 10:10 08/07/17 10:13 08/07/17 10:15 08/07/17 10:22 White Blood Count 7.63 K/uL (4.8-10.8) Red Blood Count 4.78 M/uL (4.7-6.1) Hemoglobin 14.6 g/dL (14.0-18.0) Hematocrit 44.7 % (42-52) Mean Corpuscular Volume 93.5 fL (80-100) Mean Corpuscular Hemoglobin 30.5 pg (25-34) Mean Corpuscular Hemoglobin Concent 32.7 g/dl (32-36) Platelet Count 260 K/uL (130-400) Mean Platelet Volume 12.2 fL (7.4-10.4) Neutrophils (%) (Auto) 68.3 % Lymphocytes (%) (Auto) 15.5 % Monocytes (%) (Auto) 9.2 % Eosinophils (%) (Auto) 6.4 % Basophils (%) (Auto) 0.5 % Neutrophils # (Auto) 5.21 K/uL (1.4-6.5) Lymphocytes # (Auto) 1.18 K/uL (1.2-3.4) Monocytes # (Auto) 0.70 K/uL (0.11-0.59) Eosinophils # (Auto) 0.49 K/uL (0-0.5) Basophils # (Auto) 0.04 K/uL (0-0.2) RDW Standard Deviation 47.9 fL (36.4-46.3) RDW Coefficient of Variation 13.9 % (11.5-14.5) Immature Granulocyte % (Auto) 0.1 % Immature Granulocyte # (Auto) 0.01 K/uL (0.00-0.02) Prothrombin Time 25.3 SECONDS (9.0-12.0) Prothromb Time International Ratio 2.3 (0.9-1.1) Activated Partial Thromboplast Time 40.1 SECONDS (21.0-31.0) Partial Thromboplastin Ratio 1.5 Anion Gap 7.0 mmol/L (3-11) Estimated GFR () 51.6 Estimated GFR (Non- 44.5 BUN/Creatinine Ratio 12.6 (10-20) Estimated Average Glucose 131 mg/dl Hemoglobin A1c 6.2 % (4.5-5.6) Calcium Level 10.0 mg/dl (8.5-10.1) Bedside Glucose 89 mg/dl (70-99) Bedside Prothrombin Time INR 2.8 (0.9-1.1) Bedside Lactic Acid Venous 1.26 mmol/L (0.90-1.70) Laboratory studies as stated above per my review. Medications Administered Medications (Trade) Dose Ordered Sig/Jama Route Start Time Stop Time Status Last Admin Dose Admin Sodium Chloride 1,000 ml @ 50 mls/hr Q20H IV 08/07/17 10:15 08/07/17 14:52 DC 08/07/17 10:43 50 MLS/HR ECG Indication: weakness Rate (beats per minute): 50 Rhythm: sinus bradycardia Findings: nonspecific-ST abn, other (LVH) Comparison ECG Date: 10/31/2016 Change: Nonspecific T-wave now present. Sinus bradycardia now present. ED Course 1008: Past medical records reviewed. The patient was evaluated in room B10, and a complete history and physical examination were performed. A stroke alert was called. 1015: NSS 1000 ml @ 50 mls/hr IV 1019: I reassessed the patient ad the stroke team is at bedside. The patient was taken to CT. 1034: Upon reevaluation the patient's symptoms have improved. 1045: I spoke with Dr. Geronimo of neurology at [facility]. We discussed the patient's case. He is not a TPA candidate. He is on Coumadin and his symptoms are improving. Dr. Geronimo will evaluate the patient via telestroke. 1110: I discussed the case with Dr. Geronimo again. He recommended keeping the patient in the hospital and hydrating with IV fluids. 1122: I reassessed the patient at this time. He is feeling better and resting comfortably. I discussed the results and treatment plan with the patient. I answered all pertaining questions that he had. He expressed understanding and verbalized agreement. 1131: I spoke with Dr. Ashley. We discussed the patient's case. The patient will be evaluated by the [facility] for further management. Medical Decision Differential diagnoses includes hypoglycemia, stroke, intracranial hemorrhage, electrolyte or metabolic abnormality, arrhythmia, trauma. This patient comes in as described above. I promptly saw him as he was flagged by triage as a priority patient. Apparently at 10 minutes before 9 this morning , the patient was noted to be confused and different than normal. When I went in the room, he would answer questions but he seems slow and out of it. He denied any pain. He would follow most commands appropriately. He had no other obvious focal neurologic deficits. I did call a stroke alert and oriented to facilitate and expedite his care. We did blood sugar and it was not abnormal. I have reviewed his records a stat CAT scan shows no acute findings however, he' s had multiple old previous lacunar infarcts. He was therapeutic with his INR in the mid 2 range. This would certainly be an exclusion for him from getting TPA. Additionally while the patient was here his symptoms markedly improved. The stroke team did come and evaluate him. He was evaluated by the [place] stroke neurologist. He thinks that he may have had a frontal lobe TIA possibly. The patient was hydrated with IV normal saline in the ER. He has nothing to suggest sepsis or acute electrolyte or metabolic abnormalities. I do think he needs to be admitted for further treatment and evaluation neurologic workup. I have consulted the hospitalist group to see him. Medication Reconcilliation Current Medication List: was personally reviewed by me Blood Pressure Screening Patient's blood pressure: Normal blood pressure Consults Time Called: 1047 Consulting Physician: Dr. Geronimo Returned Call: [phone] Geronimo of neurology at [facility]. We discussed the patient's case. He is not a TPA candidate. He is on Coumadin and his symptoms are improving. Dr. Geronimo will evaluate the patient via telestroke. Additional Consults: Time Called: 1108 Consulted Physician: Dr. Geronimo Returned Call: [phone] Additional Comments: I discussed the case with Dr. Geronimo again. He recommended keeping the patient in the hospital and hydrating with IV fluids. Time Called: 1129 Consulted Physician: Dr. Ashley Returned Call: [phone] Additional Comments: I spoke with Dr. Ashley. We discussed the patient's case. The patient will be evaluated by the [facility] for further management. Impression Primary Impression: Altered level of consciousness Additional Impression: TIA (transient ischemic attack) Scribe Attestation The scribe's documentation has been prepared under my direction and personally reviewed by me in its entirety. I confirm that the note above accurately reflects all work, treatment, procedures, and medical decision making performed by me. Departure Information Dispostion Being Evaluated By Hospitalist Referrals ,José Miguel Palumbo M.D. (PCP) Patient Instructions My [facility] Stroke History Time Last Known Well 0850 Stroke t-PA Criteria Reviewed Does NOT meet criteria for t-PA Reason t-PA Not Given Treatment not indicated Strict Exclusion Criteria Known coagulopathy Problem Qualifiers Additional Impression: TIA (transient ischemic attack) Transient cerebral ischemia type: unspecified Qualified Codes: G45.9 - Transient cerebral ischemic attack, unspecified
[2017-08-07 12:00] VITALS: O2SAT 97; BMI 24.5
[2017-08-07] MEDS ORDERED: PHARMACIST DISCHARGE MED REC CONSULT PRN (12:00)
[2017-08-07] MEDS ORDERED: ONDANSETRON INJ 2 MG/ML 2 ML VIAL IV PRN (12:00)
[2017-08-07 12:04] VITALS: Ht 180.3 cm; Wt 74.2 kg
[2017-08-07 12:05] VITALS: O2SAT 96
[2017-08-07 12:31] LABS: ESTIMATED AVERAGE GLUCOSE 131 mg/dl; HA1C FLAG Normal (Normal)
[2017-08-07 14:15] VITALS: BP 148/79; PULSE 57; TEMP 36.5; O2SAT 94
[2017-08-07 15:24] VITALS: BP 132/73; PULSE 57; TEMP 36.3; O2SAT 96
[2017-08-07] MEDS ORDERED: INFLUENZA VACCINE HIGH DOSE 65+ 0.5 ML SYR IM. ONE (15:45)
[2017-08-07] MEDS ORDERED: INFLUENZA ADMINISTRATION CHARGE ONE (15:45)
--- NOTE | 2017-08-07 16:47 | ECHOCARDIOGRAM REPORT ---
*NOTICE TO RECEIVING DEMOCRAT AGENCY This information is strictly Confidential and protected under [place] law. [place] law prohibits you from making any further disclosure of this information unless further disclosure is expressly permitted by the written consent of the person to whom it pertains or is authorized by law. A general authorization for the release of medical or other information is not sufficient for this purpose. Hospital accepts no responsibility if the information is made available to any other person, INCLUDING THE PATIENT. Interpretation Summary * Name: SHAUNA MOSS Study Date: 08/07/2017 02:44 PM BP: 148/79 mmHg * Patient Location: [facility] HR: 60 * : 1930 (M/d/yyyy) Gender: Male Height: 72 in * Age: 87 yrs Ethnicity: [place] Weight: 170 lb * Ordering Physician: Javid Aslhey * Referring Physician: Self, Referred * Performed By: Shyla Knox RDCS * * Reason For Study: Cerebral ischemia/embolus * BSA: 2.0 m2 * Normal biventricular systolic function. * Mild concentric left ventricular hypertrophy. * Left ventricular Type I LV diastolic dysfunction. * Moderate aortic stenosis. * Trace aortic regurgitation. * Trace mitral and pulmonic regurgitation. * Mild tricuspid regurgitation. * Mildly elevated right ventricular systolic pressure. * Patent foramen ovale. * Small right to left interatrial shunt. Procedure Details * A complete two-dimensional transthoracic echocardiogram was performed (2D, M-mode, Doppler and color flow Doppler). * A saline contrast injection was performed to assess for cardiac shunting. * The injection was performed through an intravenous line in the right arm. * The attending nurse who injected the saline contrast was April Leslie RN. * A total of 20 cc of agitated saline was given. Left Ventricle * The left ventricle is normal in size. * There is mild concentric left ventricular hypertrophy. * Ejection Fraction = 65-70%. * Left ventricular systolic function is normal. * A full diastolic examination was done with clinical findings of Class I diastolic dysfunction. * The left ventricular wall motion is normal. Right Ventricle * The right ventricle is normal in size and function. * The right ventricular systolic function is normal as assessed by tricuspid annular plane systolic excursion (TAPSE) (normal >1.5 cm). Atria * The left atrial size is normal. * Right atrial size is normal. * Injection of contrast documented an interatrial shunt. * Small right to left interatrial shunt * Patent foramen ovale Mitral Valve * The mitral valve leaflets appear normal. There is no evidence of stenosis, fluttering, or prolapse. * There is no mitral valve stenosis. * There is trace mitral regurgitation. Tricuspid Valve * The tricuspid valve is normal. * There is no tricuspid stenosis. * There is mild tricuspid regurgitation. * Right ventricular systolic pressure is elevated at 30-40mmHg. Aortic Valve * The aortic valve is trileaflet. * The aortic valve is calcified and has dcreased opening. * Aortic valve area was calculated at 1.2 cm\S\2 using the continuity equation. * Moderate valvular aortic stenosis. * Trace aortic regurgitation. Pulmonic Valve * The pulmonic valve is not well visualized. * The pulmonary valve is inadequately visualized, but the Doppler data is adequate for interpretation. * There is no pulmonic valvular stenosis. * Trace pulmonic valvular regurgitation. Great Vessels * The aortic root is normal size. Pericardium/Pleural * There is no pericardial effusion. MMode 2D Measurements and Calculations IVSd 1.2 cm LVIDd 3.7 cm LVIDs 2.4 cm LVPWd 1.2 cm IVS/LVPW 0.96 FS 36.0 % EDV(Teich) 57.4 ml ESV(Teich) 19.3 ml EF(Teich) 66.4 % EDV(cubed) 49.9 ml ESV(cubed) 13.1 ml EF(cubed) 73.7 % LV mass(C)d 146.7 grams LV mass(C)dI 73.8 grams/m\S\2 SV(Teich) 38.1 ml SI(Teich) 19.2 ml/m\S\2 SV(cubed) 36.8 ml SI(cubed) 18.5 ml/m\S\2 Ao root diam 3.1 cm Ao root area 7.4 cm\S\2 LA dimension 3.3 cm asc Aorta Diam 2.9 cm LA/Ao 1.1 LVOT diam 2.0 cm LVOT area 3.1 cm\S\2 LVAd ap4 25.9 cm\S\2 LVLd ap4 7.4 cm EDV(MOD-sp4) 72.6 ml EDV(sp4-el) 77.1 ml LVAs ap4 13.3 cm\S\2 LVLs ap4 6.3 cm ESV(MOD-sp4) 23.7 ml ESV(sp4-el) 23.5 ml EF(MOD-sp4) 67.3 % EF(sp4-el) 69.5 % LVAd ap2 24.0 cm\S\2 LVLd ap2 7.5 cm EDV(MOD-sp2) 62.6 ml EDV(sp2-el) 65.5 ml LVAs ap2 11.9 cm\S\2 LVLs ap2 5.8 cm ESV(MOD-sp2) 20.5 ml ESV(sp2-el) 20.9 ml EF(MOD-sp2) 67.3 % EF(sp2-el) 68.1 % LVLd %diff 1.5 % EDV(MOD-bp) 67.4 ml LVLs %diff -9.78 % ESV(MOD-bp) 22.8 ml EF(MOD-bp) 66.2 % SV(MOD-sp4) 48.9 ml SI(MOD-sp4) 24.6 ml/m\S\2 SV(MOD-sp2) 42.1 ml SI(MOD-sp2) 21.2 ml/m\S\2 SV(MOD-bp) 44.7 ml SI(MOD-bp) 22.5 ml/m\S\2 SV(sp4-el) 53.6 ml SI(sp4-el) 26.9 ml/m\S\2 SV(sp2-el) 44.6 ml SI(sp2-el) 22.4 ml/m\S\2 Doppler Measurements and Calculations MV E max mark 74.4 cm/sec MV A max mark 101.9 cm/sec MV E/A 0.73 MV dec time 0.23 sec Ao V2 max 234.3 cm/sec Ao max PG 22.0 mmHg Ao max PG (full) 18.4 mmHg Ao V2 mean 163.8 cm/sec Ao mean PG 11.9 mmHg Ao V2 VTI 54.6 cm ROBIN(V,A) 1.2 cm\S\2 ROBIN(V,D) 1.2 cm\S\2 AI max mark 319.9 cm/sec AI max PG 40.9 mmHg AI dec slope 85.2 cm/sec\S\2 AI P1/2t 1100.5 msec LV V1 max PG 3.6 mmHg LV V1 max 94.4 cm/sec SV(Ao) 406.0 ml SI(Ao) 204.2 ml/m\S\2 PA V2 max 67.3 cm/sec PA max PG 1.8 mmHg PA acc slope 479.9 cm/sec\S\2 PA acc time 0.12 sec PI max mark 182.0 cm/sec PI max PG 13.3 mmHg PI dec slope 252.9 cm/sec\S\2 PI P1/2t 210.8 msec TR max mark 263.2 cm/sec PA pr(Accel) 26.9 mmHg
[2017-08-07 18:09] LABS: CKMB/CK RATIO 2.2 (0-3.0)
--- NOTE | 2017-08-07 18:34 | History and Physical ---
History & Physical Date & Time of Service: Aug 07, 2017 at 18:19 Chief Complaint: History Of Cva, Tia Primary Care Physician: José Miguel Cano M.D. History of Present Illness Source: patient, spouse, hospital records The patient is an 87-year-old male who presents to the emergency department with disorientation, confusion, generalized weakness and memory loss over the past hour prior to arrival. He and his friend reports that he was in his usual state of health prior to this event. He was called as a stroke alert upon arrival to the ED, but was determined to not be a candidate for intervention. While in the emergency department, his symptoms did improve, but he still did appear somewhat confused during conversation. Past Medical/Surgical History Medical Problems: (1) Arthritis Status: Chronic Family History Cancer Heart disease Social History Smoking Status: Never Smoker Smokeless Tobacco Use: No Alcohol Use: socially Drug Use: none Marital Status: Housing status: lives with significant other Occupational Status: retired, other Immunizations History of Influenza Vaccine: N/A Influenza Vaccine Date: Aug 21, 2009 History of Tetanus Vaccine?: Yes Tetanus Immunization Date: Aug 02, 2007 History of Pneumococcal: Yes Pneumococcal Date: Aug 02, 2010 History of Hepatitis B Vaccine: Unknown Multi-Drug Resistant Organisms History of MDRO: No Allergies Coded Allergies: Phenobarbital (Verified Allergy, Mild, RASH, 08/07/17) Clopidogrel (Verified Allergy, Unknown, RASH, 08/07/17) Ibuprofen (Verified Allergy, Unknown, unknown to patient, 08/07/17) Home Medications Scheduled Amlodipine (Norvasc), 10 MG PO DAILY Aspirin (Aspirin Ec), 81 MG PO QAM Finasteride (Proscar), 5 MG PO DAILY Lisinopril (Lisinopril), 5 MG PO QAM Polyethylene (Miralax), 17 GM PO DAILY Tamsulosin HCl (Tamsulosin HCl), 0.4 MG PO HS Warfarin Sod (Coumadin), 5 MG PO DAILY Review of Systems The patient denies chest pain, palpitations, shortness of breath, cough, lower extremity swelling, vision change, hearing change, sore throat, fevers, chills, sweats, weight change, nausea, vomiting, diarrhea or constipation, abdominal pain, pelvic pain, blood in urine or stool, dysuria, urinary frequency or urgency, headache, rash, abnormal bruising or bleeding, imbalance, focal weakness, numbness or tingling in arms or legs, generalized arthralgias or myalgias, back or neck pain, night sweats, or allergy symptoms. The review of systems is otherwise negative other than for that already noted above, and at least 10 systems have been reviewed. Physical Exam Vital Signs Date Time Temp Pulse Resp B/P (MAP) Pulse Ox O2 Delivery O2 Flow Rate FiO2 08/07/17 16:00 Room Air 08/07/17 15:24 36.3 57 19 132/73 (92) 96 Room Air 08/07/17 14:15 36.5 57 17 148/79 (102) 94 Room Air 08/07/17 13:45 52 18 125/74 08/07/17 13:01 59 18 134/76 08/07/17 12:05 56 16 135/78 96 Room Air 08/07/17 12:00 97 Room Air 08/07/17 11:27 66 20 135/74 08/07/17 11:10 138/77 08/07/17 11:10 62 16 138/77 97 Room Air 08/07/17 11:07 70 20 08/07/17 10:52 60 25 95 08/07/17 10:50 145/73 08/07/17 10:39 98 Room Air 08/07/17 10:37 54 20 96 08/07/17 10:31 76 148/82 96 08/07/17 10:28 148/82 08/07/17 10:12 62 08/07/17 09:58 36.5 57 20 132/76 98 Room Air The patient is awake, well-developed and adequately nourished, alert and oriented 3, normocephalic and atraumatic, lying in bed and in no acute distress. HEENT--PERRL, EOMI, mucous membranes and oropharynx dry. Neck--supple, no JVD or bruits, thyroid normal, trachea midline, no adenopathy. Heart--normal S1 and S2, no extra beats, no murmurs, rubs or gallops. Lungs--clear bilaterally with good air movement, no respiratory distress, no accessory muscle use. Abdomen--normal bowel sounds and soft, nontender and nondistended, no hernias or masses, no organomegaly. Extremities--no cyanosis, clubbing or edema. There are good distal pulses b/l. Dermatologic--normal skin turgor, normal color, warm and dry, no abnormal lymph nodes, no rash. Neurologic--cranial nerves II through XII grossly intact, motor and sensory examination normal. Rheumatologic--normal range of motion, nontender, muscles and joints. Psychiatric--normal affect. Diagnostics Laboratory Results Results Past 24 Hours Test 08/07/17 10:10 08/07/17 10:13 08/07/17 10:15 08/07/17 10:22 Range/Units White Blood Count 7.63 4.8-10.8 K/uL Red Blood Count 4.78 4.7-6.1 M/uL Hemoglobin 14.6 14.0-18.0 g/dL Hematocrit 44.7 42-52 % Mean Corpuscular Volume 93.5 80-100 fL Mean Corpuscular Hemoglobin 30.5 25-34 pg Mean Corpuscular Hemoglobin Concent 32.7 32-36 g/dl Platelet Count 260 130-400 K/uL Mean Platelet Volume 12.2 7.4-10.4 fL Neutrophils (%) (Auto) 68.3 % Lymphocytes (%) (Auto) 15.5 % Monocytes (%) (Auto) 9.2 % Eosinophils (%) (Auto) 6.4 % Basophils (%) (Auto) 0.5 % Neutrophils # (Auto) 5.21 1.4-6.5 K/uL Lymphocytes # (Auto) 1.18 1.2-3.4 K/uL Monocytes # (Auto) 0.70 0.11-0.59 K/uL Eosinophils # (Auto) 0.49 0-0.5 K/uL Basophils # (Auto) 0.04 0-0.2 K/uL RDW Standard Deviation 47.9 36.4-46.3 fL RDW Coefficient of Variation 13.9 11.5-14.5 % Immature Granulocyte % (Auto) 0.1 % Immature Granulocyte # (Auto) 0.01 0.00-0.02 K/uL Prothrombin Time 25.3 9.0-12.0 SECONDS Prothromb Time International Ratio 2.3 0.9-1.1 Activated Partial Thromboplast Time 40.1 21.0-31.0 SECONDS Partial Thromboplastin Ratio 1.5 Sodium Level 141 136-145 mmol/L Potassium Level 4.8 3.5-5.1 mmol/L Chloride Level 111 98-107 mmol/L Carbon Dioxide Level 23 21-32 mmol/L Anion Gap 7.0 3-11 mmol/L Blood Urea Nitrogen 18 7-18 mg/dl Creatinine 1.40 0.60-1.40 mg/dl Estimated GFR () 51.6 Estimated GFR (Non- 44.5 BUN/Creatinine Ratio 12.6 10-20 Random Glucose 94 70-99 mg/dl Estimated Average Glucose 131 mg/dl Hemoglobin A1c 6.2 4.5-5.6 % Calcium Level 10.0 8.5-10.1 mg/dl Total Creatine Kinase 208 39-308 U/L Creatine Kinase MB 5.2 0.5-3.6 ng/ml Creatine Kinase MB Ratio 2.5 0-3.0 Troponin I < 0.015 0-0.045 ng/ml Bedside Glucose 89 70-99 mg/dl Bedside Prothrombin Time INR 2.8 0.9-1.1 Bedside Lactic Acid Venous 1.26 0.90-1.70 mmol/L Test 08/07/17 17:33 Range/Units Total Creatine Kinase 190 39-308 U/L Creatine Kinase MB 4.1 0.5-3.6 ng/ml Creatine Kinase MB Ratio 2.2 0-3.0 Troponin I < 0.015 0-0.045 ng/ml Diagnostic Radiology Patient Name: SHAUNA MOSS Unit Number: [id number] Dictated: 08/07/171030 Transcribed: 08/07/171030 [facility] Printed Date/Time: [~ rep prt dt]/[~ rep prt tm] [~ rep ct labl] - [~ rep ct ivnm] [facility] [place] [address] Dictated: 08/07/171030 Transcribed: 08/07/171030 [facility] Printed Date/Time: [~ rep prt dt]/[~ rep prt tm] [~ rep ct labl] - [~ rep ct ivnm] HEAD WITHOUT CONTRAST (CT) CLINICAL HISTORY: 87 years-old Male with Stroke. Acute strokelike symptoms. Acute altered mental status. TECHNIQUE: Multiple axial CT images of the head were obtained without contrast. A dose lowering technique was utilized adhering to the principles of ALARA. CT DOSE: 537.48 mGy.cm COMPARISON: CT head 02/20/2011. FINDINGS: Mild cerebral atrophy is noted. Background moderate chronic microvascular ischemic changes are present, which have worsened from prior study. Remote left frontal periventricular infarction with encephalomalacia is unchanged. Remote appearing right thalamic lacunar infarction is present. Focal areas of low attenuation are seen in the basal ganglia including the right lentiform nucleus, left lentiform nucleus and left thalamus which are new from prior exam. These are compatible with age indeterminate lacunar infarctions. There is no acute intracranial hemorrhage, midline shift, hydrocephalus, intracranial mass or abnormal extra-axial collections. No territorial ischemia identified. Calvarium is intact. Mastoid air cells and middle ear cavities are clear. Polypoid mucosal thickening of the left maxillary sinus is seen, 1.4 cm. There is mild ethmoid sinus disease. Soft tissues are unremarkable and the orbits are symmetric. IMPRESSION: 1. No acute intracranial hemorrhage or large territorial ischemia. 2. Progressive chronic microvascular ischemic changes with multiple basal ganglia lacunar infarctions, several of which are new from 02/20/2011, making these lesions age indeterminate, notably a focal area of ill-defined low-attenuation within the right lentiform nucleus. These findings could be further evaluated with MRI if clinically indicated. 3. Mild paranasal sinus disease. The above report was generated using voice recognition software. It may contain grammatical, syntax or spelling errors. Electronically signed by: Jason Meza M.D. 08/07/2017 10:38 AM Dictated Date/Time: 08/07/2017 10:31 AM The status of this report is Signed. Draft = Not yet reviewed or approved by Radiologist. Signed = Reviewed and approved by Radiologist. <AttendingPhy></AttendingPhy> <FamilyPhy>José Miguel Cano M.D.</FamilyPhy> < PrimaryPhy>José Miguel Cano M.D.</PrimaryPhy> <UnitNumber>[id number]</UnitNumber > <VisitNumber>[id number]</VisitNumber> <PatientName>SHAUNA MOSS Toya</ PatientName> <DateOfBirth>1930</DateOfBirth> <Location>[facility]</Location> < ServiceDate>08/07/17</ServiceDate> <MNE>ESINDI</MNE> <OrderingPhy>Reagan Bedolla M.D.</OrderingPhy> <OrderingPhyMNE>f rep ord dr cope</OrderingPhyMNE> < DictatingPhyMNE>f rep dict dr cope</DictatingPhyMNE> <CCListMNE>f rep ct mne</ CCListMNE> <AdmittingPhyMNE>f pt admit dr cope</AdmittingPhyMNE> <AttendingPhyMNE >f pt attend dr cope</AttendingPhyMNE> <ConsultingPhyMNE>f pt consult dr cope</ConsultingPhyMNE> <FamilyPhyMNE>f pt fam dr cope</FamilyPhyMNE> <OtherPhyMNE>f pt other dr cope</OtherPhyMNE> < PrimaryPhyMNE>f pt prim care dr cope</PrimaryPhyMNE> <ReferringPhyMNE>f pt referring dr cope</ReferringPhyMNE> Patient Name: SHAUNA MOSS Unit Number: [id number] Dictated: 08/07/171038 Transcribed: 08/07/17 1039 [facility] Printed Date/Time: [~ rep prt dt]/[~ rep prt tm] [~ rep ct labl] - [~ rep ct ivnm] [facility] [place] [place] [address] Dictated: 08/07/171038 Transcribed: 08/07/17 1039 [facility] Printed Date/Time: [~ rep prt dt]/[~ rep prt tm] [~ rep ct labl] - [~ rep ct ivnm] CHEST ONE VIEW PORTABLE CLINICAL HISTORY: CHEST PAIN dyspnea COMPARISON STUDY: 10/31/2016 FINDINGS: Chronic interstitial/atelectatic change left base. Lungs otherwise are clear. Postoperative changes are noted to the right shoulder. There are considerable degenerative changes left shoulder. IMPRESSION: Chronic change left base. No acute process. The above report was generated using voice recognition software. It may contain grammatical, syntax or spelling errors. Electronically signed by: Valentin Floyd M.D. 08/07/2017 10:39 AM Dictated Date/Time: 08/07/2017 10:39 AM The status of this report is Signed. Draft = Not yet reviewed or approved by Radiologist. Signed = Reviewed and approved by Radiologist. <AttendingPhy></AttendingPhy> <FamilyPhy>José Miguel Cano M.D.</FamilyPhy> < PrimaryPhy>José Miguel Cano M.D.</PrimaryPhy> <UnitNumber>[id number]</UnitNumber > <VisitNumber>[id number]</VisitNumber> <PatientName>SHAUNA MOSS</ PatientName> <DateOfBirth>1930</DateOfBirth> <Location>C.ED[facility]</Location> < ServiceDate>08/07/17</ServiceDate> <MNE>ESINDI</MNE> <OrderingPhy>Reagan Bedolla M.D.</OrderingPhy> <OrderingPhyMNE>f rep ord dr cope</OrderingPhyMNE> < DictatingPhyMNE>f rep dict dr cope</DictatingPhyMNE> <CCListMNE>f rep ct mne</ CCListMNE> <AdmittingPhyMNE>f pt admit dr cope</AdmittingPhyMNE> <AttendingPhyMNE >f pt attend dr cope</AttendingPhyMNE> <ConsultingPhyMNE>f pt consult dr cope</ConsultingPhyMNE> <FamilyPhyMNE>f pt fam dr cope</FamilyPhyMNE> <OtherPhyMNE>f pt other dr cope</OtherPhyMNE> < PrimaryPhyMNE>f pt prim care dr cope</PrimaryPhyMNE> <ReferringPhyMNE>f pt referring dr cope</ReferringPhyMNE> EKG EKG shows sinus bradycardia at 50 bpm, left anterior fascicular block, nonspecific ST-T changes. Impression Assessment and Plan Transient ischemic attack/multiple basal ganglia infarcts age-indeterminate-- The patient will be admitted to telemetry for serial cardiac enzymes, cardiac rhythm monitoring and a 2-D echocardiogram with Dopplers. Order MRI brain combo, MRA neck combo, MRA of the head without contrast. Continue aspirin 81 mg by mouth every morning. Hypertension/nonspecific EKG changes-- Notation as above. continue amlodipine 10 mg by mouth daily and lisinopril 5 mg by mouth every morning DVT history-- Continue warfarin 5 mg by mouth daily. BPH-- Continue finasteride 5 mg by mouth daily and tamsulosin 0.4 mg by mouth at bedtime. Constipation-- MiraLAX 17 g by mouth daily. Level of Care Telemetry Advanced Directives Existing Advance Directive: No Existing Living Will: No Existing Power of Environmental Health And Safety Leader: Yes Resuscitation Status FULL RESUSCITATION VTE Prophylaxis VTE Risk Assessment Done? Y/N: Yes Risk Level: Moderate Given or contraindicated: Warfarin (Coumadin)
[2017-08-07 19:12] VITALS: BP 144/71; PULSE 66; TEMP 36.6; O2SAT 94
[2017-08-07] MEDS ORDERED: TAMSULOSIN HCL 0.4 MG CAP PO SCH (21:00)
[2017-08-07] MEDS ORDERED: GADAVIST IV PRN (22:00)
--- NOTE | 2017-08-07 22:03 | DIAGNOSTIC IMAGING REPORT ---
ADDENDUM There is a typographical error in the impression. The impression should read as follows: IMPRESSION: 1. Findings most consistent with acute embolic infarcts involving the left CEREBRAL hemisphere. 2. Old infarct in the left body of the caudate and chronic small vessel ischemic change similar to prior exam in 2008. Electronically signed by: Amador Meléndez M.D. 08/08/2017 12:55 PM Dictated Date/Time: 08/08/2017 12:54 PM ORIGINAL REPORT BRAIN COMBO CLINICAL HISTORY: 87 years-old Male presenting with Stroke. TECHNIQUE: Multisequence, multiplanar MR imaging of the brain was performed before and after the administration of intravenous contrast. IV contrast: None. COMPARISON: CT head performed earlier the same day and MR brain from 2008. FINDINGS: Restricted diffusion in the periventricular white matter of the left temporal lobe and along the posterior lateral left thalamus. Additional multifocal punctate areas of restricted diffusion in the left cerebral hemisphere, most consistent with embolic infarcts. No mass effect or midline shift. No hydrocephalus. Old infarct in the body of the left caudate unchanged. Periventricular and subcortical white matter T2/FLAIR hyperintensity likely chronic small vessel ischemic change. No hemorrhage. T2 skull base flow voids preserved. No abnormal parenchymal enhancement. Bone marrow signal intensity within the calvarium within normal limits. Polypoid mucosal thickening in the left maxillary sinus. IMPRESSION: 1. Findings most consistent with acute embolic infarcts involving the left cerebellar hemisphere. 2. Old infarct in the left body of the caudate and chronic small vessel ischemic change similar to prior exam in 2008. Electronically signed by: Amador Meléndez M.D. 08/07/2017 10:02 PM Dictated Date/Time: 08/07/2017 9:56 PM
--- NOTE | 2017-08-07 22:14 | DIAGNOSTIC IMAGING REPORT ---
MRA NECK COMBO CLINICAL HISTORY: 87 years-old Male presenting with weakness, unable to talk, symptoms started today, history of blood clots, no history of stroke. TECHNIQUE: MR angiography of the neck was performed before and after the administration of intravenous contrast. 3-D volumetric and/or maximum intensity projection (MIP) images were subsequently reconstructed for review. IV contrast: 7 mL of Gadavist.. Stenosis measurements were based on NASCET-like criteria. COMPARISON: Ultrasound from 2010. FINDINGS: Three-vessel aortic arch with patent origins of the major branch vessels. Right common carotid artery patent. Left common carotid artery patent although atherosclerotic disease may be present though not significantly narrowing its lumen. Atherosclerotic plaque mildly narrows the proximal right internal carotid artery, which has an apparent minimal luminal diameter of 3 mm relative to the normal distal diameter of 4 to 5 mm (less than 50% narrowing). The left internal carotid artery demonstrates complete loss of flow related enhancement in the proximal portion although postcontrast imaging demonstrates that there is likely a critical stenosis in this region (greater than 90% stenosis (series 16 image 55). Immediately distal to this, there is reconstitution of flow in the remainder of the left internal carotid artery is widely patent. Left dominant vertebral artery, which is patent along its cervical course. However significant irregularity of the proximal intracranial portion is noted as well as along the basilar artery. This is better demonstrated on dedicated MRA of the head. Diminutive right vertebral artery, which may be diffusely affected by atherosclerotic disease. IMPRESSION: 1. 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 2. 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 Please see separately dictated MRA of the head for additional findings. Electronically signed by: Amador Meléndez M.D. 08/07/2017 10:12 PM Dictated Date/Time: 08/07/2017 10:05 PM
--- NOTE | 2017-08-07 22:22 | DIAGNOSTIC IMAGING REPORT ---
MRA HEAD WITHOUT CONTRAST CLINICAL HISTORY: 87 years-old Male presenting with weakness, unable to talk, history of blood clots, no history of stroke. TECHNIQUE: MR angiography of the head was performed without the use of intravenous contrast using 3-D [id number] technique. 3-D volumetric and/or maximum intensity projection (MIP) images were subsequently reconstructed for review. IV contrast: None.. COMPARISON: 2008. FINDINGS: Anterior circulation demonstrates decreased flow related enhancement in the cavernous segment of the left internal carotid artery which remains attenuated through the supraclinoid segment to the terminus. Reconstitution of normal flow related enhancement in the left anterior and middle cerebral arteries, which may in part be due to collateral flow through the patent anterior communicating artery. Intracranial portion of the right internal carotid artery patent as well as the right middle and anterior cerebral arteries. Posterior circulation demonstrates a left dominant vertebral artery with luminal irregularity immediately proximal to the takeoff of the left posterior inferior cerebellar artery suggesting atherosclerotic plaque in this region. The proximal basilar artery is also somewhat irregular and tortuous although patent. The left posterior communicating artery is not apparent, possibly aplastic or hypoplastic. origin of the right posterior cerebellar artery. Bilateral superior cerebellar arteries and left posterior cerebral artery patent. IMPRESSION: 1. Severe attenuation of flow related enhancement in the cavernous segment of the left ICA to the level of the left ICA terminus. This could represent a critical stenosis, occlusion, or slow flow. The severity better demonstrated on CTA of the head. 2. Atherosclerotic disease likely results in the luminal irregularity of the left dominant vertebral artery in the proximal intracranial portion. Electronically signed by: Amador Meléndez M.D. 08/07/2017 10:21 PM Dictated Date/Time: 08/07/2017 10:15 PM
[2017-08-07 23:11] LABS: URINE APPEARANCE CLEAR (CLEAR); URINE BILIRUBIN NEG (NEG); URINE COLOR YELLOW; URINE EPITHELIAL CELL AUTO 0-5 /lpf (0-5); URINE NITRITE NEG (NEG); URINE PH 5.5 (4.5-7.5); URINE SPECIFIC GRAVITY 1.017 (1.000-1.030); UROBILINOGEN NEG (NEG); ZZUR CULT IF INDIC CLEAN CATCH NO
[2017-08-07 23:13] LABS: MANUAL MICROSCOPIC REQUIRED? NO; REVIEW REQ? NO
[2017-08-07 23:36] VITALS: BP 120/48; PULSE 72; TEMP 36.5; O2SAT 96
[2017-08-08 03:51] VITALS: BP 136/66; PULSE 74; TEMP 36.6; O2SAT 92
[2017-08-08 07:48] LABS: BASO % 0.4 %; BASO ABS # 0.03 K/uL (0-0.2); COMPLETE YES; EOS % 4.6 %; HEMATOCRIT 41.1 % (42-52); IG% 0.3 %; LYMPH % 13.2 %; MEAN CELL VOLUME 92.2 fL (80-100); MEAN CORPUSCULAR HEMOGLOBIN 30.3 pg (25-34); MEAN CORPUSCULAR HGB CONC 32.8 g/dl (32-36); MEAN PLATELET VOLUME 12.4 fL (7.4-10.4); MONO % 10.1 %; NEUT % 71.4 %; PLATELET COUNT 225 K/uL (130-400); RED BLOOD COUNT 4.46 M/uL (4.7-6.1); WHITE BLOOD COUNT 7.55 K/uL (4.8-10.8)
[2017-08-08 07:49] VITALS: BP 132/65; PULSE 70; TEMP 36.8; O2SAT 96
[2017-08-08 07:53] LABS: INR 2.2 (0.9-1.1); PROTHROMBIN TIME (PATIENT) 23.9 SECONDS (9.0-12.0)
[2017-08-08 08:10] LABS: BUN/CREATININE RATIO 14.6 (10-20); CALCIUM 9.2 mg/dl (8.5-10.1); CREATININE 1.3 mg/dl (0.60-1.40); POTASSIUM 4.3 mmol/L (3.5-5.1)
[2017-08-08 08:13] LABS: CHOLESTEROL/HDL RATIO 4.3
[2017-08-08] MEDS ORDERED: POLYETHYLENE (MIRALAX) 17 GM PACK PO SCH (09:00)
[2017-08-08] MEDS ORDERED: AMLODIPINE BESYLATE 5 MG TAB PO SCH (09:00)
[2017-08-08] MEDS ORDERED: FINASTERIDE 5 MG TAB PO SCH (09:00)
[2017-08-08] MEDS ORDERED: LISINOPRIL 5 MG TAB PO SCH (09:00)
[2017-08-08] MEDS ORDERED: ASPIRIN 81 MG ECTAB PO SCH (09:00)
--- NOTE | 2017-08-08 10:33 | Neurology Consultation ---
Neurology Consultation Date of Consultation: Aug 08, 2017. Attending Physician: Desmond Marcelino MD Primary Care Physician: José Miguel Cano M.D. Reason for Consultation: "TIA" History of Present Illness Source: hospital records The patient is an 87-year-old male who presented to the emergency department yesterday for further assessment of weakness that began acutely around 9 AM. He reportedly seemed to be confused according to her friend who was present at that time. Although he did not have any obvious focal neurological deficits in the emergency department, he did seem to be a bit confused according to the emergency department physician. Given the acuity of his symptoms there was some concern for a possible stroke. A CT of the head was completed which revealed atrophy, and chronic, progressive microvascular ischemic disease compared with the previous study done in 2010. There is no evidence of hemorrhage. A tele- stroke consultation was obtained with [facility]. 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 His INR was therapeutic and TPA was excluded. The patient was admitted to telemetry for further evaluation and management. The patient was noted to have difficulty with expressive speech yesterday afternoon and evening. 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 I reviewed both the images and radiologist's interpretation of this test and degree. An MRA of the head reveals a severe stenosis of the cavernous segment of the left internal carotid artery. An MRA of the neck reveals a critical stenosis of the proximal left internal carotid artery. The left vertebral artery is dominant. Electrocardiogram reveals sinus bradycardia, 50 bpm. An echocardiogram has revealed a PFO. Upon assessment of this patient this morning, he exhibits a significant aphasia and has a mild associated right hemiparesis affecting the face and arm greater than the leg. He is unable to provide details pertaining to the history of present illness given his aphasia. 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 Status: Acute (6) Urinary retention due to benign prostatic hyperplasia Status: Acute (7) Urinary tract infection Status: Acute Family History There is a family history of cancer and heart disease indicated in the medical record Social History Smoking Status: Never smoker Smokeless Tobacco Use: No Alcohol Use: socially Drug Use: none Marital Status: Occupation Status: retired, other Allergies Coded Allergies: Phenobarbital (Verified Allergy, Mild, RASH, 08/07/17) Clopidogrel (Verified Allergy, Unknown, RASH, 08/07/17) Ibuprofen (Verified Allergy, Unknown, unknown to patient, 08/07/17) Current Inpatient Medications Current Inpatient Medications Medications (Trade) Dose Ordered Sig/Jama Route Start Time Stop Time Status Last Admin Dose Admin Miscellaneous Information (Pharmacist Discharge Med Rec Consult) 1 ea UD PRN N/A 08/07/17 12:00 09/06/17 11:59 Amlodipine Besylate (Norvasc Tab) 10 mg DAILY PO 08/08/17 09:00 09/07/17 08:59 Future Hold Aspirin (Ecotrin Tab) 81 mg QAM PO 08/08/17 09:00 09/07/17 08:59 08/08/17 08:33 81 MG Finasteride (Proscar Tab) 5 mg DAILY PO 08/08/17 09:00 09/07/17 08:59 08/08/17 08:32 5 MG Lisinopril (Zestril Tab) 5 mg QAM PO 08/08/17 09:00 09/07/17 08:59 Future Hold Polyethylene (Miralax Powder Packet) 17 gm DAILY PO 08/08/17 09:00 09/07/17 08:59 08/08/17 08:33 17 GM Tamsulosin HCl (Flomax Cap) 0.4 mg HS PO 08/07/17 21:00 09/06/17 20:59 08/07/17 22:22 0.4 MG Warfarin Sodium (Coumadin Tab) 5 mg DAILY@1600 PO 08/08/17 16:00 09/07/17 15:59 Ondansetron HCl (Zofran Inj) 4 mg Q6H PRN IV 08/07/17 12:00 09/06/17 11:59 Gadobutrol (Gadavist) 7 mmol UD PRN IV 08/07/17 22:00 08/11/17 21:59 Review of Systems The patient is unable to provide reliable responses to questions pertaining to the review of systems given his aphasia. Physical Exam Vital Signs (Past 24 Hrs): Date Time Temp Pulse Resp B/P (MAP) Pulse Ox O2 Delivery O2 Flow Rate FiO2 08/08/17 08:00 Room Air 08/08/17 07:49 36.8 70 18 132/65 (87) 96 Room Air 08/08/17 04:00 Room Air 08/08/17 03:51 36.6 74 20 136/66 (89) 92 Room Air 08/07/17 23:59 Room Air 08/07/17 23:36 36.5 72 20 120/48 (72) 96 Room Air 08/07/17 20:00 Room Air 08/07/17 19:12 36.6 66 18 144/71 (95) 94 Room Air 08/07/17 16:00 Room Air 08/07/17 15:24 36.3 57 19 132/73 (92) 96 Room Air 08/07/17 14:15 36.5 57 17 148/79 (102) 94 Room Air 08/07/17 13:45 52 18 125/74 08/07/17 13:01 59 18 134/76 08/07/17 12:05 56 16 135/78 96 Room Air 08/07/17 12:00 97 Room Air 08/07/17 11:27 66 20 135/74 08/07/17 11:10 138/77 08/07/17 11:10 62 16 138/77 97 Room Air 08/07/17 11:07 70 20 08/07/17 10:52 60 25 95 08/07/17 10:50 145/73 08/07/17 10:39 98 Room Air 08/07/17 10:37 54 20 96 08/07/17 10:31 76 148/82 96 08/07/17 10:28 148/82 08/07/17 10:12 62 The patient is a well-developed, elderly male. He is lying in bed comfortably and does not appear to be in significant distress. Assessment of his mental status or higher integrative cognitive functions is limited due to a significant aphasia. He is alert and attentive although orientation cannot be tested. Memory function cannot be tested. Concentration cannot be adequately tested. He is unable to name objects or repeat simple phrases. Fund of knowledge and vocabulary cannot be reliably assessed. Visual mark cannot be reliably assessed. He blinks to threat with confrontation bilaterally. Pupils equal round reactive to light and accommodation. Eye movements are generally intact by observation. There is no nystagmus or ptosis. Facial sensation cannot be reliably assessed. There is flattening of the right nasolabial fold. Hearing cannot be reliably assessed. Palate elevates to midline. Shoulder shrug strength intact. Tongue protrudes to midline. Sensation cannot be reliably assessed. Deep tendon reflexes are intact and symmetrical for the arms and legs. The right plantar response is upgoing. There is mild dysmetria with finger to nose and heel to murry on the right. No dysmetria with the left arm or leg. Ophthalmoscopic examination reveals normal-appearing optic disks and posterior segments. No hemorrhages or papilledema. Carotid pulses normal bilaterally, no bruits to auscultation. Gait and station cannot be tested due to safety concerns. Evaluation of muscle strength reveals a mild right hemiparesis affecting the face and arm greater than the leg. Right upper extremity strength 4 out of 5. Right lower extremity strength also 4 out of 5 but right lower extremity strength is better than the right upper extremity. Muscle tone normal throughout. No atrophy. No abnormal movements observed. Laboratory Results Past 24 Hours: 08/08/17 07:22 Red Blood Count 4.46, Mean Corpuscular Volume 92.2, Mean Corpuscular Hemoglobin 30.3, Mean Corpuscular Hemoglobin Concent 32.8, Mean Platelet Volume 12.4, Neutrophils (%) (Auto) 71.4, Lymphocytes (%) (Auto) 13.2, Monocytes (%) (Auto) 10.1, Eosinophils (%) (Auto) 4.6, Basophils (%) (Auto) 0.4, Neutrophils # (Auto ) 5.39, Lymphocytes # (Auto) 1.00, Monocytes # (Auto) 0.76, Eosinophils # (Auto ) 0.35, Basophils # (Auto) 0.03 08/08/17 07:22 Test 08/07/17 10:10 08/07/17 10:13 08/07/17 10:15 08/07/17 10:22 Activated Partial Thromboplast Time 40.1 SECONDS (21.0-31.0) Partial Thromboplastin Ratio 1.5 Estimated Average Glucose 131 mg/dl Hemoglobin A1c 6.2 % (4.5-5.6) Bedside Glucose 89 mg/dl (70-99) Bedside Prothrombin Time INR 2.8 (0.9-1.1) Bedside Lactic Acid Venous 1.26 mmol/L (0.90-1.70) Test 08/07/17 23:00 08/08/17 01:27 08/08/17 07:22 Urine Color YELLOW Urine Appearance CLEAR (CLEAR) Urine pH 5.5 (4.5-7.5) Urine Specific [place] 1.017 (1.000-1.030) Urine Protein 1+ (NEG) Urine Glucose (UA) TRACE (NEG) Urine Ketones NEG (NEG) Urine Occult Blood NEG (NEG) Urine Nitrite NEG (NEG) Urine Bilirubin NEG (NEG) Urine Urobilinogen NEG (NEG) Urine Leukocyte Esterase NEG (NEG) Urine WBC (Auto) 1-5 /hpf (0-5) Urine RBC (Auto) 0-4 /hpf (0-4) Urine Hyaline Casts (Auto) 1-5 /lpf (0-5) Urine Epithelial Cells (Auto) 0-5 /lpf (0-5) Urine Bacteria (Auto) NEG (NEG) Total Creatine Kinase 168 U/L (39-308) Creatine Kinase MB 3.3 ng/ml (0.5-3.6) Creatine Kinase MB Ratio 2.0 (0-3.0) Troponin I < 0.015 ng/ml (0-0.045) White Blood Count 7.55 K/uL (4.8-10.8) Red Blood Count 4.46 M/uL (4.7-6.1) Hemoglobin 13.5 g/dL (14.0-18.0) Hematocrit 41.1 % (42-52) Mean Corpuscular Volume 92.2 fL (80-100) Mean Corpuscular Hemoglobin 30.3 pg (25-34) Mean Corpuscular Hemoglobin Concent 32.8 g/dl (32-36) Platelet Count 225 K/uL (130-400) Mean Platelet Volume 12.4 fL (7.4-10.4) Neutrophils (%) (Auto) 71.4 % Lymphocytes (%) (Auto) 13.2 % Monocytes (%) (Auto) 10.1 % Eosinophils (%) (Auto) 4.6 % Basophils (%) (Auto) 0.4 % Neutrophils # (Auto) 5.39 K/uL (1.4-6.5) Lymphocytes # (Auto) 1.00 K/uL (1.2-3.4) Monocytes # (Auto) 0.76 K/uL (0.11-0.59) Eosinophils # (Auto) 0.35 K/uL (0-0.5) Basophils # (Auto) 0.03 K/uL (0-0.2) RDW Standard Deviation 46.4 fL (36.4-46.3) RDW Coefficient of Variation 13.8 % (11.5-14.5) Immature Granulocyte % (Auto) 0.3 % Immature Granulocyte # (Auto) 0.02 K/uL (0.00-0.02) Prothrombin Time 23.9 SECONDS (9.0-12.0) Prothromb Time International Ratio 2.2 (0.9-1.1) Anion Gap 7.0 mmol/L (3-11) Est Creatinine Clear Calc Drug Dose 41.4 ml/min Estimated GFR () 56.5 Estimated GFR (Non- 48.7 BUN/Creatinine Ratio 14.6 (10-20) Calcium Level 9.2 mg/dl (8.5-10.1) Triglycerides Level 133 mg/dl (0-150) Cholesterol Level 186 mg/dl (0-200) HDL Cholesterol 43 mg/dl LDL Cholesterol, Calculated 116 mg/dl VLDL Cholesterol, Calculated 27 mg/dl Cholesterol/HDL Ratio 4.3 Impression This is an 87-year-old male with extensive, progressive, cerebrovascular disease who presented with acute nonfocal weakness and confusion. Although his presentation was concerning for stroke, he did not qualify for TPA as he is prescribed warfarin for DVT and his INR was therapeutic. Unfortunately, his condition worsened after admission to telemetry. He has developed a global aphasia and a mild right hemiparesis affecting the face and arm greater than the leg. An MRI completed last night reveals acute multifocal infarcts within the left cerebral hemisphere and a severe stenosis at the proximal left internal carotid artery. Diminished signal within the cavernous portion of the left internal carotid artery could be related to either slow flow or possibly an additional stenosis at this level. Plan Case discussed with Dr. Marcelino. I agree with consultation with vascular surgery in light of the critical, proximal left internal carotid artery stenosis. The timing of surgical intervention in this case is a bit problematic, however. He does have evidence of multifocal acute, ischemic infarcts within the left cerebral hemisphere which increases the risk associated with urgent carotid endarterectomy. However, his neurological condition could further deteriorate if surgery is delayed to allow for some stabilization or healing of his acute infarcts. Unfortunately, the risks of performing acute intervention on this patient probably outweigh the potential benefit. If acute intervention is considered a viable option then I would recommend that he be transferred to the neuro critical care service at [facility]. Would maintain a systolic blood pressure between 140 and 160 mmHg. Avoid hypotension which could potentially worsen his neurological status. Consultations with PT/OT/speech therapy
--- NOTE | 2017-08-08 10:38 | Clinical Documentation Query ---
MARIAM Shoemaker : CLINICAL DOCUMENTATION QUERY Patient is an 87 year old male admitted for evaluation and treatment of weakness and confusion. MRI of the brain read to include "Findings most consistent with acute embolic infarcts involving the left cerebellar hemisphere". In your clinical opinion is this patient being managed for: ( ) Encephalopathy secondary to acute embolic left cerebellar infarcts in the setting of > 90% left ICA stenosis ( ) Not Agree ( ) Other explanation of clinical findings (Please Explain) ( ) Unable to determine (Please Define) ( ) Need to Discuss The medical record reflects the following clinical findings, treatment, and risk factors. Clinical Indicators: As above Treatment: Admission, telemetry, neurologic and vascular surgery consultations, imaging, Coumadin, ASA Risk Factors: Age, history of TIA and CVA Please clarify and document your clinical opinion in the progress notes and discharge summary. Terms such as "probable", "suspected", "likely", "questionable", "possible", or "still to be ruled out" are acceptable. IF IN AGREEMENT, YOU MUST DOCUMENT ABOVE DIAGNOSTIC STATEMENT IN DAILY PROGRESS NOTES AND DISCHARGE SUMMARY. This document is not part of the patient's record. Thank You, Reagan Andersen, ROSEMARIE [phone]
[2017-08-08 11:37] VITALS: BP 116/61; PULSE 63; TEMP 36.5; O2SAT 95
--- NOTE | 2017-08-08 13:47 | Hospitalist Progress Note ---
Hospitalist Progress Note Date of Service Aug 08, 2017. (Janene Robles CRNP) Subjective Pt evaluation today including: conversation w/ patient, physical exam, chart review, lab review, review of studies, review of inpatient medication list Mr. Blum is unable to answer questions or provide history due to severe aphasia. (Janene Robles CRNP) Medications Medications (Trade) Dose Ordered Sig/Jama Route Start Time Stop Time Status Last Admin Dose Admin Aspirin (Ecotrin Tab) 81 mg QAM PO 08/08/17 09:00 09/07/17 08:59 08/08/17 08:33 81 MG Finasteride (Proscar Tab) 5 mg DAILY PO 08/08/17 09:00 09/07/17 08:59 08/08/17 08:32 5 MG Polyethylene (Miralax Powder Packet) 17 gm DAILY PO 08/08/17 09:00 09/07/17 08:59 08/08/17 08:33 17 GM Tamsulosin HCl (Flomax Cap) 0.4 mg HS PO 08/07/17 21:00 09/06/17 20:59 08/07/17 22:22 0.4 MG (Janene Robles CRNP) Objective Vital Signs Date Time Temp Pulse Resp B/P (MAP) Pulse Ox O2 Delivery O2 Flow Rate FiO2 08/08/17 08:00 Room Air 08/08/17 07:49 36.8 70 18 132/65 (87) 96 Room Air 08/08/17 04:00 Room Air 08/08/17 03:51 36.6 74 20 136/66 (89) 92 Room Air 08/07/17 23:59 Room Air 08/07/17 23:36 36.5 72 20 120/48 (72) 96 Room Air 08/07/17 20:00 Room Air 08/07/17 19:12 36.6 66 18 144/71 (95) 94 Room Air 08/07/17 16:00 Room Air 08/07/17 15:24 36.3 57 19 132/73 (92) 96 Room Air 08/07/17 14:15 36.5 57 17 148/79 (102) 94 Room Air 08/07/17 13:45 52 18 125/74 08/07/17 13:01 59 18 134/76 08/07/17 12:05 56 16 135/78 96 Room Air 08/07/17 12:00 97 Room Air (Janene Robles CRNP) Physical Exam General Appearance: WD/WN, no apparent distress Eyes: normal inspection, PERRL, EOMI, sclerae normal Respiratory/Chest: chest non-tender, lungs clear, normal breath sounds, no respiratory distress, no accessory muscle use Cardiovascular: regular rate, rhythm, no edema, no gallop, no JVD, no murmur Abdomen: normal bowel sounds, non tender Extremities: + pertinent finding (right arm is more stiff than left ) Neurologic/Psychiatric: crab catcher II-XII nml as tested (unable to follow some commands, unable to assess CN II, V, VII, X, XII. Per nursing, patient is swallowing without difficulty. ), + aphasia (severe expressive), + facial droop (mild right), + motor weakness (bilaterally, slightly worse on right), + sensory deficit (unable to assess), + disoriented (unable to assess) (Janene Robles CRNP) Laboratory Results Last 24 Hours Test 08/07/17 17:33 08/07/17 23:00 08/08/17 01:27 08/08/17 07:22 Total Creatine Kinase 190 U/L 168 U/L Creatine Kinase MB 4.1 ng/ml 3.3 ng/ml Creatine Kinase MB Ratio 2.2 2.0 Troponin I < 0.015 ng/ml < 0.015 ng/ml Urine Color YELLOW Urine Appearance CLEAR Urine pH 5.5 Urine Specific [place] 1.017 Urine Protein 1+ Urine Glucose (UA) TRACE Urine Ketones NEG Urine Occult Blood NEG Urine Nitrite NEG Urine Bilirubin NEG Urine Urobilinogen NEG Urine Leukocyte Esterase NEG Urine WBC (Auto) 1-5 /hpf Urine RBC (Auto) 0-4 /hpf Urine Hyaline Casts (Auto) 1-5 /lpf Urine Epithelial Cells (Auto) 0-5 /lpf Urine Bacteria (Auto) NEG White Blood Count 7.55 K/uL Red Blood Count 4.46 M/uL Hemoglobin 13.5 g/dL Hematocrit 41.1 % Mean Corpuscular Volume 92.2 fL Mean Corpuscular Hemoglobin 30.3 pg Mean Corpuscular Hemoglobin Concent 32.8 g/dl Platelet Count 225 K/uL Mean Platelet Volume 12.4 fL Neutrophils (%) (Auto) 71.4 % Lymphocytes (%) (Auto) 13.2 % Monocytes (%) (Auto) 10.1 % Eosinophils (%) (Auto) 4.6 % Basophils (%) (Auto) 0.4 % Neutrophils # (Auto) 5.39 K/uL Lymphocytes # (Auto) 1.00 K/uL Monocytes # (Auto) 0.76 K/uL Eosinophils # (Auto) 0.35 K/uL Basophils # (Auto) 0.03 K/uL RDW Standard Deviation 46.4 fL RDW Coefficient of Variation 13.8 % Immature Granulocyte % (Auto) 0.3 % Immature Granulocyte # (Auto) 0.02 K/uL Prothrombin Time 23.9 SECONDS Prothromb Time International Ratio 2.2 Sodium Level 140 mmol/L Potassium Level 4.3 mmol/L Chloride Level 109 mmol/L Carbon Dioxide Level 24 mmol/L Anion Gap 7.0 mmol/L Blood Urea Nitrogen 19 mg/dl Creatinine 1.30 mg/dl Est Creatinine Clear Calc Drug Dose 41.4 ml/min Estimated GFR () 56.5 Estimated GFR (Non- 48.7 BUN/Creatinine Ratio 14.6 Random Glucose 97 mg/dl Calcium Level 9.2 mg/dl Triglycerides Level 133 mg/dl Cholesterol Level 186 mg/dl HDL Cholesterol 43 mg/dl LDL Cholesterol, Calculated 116 mg/dl VLDL Cholesterol, Calculated 27 mg/dl Cholesterol/HDL Ratio 4.3 (Janene Robles ., MOTHER'S HELPER) Assessment and Plan Elderly man with acute CVA and multiple old infarcts as well as severe stenosis of the left internal carotid. He was a stroke alert 08/07 but not a candidate for TPA. Severe aphasia and difficulty following directions. CVA - Serial troponins negative Echo shows PFO PT/OT Continue aspirin 81 mg by mouth every morning. Severe left internal carotid stenosis - Consult with vascular surgery. If he is a candidate for surgery, he will likely need to transfer to a tertiary care center given his risk factors. Plan to discuss with family their wish for aggressive coarse if surgery feels he is a candidate. Hypertension-- permissive hypertension to allow for adequate cerebral perfusion. Amlodipine and lisinopril held for now. DVT history-- Continue warfarin 5 mg by mouth daily. BPH-- Continue finasteride 5 mg by mouth daily and tamsulosin 0.4 mg by mouth at bedtime. Constipation-- MiraLAX 17 g by mouth daily Resuscitation status: Discussed with daughter Jina who says that she and her sister are in agreement that they would like their father to be a DNR DVT prophylaxis - on warfarin (Janene Robles ., [facility]) Attending Attestation: Patient seen/examined, chart reviewed, care plan d/w SHU Robles. I agree w/ the sullivan components of her documentation. Please see the discharge summary dated 08/08/17 for more information as well as my physical exam findings. Desmond Marcelino MD (Desmond Marcelino MD)
--- NOTE | 2017-08-08 14:19 | Surgery Consultation ---
Consultation Date of Service Aug 08, 2017. Chief Complaint CVA, LICAS History of Present Illness The patient is a 87 year old male with hx of CVA in past per records, admitted after noted to be confused yesterday by a friend, seen in consultation today for LICAS and CVA. Pt unable to give hx d/t aphasia, so information obtained from records. Pt apparently did not have severe aphasia on admission, but this progressed after admission. MRA demonstrates L hemispheric CVA and severe cavernous L ICA stenosis as well as prox ICA stenosis. No family present. Vitals Vital Signs Past 12 Hours Date Time Temp Pulse Resp B/P (MAP) Pulse Ox O2 Delivery O2 Flow Rate FiO2 08/08/17 12:00 Room Air 08/08/17 11:37 36.5 63 18 116/61 (79) 95 Room Air 08/08/17 08:00 Room Air 08/08/17 07:49 36.8 70 18 132/65 (87) 96 Room Air 08/08/17 04:00 Room Air 08/08/17 03:51 36.6 74 20 136/66 (89) 92 Room Air Allergies Coded Allergies: Phenobarbital (Verified Allergy, Mild, RASH, 08/07/17) Clopidogrel (Verified Allergy, Unknown, RASH, 08/07/17) Ibuprofen (Verified Allergy, Unknown, unknown to patient, 08/07/17) Home Medications Scheduled Amlodipine (Norvasc), 10 MG PO DAILY Aspirin (Aspirin Ec), 81 MG PO QAM Finasteride (Proscar), 5 MG PO DAILY Lisinopril (Lisinopril), 5 MG PO QAM Polyethylene (Miralax), 17 GM PO DAILY Tamsulosin HCl (Tamsulosin HCl), 0.4 MG PO HS Warfarin Sod (Coumadin), 5 MG PO DAILY Problem List Medical Problems: (1) Arthritis (2) DVT (deep venous thrombosis) (3) History of CVA (cerebrovascular accident) without residual deficits (4) Lumbar muscle hematoma (5) TIA (transient ischemic attack) (6) Ureteral stone with hydronephrosis Surgical / Medical History Hx Cardiac Surgery: Yes (2015 loop recorder, stent?) Hx Abdominal Surgery: Yes (hernia repair X 4) Hx Cancer Surgery: No Hx Thoracic Surgery: No Hx Orthopedic: Yes (5 back surgeries, hand surgery ) Hx Urinary Tract Surgery: Yes (bladder calculus, ureteral calculus, TURP 2016) HX Other Surgery: Yes (see below, ) Past Medical/Surgical History: CVA/TIA, Hypertension, Kidney Disease Family History Cancer Heart disease Social History Smoking Status: Never Smoker Hx Tobacco Use In Past Year?: No Hx Alcohol Use - Type & Amnt: No Hx Substance Use -Type & Amnt: No Review of Systems Additional Comments: Unable to elicit d/t aphasia. Physical Exam Constitutional: General Apperance: heathly-appearing, well-nourished, well-developed Level of Distress: NAD, chronically ill (mildly) Head: normocephalic, atraumatic Eyes: EOM: EOMI ENMT: normal ENT inspection, hearing grossly normal Neck: supple, trachea midline Lungs: Respiratory effort: no dyspnea Auscultation: no rales/crackles, no rhonchi, decreased breath sounds, expiratory wheezing Cardiovascular: Apical Impulse: not displaced Heart Auscultation: RRR, no rubs, no gallops Peripheral Pulses: Pulses: full and equal, in all extremities except if noted Bruits: carotid bruit on the left, carotid bruit on the right Carotid Pulse: normal on the left, normal on the right Brachial Pulses: normal on the left, normal on the right Radial Pulse: normal on the left, normal on the right Femoral Pulse: normal on the left, normal on the right Posterior Tibialis Pulse: decreased on the left, decreased on the right Dorsalis Pedis Pulse: decreased on the left, decreased on the right Abdomen: Bowel Sounds: normal Inspection & Palpation: soft, non-distended, no tenderness, guarding & rebound Musculoskeletal: normal strength (5/5 throughout), normal tone Extremities: Upper Right: no cyanosis, no edema, no varicosities Upper Left: no cyanosis, no edema, no varicosities Lower Right: no cyanosis, no edema, no varicosities Lower Left: no cyanosis, no edema, no varicosities Additional Comments: R arm/leg strength 2/5, R facial droop noted, severe dysarthria, R arm drift noted. Assessment and Plan ASSESSMENT and PLAN: LICAS, tandem lesions L hemispheric CVA Pt's sx rather severe, worsened since admission. Pt discussed with Dr Reid, recommends urgent transfer to Neurosurgery at tertiary care center for eval and possible intervention on tandem L ICA lesions. Discussed recs with Dr Marcelino, he will address.
[2017-08-08] MEDS: SODIUM CHLORIDE 0.9% 1000ML 1,000 ML IV SCH (15:35)
[2017-08-08 15:50] VITALS: BP 152/74; PULSE 75; TEMP 36.6; O2SAT 95
[2017-08-08] MEDS ORDERED: WARFARIN SOD 5 MG TAB PO SCH (16:00)
[2017-08-08 18:49] VITALS: BP 146/77; PULSE 85; TEMP 37.1; O2SAT 93
[2017-08-08] MEDS ORDERED: ATORVASTATIN 20 MG TAB PO ONE (20:00)
--- NOTE | 2017-08-08 20:40 | Discharge Summary ---
Discharge Summary Date of Service Aug 08, 2017. Discharge Summary Admission Date: Aug 07, 2017 at 11:54 Discharge Date: Aug 08, 2017 Discharge Disposition: Acute care facility ([facility] - accepting attending physician Dr. Angelika Garcia) Principal Diagnosis: left-sided cerebral hemisphere strokes Problems/Secondary Diagnoses: 1. critically stenotic left-sided ICA 2. h/o prior strokes 3. GERD 4. BPH 5. RLE DVT - 2017, on coumadin 6. HTN 7. chronic low back pain 8. h/o kidney stones 9. CKD stage 3 10. thyroid nodule 11. PFO 12. moderate aortic stenosis Immunizations: Have You Had Influenza Vaccine: N/A Influenza Vaccine Date: Aug 21, 2009 History of Tetanus Vaccine?: Yes Tetanus Immunization Date: Aug 02, 2007 History of Pneumococcal: Yes Pneumococcal Date: Aug 02, 2010 History of Hepatitis B Vaccine: Unknown Procedures: 1. CT head - IMPRESSION: 1. No acute intracranial hemorrhage or large territorial ischemia. 2. Progressive chronic microvascular ischemic changes with multiple basal ganglia lacunar infarctions, several of which are new from 02/20/2011, making these lesions age indeterminate, notably a focal area of ill-defined low-attenuation within the right lentiform nucleus. These findings could be further evaluated with MRI if clinically indicated. 3. Mild paranasal sinus disease. 2. MRI brain - IMPRESSION: 1. Findings most consistent with acute embolic infarcts involving the left cerebral hemisphere. 2. Old infarct in the left body of the caudate and chronic small vessel ischemic change similar to prior exam in 2008. 3. MRA brain - IMPRESSION: 1. Severe attenuation of flow related enhancement in the cavernous segment of the left ICA to the level of the left ICA terminus. This could represent a critical stenosis, occlusion, or slow flow. The severity better demonstrated on CTA of the head. 2. Atherosclerotic disease likely results in the luminal irregularity of the left dominant vertebral artery in the proximal intracranial portion. 4. MRA neck - IMPRESSION: 1. 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 2. 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 Please see separately dictated MRA of the head for additional findings. 5. echocardiogram: * Normal biventricular systolic function. * Mild concentric left ventricular hypertrophy. * Left ventricular Type I LV diastolic dysfunction. * Moderate aortic stenosis. * Trace aortic regurgitation. * Trace mitral and pulmonic regurgitation. * Mild tricuspid regurgitation. * Mildly elevated right ventricular systolic pressure. * Patent foramen ovale. * Small right to left interatrial shunt. Consultations: neurology - Reagan Zurita MD vascular surgery - Paul Reid MD PT, OT, speech Discharge Exam Physical Exam: General Appearance: no apparent distress Eyes: PERRL, + pertinent finding (possible right sided neglect) ENT: pharynx normal Neck: no JVD, + pertinent finding (carotid bruit on left) Respiratory/Chest: lungs clear, no respiratory distress, no accessory muscle use Cardiovascular: regular rate, rhythm, no gallop, normal peripheral pulses, + systolic murmur (2/6 RUSB) Abdomen / GI: normal bowel sounds, non tender, soft, no organomegaly Extremities: no pedal edema Neurologic/Psychiatric: alert, + aphasia (global - expressive worse than receptive), + facial droop (right), + motor weakness (RUE and RLE, each about 4/ 5, modestly worse in the right arm), + pertinent finding (left arm/left leg strength 5/5; +pronator drift on right ) Hospital Course HISTORY OF PRESENT ILLNESS: The patient is an 87yo male with history of prior stroke, HTN, BPH, and RLE DVT earlier in 2017 who presented to the Emergency Room on 08/07/17 with complaints of constant weakness for the past hour. His significant other stated that the patient came downstairs this morning and was opening his sliding glass door when he suddenly had a "terrible look on his face." He was complaining of feeling weak but denied any pain. His significant other stated that this occurred around 8:50-9:00am on day of presentation. The patient sat down at the kitchen table and seemed to be confused. She brought the patient to the ED for further evaluation. The patient denied fevers, headache, chest pain, shortness of breath, back pain, or any urinary symptoms. While in the ER he underwent CT head that was negative for acute stroke or ICH. His neurological exam was normal and without any focal deficits. He was evaluated by [facility] and deemed not a TPA candidate as he was taking coumadin (presenting INR was 2.3) and his symptoms began to improve in the ER. He was felt to have suffered a TIA. HOSPITAL COURSE: The patient ultimately underwent MRI of the brain demonstrating multiple, small , embolic-appearing strokes scattered throughout the left cerebral hemisphere. MRA head/neck identified a critical stenosis of the left ICA. As the afternoon/evening of 08/07/17 went on he developed worsening aphasia and right-sided facial droop. By the AM of 08/08/17 he had noticeable RUE and RLE weakness. He was seen in consult by neurology and vascular surgery both of whom felt he should undergo early evaluation of his critical left-sided ICA stenosis as this was the likely cause of his multiple embolic-appearing strokes. He was seen by PT/OT/Speech services. Speech cleared him for a diet. On 08/08/17 [facility] was contacted and a discussion was held with neurology/vascular surgery regarding the patient's critical left-sided ICA stenosis. Both physicians felt that, indeed, he should be transferred to their hospital for evaluation of the critical stenosis in light of the current strokes and his high risk of having additional events. In addition to the above the patient's telemetry remained stable while here. No dysrhythmia was seen at any time. Vitals remained stable and blood pressure medications were held to allow permissive hypertension. He received statin therapy prior to transfer as well as his coumadin/aspirin. INR on AM of 08/08/17 was 2.2. I would like to thank Dr. Angelika Garcia for accepting this pleasant patient in transfer for ongoing care. 08/07/17 10:10 Red Blood Count 4.78, Mean Corpuscular Volume 93.5, Mean Corpuscular Hemoglobin 30.5, Mean Corpuscular Hemoglobin Concent 32.7, Mean Platelet Volume 12.2, Neutrophils (%) (Auto) 68.3, Lymphocytes (%) (Auto) 15.5, Monocytes (%) (Auto) 9.2, Eosinophils (%) (Auto) 6.4, Basophils (%) (Auto) 0.5, Neutrophils # (Auto) 5.21, Lymphocytes # (Auto) 1.18, Monocytes # (Auto) 0.70, Eosinophils # (Auto) 0.49, Basophils # (Auto) 0.04 08/08/17 07:22 Red Blood Count 4.46, Mean Corpuscular Volume 92.2, Mean Corpuscular Hemoglobin 30.3, Mean Corpuscular Hemoglobin Concent 32.8, Mean Platelet Volume 12.4, Neutrophils (%) (Auto) 71.4, Lymphocytes (%) (Auto) 13.2, Monocytes (%) (Auto) 10.1, Eosinophils (%) (Auto) 4.6, Basophils (%) (Auto) 0.4, Neutrophils # (Auto ) 5.39, Lymphocytes # (Auto) 1.00, Monocytes # (Auto) 0.76, Eosinophils # (Auto ) 0.35, Basophils # (Auto) 0.03 08/07/17 10:10 08/08/17 07:22 Test 08/07/17 10:10 08/07/17 10:13 08/07/17 10:15 08/07/17 10:22 White Blood Count 7.63 K/uL (4.8-10.8) Red Blood Count 4.78 M/uL (4.7-6.1) Hemoglobin 14.6 g/dL (14.0-18.0) Hematocrit 44.7 % (42-52) Mean Corpuscular Volume 93.5 fL (80-100) Mean Corpuscular Hemoglobin 30.5 pg (25-34) Mean Corpuscular Hemoglobin Concent 32.7 g/dl (32-36) Platelet Count 260 K/uL (130-400) Mean Platelet Volume 12.2 fL (7.4-10.4) Neutrophils (%) (Auto) 68.3 % Lymphocytes (%) (Auto) 15.5 % Monocytes (%) (Auto) 9.2 % Eosinophils (%) (Auto) 6.4 % Basophils (%) (Auto) 0.5 % Neutrophils # (Auto) 5.21 K/uL (1.4-6.5) Lymphocytes # (Auto) 1.18 K/uL (1.2-3.4) Monocytes # (Auto) 0.70 K/uL (0.11-0.59) Eosinophils # (Auto) 0.49 K/uL (0-0.5) Basophils # (Auto) 0.04 K/uL (0-0.2) RDW Standard Deviation 47.9 fL (36.4-46.3) RDW Coefficient of Variation 13.9 % (11.5-14.5) Immature Granulocyte % (Auto) 0.1 % Immature Granulocyte # (Auto) 0.01 K/uL (0.00-0.02) Prothrombin Time 25.3 SECONDS (9.0-12.0) Prothromb Time International Ratio 2.3 (0.9-1.1) Activated Partial Thromboplast Time 40.1 SECONDS (21.0-31.0) Partial Thromboplastin Ratio 1.5 Anion Gap 7.0 mmol/L (3-11) Estimated GFR () 51.6 Estimated GFR (Non- 44.5 BUN/Creatinine Ratio 12.6 (10-20) Estimated Average Glucose 131 mg/dl Hemoglobin A1c 6.2 % (4.5-5.6) Calcium Level 10.0 mg/dl (8.5-10.1) Total Creatine Kinase 208 U/L (39-308) Creatine Kinase MB 5.2 ng/ml (0.5-3.6) Creatine Kinase MB Ratio 2.5 (0-3.0) Troponin I < 0.015 ng/ml (0-0.045) Bedside Glucose 89 mg/dl (70-99) Bedside Prothrombin Time INR 2.8 (0.9-1.1) Bedside Lactic Acid Venous 1.26 mmol/L (0.90-1.70) Test 08/07/17 17:33 08/07/17 23:00 08/08/17 01:27 08/08/17 07:22 Total Creatine Kinase 190 U/L (39-308) 168 U/L (39-308) Creatine Kinase MB 4.1 ng/ml (0.5-3.6) 3.3 ng/ml (0.5-3.6) Creatine Kinase MB Ratio 2.2 (0-3.0) 2.0 (0-3.0) Troponin I < 0.015 ng/ml (0-0.045) < 0.015 ng/ml (0-0.045) Urine Color YELLOW Urine Appearance CLEAR (CLEAR) Urine pH 5.5 (4.5-7.5) Urine Specific [place] 1.017 (1.000-1.030) Urine Protein 1+ (NEG) Urine Glucose (UA) TRACE (NEG) Urine Ketones NEG (NEG) Urine Occult Blood NEG (NEG) Urine Nitrite NEG (NEG) Urine Bilirubin NEG (NEG) Urine Urobilinogen NEG (NEG) Urine Leukocyte Esterase NEG (NEG) Urine WBC (Auto) 1-5 /hpf (0-5) Urine RBC (Auto) 0-4 /hpf (0-4) Urine Hyaline Casts (Auto) 1-5 /lpf (0-5) Urine Epithelial Cells (Auto) 0-5 /lpf (0-5) Urine Bacteria (Auto) NEG (NEG) White Blood Count 7.55 K/uL (4.8-10.8) Red Blood Count 4.46 M/uL (4.7-6.1) Hemoglobin 13.5 g/dL (14.0-18.0) Hematocrit 41.1 % (42-52) Mean Corpuscular Volume 92.2 fL (80-100) Mean Corpuscular Hemoglobin 30.3 pg (25-34) Mean Corpuscular Hemoglobin Concent 32.8 g/dl (32-36) Platelet Count 225 K/uL (130-400) Mean Platelet Volume 12.4 fL (7.4-10.4) Neutrophils (%) (Auto) 71.4 % Lymphocytes (%) (Auto) 13.2 % Monocytes (%) (Auto) 10.1 % Eosinophils (%) (Auto) 4.6 % Basophils (%) (Auto) 0.4 % Neutrophils # (Auto) 5.39 K/uL (1.4-6.5) Lymphocytes # (Auto) 1.00 K/uL (1.2-3.4) Monocytes # (Auto) 0.76 K/uL (0.11-0.59) Eosinophils # (Auto) 0.35 K/uL (0-0.5) Basophils # (Auto) 0.03 K/uL (0-0.2) RDW Standard Deviation 46.4 fL (36.4-46.3) RDW Coefficient of Variation 13.8 % (11.5-14.5) Immature Granulocyte % (Auto) 0.3 % Immature Granulocyte # (Auto) 0.02 K/uL (0.00-0.02) Prothrombin Time 23.9 SECONDS (9.0-12.0) Prothromb Time International Ratio 2.2 (0.9-1.1) Anion Gap 7.0 mmol/L (3-11) Est Creatinine Clear Calc Drug Dose 41.4 ml/min Estimated GFR () 56.5 Estimated GFR (Non- 48.7 BUN/Creatinine Ratio 14.6 (10-20) Calcium Level 9.2 mg/dl (8.5-10.1) Triglycerides Level 133 mg/dl (0-150) Cholesterol Level 186 mg/dl (0-200) HDL Cholesterol 43 mg/dl LDL Cholesterol, Calculated 116 mg/dl VLDL Cholesterol, Calculated 27 mg/dl Cholesterol/HDL Ratio 4.3 Current Inpatient Medications Medications (Trade) Dose Ordered Sig/Jama Route Start Time Stop Time Status Last Admin Dose Admin Miscellaneous Information (Pharmacist Discharge Med Rec Consult) 1 ea UD PRN N/A 08/07/17 12:00 09/06/17 11:59 Amlodipine Besylate (Norvasc Tab) 10 mg DAILY PO 08/08/17 09:00 09/07/17 08:59 Future Hold Aspirin (Ecotrin Tab) 81 mg QAM PO 08/08/17 09:00 09/07/17 08:59 08/08/17 08:33 81 MG Finasteride (Proscar Tab) 5 mg DAILY PO 08/08/17 09:00 09/07/17 08:59 08/08/17 08:32 5 MG Lisinopril (Zestril Tab) 5 mg QAM PO 08/08/17 09:00 09/07/17 08:59 Future Hold Polyethylene (Miralax Powder Packet) 17 gm DAILY PO 08/08/17 09:00 09/07/17 08:59 08/08/17 08:33 17 GM Tamsulosin HCl (Flomax Cap) 0.4 mg HS PO 08/07/17 21:00 09/06/17 20:59 Future Hold 08/07/17 22:22 0.4 MG Warfarin Sodium (Coumadin Tab) 5 mg DAILY@1600 PO 08/08/17 16:00 09/07/17 15:59 08/08/17 15:35 5 MG Ondansetron HCl (Zofran Inj) 4 mg Q6H PRN IV 08/07/17 12:00 09/06/17 11:59 Gadobutrol (Gadavist) 7 mmol UD PRN IV 08/07/17 22:00 08/11/17 21:59 Sodium Chloride 1,000 ml @ 80 mls/hr [id number] IV 08/08/17 15:15 09/07/17 15:14 08/08/17 15:35 80 MLS/HR Total Time Spent: Greater than 30 minutes This includes examination of the patient, discharge planning, medication reconciliation, and communication with other providers. Discharge Instructions Please refer to the electronic Patient Visit Report (Discharge Instructions) for additional information. Follow-Up to be determined once released from [facility] Additional Copies To Reagan Zurita M.D.; José Miguel Cano M.D.; Paul Reid M.D. ; [facility]
[2017-08-08 23:33] VITALS: BP 141/80; PULSE 83; TEMP 37.2; O2SAT 95
[2017-08-09] MEDS: SODIUM CHLORIDE 0.9% 1000ML 1,000 ML IV SCH (03:28)
[2017-08-09 04:15] VITALS: BP 148/89; PULSE 79; TEMP 36.8; O2SAT 96
[2017-08-09 06:12] LABS: BASO % 0.5 %; BASO ABS # 0.04 K/uL (0-0.2); COMPLETE YES; EOS % 4.1 %; HEMATOCRIT 41.3 % (42-52); IG% 0.3 %; LYMPH % 18.3 %; LYMPH ABS # 1.42 K/uL (1.2-3.4); MEAN CELL VOLUME 91.8 fL (80-100); MEAN CORPUSCULAR HEMOGLOBIN 30.4 pg (25-34); MEAN CORPUSCULAR HGB CONC 33.2 g/dl (32-36); MEAN PLATELET VOLUME 12.1 fL (7.4-10.4); MONO % 11.1 %; NEUT % 65.7 %; PLATELET COUNT 213 K/uL (130-400); WHITE BLOOD COUNT 7.74 K/uL (4.8-10.8)
[2017-08-09 06:19] LABS: INR 1.9 (0.9-1.1); PROTHROMBIN TIME (PATIENT) 20.9 SECONDS (9.0-12.0)
[2017-08-09 06:40] LABS: BUN/CREATININE RATIO 14.9 (10-20); CALCIUM 8.8 mg/dl (8.5-10.1); CREATININE 1.3 mg/dl (0.60-1.40); POTASSIUM 4.3 mmol/L (3.5-5.1)
[2017-08-09 07:37] VITALS: BP 135/71; PULSE 102; TEMP 36.5; O2SAT 100
[2017-08-09 07:44] VITALS: BP 142/76; PULSE 94; TEMP 36.7; O2SAT 94
[2017-08-09 08:00] VITALS: BP 142/76; PULSE 94; TEMP 36.7; O2SAT 94
--- NOTE | 2017-08-09 09:00 | Discharge Instructions ---
Discharge Instructions Date of Service Aug 09, 2017. Admission Reason for Admission: History Of Cva, Tia Discharge Discharge Diagnosis / Problem: CVA, severe left internal carotid stenosis Discharge Goals Goal(s): Increase independence Activity Recommendations Activity Limitations: resume your previous activity . Current Hospital Diet Patient's current hospital diet: AHA Diet (Heart Healthy) Discharge Diet Recommended Diet: AHA Diet (Heart Healthy) Procedures Procedures Performed: Brain MRI Head MRA Neck MRA CT Head Chest X ray Echo Pending Studies Studies pending at discharge: no Laboratory Results Hemoglobin A1c Test 08/07/17 10:10 Range/Units Estimated Average Glucose 131 mg/dl Hemoglobin A1c 6.2 H 4.5-5.6 % Lipid Panel Test 08/08/17 07:22 Range/Units Triglycerides Level 133 0-150 mg/dl Cholesterol Level 186 0-200 mg/dl HDL Cholesterol 43 mg/dl Cholesterol/HDL Ratio 4.3 LDL Cholesterol, Calculated 116 mg/dl Medical Emergencies . Who to Call and When: Medical Emergencies: If at any time you feel your situation is an emergency, please call 911 immediately. . Non-Emergent Contact Non-Emergency issues call your: Primary Care Provider . Past History Medical & Surgical History: (1) Carotid stenosis with cerebral infarction less than 8 weeks ago (2) CVA (cerebral vascular accident) (3) History of CVA (cerebrovascular accident) without residual deficits . "Provider Documentation" section prepared by Janene Robles. . VTE Core Measure Inpt VTE Proph given/why not?: Warfarin (Coumadin)
== END 2017-08-09 08:00 | disposition short-term general hospital (02) | DRG 65 ==
LOC: C.EDB 09:54 → C.2T 11:54 → ENRESERV 12:07
PROVIDERS: ADMIT Hospitalist; ATTEND Internal Medicine
DX: I63.9 Cerebral infarction, unspecified (principal); I69.351 Hemiplegia and hemiparesis following cerebral infarction affecting right dominant side; R47.01 Aphasia; Z82.49 Family history of ischemic heart disease and other diseases of the circulatory system; Z79.82 Long term (current) use of aspirin; I10 Essential (primary) hypertension; Z86.718 Personal history of other venous thrombosis and embolism; N40.0 Benign prostatic hyperplasia without lower urinary tract symptoms; K59.00 Constipation, unspecified; Z79.01 Long term (current) use of anticoagulants; I65.22 Occlusion and stenosis of left carotid artery

== ENCOUNTER → 2017-09-28 | Outpatient (CLI) | payer BC ==
[~2017-09-28] MED LIST changes: -AMLO-114 PO; -FLM4 PO; -LSN5 PO
[2017-09-28 12:31] LABS: BLOOD UREA NITROGEN 18 mg/dl (7-18); BUN/CREATININE RATIO 15.3 (10-20); CREATININE 1.15 mg/dl (0.60-1.40)
== END | disposition home or self-care (01) ==
LOC: C.LAB1850 11:05
PROVIDERS: ATTEND Urology
DX: N40.1 Benign prostatic hyperplasia with lower urinary tract symptoms (principal); R33.8 Other retention of urine; N20.0 Calculus of kidney; N39.0 Urinary tract infection, site not specified; R31.9 Hematuria, unspecified

== ENCOUNTER → 2017-11-13 | Outpatient (CLI) | payer BC ==
[~2017-11-13] MED LIST changes: +ACET-1256 PO; +ACET-1693 PO; +ATOR-24 PO; +BISA10SU38 PR; +CIPR-255 PO; +CMD/25 PO; +DONE1TAB26 PO; +ENOXAPARIN SC; +FERR325T5 PO; +FLV1 PO; +KFL500 PO; +LEVE250T PO; +LINE1TAB6 PO; +LISI-725 PO; +METR-163 PO; +MGNO400 PO; +MOML PO; +PANT40TA PO; +POLY335019 PO; +RXC5 PO; +SERT50TA PO; +SODIENE PR; +TAMS0.4C38 PO; +TPRSR25 PO
[2017-11-13 12:39] LABS: HEMATOCRIT 46.3 % (42-52); HEMOGLOBIN 14.7 g/dL (14.0-18.0); MEAN CELL VOLUME 97.5 fL (80-100); MEAN CORPUSCULAR HEMOGLOBIN 30.9 pg (25-34); MEAN CORPUSCULAR HGB CONC 31.7 g/dl (32-36); MEAN PLATELET VOLUME 12.6 fL (7.4-10.4); PLATELET COUNT 206 K/uL (130-400); RED CELL DISTRIBUTION WIDTH CV 15.6 % (11.5-14.5); RED CELL DISTRIBUTION WIDTH SD 56.2 fL (36.4-46.3); WHITE BLOOD COUNT 7.83 K/uL (4.8-10.8)
[2017-11-13 13:49] LABS: ALBUMIN 3.8 gm/dl (3.4-5.0); ALT/SGPT 31 U/L (12-78); AST/SGOT 23 U/L (15-37); BLOOD UREA NITROGEN 18 mg/dl (7-18); CALCIUM 9.5 mg/dl (8.5-10.1); CARBON DIOXIDE 26 mmol/L (21-32); GLUCOSE 104 mg/dl (70-99); SODIUM 142 mmol/L (136-145)
[2017-11-13 14:00] LABS: ALKALINE PHOSPHATASE 75 U/L (45-117); TOTAL PROTEIN 7.4 gm/dl (6.4-8.2)
== END | disposition home or self-care (01) ==
LOC: C.LABPVFM 11:19
PROVIDERS: ATTEND Internal Medicine
DX: N40.1 Benign prostatic hyperplasia with lower urinary tract symptoms (principal); I63.9 Cerebral infarction, unspecified; I48.91 Unspecified atrial fibrillation; E87.5 Hyperkalemia; I82.409 Acute embolism and thrombosis of unspecified deep veins of unspecified lower extremity; R33.8 Other retention of urine; N20.0 Calculus of kidney; N39.0 Urinary tract infection, site not specified; R31.9 Hematuria, unspecified

== ENCOUNTER → 2018-02-14 | Outpatient (CLI) | payer BC ==
[~2018-02-14] MED LIST changes: -ACET-1256 PO; -ACET-1693 PO; -ATOR-24 PO; -BISA10SU38 PR; -CIPR-255 PO; -CMD/25 PO; -DONE1TAB26 PO; -ENOXAPARIN SC; -FERR325T5 PO; -FLV1 PO; -KFL500 PO; -LEVE250T PO; -LINE1TAB6 PO; -LISI-725 PO; -METR-163 PO; -MGNO400 PO; -MOML PO; -PANT40TA PO; -POLY335019 PO; -RXC5 PO; -SERT50TA PO; -SODIENE PR; -TAMS0.4C38 PO; -TPRSR25 PO
[2018-02-14 13:11] LABS: HEMATOCRIT 45.2 % (42-52); HEMOGLOBIN 14.6 g/dL (14.0-18.0); MEAN CORPUSCULAR HEMOGLOBIN 31.7 pg (25-34); MEAN CORPUSCULAR HGB CONC 32.3 g/dl (32-36); MEAN PLATELET VOLUME 13.1 fL (7.4-10.4); PLATELET COUNT 171 K/uL (130-400); RED CELL DISTRIBUTION WIDTH CV 14.2 % (11.5-14.5); RED CELL DISTRIBUTION WIDTH SD 50.5 fL (36.4-46.3); WHITE BLOOD COUNT 8.14 K/uL (4.8-10.8)
[2018-02-14 14:29] LABS: BLOOD UREA NITROGEN 20 mg/dl (7-18); CALCIUM 9.5 mg/dl (8.5-10.1); CARBON DIOXIDE 28 mmol/L (21-32); CHOLESTEROL 132 mg/dl (0-200); CREATININE 1.36 mg/dl (0.60-1.40); GLUCOSE 110 mg/dl (70-99); POTASSIUM 4.2 mmol/L (3.5-5.1); SODIUM 142 mmol/L (136-145)
[2018-02-14 14:32] LABS: LDL CHOLESTEROL CALCULATED 54 mg/dl
== END | disposition home or self-care (01) ==
LOC: C.LABPVFM 10:46
PROVIDERS: ATTEND Internal Medicine
DX: G62.9 Polyneuropathy, unspecified (principal); I63.9 Cerebral infarction, unspecified

== ENCOUNTER 2018-03-13 11:51 | Observation (INO) | payer BC ==
[2018-03-13] VITALS (7 sets, daily range): BP systolic 115–176; BP diastolic 54–90; PULSE 59–70; TEMP 36.2–36.6; O2SAT 91–97; Ht 182.9 cm; Wt 80.0 kg
[~2018-03-13] VITALS: Ht 182.9 cm; Wt 80.0 kg
[2018-03-13] MEDS ORDERED: LIDOCAINE 1% BUFFERED INJ 5 ML VIAL ONE (12:27)
[2018-03-13] MEDS ORDERED: CEFAZOLIN IV 1,000 MG in DEXTROSE 5% 50ML 50 ML IV STA (12:29)
[2018-03-13] MEDS ORDERED: CEFAZOLIN SOD 1000MG/7.5 ML IV PUSH ONE (12:35)
[2018-03-13 12:45] LABS: INR 2.1 (0.9-1.1); PTT PATIENT 33.5 SECONDS (21.0-31.0)
[2018-03-13 12:50] LABS: MEAN CELL VOLUME 96.6 fL (80-100); MEAN CORPUSCULAR HEMOGLOBIN 32.2 pg (25-34); MEAN CORPUSCULAR HGB CONC 33.3 g/dl (32-36); MEAN PLATELET VOLUME 12.2 fL (7.4-10.4); PLATELET COUNT 166 K/uL (130-400); RED CELL DISTRIBUTION WIDTH CV 13.7 % (11.5-14.5); RED CELL DISTRIBUTION WIDTH SD 48.8 fL (36.4-46.3); WHITE BLOOD COUNT 6.62 K/uL (4.8-10.8)
[2018-03-13 12:51] LABS: CALCIUM 9.3 mg/dl (8.5-10.1); CREATININE 1.31 mg/dl (0.60-1.40); POTASSIUM 4.3 mmol/L (3.5-5.1)
--- NOTE | 2018-03-13 13:00 | DIAGNOSTIC IMAGING REPORT ---
L FINGER(S) MIN 2 VIEWS ROUTINE CLINICAL HISTORY: L 3rd and 4th digit cut with saw trauma COMPARISON: None. DISCUSSION: Evidence for considerable soft tissue disruption overlying the second and third fingers. There appears to be a bony laceration with considerable substance loss distal phalanx third finger. There may be a tiny avulsion from the tuft of the distal phalanx of the fourth finger. Considerable degenerative change of the proximal interphalangeal joints. There is no evidence for soft tissue swelling. IMPRESSION: Considerable soft tissue disruption of the third and fourth fingers. 2. Bony laceration with considerable substance loss distal phalanx third finger. 3. Potential tiny avulsion distal phalanx fourth finger. 4. All findings superimposed upon considerable degenerative change of the proximal interphalangeal joints. The above report was generated using voice recognition software. It may contain grammatical, syntax or spelling errors. Electronically signed by: Valentin Floyd M.D. 03/13/2018 12:58 PM Dictated Date/Time: 03/13/2018 12:56 PM
[2018-03-13] MEDS ORDERED: MoRPHine SULFATE 4 MG/ML 1 ML CARP\\VIAL IV STA (13:46)
--- NOTE | 2018-03-13 14:49 | EMERGENCY ROOM VISIT NOTE ---
ED Visit Note First contact with patient: 12:00 The patient was seen and examined with Solomon oBse PA-C. I agree with the history, physical and findings. Please see the note for disposition and details.
[2018-03-13] MEDS ORDERED: PHYTONADIONE PED 1 MG/0.5ML AMP/SYRG IV STA (15:06)
[2018-03-13] MEDS ORDERED: PROTHROMBIN COMP CONC- KCENTRA 2,000 UNIT in SYRINGE 0 ML IV ONE ×2 (15:15→15:30)
[2018-03-13] MEDS ORDERED: PHYTONADIONE INJ 5 MG in SODIUM CHLORIDE 0.9% 50ML 50 ML IV ONE (15:15)
[2018-03-13] MEDS ORDERED: HydrALAZINE HCL 20 MG/ML VIAL IV PRN (15:45)
--- NOTE | 2018-03-13 15:50 | History and Physical ---
History & Physical Date & Time of Service: March 13, 2018 at 15:20 Chief Complaint: Left Finger Cut Primary Care Physician: José Miguel Cano M.D. History of Present Illness 87-year-old white male who was using a power saw today ended up hitting himself in the left hand while he was running. This caused a traumatic amputation at the distal portion of his third finger and a laceration of the fourth fingertip. X-rays showed considerable bone loss of the distal phalanx of the third finger and a tuft fracture of the fourth finger. Patient is currently on Coumadin and INR is 2.1 today. When he arrived he was having mild to moderate bleeding from the third finger mainly. Pressure dressings have been applied to the third finger of which he continued to bleed through. I came down to assess the patient and at that point Solomon GARCIA did a digital block of the third finger for pain control. Bleeding was slowed down through electrocautery that was available in the emergency room and the third finger was rewrapped and a pressure dressing. I discussed the case with Dr. Adams who is here today. Plan will be for revision amputation however I contacted Dr. Fay for a preoperative medical consult. 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 of Carotid Endarterectomy at [place], dorsal column stim implant , rotator cuff repair, hernia repair. Family History Cancer Heart disease Social History Smoking Status: Never Smoker Drug Use: none Marital Status: Housing status: lives with significant other Occupational Status: retired, other Immunizations History of Influenza Vaccine: N/A Influenza Vaccine Date: Aug 21, 2009 History of Tetanus Vaccine?: Yes Tetanus Immunization Date: Aug 02, 2007 History of Pneumococcal: Yes Pneumococcal Date: Aug 02, 2010 History of Hepatitis B Vaccine: Unknown Allergies Coded Allergies: Phenobarbital (Verified Allergy, Mild, RASH, 03/13/18) Clopidogrel (Verified Allergy, Unknown, RASH, 03/13/18) Ibuprofen (Verified Allergy, Unknown, unknown to patient, 03/13/18) Home Medications Scheduled Aspirin (Aspirin Ec), 81 MG PO QAM Finasteride (Proscar), 5 MG PO DAILY Polyethylene (Miralax), 17 GM PO DAILY Warfarin Sod (Coumadin), 5 MG PO DAILY Review of Systems Denies history of recent fevers, chills, flu or cold-like symptoms. No increased cough or sputum production. No overt weight loss or weight gain. No shortness of breath at rest. Question of ambulatory dysfunction. Denies chest pain, chest pressure, irregular heartbeat, denies myocardial infarction. Denies asthma, bronchitis, tuberculosis, hemoptysis, pneumonia. Denies history of unusual abdominal pain, hematemesis, melena, hematochezia, peptic ulcer disease. Positive history of BPH. Denies history of hematuria, pyuria, dysuria , frequent urinary tract infection, renal calculi. Positive history of CVA in the past. Positive history of DVT of the lower extremity in the past. His DVT of the lower extremity was in early 2016 which he has been on chronic Coumadin. Physical Exam Vital Signs Date Time Temp Pulse Resp B/P (MAP) Pulse Ox O2 Delivery O2 Flow Rate FiO2 03/13/18 14:25 52 18 186/98 93 Room Air 03/13/18 13:28 55 18 184/93 97 Room Air 03/13/18 11:53 36.6 58 18 200/99 97 Room Air General: Well-developed, well-nourished, white male, in no acute distress pleasant and cooperative Skin: Warm and dry HEENT: Head is normocephalic and atraumatic, there is no scleral icterus or injection seen at this time, nasal airways patent, oral mucosa pink and moist, neck is supple. Heart: Regular rate and rhythm Lungs: Question of a few upper inspiratory wheezes on the left but otherwise clear to auscultation Abdomen: Soft round nontender, bowel sounds present and active 4 Dietary rectal: Not performed Extremities: On examination the patient's left hand he has 2 pressure dressings on his third and fourth fingers. The dressing was removed from the third finger and was noted his traumatic amputation with bone showing through the minimal soft tissue.He had bleeding from the bone and after inspection, he did have an arterial bleeder. After digital block was performed, the bleeding was controlled from the arterial bleeder but he continued to have bleeding from the bony surface. Another pressure dressing was then applied to this finger. Fourth finger dressing was then removed and was patient was noted to have a tearing laceration of the distal portion of his fingertip. He had mild bleeding from the fingertip which was briefly explored and then another dressing was placed on this finger as well. Distal sensation of the fourth finger was decreased and he was able to actively flex and extend the finger at this time. Diagnostics Laboratory Results Results Past 24 Hours Test 03/13/18 12:27 Range/Units White Blood Count 6.62 4.8-10.8 K/uL Red Blood Count 4.35 4.7-6.1 M/uL Hemoglobin 14.0 14.0-18.0 g/dL Hematocrit 42.0 42-52 % Mean Corpuscular Volume 96.6 80-100 fL Mean Corpuscular Hemoglobin 32.2 25-34 pg Mean Corpuscular Hemoglobin Concent 33.3 32-36 g/dl Platelet Count 166 130-400 K/uL Mean Platelet Volume 12.2 7.4-10.4 fL RDW Standard Deviation 48.8 36.4-46.3 fL RDW Coefficient of Variation 13.7 11.5-14.5 % Neutrophils % (Manual) 69.5 % Lymphocytes % (Manual) 18.3 % Monocytes % (Manual) 8.7 % Eosinophils % (Manual) 2.6 % Basophils % (Manual) 0.9 0-2 % Neutrophils # (Manual) 4.60 1.4-6.5 K/uL Total Absolute Neutrophils 4.60 1.4-6.5 K/uL Lymphocytes # (Manual) 1.21 1.2-3.4 K/uL Total Absolute Lymphocytes 1.21 1.2-3.4 K/uL Monocytes # (Manual) 0.58 0.11-0.59 K/uL Eosinophils # (Manual) 0.17 0-0.5 K/uL Basophils # (Manual) 0.06 0-0.2 K/uL Prothrombin Time 21.8 9.0-12.0 SECONDS Prothromb Time International Ratio 2.1 0.9-1.1 Activated Partial Thromboplast Time 33.5 21.0-31.0 SECONDS Partial Thromboplastin Ratio 1.3 Sodium Level 142 136-145 mmol/L Potassium Level 4.3 3.5-5.1 mmol/L Chloride Level 110 98-107 mmol/L Carbon Dioxide Level 29 21-32 mmol/L Anion Gap 4.0 3-11 mmol/L Blood Urea Nitrogen 21 7-18 mg/dl Creatinine 1.31 0.60-1.40 mg/dl Est Creatinine Clear Calc Drug Dose 42.8 ml/min Estimated GFR () 55.9 Estimated GFR (Non- 48.3 BUN/Creatinine Ratio 15.7 10-20 Random Glucose 96 70-99 mg/dl Calcium Level 9.3 8.5-10.1 mg/dl Diagnostic Radiology L FINGER(S) MIN 2 VIEWS ROUTINE CLINICAL HISTORY: L 3rd and 4th digit cut with saw trauma COMPARISON: None. DISCUSSION: Evidence for considerable soft tissue disruption overlying the second and third fingers. There appears to be a bony laceration with considerable substance loss distal phalanx third finger. There may be a tiny avulsion from the tuft of the distal phalanx of the fourth finger. Considerable degenerative change of the proximal interphalangeal joints. There is no evidence for soft tissue swelling. IMPRESSION: Considerable soft tissue disruption of the third and fourth fingers. 2. Bony laceration with considerable substance loss distal phalanx third finger. 3. Potential tiny avulsion distal phalanx fourth finger. 4. All findings superimposed upon considerable degenerative change of the proximal interphalangeal joints. 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 Dr. Fay has been consulted for medical management. After discussing the case with him, we will likely keep the patient overnight and plan for Lovenox bridging Resuscitation Status VTE Prophylaxis Will order VTE Prophylaxis: Yes
[2018-03-13] MEDS ORDERED: BACITRACIN 50000 UNIT VIAL ONE (15:54)
[2018-03-13] MEDS ORDERED: LIDOCAINE HCL 2% 2 ML VIAL (20MG/ML) ONE ×5 (15:57→17:04)
[2018-03-13] MEDS ORDERED: DEXAMETHASONE SOD INJ 4 MG/ML VIAL ONE (15:57)
[2018-03-13] MEDS ORDERED: PROPOFOL IV EMULSION 10 MG/ML 20 ML VIAL ONE (15:58)
[2018-03-13] MEDS ORDERED: FENTANYL CITRATE INJ 50 MCG/1 ML 2 ML VIAL ONE (15:58)
[2018-03-13] MEDS ORDERED: ONDANSETRON INJ 2 MG/ML 2 ML VIAL ONE (15:58)
[2018-03-13] MEDS ORDERED: MoRPHine SULFATE 4 MG/ML 1 ML CARP\\VIAL IV PRN (16:00)
[2018-03-13] MEDS ORDERED: BUPIVACAINE 0.5 % 5 MG/1 ML PF 10ML VIAL ONE (16:34)
[2018-03-13] MEDS ORDERED: CEFAZOLIN SOD 1 GM VIAL ONE (17:10)
[2018-03-13] MEDS ORDERED: ALUMINUM/MAGNESIUM/SIMETH (MAALOX MAX) 30 ML UDC PO PRN (17:15)
[2018-03-13] MEDS ORDERED: ONDANSETRON INJ 2 MG/ML 2 ML VIAL IV PRN ×2 (17:15→18:30)
[2018-03-13] MEDS ORDERED: MAGNESIUM HYDROXIDE SUSP 30 ML UDC PO PRN (17:15)
--- NOTE | 2018-03-13 17:38 | EMERGENCY ROOM VISIT NOTE ---
ED Visit Note First contact with patient: 12:00 Chief Complaint: "Left finger cut " History of Present Illness: This patient is a 87-year-old male who presents to the Emergency Department via private vehicle for evaluation of their left third and fourth digit laceration. Patient sustained the laceration while operating a saw. They report a large amount of bleeding initially They report no decreased range of motion of the affected digit. Patient rates his current discomfort as a 0/10. Patient's Tetanus status is believed to be currently up-to-date. Medications: As noted below Allergies: As noted below PMH: Stroke, DVT SHx: Patient lives locally ROS: All pertinent positive and negative review of systems are appropriately documented in the History of Present Illness. Physical Exam: VITAL SIGNS - Vital signs and nursing notes were reviewed. Stable hypertensive GENERAL -87-year-old male appearing his stated age who is in no acute distress. Communicates well with provider and answers questions appropriately. SKIN - There is a complete avulsion of the distal tip of the patient's left third digit just distal to the PIP as well as a small fingertip avulsion from the left fourth digit with a tuft avulsion suspected. The edges gape apart with traction. No foreign bodies appreciated. Upon further examination there are deep structures to include bone, and vessels affected. There is a near pulsatile drip of blood from the finger. MUSCULOSKELETAL - Laceration as described above. +5/5 strength appreciated of the affected digit. Full range of motion of the affected digit. NEUROLOGIC - Spinothalamic tract was found to be intact with ability to discriminate sharp versus dull sensation. No sensory defects of the dorsal column were appreciated utilizing light touch for evaluation. VASCULAR - Capillary refill was brisk. IMAGING: L FINGER(S) MIN 2 VIEWS ROUTINE CLINICAL HISTORY: L 3rd and 4th digit cut with saw trauma COMPARISON: None. DISCUSSION: Evidence for considerable soft tissue disruption overlying the second and third fingers. There appears to be a bony laceration with considerable substance loss distal phalanx third finger. There may be a tiny avulsion from the tuft of the distal phalanx of the fourth finger. Considerable degenerative change of the proximal interphalangeal joints. There is no evidence for soft tissue swelling. IMPRESSION: Considerable soft tissue disruption of the third and fourth fingers. 2. Bony laceration with considerable substance loss distal phalanx third finger. 3. Potential tiny avulsion distal phalanx fourth finger. 4. All findings superimposed upon considerable degenerative change of the proximal interphalangeal joints. The above report was generated using voice recognition software. It may contain grammatical, syntax or spelling errors. Electronically signed by: Valentin Floyd M.D. 03/13/2018 12:58 PM Dictated Date/Time: 03/13/2018 12:56 PM ED Course: Patient was seen and evaluated by myself and the attending physician. Risks and benefits of performing primary wound closure versus no repair were discussed with the patient who verbalizes understanding. He presents to us today with clear traumatic amputation of the left third digit. X-ray was obtained. This is verified. Region was pressure dressed but continued to bleed. Simple dressings had to be applied. I consulted orthopedics. I spoke with Luis E Littlejohn, physician perinatal breastfeeding assistant. He came to evaluate the patient. At bedside after I provided a digital block with patient consent instilling 4 cc 1 % buffered lidocaine in the typical fashion after dressing with Betadine, he was able to obtain adequate hemostasis. It was found that the patient should likely be taken to the operating room for further evaluation and management of the irritation. Medicine was also consulted by the orthopedic team. While here I did elect to obtain baseline labs, as well as provide 1 g of Ancef and morphine for pain. CBC reveals no concerning leukocytosis. Hemoglobin 14. INR is 2.1. Chemistry panel does reveal BUN elevated at 21 with creatinine of 1.31. Please refer to for the documentation regarding the patient's stay. Patient also indicated he believes his tetanus is up-to-date. In the evaluation and treatment of this patient, the following differential diagnoses were considered: Finger Fracture, Finger Dislocation, Finger Sprain, Finger Contusion, Jersey Finger, or Mallet Finger. Problem List Medical Problems: (1) Arthritis Status: Chronic Current/Historical Medications Scheduled Aspirin (Aspirin Ec), 81 MG PO QAM Finasteride (Proscar), 5 MG PO DAILY Polyethylene (Miralax), 17 GM PO DAILY Warfarin Sod (Coumadin), 5 MG PO DAILY Allergies Coded Allergies: Phenobarbital (Verified Allergy, Mild, RASH, 03/13/18) Clopidogrel (Verified Allergy, Unknown, RASH, 03/13/18) Ibuprofen (Verified Allergy, Unknown, unknown to patient, 03/13/18) Vital Signs Date Time Temp Pulse Resp B/P (MAP) Pulse Ox O2 Delivery O2 Flow Rate FiO2 03/13/18 16:15 56 18 182/90 97 Room Air 03/13/18 15:41 55 16 186/89 98 Room Air 03/13/18 15:26 53 18 202/88 95 Room Air 03/13/18 14:25 52 18 186/98 93 Room Air 03/13/18 13:28 55 18 184/93 97 Room Air 03/13/18 11:53 36.6 58 18 200/99 97 Room Air Laboratory Results 03/13/18 12:27 Red Blood Count 4.35, Mean Corpuscular Volume 96.6, Mean Corpuscular Hemoglobin 32.2, Mean Corpuscular Hemoglobin Concent 33.3, Mean Platelet Volume 12.2 03/13/18 12:27 Test 03/13/18 12:27 White Blood Count 6.62 K/uL (4.8-10.8) Red Blood Count 4.35 M/uL (4.7-6.1) Hemoglobin 14.0 g/dL (14.0-18.0) Hematocrit 42.0 % (42-52) Mean Corpuscular Volume 96.6 fL (80-100) Mean Corpuscular Hemoglobin 32.2 pg (25-34) Mean Corpuscular Hemoglobin Concent 33.3 g/dl (32-36) Platelet Count 166 K/uL (130-400) Mean Platelet Volume 12.2 fL (7.4-10.4) RDW Standard Deviation 48.8 fL (36.4-46.3) RDW Coefficient of Variation 13.7 % (11.5-14.5) Neutrophils % (Manual) 69.5 % Lymphocytes % (Manual) 18.3 % Monocytes % (Manual) 8.7 % Eosinophils % (Manual) 2.6 % Basophils % (Manual) 0.9 % (0-2) Neutrophils # (Manual) 4.60 K/uL (1.4-6.5) Total Absolute Neutrophils 4.60 K/uL (1.4-6.5) Lymphocytes # (Manual) 1.21 K/uL (1.2-3.4) Total Absolute Lymphocytes 1.21 K/uL (1.2-3.4) Monocytes # (Manual) 0.58 K/uL (0.11-0.59) Eosinophils # (Manual) 0.17 K/uL (0-0.5) Basophils # (Manual) 0.06 K/uL (0-0.2) Prothrombin Time 21.8 SECONDS (9.0-12.0) Prothromb Time International Ratio 2.1 (0.9-1.1) Activated Partial Thromboplast Time 33.5 SECONDS (21.0-31.0) Partial Thromboplastin Ratio 1.3 Anion Gap 4.0 mmol/L (3-11) Est Creatinine Clear Calc Drug Dose 42.8 ml/min Estimated GFR () 55.9 Estimated GFR (Non- 48.3 BUN/Creatinine Ratio 15.7 (10-20) Calcium Level 9.3 mg/dl (8.5-10.1) Medications Administered Medications (Trade) Dose Ordered Sig/Jama Route Start Time Stop Time Status Last Admin Dose Admin Lidocaine HCl (Buffered Lidocaine 1% Inj) 5 ml STK-MED ONCE .ROUTE 03/13/18 12:27 03/13/18 12:28 DC 03/13/18 12:40 5 ML Cefazolin Sodium (Cefazolin 1000mg Iv Push) 1,000 mg STK-MED ONCE .ROUTE 03/13/18 12:35 03/13/18 12:36 DC 03/13/18 12:39 1,000 MG Morphine Sulfate (MoRPHine SULFATE INJ) 4 mg NOW STAT IV 03/13/18 13:46 03/13/18 13:47 DC 03/13/18 13:57 4 MG Phytonadione 5 mg/ Sodium Chloride 50.5 ml @ 102 mls/hr NOW ONCE IV 03/13/18 15:15 03/13/18 15:44 DC 03/13/18 15:25 102 MLS/HR Prothrombin Complex Concent (Human) 2000 unit/ Syringe 80 ml @ 10 mls/min TODAY@1530 ONCE IV 03/13/18 15:30 03/13/18 15:37 DC 03/13/18 15:57 10 MLS/MIN Departure Information Impression Primary Impression: Traumatic amputation of tip of finger of left hand Additional Impression: Laceration Dispostion Other Condition FAIR Referrals Pro,José Miguel Palumbo M.D. (PCP) Patient Instructions My [facility] Health Problem Qualifiers
--- NOTE | 2018-03-13 18:05 | Medical Consult ---
History General Date of Service: March 13, 2018. Stated Complaint: Left Finger Cut HPI The patient is a 87 year old male who presents to [facility] with complaints of Left Finger Cut. The patient's primary care provider is José Miguel Cano M.D.. 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 Pollard, for advice at dosing of K Centra and vitamin K.. Due to the patient's recurrent nature of his strokes and his patent foramen ovale the patient will likely be recommended to initiate therapeutic Lovenox when hemostasis achieved at least 12 hours postop but delay of starting full anticoagulation could be based upon the hemostasis at the wound site would be recommended that the patient then proceed with Lovenox therapy overlapping with Coumadin until he regains therapeutic INR Patient is very little other medical problems taking only a Proscar for BPH MiraLAX for constipation and an aspirin which is currently held due to his bleeding Review of Systems ROS: well nourished well developed. No double vision blurry vision No problems with speech or swallowing No palpitations, chest pain or pressure No Wheezing or breathing issues No abdominal pain nausea vomiting diarrhea changes in appetite or weight No burning urine urine frequency or changes in color Patient has pain in his distal third and fourth fingers are currently wrapped with oozing blood soaking through the dressings No skin rashes or oral lesions No focused back pain or numbness or loss of strength No changes in memory or confusion Past Medical History Past Medical History: BPH, deep vein thrombosis, GERD, hypertension, kidney stones, other Past Surgical History: orthopedic surgery, spinal surgery, other Family History Cancer Heart disease Social History Hx Tobacco Use In Past Year?: No Smoking Status: Never Smoker Alcohol: no current use Marital status: Housing status: lives with significant other Occupational Status: retired, other Immunizations History of Influenza Vaccine: N/A Influenza Vaccine Date: Aug 21, 2009 History of Tetanus Vaccine?: Yes Tetanus Immunization Date: Aug 02, 2007 History of Pneumococcal: Yes Pneumococcal Date: Aug 02, 2010 History of Hepatitis B Vaccine: Unknown History of MDRO History of MDRO: No Allergies Coded Allergies: Phenobarbital (Verified Allergy, Mild, RASH, 03/13/18) Clopidogrel (Verified Allergy, Unknown, RASH, 03/13/18) Ibuprofen (Verified Allergy, Unknown, unknown to patient, 03/13/18) Current Medications Reported Home Medications Medications Dose Route/Sig Max Daily Dose Days Date Category Dose Instructions Coumadin (Warfarin Sod) 5 Mg Tab 5 Mg PO DAILY 01/31/17 Rx Miralax (Polyethylene) 17 Gm Pow 17 Gm PO DAILY 01/31/17 Rx Proscar (Finasteride) 5 Mg Tab 5 Mg PO DAILY 01/06/17 Reported Aspirin Ec (Aspirin) 81 Mg Tab 81 Mg PO QAM 12/03/14 Reported Restart ion 5 days if urine clear Physical Physical Exam Vital Signs: Date Time Temp Pulse Resp B/P (MAP) Pulse Ox O2 Delivery O2 Flow Rate FiO2 03/13/18 16:15 56 18 182/90 97 Room Air 03/13/18 15:41 55 16 186/89 98 Room Air 03/13/18 15:26 53 18 202/88 95 Room Air 03/13/18 14:25 52 18 186/98 93 Room Air 03/13/18 13:28 55 18 184/93 97 Room Air 03/13/18 11:53 36.6 58 18 200/99 97 Room Air General Appearance: WELL-APPEARING, uncomfortable Head: NORMOCEPHALIC, ATRAUMATIC Eyes: PERRLA, EOMI Neck: NORMAL RANGE OF MOTION, NO TENDERNESS, TRACHEA MIDLINE Respiratory: BREATH SOUNDS NORMAL, CLEAR TO AUSCULTATION, CLEAR TO PERCUSSION Cardiovasular: REGULAR RATE/RHYTHM, NORMAL S1S2 Abdomen: NON TENDER, NORMAL BOWEL SOUNDS, NO REBOUND Back: NORMAL INSPECTION, NO CVA TENDERNESS Upper Extremities: NO EDEMA, NORMAL ROM Lower Extremities: NO EDEMA, NORMAL ROM Neuro: ALERT, ORIENTED x 3 Psychiatric: NORMAL AFFECT, NO SUICIDAL IDEATION Diagnostics Labs Results Past 24 Hours Test 03/13/18 12:27 Range/Units White Blood Count 6.62 4.8-10.8 K/uL Red Blood Count 4.35 4.7-6.1 M/uL Hemoglobin 14.0 14.0-18.0 g/dL Hematocrit 42.0 42-52 % Mean Corpuscular Volume 96.6 80-100 fL Mean Corpuscular Hemoglobin 32.2 25-34 pg Mean Corpuscular Hemoglobin Concent 33.3 32-36 g/dl Platelet Count 166 130-400 K/uL Mean Platelet Volume 12.2 7.4-10.4 fL RDW Standard Deviation 48.8 36.4-46.3 fL RDW Coefficient of Variation 13.7 11.5-14.5 % Neutrophils % (Manual) 69.5 % Lymphocytes % (Manual) 18.3 % Monocytes % (Manual) 8.7 % Eosinophils % (Manual) 2.6 % Basophils % (Manual) 0.9 0-2 % Neutrophils # (Manual) 4.60 1.4-6.5 K/uL Total Absolute Neutrophils 4.60 1.4-6.5 K/uL Lymphocytes # (Manual) 1.21 1.2-3.4 K/uL Total Absolute Lymphocytes 1.21 1.2-3.4 K/uL Monocytes # (Manual) 0.58 0.11-0.59 K/uL Eosinophils # (Manual) 0.17 0-0.5 K/uL Basophils # (Manual) 0.06 0-0.2 K/uL Prothrombin Time 21.8 9.0-12.0 SECONDS Prothromb Time International Ratio 2.1 0.9-1.1 Activated Partial Thromboplast Time 33.5 21.0-31.0 SECONDS Partial Thromboplastin Ratio 1.3 Sodium Level 142 136-145 mmol/L Potassium Level 4.3 3.5-5.1 mmol/L Chloride Level 110 98-107 mmol/L Carbon Dioxide Level 29 21-32 mmol/L Anion Gap 4.0 3-11 mmol/L Blood Urea Nitrogen 21 7-18 mg/dl Creatinine 1.31 0.60-1.40 mg/dl Est Creatinine Clear Calc Drug Dose 42.8 ml/min Estimated GFR () 55.9 Estimated GFR (Non- 48.3 BUN/Creatinine Ratio 15.7 10-20 Random Glucose 96 70-99 mg/dl Calcium Level 9.3 8.5-10.1 mg/dl Radiology Interpretation: CXR NORMAL EKG Interpretation: NORMAL EKG Impression Assessment and Plan 79-year-old male here with traumatic irritation of his finger on chronic anticoagulation due to patent foramen ovale and embolic strokes Patient will have his INR reversed with K Center and Coumadin after hemostasis is achieved restarting therapeutic Lovenox and Coumadin this will be at the minimum of 12 hours We will follow him for postop acute blood loss anemia Continuing his Proscar for BPH Watch for constipation initiating MiraLAX when needed
--- NOTE | 2018-03-13 18:17 | [facility] Post Operative Brief Note ---
Immediate Operative Summary Operative Date March 13, 2018. Pre-Operative Diagnosis Traumatic amputation of the distal portion of left third finger, Laceration distal left fourth fingertip Post-Operative Diagnosis Traumatic amputation of the distal portion of left third finger, Laceration distal left fourth fingertip Procedure(s) Performed Revision amputation left long finger level of distal aspect of middle phalanx. Debridement skin subcutaneous tissue and bone of distal phalanx ring finger with laceration repair 1 cm. Irrigation debridement pulsatile lavage long and ring fingers left hand Surgeon Dr. Adams Auxiliary Operator Surgeon(s) None Estimated Blood Loss 3ml Findings Consistent with Post-Op Diagnosis Specimens A: Bone and tissue-left long finger Drains None Anesthesia Type MAC Regional Complication(s) none
[2018-03-13] MEDS ORDERED: EpHEDrine SULFATE INJ 50 MG/ML AMP IV PRN (18:30)
[2018-03-13] MEDS ORDERED: HYDROmorphone INJ 2 MG/ML SYR/VIAL IV PRN (18:30)
[2018-03-13] MEDS ORDERED: ATROPINE SULFATE 0.1 MG/ML 5ML SYR IV PRN (18:30)
[2018-03-13] MEDS ORDERED: PHENYLEPHRINE 100MCG/ML 5ML SYR IV PRN (18:30)
[2018-03-13] MEDS ORDERED: NURSING VERBAL MED ORDER ONE (18:45)
[2018-03-13] MEDS ORDERED: HydrALAZINE HCL 20 MG/ML VIAL IV. ONE (19:00)
[2018-03-13] MEDS ORDERED: IV FLUIDS COMPLETED PRN (19:15)
--- NOTE | 2018-03-13 19:41 | Anesthesiology Progress Note ---
Anesthesia Post Op Note Date & Time March 13, 2018 at 19:41 Vital Signs Pain Intensity: 0 Vital Signs Past 12 Hours Date Time Temp Pulse Resp B/P (MAP) Pulse Ox O2 Delivery O2 Flow Rate FiO2 03/13/18 19:03 72 21 98 03/13/18 19:03 68 21 03/13/18 19:01 178/84 03/13/18 18:58 52 19 03/13/18 18:58 52 19 171/95 100 03/13/18 18:56 186/78 03/13/18 18:55 36.9 95 Nasal Cannula 2 03/13/18 18:53 50 17 100 03/13/18 18:53 50 17 03/13/18 18:51 160/72 03/13/18 18:48 50 22 03/13/18 18:48 66 22 100 03/13/18 18:47 49 16 100 03/13/18 18:47 48 16 03/13/18 18:46 178/78 03/13/18 18:42 46 14 100 03/13/18 18:42 46 14 03/13/18 18:41 199/88 03/13/18 18:37 45 12 03/13/18 18:37 45 12 100 03/13/18 18:36 199/92 03/13/18 18:32 59 20 100 03/13/18 18:32 58 20 03/13/18 18:31 194/89 03/13/18 18:27 47 14 03/13/18 18:27 47 14 100 03/13/18 18:25 184/90 03/13/18 18:22 51 12 03/13/18 18:22 52 12 100 03/13/18 18:21 197/100 03/13/18 18:19 208/92 03/13/18 18:18 201/109 03/13/18 18:17 51 14 96 03/13/18 18:17 52 14 03/13/18 18:17 36.7 52 16 197/100 99 Oxymask 10 03/13/18 16:15 56 18 182/90 97 Room Air 03/13/18 15:41 55 16 186/89 98 Room Air 03/13/18 15:26 53 18 202/88 95 Room Air 03/13/18 14:25 52 18 186/98 93 Room Air 03/13/18 13:28 55 18 184/93 97 Room Air 03/13/18 11:53 36.6 58 18 200/99 97 Room Air Notes Mental Status: alert / awake / arousable, participated in evaluation Pt Amnestic to Procedure: Yes Nausea / Vomiting: adequately controlled Pain: adequately controlled Airway Patency, RR, SpO2: stable & adequate BP & HR: stable & adequate Hydration State: stable & adequate Anesthetic Complications: no major complications apparent
[2018-03-13] MEDS: D5W AND 1/2NSS 1,000 ML IV SCH (19:51)
[2018-03-13] MEDS: ACETAMINOPHEN 500 MG TAB PO SCH (21:36)
[2018-03-13] MEDS: PANTOprazole SOD 40 MG TAB PO SCH (21:37)
[2018-03-13] MEDS: CEFAZOLIN IV 2,000 MG in SYRINGE 0 ML IV SCH (21:39)
--- NOTE | 2018-03-14 00:17 | OPERATIVE REPORT ---
DATE OF OPERATION: 03/13/2018 INDICATION FOR PROCEDURE: This is an 87-year-old male who was working with a power saw type device. He injured his left hand lacerating the long and ring fingers. Radiographs demonstrate that he has at least 2/3 of the distal phalanx of the long finger amputated and a complex soft tissue laceration is noted there clinically. He also had a laceration of the tip of the ring finger just distal phalanx area involving the tuft of the distal phalanx down to bone there with some injury to the nail, but no tendon damage. PREOPERATIVE DIAGNOSES: Lacerations of the left hand long and ring fingers with a partial amputation through the distal phalanx of the long finger with deep soft tissue and skin complex laceration with a deep laceration extending to bone of the ring finger with some nail injury. POSTOPERATIVE DIAGNOSES: Same. PROCEDURE: Left long finger revision amputation at the level of the distal middle phalanx and ring finger irrigation and debridement with sharp debridement, bone, subcutaneous and skin and repair of laceration with irrigation and debridement with pulsatile lavage, long and ring fingers. SURGEON: Ben Adams MD CAKE DECORATOR: None. ANESTHESIA: Sedation with local. OPERATIVE PROCEDURE: The patient taken to the operating room, sedated by the anesthesia department. A digital block performed per anesthesia department. Pneumatic tourniquet was placed on his left upper forearm. Then, his left upper extremity was prepped and draped with a Betadine scrub and paint in usual sterile fashion. The arm was elevated and exsanguinated with Esmarch bandage. Pneumatic tourniquet was raised to 250 mmHg. We used pulsatile lavage antibiotic solution with 3 liters irrigated out the wounds copiously. The attention was first taken to the ring finger. This had a complex stellate type laceration exposing the tip of the ulnar aspect of the distal phalanx with some small comminuted fragments. I debrided the subcutaneous tissue. The small comminuted fragments were sharply debrided. A rongeur was used to round off the end of the tip of the tuft. After further irrigation, I removed a small bit of the nail. There was a wedge shaped dorsal nail loss from the laceration, but nail bed itself was not penetrated. Some of the skin and fat of the top of the distal tuft tissue was repaired to the nail bed with 4-0 Vicryl sutures and we put a couple of simple 4-0 nylon sutures to help close some of the stellate lacerations. I was unable to completely get full skin closure, but the bone was completely covered. Attention was then taken to the long finger. There was extensive dorsal skin loss all the way back to the DIP joint. So I went ahead first and made a fish mouth type incision maintaining a long volar flap and disarticulated the distal phalanx. Then, we assessed the volar flap to see if we can get coverage and there was still too much bone there to get coverage by rotating the volar flap dorsally, so I went ahead and used a sullivan elevator to free up the soft tissues off of the distal aspect of the middle phalanx and then used an oscillating saw to amputate the distal aspect of the middle phalanx and rounded off the edges with a rongeur and then a rasp. After further irrigation, the digital nerves were cut back, the arteries were cauterized and the volar flap was rotated dorsally. I removed some excess skin and subcutaneous tissues so that we could close this at satisfactorily and good tension. Closure was performed with simple nylon sutures. The tourniquet was let down. We held some pressure to control hemostasis and when that was adequate, we placed Xeroform dressings, 4 x 4 gauze dressings, 1 inch Benjy and lightly wrapped Coban. The patient had blood loss about 3 mL and tolerated the procedure well at the time of this dictation without any complications. I attest to the content of the Intraoperative Record and any orders documented therein. Any exception s are noted below.
[2018-03-14] MEDS: ACETAMINOPHEN 500 MG TAB PO SCH ×2 (03:27→11:44)
[2018-03-14 03:31] VITALS: BP 129/77; PULSE 53; TEMP 36.5; O2SAT 94
[2018-03-14] MEDS: CEFAZOLIN IV 2,000 MG in SYRINGE 0 ML IV SCH (04:39)
[2018-03-14] MEDS ORDERED: CEFAZOLIN IV 2,000 MG in DEXTROSE 5% 50ML 50 ML IV SCH (06:00)
[2018-03-14] MEDS: OXYCODONE HCL IR 5 MG TAB (IMMEDIATE RELEASE) PO PRN ×2 (07:35→12:26)
[2018-03-14 07:49] VITALS: BP 160/80; PULSE 60; TEMP 36.5; O2SAT 91
[2018-03-14] MEDS ORDERED: RXC5 PO ×2 (08:28→08:46)
[2018-03-14] MEDS ORDERED: KFL500 PO ×2 (08:28→08:46)
--- NOTE | 2018-03-14 08:30 | Orthopedic Progress Note ---
Orthopedic Progress Note Date of Service March 14, 2018. Subjective Post OP Day: 1 Reports: feeling well, pain controlled w PO medications, Denies: complaints, chest pain, SOB, nausea / vomiting, light headedness, calf pain Objective dressing C/D/I, A&O x3 Date Time Temp Pulse Resp B/P (MAP) Pulse Ox O2 Delivery O2 Flow Rate FiO2 03/14/18 08:03 Room Air 03/14/18 07:49 36.5 60 17 160/80 (106) 91 Room Air 03/14/18 07:30 Room Air 03/14/18 03:31 36.5 53 18 129/77 (94) 94 Room Air 03/13/18 23:57 Room Air 03/13/18 22:21 36.6 70 18 115/54 (74) 91 Room Air 03/13/18 21:25 36.2 67 18 141/85 (103) 93 Room Air 03/13/18 20:39 36.5 61 18 153/90 (111) 95 Room Air 03/13/18 20:28 36.5 66 16 161/78 (105) 97 Nasal Cannula 2.0 03/13/18 19:52 36.4 68 18 176/84 94 Nasal Cannula 2.0 03/13/18 19:50 36.5 59 16 160/81 (107) 96 Nasal Cannula 2.0 03/13/18 19:25 94 Nasal Cannula 2.0 03/13/18 19:25 36.4 68 18 176/84 (114) 94 Nasal Cannula 2.0 03/13/18 19:25 94 Nasal Cannula 2.0 03/13/18 19:03 72 21 98 03/13/18 19:03 68 21 03/13/18 19:01 178/84 03/13/18 18:58 52 19 03/13/18 18:58 52 19 171/95 100 03/13/18 18:56 186/78 03/13/18 18:55 36.9 95 Nasal Cannula 2 03/13/18 18:53 50 17 100 03/13/18 18:53 50 17 03/13/18 18:51 160/72 03/13/18 18:48 50 22 03/13/18 18:48 66 22 100 03/13/18 18:47 49 16 100 03/13/18 18:47 48 16 03/13/18 18:46 178/78 03/13/18 18:42 46 14 100 03/13/18 18:42 46 14 03/13/18 18:41 199/88 03/13/18 18:37 45 12 03/13/18 18:37 45 12 100 03/13/18 18:36 199/92 03/13/18 18:32 59 20 100 03/13/18 18:32 58 20 03/13/18 18:31 194/89 03/13/18 18:27 47 14 03/13/18 18:27 47 14 100 03/13/18 18:25 184/90 03/13/18 18:22 51 12 03/13/18 18:22 52 12 100 03/13/18 18:21 197/100 03/13/18 18:19 208/92 03/13/18 18:18 201/109 03/13/18 18:17 51 14 96 03/13/18 18:17 52 14 03/13/18 18:17 36.7 52 16 197/100 99 Oxymask 10 03/13/18 16:15 56 18 182/90 97 Room Air 03/13/18 15:41 55 16 186/89 98 Room Air 03/13/18 15:26 53 18 202/88 95 Room Air 03/13/18 14:25 52 18 186/98 93 Room Air 03/13/18 13:28 55 18 184/93 97 Room Air 03/13/18 11:53 36.6 58 18 200/99 97 Room Air Laboratory Results 24 Hours: Test 03/13/18 12:27 White Blood Count 6.62 K/uL Red Blood Count 4.35 M/uL Hemoglobin 14.0 g/dL Hematocrit 42.0 % Mean Corpuscular Volume 96.6 fL Mean Corpuscular Hemoglobin 32.2 pg Mean Corpuscular Hemoglobin Concent 33.3 g/dl Platelet Count 166 K/uL Mean Platelet Volume 12.2 fL Prothromb Time International Ratio 2.1 Prothrombin Time 21.8 SECONDS Assessment & Plan Assessment: POD #1 Revision amputation left long finger level of distal aspect of middle phalanx. Debridement skin subcutaneous tissue and bone of distal phalanx ring finger with laceration repair 1 cm. Irrigation debridement pulsatile lavage long and ring fingers left hand Plan: Keep dressings c/d/i, do not remove. Elevate as needed. Pain meds and antibx as ordered. D/C when okay with medicine. Follow up with Dr. Adams this coming SundayMarch 19, call [phone] for appt.
--- NOTE | 2018-03-14 08:33 | Discharge Instructions ---
Discharge Instructions Date of Service March 14, 2018. 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 SPECIAL CARE INSTRUCTIONS: * Your bandage should be left in place until seen in the office by Dr Adams * Keep dressing clean and dry. You may cover with waterproof covering to shower. * Some drainage onto the dressing may occur. This is normal. * If the bandage feels excessively tight, you may loosen the elastic bandage. Then call the physician's office for further instructions. * If possible, keep your hand elevated above the level of your heart for the first 2 post operative days. You may use a sling if necessary. * You should move your fingers regularly (50-100 motions per hour) unless otherwise instructed. * Elevate the hand when at rest on 2 pillows to help reduce swelling. SPECIAL PRECAUTIONS: * If you notice increased drainage, fever over 101 degrees F. or severe, unremitting pain, call your physician/office at . * You may have been prescribed pain medication. If you experience nausea and/or skin rash, discontinue this medication and contact our office for an alternative medication. FOLLOW UP VISIT: If appointment is not already scheduled: Please call [facility] to make a follow-up appointment for March 19, [address] Adams or his PA Valentin Crenshaw PA-C at . . Current Hospital Diet Patient's current hospital diet: Regular Diet Discharge Diet Recommended Diet: Regular Diet Procedures Procedures Performed: Revision amputation left long finger level of distal aspect of middle phalanx. Debridement skin subcutaneous tissue and bone of distal phalanx ring finger with laceration repair 1 cm. Irrigation debridement pulsatile lavage long and ring fingers left hand Pending Studies Studies pending at discharge: no Laboratory Results Lipid Panel Test 02/14/18 10:41 Range/Units Triglycerides Level 79 0-150 mg/dl Cholesterol Level 132 0-200 mg/dl HDL Cholesterol 62 mg/dl Cholesterol/HDL Ratio 2.1 LDL Cholesterol, Calculated 54 mg/dl Medical Emergencies . Who to Call and When: Medical Emergencies: If at any time you feel your situation is an emergency, please call 911 immediately. . Non-Emergent Contact Non-Emergency issues call your: Surgeon Call Non-Emergent contact if: temperature is above 101.5, your pain is not controlled, your pain is worsening, wound has increased drainage, wound has increased redness . "Provider Documentation" section prepared by Luis E Littlejohn. . [place] Drug Monitoring Program Search Results: patient reviewed within database, no issues identified
[2018-03-14] MEDS: D5W AND 1/2NSS 1,000 ML IV SCH (08:35)
[2018-03-14] MEDS: PANTOprazole SOD 40 MG TAB PO SCH (08:37)
[2018-03-14 09:00] LABS: INR 1.2 (0.9-1.1)
[2018-03-14] MEDS ORDERED: POLYETHYLENE (MIRALAX) 17 GM PACK PO SCH (09:00)
[2018-03-14] MEDS ORDERED: FINASTERIDE 5 MG TAB PO SCH (09:00)
[2018-03-14] MEDS ORDERED: ENOXAPARIN SC ×2 (09:13→09:56)
[2018-03-14] MEDS ORDERED: ENOXAPARIN 120 MG/0.8 ML SYR SQ SCH (10:00)
[2018-03-14 11:08] VITALS: BP 160/80; PULSE 60; TEMP 36.5; O2SAT 91
[2018-03-14 12:19] VITALS: BP 120/60; PULSE 62; TEMP 36.7; O2SAT 94
--- NOTE | 2018-03-14 15:12 | Progress Note ---
Subjective Date of Service: March 14, 2018. 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 Status: Acute (7) Traumatic amputation of tip of finger of left hand Status: Acute (8) Urinary retention due to benign prostatic hyperplasia Status: Acute (9) Urinary tract infection Status: Acute Review of Systems Constitutional: No fever, No chills, No weakness, No fatigue Cardiac: No chest pain, No orthopnea Abdomen: No pain, No nausea, No vomiting, No diarrhea Neurologic: No memory loss, No paralysis Psychiatric: No depression symptoms, No anhedonism Objective Vital Signs Date Time Temp Pulse Resp B/P (MAP) Pulse Ox O2 Delivery O2 Flow Rate FiO2 03/14/18 12:19 36.7 62 16 120/60 (80) 94 Room Air 03/14/18 11:08 36.5 60 17 91 Nasal Cannula 03/14/18 08:03 Room Air 03/14/18 07:49 36.5 60 17 160/80 (106) 91 Room Air 03/14/18 07:30 Room Air 03/14/18 03:31 36.5 53 18 129/77 (94) 94 Room Air 03/13/18 23:57 Room Air 03/13/18 22:21 36.6 70 18 115/54 (74) 91 Room Air 03/13/18 21:25 36.2 67 18 141/85 (103) 93 Room Air 03/13/18 20:39 36.5 61 18 153/90 (111) 95 Room Air 03/13/18 20:28 36.5 66 16 161/78 (105) 97 Nasal Cannula 2.0 03/13/18 19:52 36.4 68 18 176/84 94 Nasal Cannula 2.0 03/13/18 19:50 36.5 59 16 160/81 (107) 96 Nasal Cannula 2.0 03/13/18 19:25 94 Nasal Cannula 2.0 03/13/18 19:25 36.4 68 18 176/84 (114) 94 Nasal Cannula 2.0 03/13/18 19:25 94 Nasal Cannula 2.0 03/13/18 19:03 72 21 98 03/13/18 19:03 68 21 03/13/18 19:01 178/84 03/13/18 18:58 52 19 03/13/18 18:58 52 19 171/95 100 03/13/18 18:56 186/78 03/13/18 18:55 36.9 95 Nasal Cannula 2 03/13/18 18:53 50 17 100 03/13/18 18:53 50 17 03/13/18 18:51 160/72 03/13/18 18:48 50 22 03/13/18 18:48 66 22 100 03/13/18 18:47 49 16 100 03/13/18 18:47 48 16 03/13/18 18:46 178/78 03/13/18 18:42 46 14 100 03/13/18 18:42 46 14 03/13/18 18:41 199/88 03/13/18 18:37 45 12 03/13/18 18:37 45 12 100 03/13/18 18:36 199/92 03/13/18 18:32 59 20 100 03/13/18 18:32 58 20 03/13/18 18:31 194/89 03/13/18 18:27 47 14 03/13/18 18:27 47 14 100 03/13/18 18:25 184/90 03/13/18 18:22 51 12 03/13/18 18:22 52 12 100 03/13/18 18:21 197/100 03/13/18 18:19 208/92 03/13/18 18:18 201/109 03/13/18 18:17 51 14 96 03/13/18 18:17 52 14 03/13/18 18:17 36.7 52 16 197/100 99 Oxymask 10 03/13/18 16:15 56 18 182/90 97 Room Air 03/13/18 15:41 55 16 186/89 98 Room Air 03/13/18 15:26 53 18 202/88 95 Room Air Physical Exam General Appearance: WD/WN, + mild distress Eyes: normal inspection, sclerae normal Neck: supple, no JVD Respiratory/Chest: chest non-tender, lungs clear, normal breath sounds Cardiovascular: regular rate, rhythm, no murmur Laboratory Results Last 24 Hours Test 03/14/18 08:39 Prothrombin Time 12.1 SECONDS Prothromb Time International Ratio 1.2 Assessment and Plan 79-year-old male here with traumatic irritation of his finger on chronic anticoagulation due to patent foramen ovale and embolic strokes Patient did have his INR reversed with [facility] and Coumadinrestarting therapeutic Lovenox 1.5 mg/kg daily and Coumadin will be resumed 03/[address] with instructions to have Dr Cano follow this as an outpt Case Management has arranged for home health to eval wound and lovenox teaching at home Continuing his Proscar for BPH Watch for constipation initiating MiraLAX when needed patient
--- NOTE | 2018-03-21 02:36 | DISCHARGE SUMMARY ---
DISCHARGE DIAGNOSIS: Lacerations of the left hand long and ring fingers with partial amputation through the distal phalanx of the long finger with deep soft tissue and skin complex laceration with deep laceration extending to the bone of the ring finger with some nail injury. SECONDARY DIAGNOSES: Benign prostatic hypertrophy, history of deep venous thrombosis, gastroesophageal reflux disease, hypertension, renal calculi, history of cerebrovascular accident, osteoarthritis, carotid stenosis. CONSULTS: Dr. Hebert Fay. COMPLICATIONS: None. PROCEDURES: Left long finger revision amputation at the level of the distal middle phalanx and ring finger irrigation debridement with sharp debridement of bone, subcutaneous, and skin, and repair of laceration with irrigation and debridement with pulsatile lavage, long and ring fingers by Dr. Adams on 03/13/2018. BRIEF HISTORY: As dictated in history of present illness. HOSPITAL SUMMARY: The patient was admitted on the above date with the above noted injury. Dr. Fay was consulted for preoperative medical clearance and postoperative medical coverage. He was then cleared for surgery and taken to the operating room by Dr. Adams where the above noted procedures were performed. On his first postoperative day, he was feeling well and pain was controlled. He had no complaints. Dressings were intact. He is alert and oriented x3. Vital signs were stable. He is afebrile. Hemoglobin was 14. Plans are to continue to keep the dressings on for now. Elevate the hand as needed, pain control, and antibiotics. He was seen by Dr. Fay later that day and it was felt he was stable for discharge. Recommendations for anticoagulation were put in by Dr. Fay and the patient was thusly discharged to home on 03/14/2018, for further review, please see chart. LAB AND X-RAY DATA: As per chart. DISCHARGE INSTRUCTIONS: The patient was discharged to home in satisfactory condition on 03/14/2018. Diet regular. Activity: Follow hand and wrist surgery instructions as noted and special care instructions. Follow up with Dr. Adams on 03/19/2018 for a wound check. DISCHARGE MEDICATIONS: Cephalexin 500 mg 1 tab p.o. q.i.d. for 5 days, oxycodone 5-10 mg p.o. q. 4 hours p.r.n., enoxaparin 120 mg subQ daily x5 days until warfarin is therapeutic, warfarin 5 mg p.o. daily, continue aspirin 81 mg p.o. q.a.m., finasteride 5 mg p.o. daily and MiraLax 17 g p.o. daily.
== END 2018-03-14 15:17 | disposition home or self-care (01) ==
LOC: C.EDB 11:52 → C.MSN 15:55 → ENRESERV 16:16
PROVIDERS: ADMIT Orthopaedic Surgery Sports Medicine; ATTEND Orthopaedic Surgery Sports Medicine
DX: S68.113A Complete traumatic metacarpophalangeal amputation of left middle finger, initial encounter (principal); S61.315A Laceration without foreign body of left ring finger with damage to nail, initial encounter; W31.2XXA Contact with powered woodworking and forming machines, initial encounter; Z86.73 Personal history of transient ischemic attack (TIA), and cerebral infarction without residual deficits; N18.9 Chronic kidney disease, unspecified; Z79.01 Long term (current) use of anticoagulants; Z86.718 Personal history of other venous thrombosis and embolism; Z80.9 Family history of malignant neoplasm, unspecified; Z82.49 Family history of ischemic heart disease and other diseases of the circulatory system; Z88.8 Allergy status to other drugs, medicaments and biological substances; Z79.82 Long term (current) use of aspirin

== ENCOUNTER → 2018-06-18 | Outpatient (CLI) | payer BC ==
[~2018-06-18] MED LIST changes: +ACET-1693 PO; +ATOR-24 PO; +BISA10SU38 PR; +CMD/25 PO; -CMD5 PO; +DONE1TAB26 PO; +FERR325T5 PO; +FLV1 PO; +LEVE250T PO; +LISI-725 PO; +MOML PO; -MRLP17 PO; +PANT40TA PO; +POLY335019 PO; +SERT50TA PO; +SODIENE PR; +TAMS0.4C38 PO; +TPRSR25 PO
--- NOTE | 2018-06-18 13:44 | DIAGNOSTIC IMAGING REPORT ---
ABD/PELVIS NO IV OR ORAL CONT CT DOSE: 362.88 mGy.cm HISTORY: Hematuria N20.0 Nephrolithiasis TECHNIQUE: Multiaxial CT images of the abdomen and pelvis were performed without contrast. A dose lowering technique was utilized adhering to the principles of ALARA. COMPARISON STUDY: 01/29/2017 FINDINGS: Minimal dependent basilar atelectasis. Liver spleen and pancreas appear unremarkable. Several surgical clips are present within the proximal duodenal sweep. Inferior vena caval filter is present. There are bilateral renal cysts unchanged from the prior study. There is no evidence for hydronephrosis. Several nonobstructing renal calcifications are present bilaterally. There is a benign calcification of the right adrenal unchanged. Chronic colonic diverticulosis. No evidence for acute diverticulitis. Prostate is mildly enlarged. Bladder is midline. IMPRESSION: 1. No acute process of the urinary tracts. 2. Bilateral renal cysts as well as several renal microcalcifications unchanged from the prior study. 3. Chronic colonic diverticulosis. 4. No evidence for acute diverticulitis. 5. Prosthetic enlargement. The above report was generated using voice recognition software. It may contain grammatical, syntax or spelling errors. Electronically signed by: Valentin Floyd M.D. 06/18/2018 1:42 PM Dictated Date/Time: 06/18/2018 1:36 PM
== END | disposition home or self-care (01) ==
LOC: C.CTS 13:19
PROVIDERS: ATTEND Urology
DX: N20.0 Calculus of kidney (principal); N28.1 Cyst of kidney, acquired; N39.0 Urinary tract infection, site not specified

== ENCOUNTER → 2018-07-05 | Outpatient (CLI) | payer BC ==
[~2018-07-05] MED LIST changes: -ASPI81TA28 PO; -BISA10SU38 PR; +CIPR-255 PO; -CMD/25 PO; +METR-163 PO; +MGNO400 PO; -MOML PO; -POLY335019 PO; -SODIENE PR
[2018-07-05 08:14] LABS: BASO % 0.5 %; BASO ABS # 0.05 K/uL (0-0.2); EOS % 5.7 %; EOS ABS # 0.56 K/uL (0-0.5); HEMATOCRIT 24.8 % (42-52); HEMOGLOBIN 7.7 g/dL (14.0-18.0); IG# 0.05 K/uL (0.00-0.02); LYMPH % 12.2 %; MEAN CELL VOLUME 99.6 fL (80-100); MEAN CORPUSCULAR HEMOGLOBIN 30.9 pg (25-34); MEAN PLATELET VOLUME 11.3 fL (7.4-10.4); MONO ABS # 0.99 K/uL (0.11-0.59); NEUT % 71.1 %; NEUT ABS # 7.01 K/uL (1.4-6.5); PLATELET COUNT 260 K/uL (130-400); RED CELL DISTRIBUTION WIDTH CV 15.6 % (11.5-14.5); RED CELL DISTRIBUTION WIDTH SD 56.4 fL (36.4-46.3); WHITE BLOOD COUNT 9.86 K/uL (4.8-10.8)
[2018-07-05 08:21] LABS: BLOOD UREA NITROGEN 15 mg/dl (7-18); CALCIUM 8.3 mg/dl (8.5-10.1); CARBON DIOXIDE 26 mmol/L (21-32); CREATININE 1.19 mg/dl (0.60-1.40); GLUCOSE 122 mg/dl (70-99); POTASSIUM 4.2 mmol/L (3.5-5.1); SODIUM 146 mmol/L (136-145)
== END ==
LOC: C.LABCC 07:46
PROVIDERS: ATTEND Internal Medicine
DX: D64.9 Anemia, unspecified (principal)